=== PATIENT | female | born 1975 | race Two or more races ===

== ENCOUNTER → 2020-05-26 15:39 | Outpatient (BNVA) | payer OTHER, SELFPAY | PROVIDERS: PCP Family Medicine; Referring Provider Family Medicine; Visit Provider Surgery | DX: Z76.89 Persons encountering health services in other specified circumstances (principal) ==

== ENCOUNTER 2020-06-04 07:45 | Outpatient (REF) | payer OTHER, SELFPAY ==
--- NOTE | 2020-06-03 08:36 | HO.ANESPROP2 ---
HPI - Anesthesia Eval Consult details Narrative: 44yo F for excision cyst right back PMFSH Past Medical History Medical History (Updated 06/03/20 @ 08:38 by Praveena Gee) Epidermal inclusion cyst Seasonal allergies Family History Family History Mother History of cervical cancer Maternal Aunt History of bone cancer Other History of breast cancer Surgical History Surgical History History of bilateral breast reduction surgery (~1998) Social History Social History Alcohol intake: never Smoking Status: Never smoker Meds Allergies Allergy/AdvReac Type Severity Reaction Status Date / Time seasonal allergies Allergy Unknown Uncoded 07/13/18 00:00 Home Medications Medication Instructions Recorded Confirmed Type cyclobenzaprine 10 mg tablet mg PO 05/26/20 History fluticasone propionate 50 INTRANASAL 05/26/20 History mcg/actuation nasal spray,suspension ibuprofen 800 mg tablet 800 mg PO TID 05/26/20 History loratadine 10 mg tablet 10 mg PO DAILY 05/26/20 History tretinoin 0.05 % topical cream 1 applic TOPICAL BEDTIME 05/26/20 History Exam Exam Date and Time: June 03, 2020 0836 Assessment and Plan Assessment Anesthesia Assessment: Chart Reviewed
[2020-06-04 08:00] VITALS: BP 135/70; PULSE 72; RESP 16; TEMP 36.6; O2SAT 100
[2020-06-04 08:01] VITALS: BMI 29.3
[2020-06-04 08:53] VITALS: BP 106/55; PULSE 75; RESP 16; O2SAT 99
--- NOTE | 2020-06-04 09:14 | PC.NURSE ---
PT TOLERATED PROCEDURE WELL. RENETTA PIRESP ON CASE WITH .
--- NOTE | 2020-06-04 14:30 | OP_ITS ---
SURGEON: Azeem Key MD INDICATIONS: The patient is a 44-year-old female, with note of a cystic mass on the left upper back measuring about 1 cm in size and lipomatous mass on the left forearm measuring about 1.5 cm in size. She wanted both of these lesions removed. She understood the technique of procedure under local anesthesia and she was aware of the risks, benefits, and alternatives. PREOPERATIVE DIAGNOSIS: POSTOPERATIVE DIAGNOSIS: PROCEDURE PERFORMED: Excision of epidermal cyst, right upper back and excision of lipoma, left forearm. ESTIMATED BLOOD LOSS: COMPLICATIONS: ANESTHESIA: ASSISTANTS: Clara Ibarra, nurse practitioner. SPECIMENS: DESCRIPTION OF PROCEDURE: She was brought to the minor procedure room. She was placed in left lateral decubitus position to expose the epidermal cyst on the right upper back near the axilla. This area was prepped and draped. Lidocaine 1% was used for local anesthesia. An elliptical incision was made in the skin overlying the epidermal cyst using blade #15, it was carried down to full-thickness of the skin and subcutaneous fat to excise the entire indurated area. This was sent as specimen. The incision was closed with full-thickness nylon 3-0 interrupted sutures. Dressings were applied. She was then placed supine on the exam table. The area of the lipoma on the left forearm was prepped and draped. Lidocaine 1% was used for local anesthesia and incision was made in the skin overlying this lipoma using blade #15 and this was carried down to full-thickness of the skin and subcutaneous fat. We then proceeded to do sharp dissection of the lipomatous mass. This was delivered and sent as specimen. Again, this was about a 1.5 cm lipoma. The incision was closed with full-thickness nylon 3-0 interrupted sutures. Dressings were applied. She tolerated procedure well. There were no complications noted. Estimated blood loss was about 5 mL. She will be seen in the office for followup for removal of sutures. MD LUCI Chavez/GAURANG / [id number]
== END 2020-06-04 07:46 | disposition home or self-care (01) ==
LOC: HO.MS 07:45
PROVIDERS: PCP Family Medicine; Visit Provider Surgery
PROC: (CPT 11402; principal; 2020-06-04 08:00)
DX: L72.0 Epidermal cyst (principal); D17.22 Benign lipomatous neoplasm of skin and subcutaneous tissue of left arm
CPT/HCPCS: 11402; 25075; 88304; 88341; 88342; 88360

== ENCOUNTER → 2020-06-16 09:52 | Outpatient (BNVA) | payer OTHER, SELFPAY | PROVIDERS: PCP Family Medicine; Visit Provider Surgery | DX: Z76.89 Persons encountering health services in other specified circumstances (principal) ==

== ENCOUNTER → 2020-10-29 10:15 | Outpatient (BNVA) | payer OTHER, SELFPAY | PROVIDERS: PCP Family Medicine; Visit Provider Obstetrics & Gynecology ==

== ENCOUNTER 2020-11-06 08:25 | Outpatient (REF) | payer OTHER, SELFPAY ==
[2020-11-06 16:41] LABS: CT PCR NOT DETECTED (Not Detect.); NG PCR NOT DETECTED (Not Detect.)
[2020-11-11 23:03] LABS: HPV mRNA E6/E7 rflx Not Detected (Not Detected)
== END 2020-11-06 08:26 | disposition home or self-care (01) ==
LOC: HO.LAB 08:25
PROVIDERS: PCP Family Medicine; Visit Provider Obstetrics & Gynecology
DX: Z01.419 Encounter for gynecological examination (general) (routine) without abnormal findings (principal); N94.9 Unspecified condition associated with female genital organs and menstrual cycle; Z79.899 Other long term (current) drug therapy
CPT/HCPCS: 87491; 87591; 87624; 88142

== ENCOUNTER 2020-11-11 15:19 | Outpatient (REF) | payer OTHER, SELFPAY ==
--- NOTE | ~2020-11-11 | US_ITS ---
EXAMINATION:US transvaginal, US pelvic complete CLINICAL INFORMATION: Reason for Exam N94.9 - Unspecified condition associated with female katlyn... COMPARISON: No priors available. LMP: 10/27/2020 FINDINGS: UTERUS: The uterus is anteverted. Size: 8.4 x 4.7 x 5.3 cm. Uterine mass: Intramural uterine mass likely fibroid 2.1 x 1.5 x 2.3 cm right anterior wall. Cervix: Grossly unremarkable. Endometrium: No ultrasound evidence of endometrial lesion. endometrial thickness measures 0.[address] in proper position. ADNEXA: Normal Right ovary: Normal in size. Right ovarian cyst 1.8 x 1.4 x 1.6 cm probably recently ruptured corpus luteal cyst. There is adjacent free fluid.. Left ovary: Normal in size. Doppler exam: Normal Doppler flow identified in both ovaries. FREE FLUID: Trace amount of free fluid. OTHER FINDINGS: None US/US transvaginal IMPRESSION: 1. Intramural uterine mass likely fibroid 2.3 cm. 2. Involuted cyst with adjacent small amount of fluid probably a ruptured corpus luteal cyst right ovary 1.8 cm. 3. IUD in place properly positioned.
--- NOTE | ~2020-11-11 | US_ITS ---
EXAMINATION:US transvaginal, US pelvic complete CLINICAL INFORMATION: Reason for Exam N94.9 - Unspecified condition associated with female katlyn... COMPARISON: No priors available. LMP: 10/27/2020 FINDINGS: UTERUS: The uterus is anteverted. Size: 8.4 x 4.7 x 5.3 cm. Uterine mass: Intramural uterine mass likely fibroid 2.1 x 1.5 x 2.3 cm right anterior wall. Cervix: Grossly unremarkable. Endometrium: No ultrasound evidence of endometrial lesion. endometrial thickness measures 0.[address] in proper position. ADNEXA: Normal Right ovary: Normal in size. Right ovarian cyst 1.8 x 1.4 x 1.6 cm probably recently ruptured corpus luteal cyst. There is adjacent free fluid.. Left ovary: Normal in size. Doppler exam: Normal Doppler flow identified in both ovaries. FREE FLUID: Trace amount of free fluid. OTHER FINDINGS: None US/US pelvic complete IMPRESSION: 1. Intramural uterine mass likely fibroid 2.3 cm. 2. Involuted cyst with adjacent small amount of fluid probably a ruptured corpus luteal cyst right ovary 1.8 cm. 3. IUD in place properly positioned.
== END 2020-11-11 15:20 | disposition home or self-care (01) ==
LOC: HO.US 15:19
PROVIDERS: Visit Provider Obstetrics & Gynecology
DX: N94.9 Unspecified condition associated with female genital organs and menstrual cycle (principal)
CPT/HCPCS: 76830; 76856

== ENCOUNTER → 2020-11-26 11:59 | Outpatient (BNVA) | payer OTHER, SELFPAY | PROVIDERS: PCP Family Medicine; Visit Provider Obstetrics & Gynecology ==

== ENCOUNTER 2020-12-29 14:14 | Outpatient (REF) | payer OTHER, SELFPAY ==
--- NOTE | ~2020-12-29 | MM_ITS ---
EXAMINATION: MM SCREENING DIGITAL BREAST TOMOSYNTHESIS, BILATERAL CLINICAL INFORMATION: Screening. Asymptomatic. The lifetime risk of breast cancer based on the Tyrer-Cuzick Model is 7.2%. COMPARISON: Mammography: September 2017 and studies dating back to June 22, 2014 TECHNIQUE: Digital breast tomosynthesis is performed in both the craniocaudal and mediolateral oblique views along with computer-aided detection (CAD). Synthesized 2D images are generated from the tomosynthesis. FINDINGS: The breasts are heterogeneously dense, which may obscure small masses (ACR BI-RADS breast composition Category c). There are no significant masses, abnormal calcifications, or other abnormalities. MM/MM tomosynthesis screening BI IMPRESSION: There are no significant changes from prior study. ASSESSMENT: BI-RADS 1: Negative RECOMMENDATION: Routine annual mammography screening. This patient's information was entered into a reminder system with a target due date for their next mammogram.
== END 2020-12-29 14:15 | disposition home or self-care (01) ==
LOC: HO.MAMMO 14:14
PROVIDERS: Visit Provider Obstetrics & Gynecology
DX: Z12.31 Encounter for screening mammogram for malignant neoplasm of breast (principal)
CPT/HCPCS: 77063; 77067

== ENCOUNTER 2021-04-14 08:33 | Outpatient (REF) | payer OTHER, SELFPAY ==
[2021-04-14 16:21] LABS: CT PCR NOT DETECTED (Not Detect.); NG PCR NOT DETECTED (Not Detect.)
== END 2021-04-14 08:34 | disposition home or self-care (01) ==
LOC: HO.LAB 08:33
PROVIDERS: PCP Family Medicine; Visit Provider Obstetrics & Gynecology
DX: Z30.433 Encounter for removal and reinsertion of intrauterine contraceptive device (principal)
CPT/HCPCS: 58300; 58301; 87491; 87591

== ENCOUNTER → 2021-11-09 09:51 | Outpatient (BNVA) | payer OTHER, SELFPAY | PROVIDERS: PCP Family Medicine; Visit Provider Obstetrics & Gynecology | DX: Z13.89 Encounter for screening for other disorder (principal) ==

== ENCOUNTER 2022-05-07 14:16 | Emergency (ER) | payer OTHER, SELFPAY ==
--- NOTE | 2022-05-07 14:18 | ECG_ITS ---
Test Reason : CHEST PAIN Blood Pressure : / mmHG Vent. Rate : 070 BPM Atrial Rate : 070 BPM P-R Int : 166 ms QRS Dur : 086 ms QT Int : 408 ms P-R-T Axes : 049 031 038 degrees QTc Int : 440 ms Normal sinus rhythm Normal ECG No previous ECGs available Referred By: Generic ED Physician Electronically Signed By:NATALIYA HAMPTON
[2022-05-07 14:19] VITALS: BP 120/77; PULSE 72; RESP 18; TEMP 36.9; O2SAT 100; BMI 30.9
[2022-05-07 14:43] LABS: MANUAL DIFF FLAG NO
[2022-05-07 14:45] LABS: Basophils Percent Auto 0.3 % (0-2); Eosinophils Absolute Auto 0.1 X10*3/uL (0.0-0.4); Eosinophils Percent Auto 1.2 % (0-4); Hemoglobin 13.1 g/dl (12.0-16.0); Imm Gran Abs Auto 0.01 X10*3/uL (0.00-0.03); Imm Gran Pct Auto 0.2 % (0.0-0.4); Lymphocytes Absolute Auto 2.7 X10*3/uL (1.2-4.9); Lymphocytes Percent Auto 46.1 % (20-40); Mean Corpuscular HGB Conc 34.5 g/dl (31.0-35.0); Mean Corpuscular Hemoglobin 29.5 pg (27.0-33.0); Mean Corpuscular Volume 85.6 fL (80.0-98.0); Mean Platelet Volume 9.5 fL (9.4-12.3); Monocytes Absolute Auto 0.7 X10*3/uL (0.1-1.2); Monocytes Percent Auto 11.2 % (2-11); Neutrophils Absolute Auto 2.4 x10*3/uL (2.0-8.3); Platelet Count 285 X10*3/uL (160-400); Red Blood Count 4.44 X10*6/uL (4.20-5.50); Red Cell Distribution Width 12.2 % (11.0-16.0); White Blood Count 5.8 X10*3/uL (4.8-10.8)
--- NOTE | 2022-05-07 14:58 | ED_ITS ---
HPI - Chest Pain General Chief Complaint: Chest Pain Stated Complaint: Chest pressure sent from [facility] Time Seen by Provider: 05/07/22 14:34 Source: patient Mode of arrival: EMS Limitations: no limitations History of Present Illness HPI narrative: Patient presents emergency department via EMS for evaluation of chest pressure. Patient reports that she was at work today, at a [employer], and was advised by coworkers to come to the emergency department. She reports she has been having left-sided chest pain for the past 2 days. It is described as pressure, unable to be located as it is diffuse across the left chest. At times radiating into the left shoulder, axilla, and left upper arm. Pain is described as a heaviness/pressure. It is intermittent. Typically lasting 1-2 hours at a time then resolving on its own for a few hours before returning again. She is unable to identify any exacerbating or alleviating factors. She was given aspirin and nitro prior to arrival which did relieve her symptoms. Denies headache, vision changes, dizziness, lightheadedness, neck pain, palpitations, shortness of breath, difficulty breathing, nausea, vomiting, abdominal pain, numbness or tingling to the extremities, weakness. Related Data Home Medications Medication Instructions Recorded Confirmed fluticasone propionate 50 intranasal 05/26/20 11/06/20 mcg/actuation nasal spray,suspension ibuprofen 800 mg tablet 800 mg PO TID 05/26/20 11/06/20 loratadine 10 mg tablet 10 mg PO DAILY 05/26/20 11/06/20 levonorgestrel 20 mcg/24 hours (7 intrauterine 10/29/20 11/06/20 yrs) 52 mg intrauterine device (Mirena) bupropion HCl 100 mg tablet,12 hr 100 mg PO BID 11/09/21 sustained-release Allergies Allergy/AdvReac Type Severity Reaction Status Date / Time seasonal allergies Allergy Unknown unk Uncoded 11/09/21 09:56 Review of Systems Review of Systems: Constitutional : No Weight loss, No Fever, No Chills ENT/Mouth :? No sore throat, No Rhinorrhea Eyes: No Eye Pain, No Swelling Cardiovascular : pos Chest Pain, no SOB, no Dyspnea on Exertion, No Orthopnea, No Edema, No Palpitations Respiratory : No Cough, No Sputum Gastrointestinal : no Nausea, No Vomiting, No Diarrhea, No abdominal Pain, No Hematochezia, No Melena Genitourinary : No Dysuria, No Urinary Frequency Musculoskeletal : No joint pain, No Myalgias, No Joint Swelling Skin : No Skin Lesions, No rash Neuro : No Weakness, No Numbness, No Dizziness, No Headache Psych : No Anxiety/Panic, No Depression Heme/Lymph: No Bruising, No Lymphadenopathy Endocrine : No Polyuria, No Polydipsia Yes all other systems are reviewed and are negative [facility] Past Medical History Attestation statement: The following information was validated with the patient. Source: old records reviewed Medical History Epidermal inclusion cyst Lipoma of arm Seasonal allergies Surgical History History of bilateral breast reduction surgery (~1998) Family History Family History Mother History of cervical cancer Maternal Aunt History of bone cancer Other History of breast cancer Social History Social History Alcohol intake: never Second Hand Smoke Exposure: No Advance Directives: No Advance Directives Information Provided: No Physical Exam Vital Signs: Vital Signs: Last Vital Signs Temp 98.4 F 05/07/22 14:19 Pulse 72 05/07/22 14:19 Resp 18 05/07/22 14:19 BP 120/77 05/07/22 14:19 Pulse Ox 100 05/07/22 14:19 O2 Del Method 05/07/22 14:19 BMI result Body Mass Index 30.9 Appearance: Alert.?Oriented to person, place and time. No acute distress.?Normal affect. Eyes: Pupils equal, round and reactive to light.? EOMI. No nystagmus. ENT: Pharynx normal.?? Neck: Normal inspection.? Neck supple.?? CVS: Heart sounds normal. Normal heart rate and rhythm.? Pulses normal.?? Respiratory: No respiratory distress.? Lung sounds clear to auscultation bilaterally?? Abdomen: Soft and non-tender. Normoactive bowel sounds. Skin: Skin warm and dry.? Normal skin color.? ?? Extremities: No lower extremity edema.? No calf ttp? Neuro: Moves all extremities spontaneously. Sensation intact bilaterally. CN II- XII intact. No focal neuro deficits. Ambulates with normal steady gait. Course Course Course Narrative: Patient is a 46-year-old female with no significant past medical history presents emergency department today for evaluation of chest pain. She is overall well appearing on examination. Pain is resolved at this time. Will obtain CBC to evaluate for leukocytosis/ anemia, CMP to evaluate for abnormal electrolytes /abnormal renal function/ abnormal hepatic function, EKG and troponin to evaluate for ischemia/ACS. Chest x-ray to evaluate for consolidation/ infiltrate/ mass/ pulmonary congestion, D-dimer, Urinalysis. Reevaluation(s) Reevaluation #1: CBC is overall unremarkable. CMP is unremarkable. is negative. Troponin is normal, EKG reveals normal sinus rhythm no acute ischemic findings. D-dimer <150. Not consistent with ACS or PE. Discussed these findings with sofía mccormack. Advised pain may be secondary to musculoskeletal in nature. At this time will discharge patient home, advised outpatient follow-up with her primary care provider within 3 days. Reviewed worrisome signs and symptoms to return back to the emergency department for. All questions were answered, patient discharged home in stable condition. MDM - Chest Pain Medical Records Data Attestation: I reviewed the patient's medical records. Lab Data Attestation: I reviewed the patient's lab results. Result diagrams: 05/07/22 14:31 05/07/22 14:31 Labs: Lab Results 05/07/22 05/07/22 05/07/22 Range/Units 14:31 14:31 14:31 WBC 5.8 (4.8-10.8) X10*3/uL RBC 4.44 (4.20-5.50) X10*6/uL Hgb 13.1 (12.0-16.0) g/dl Hct 38.0 (37.0-47.0) % MCV 85.6 (80.0-98.0) fL MCH 29.5 (27.0-33.0) pg MCHC 34.5 (31.0-35.0) g/dl RDW 12.2 (11.0-16.0) % Plt Count 285 (160-400) X10*3/uL MPV 9.5 (9.4-12.3) fL Immature Gran % (Auto) 0.2 (0.0-0.4) % Neut % (Auto) 41.0 L (45-73) % Lymph % (Auto) 46.1 H (20-40) % [place] % (Auto) 11.2 H (2-11) % Eos % (Auto) 1.2 (0-4) % Baso % (Auto) 0.3 (0-2) % Lymph # (Auto) 2.7 (1.2-4.9) X10*3/uL [place] # (Auto) 0.7 (0.1-1.2) X10*3/uL Eos # (Auto) 0.1 (0.0-0.4) X10*3/uL Baso # (Auto) 0.0 (0.0-0.2) X10*3/uL Abs Immat Gran (auto) 0.01 (0.00-0.03) X10*3/uL Absolute Neuts (auto) 2.4 (2.0-8.3) x10*3/uL Absolute Nucleated RBC 0.000 (0.0-0.012) X10*3/uL Nucleated RBC % (auto) 0.0 (0.0-0.2) /100WBC D-Dimer High Sensitivty NG/ML Sodium 139 (135-145) mmol/L Potassium 4.1 (3.3-5.1) mmol/L Chloride 104 (96-108) mmol/L Carbon Dioxide 25 (22-29) mmol/L Anion Gap 14 (12-20) BUN 13 (9-16) mg/dL Creatinine 0.75 (0.5-1.4) mg/dL Estim Creat Clear Calc 95.8 Estimated GFR > 60 Random Glucose 88 (60-115) mg/dL Calcium 9.5 (8.4-10.2) mg/dL Total Bilirubin 0.3 (0.0-1.0) mg/dL AST 16 (5-31) U/L ALT 19 (0-31) U/L Alkaline Phosphatase 52 (39-117) U/L Troponin I High Sens < 3.5 (<3.5-17.0) ng/L Total Protein 7.8 (6.5-8.0) g/dL Albumin 4.5 (3.5-5.0) g/dL Beta HCG, Quant < 2 mIU/mL 05/07/22 Range/Units 14:53 WBC (4.8-10.8) X10*3/uL RBC (4.20-5.50) X10*6/uL Hgb (12.0-16.0) g/dl Hct (37.0-47.0) % MCV (80.0-98.0) fL MCH (27.0-33.0) pg MCHC (31.0-35.0) g/dl RDW (11.0-16.0) % Plt Count (160-400) X10*3/uL MPV (9.4-12.3) fL Immature Gran % (Auto) (0.0-0.4) % Neut % (Auto) (45-73) % Lymph % (Auto) (20-40) % [place] % (Auto) (2-11) % Eos % (Auto) (0-4) % Baso % (Auto) (0-2) % Lymph # (Auto) (1.2-4.9) X10*3/uL [place] # (Auto) (0.1-1.2) X10*3/uL Eos # (Auto) (0.0-0.4) X10*3/uL Baso # (Auto) (0.0-0.2) X10*3/uL Abs Immat Gran (auto) (0.00-0.03) X10*3/uL Absolute Neuts (auto) (2.0-8.3) x10*3/uL Absolute Nucleated RBC (0.0-0.012) X10*3/uL Nucleated RBC % (auto) (0.0-0.2) /100WBC D-Dimer High Sensitivty < 150 NG/ML Sodium (135-145) mmol/L Potassium (3.3-5.1) mmol/L Chloride (96-108) mmol/L Carbon Dioxide (22-29) mmol/L Anion Gap (12-20) BUN (9-16) mg/dL Creatinine (0.5-1.4) mg/dL Estim Creat Clear Calc Estimated GFR Random Glucose (60-115) mg/dL Calcium (8.4-10.2) mg/dL Total Bilirubin (0.0-1.0) mg/dL AST (5-31) U/L ALT (0-31) U/L Alkaline Phosphatase (39-117) U/L Troponin I High Sens (<3.5-17.0) ng/L Total Protein (6.5-8.0) g/dL Albumin (3.5-5.0) g/dL Beta HCG, Quant mIU/mL ECG Data ECG #1: Prior ECG tracings: not available for review Interpretation: Rate: 70 Rhythm:? Normal sinus rhythm [place]:? Normal Normal P waves.? Normal EZRA.?? Normal QRS complex.?? ST T wave :??No ST elevation, no ST depression, no T-wave inversion qTC: 440 The study has been interpreted contemporaneously by me. Discharge Plan Discharge Clinical Impression: Chest pain, Atypical chest pain Patient Disposition: Home, Self-Care Instructions: Chest Pain (ED) Additional Instructions: Your blood work and EKG today were normal. Please contact your primary care provider to arrange for a follow-up visit in 2-3 days. You should return to the emergency department any new or worsening symptoms or concerns. Prescriptions: No Action ibuprofen 800 mg tablet 800 mg PO TID loratadine 10 mg tablet 10 mg PO DAILY fluticasone propionate 50 mcg/actuation spray,suspension intranasal Mirena 20 mcg/24 hours (6 yrs) 52 mg intrauterine device intrauterine bupropion HCl 100 mg tablet sustained-release 12 hr 100 mg PO BID
[2022-05-07 15:01] LABS: Alanine Aminotransferase 19 U/L (0-31); Albumin Level 4.5 g/dL (3.5-5.0); Alkaline Phosphatase 52 U/L (39-117); Anion Gap 14 (12-20); Aspartate Amino Transferase 16 U/L (5-31); Bilirubin Total 0.3 mg/dL (0.0-1.0); Blood Urea Nitrogen 13 mg/dL (9-16); Calcium 9.5 mg/dL (8.4-10.2); Carbon Dioxide 25 mmol/L (22-29); Chloride 104 mmol/L (96-108); Creatinine Clr Calc Pharmacy 95.8; Estimated Glomerular Filt Rate > 60; Glucose Random 88 mg/dL (60-115); Potassium 4.1 mmol/L (3.3-5.1); Sodium 139 mmol/L (135-145); Total Protein 7.8 g/dL (6.5-8.0)
[2022-05-07 15:07] LABS: Troponin-I High Sensitivity < 3.5 ng/L (<3.5-17.0)
[2022-05-07 15:10] LABS: D Dimer High Sensitivity < 150 NG/ML
[2022-05-07 15:30] LABS: HCG Quantitative < 2 mIU/mL
== END 2022-05-07 16:57 | disposition home or self-care (01) ==
PROVIDERS: Nurse Practitioner Family; Emergency Provider Emergency Medicine; PCP Family Medicine
DX: R07.89 Other chest pain (principal); Z79.899 Other long term (current) drug therapy
CPT/HCPCS: 36415; 80053; 84484; 84702; 85025; 85379; 93005; 99283

== ENCOUNTER 2022-09-24 07:44 | Outpatient (REF) | payer OTHER, SELFPAY ==
--- NOTE | ~2022-09-24 | XR_ITS ---
EXAMINATION: XR lumbar spine 2-3V CLINICAL INFORMATION: Reason for Exam ACUTE MIDLINE LOW BACK PAIN ,PAIN IN SACRAL AREA COMPARISON: None TECHNIQUE: 3 views of the lumbar spine FINDINGS: There are 6 nonrib-bearing lumbar-type vertebral bodies with lumbarization of S1. The last well-formed disc space will be referred to as S1-S2. Vertebral body heights are maintained. Alignment is maintained. Disc space heights are maintained. Paravertebral soft tissues are unremarkable. XR/XR lumbar spine 2-3V IMPRESSION: 6 nonrib-bearing lumbar-type vertebral bodies with lumbarization of S1. The last well-formed disc space will be referred to as S1-S2.
== END 2022-09-24 07:45 | disposition home or self-care (01) ==
LOC: HO.XRAY 07:44
PROVIDERS: PCP Family Medicine; Visit Provider Family Medicine
DX: M54.50 Low back pain, unspecified (principal)
CPT/HCPCS: 72100

== ENCOUNTER 2023-11-18 11:28 | Outpatient (REF) | payer OTHER, SELFPAY ==
[2023-11-18 13:24] LABS: MANUAL DIFF FLAG NO
[2023-11-18 13:46] LABS: Basophils Percent Auto 0.4 % (0-2); Eosinophils Absolute Auto 0.2 X10*3/uL (0.0-0.4); Eosinophils Percent Auto 3.3 % (0-4); Hematocrit 36.5 % (37.0-47.0); Hemoglobin 12.4 g/dl (12.0-16.0); Imm Gran Abs Auto 0.01 X10*3/uL (0.00-0.03); Imm Gran Pct Auto 0.2 % (0.0-0.4); Lymphocytes Absolute Auto 2.3 X10*3/uL (1.2-4.9); Lymphocytes Percent Auto 47.3 % (20-40); Mean Corpuscular Hemoglobin 29.7 pg (27.0-33.0); Mean Corpuscular Volume 87.5 fL (80.0-98.0); Monocytes Absolute Auto 0.6 X10*3/uL (0.1-1.2); Monocytes Percent Auto 12.6 % (2-11); Neutrophils Absolute Auto 1.7 x10*3/uL (2.0-8.3); Neutrophils Percent Auto 36.2 % (45-73); Platelet Count 250 X10*3/uL (160-400); Red Blood Count 4.17 X10*6/uL (4.20-5.50); Red Cell Distribution Width 13.2 % (11.0-16.0); White Blood Count 4.8 X10*3/uL (4.8-10.8)
[2023-11-18 14:28] LABS: Erythrocyte Sedimentation Rate 11 MM/HR (0-20)
[2023-11-20 10:54] LABS: Anti Nuclear Antibody Screen NEGATIVE (NEGATIVE)
== END 2023-11-18 11:29 | disposition home or self-care (01) ==
LOC: HO.HHCL 11:28
PROVIDERS: Visit Provider Family Medicine
DX: R21 Rash and other nonspecific skin eruption (principal)
CPT/HCPCS: 36415; 85025; 85652; 86038

== ENCOUNTER 2023-12-22 12:37 | Outpatient (AMB) | payer OTHER, SELFPAY ==
[2023-12-22 12:42] VITALS: BP 109/74; PULSE 76; BMI 29.5
--- NOTE | 2023-12-22 12:42 | MHC.OFFVIS ---
Vital Signs 12/22/23 12:42 Height 5 ft 4 in Weight 171 lb 15.369 oz BMI 29.5 BP 109/74 Blood Pressure Location Lt brachial Position Sitting Pulse 76 Intake Visit Reasons: Colonoscopy Screening Intake Note: New patient presents in office today for colonoscopy screening. CC: Denies having any GI symptom or concerns today. Cattle Knocker Required: No Allergies sulfamethoxazole [From Bactrim] Allergy (Severe, Verified 12/22/23 12:51) Hives trimethoprim [From Bactrim] Allergy (Severe, Verified 12/22/23 12:51) Hives Seasonal Allergies Allergy (Unknown, Verified 12/22/23 12:51) Unknown HPI HPI Colonoscopy Screening: Details: 47-year-old female here for preprocedural meeting to discuss a screening colonoscopy. She is referred by Libia Kerr of [facility]. PMX Obesity PHYLLIS * SURGICAL HISTORY Breast reduction * ALLERGIES Bactrim - hives * [facility] LABS: Laboratory Tests 05/07/22 11/18/23 14:31 11:30 WBC 4.8 RBC 4.17 L Hgb 12.4 Hct 36.5 L Plt Count 250 Estimated GFR > 60 Total Bilirubin 0.3 AST 16 ALT 19 Alkaline Phosphatase 52 TODAY'S VISIT This is her first colonoscopy. She denies any bowel or upper GI problems. There are no prior problems with anesthesia or sedation.. She denies any cardiac or respiratory problems. No ID problems. She is on Contrave and questions when to stop wtih the Naloxone - would not need to if we use propofol. There is no known FHX of crc or polps. [facility] Medical History Lipoma of arm Seasonal allergies Epidermal inclusion cyst Surgical History History of bilateral breast reduction surgery (~1998) Family History Mother History of cervical cancer Maternal Aunt History of bone cancer Other History of breast cancer Social History Alcohol intake: never Second Hand Smoke Exposure: No Female Reproductive History Menstrual Age of Menarche: 12 Review of Systems Const Denies fatigue, Denies fever(s), Denies night sweats, Denies poor appetite and Denies weight loss Eyes Reports requires corrective lenses ENT Reports Normal hearing present, Denies dental pain, Denies dysphagia, Denies hearing loss, Denies mouth pain, Denies odynophagia, Denies throat swelling, Denies tongue swelling and Reports other (Dentition adequate) Card Reports no additional complaints Resp Reports no additional complaints GI Details: Denies abdominal pain, Denies melena, Denies bloating, Denies hematochezia, Denies constipation, Denies GI cramping, Denies dysphagia, Denies excessive flatus, Denies early satiety, Denies heartburn, Denies diarrhea, Denies nausea, Denies odynophagia, Denies vomiting and Denies hematemesis Skin/Breast Denies pruritus, Denies lesions, Denies rash and Denies jaundice Neuro Reports Normal hearing present and Denies Abnormal speech present Endo Denies fatigue Aller/Immun Denies throat swelling and Denies tongue swelling Physical Exam Vital Signs: Last Vital Signs Pulse 76 12/22/23 12:42 BP 109/74 12/22/23 12:42 BMI result Body Mass Index 29.5 Const General: cooperative, no acute distress, well developed and well groomed Nutritional Appearance: well nourished and overweight Orientation/consciousness: oriented to person, oriented to place and oriented to time Limitations: No language barrier HEENT Head: Yes normocephalic and Yes atraumatic Eyes General: appearance normal, both eyes and all related structures Pupils: Equal, round and reactive pupils present Neck Neck: Yes normal visual inspection and Yes no lymphadenopathy Thyroid: Thyroid normal Resp Effort & Inspection: normal respiratory effort and able to speak in complete sentences Auscultation: clear to auscultation bilaterally Cardio Rate: regular rate Rhythm: regular rhythm Heart sounds: Normal, physiologic split S2 sound present Peripheral pulses: radial pulses present and posterior tibial pulses present GI Inspection: No distended and No Abdominal panniculus present Palpation (GI): Soft to palpation, nontender, no guarding, not rigid and No hepatosplenomegaly present Percussion: Yes normal to percussion Auscultation: normal bowel sounds Rectal Exam - Female: deferred Skin General skin exam: no rashes or lesions noted, turgor normal, skin not dry, no jaundice, No spider nevi and no striae Rashes: no rashes Nails: normal Neuro General: oriented to person, oriented to place and oriented to time Cranial nerves: Yes Equal, round and reactive pupils present and Yes Normal hearing present Speech: No Abnormal speech present Extrem General: Yes normal to inspection, No clubbing, No cyanosis and No edema Psych Appearance: grossly normal and well kempt Mental Status: mental status grossly normal Speech and movement: Normal speech and movement present Affect: normal affect Attitude: cooperative Thought process: Normal thought process present and not confabulating Thought content: Normal thought content present Insight: Good insight present (Psych) Judgement: Good judgement present (Psych) Assessment & Plan Assessment & Plan (1) Pre-op examination: Code(s): Z01.818 - Encounter for other preprocedural examination Category: Medical Plan This is her first colonoscopy. She denies any bowel or upper GI problems. There are no prior problems with anesthesia or sedation.. She denies any cardiac or respiratory problems. No ID problems. She is on Contrave and questions when to stop wtih the Naloxone - would not need to if we use propofol. There is no known FHX of crc or polps. Orders: Orders Colonoscopy - GI Use Only 12/22/23 Z01.818 - Encounter for other preprocedural examination Medications: New bisacodyl (Dulcolax (bisacodyl)) 10 mg (2 x 5 mg) PO BEDTIME 4 tabs 0RF 2 days Coding Level of Care Code New Pt Level 3 (67904) Diagnoses Pre-op examination Z01.818
== END 2023-12-22 13:32 | disposition home or self-care (01) ==
PROVIDERS: PCP Family Medicine; Visit Provider Nurse Practitioner
DX: Z01.818 Encounter for other preprocedural examination (principal)
CPT/HCPCS: 99203

== ENCOUNTER → 2023-12-22 12:37 | Outpatient (BNVA) | payer OTHER, SELFPAY | PROVIDERS: PCP Family Medicine; Visit Provider Nurse Practitioner ==

== ENCOUNTER 2024-05-11 15:20 | Outpatient (REF) | payer OTHER, SELFPAY ==
--- NOTE | ~2024-05-11 | MM_ITS ---
EXAMINATION: MM SCREENING DIGITAL BREAST TOMOSYNTHESIS, BILATERAL CLINICAL INFORMATION: Screening. Asymptomatic. COMPARISON: Mammography: Comparison is made with available priors TECHNIQUE: Digital breast mammography with tomosynthesis is performed in both the craniocaudal and mediolateral oblique views along with computer-aided detection (CAD). FINDINGS: There are scattered areas of fibroglandular density (ACR BI-RADS breast composition Category b). Bilateral reduction mammoplasty changes are stable dating back to 2016. There are no significant masses, abnormal calcifications, or other abnormalities. MM/MM tomosynthesis screening BI IMPRESSION: No mammographic evidence of malignancy. ASSESSMENT: BI-RADS BI-RADS 2 - Benign Findings RECOMMENDATION: Routine annual mammography screening. 1 year F/U This examination should not preclude the clinical evaluation of a suspicious palpable abnormality. This patient's information was entered into a reminder system with a target due date for their next mammogram. Electronically signed by: Arpita Best DO 05/23/2024 01:52 PM EDT
== END 2024-05-11 15:21 | disposition home or self-care (01) ==
LOC: HO.MAMMO 15:20
PROVIDERS: PCP Family Medicine; Visit Provider Obstetrics & Gynecology
DX: Z12.31 Encounter for screening mammogram for malignant neoplasm of breast (principal)
CPT/HCPCS: 77063; 77067

== ENCOUNTER → 2024-05-11 15:30 | Outpatient (BNV) | payer OTHER, SELFPAY | PROVIDERS: PCP Family Medicine; Visit Provider Internal Medicine | DX: Z12.31 Encounter for screening mammogram for malignant neoplasm of breast (principal) | CPT/HCPCS: 77063; 77067 ==

== ENCOUNTER 2024-06-12 12:00 | Outpatient (REF) | payer OTHER, SELFPAY ==
[2024-06-12 13:22] LABS: MANUAL DIFF FLAG NO
[2024-06-12 13:45] LABS: Basophils Percent Auto 0.3 % (0-2); Eosinophils Percent Auto 0.2 % (0-4); Hematocrit 39.3 % (37.0-47.0); Hemoglobin 13.6 g/dl (12.0-16.0); Imm Gran Abs Auto 0.02 X10*3/uL (0.00-0.03); Imm Gran Pct Auto 0.3 % (0.0-0.4); Lymphocytes Absolute Auto 1.8 X10*3/uL (1.2-4.9); Lymphocytes Percent Auto 29.2 % (20-40); Mean Corpuscular HGB Conc 34.6 g/dl (31.0-35.0); Mean Corpuscular Volume 86.6 fL (80.0-98.0); Mean Platelet Volume 9.5 fL (9.4-12.3); Monocytes Absolute Auto 0.6 X10*3/uL (0.1-1.2); Monocytes Percent Auto 10.5 % (2-11); Neutrophils Absolute Auto 3.6 x10*3/uL (2.0-8.3); Neutrophils Percent Auto 59.5 % (45-73); Platelet Count 266 X10*3/uL (160-400); Red Blood Count 4.54 X10*6/uL (4.20-5.50); Red Cell Distribution Width 12.2 % (11.0-16.0)
[2024-06-12 13:53] LABS: Monotest Negative (Negative)
[2024-06-12 14:03] LABS: Rheumatoid Factor < 13.0 IU/mL (<15.0)
[2024-06-12 14:21] LABS: Alanine Aminotransferase 20 U/L (0-31); Albumin Level 4.6 g/dL (3.5-5.0); Alkaline Phosphatase 57 U/L (39-117); Anion Gap 14 (12-20); Aspartate Amino Transferase 19 U/L (5-31); Bilirubin Direct 0.2 mg/dL (0.0-0.5); Bilirubin Total 0.7 mg/dL (0.0-1.0); Blood Urea Nitrogen 9 mg/dL (9-16); C Reactive Protein 0.51 mg/dL (< or = 0.50); Calcium 9.8 mg/dL (8.4-10.2); Carbon Dioxide 24 mmol/L (22-29); Chloride 103 mmol/L (96-108); Estimated Glomerular Filt Rate > 60; Glucose Random 89 mg/dL (60-115); Magnesium 2.1 mg/dL (1.6-2.6); Potassium 3.5 mmol/L (3.3-5.1); Sodium 137 mmol/L (135-145); Total Protein 8.4 g/dL (6.5-8.0)
[2024-06-12 14:23] LABS: TSH reflex Free T4 1.23 uIU/mL (0.32-4.0); Vitamin D 25-OH Total 22.6 ng/mL (>30)
[2024-06-12 14:28] LABS: Erythrocyte Sedimentation Rate 14 MM/HR (0-20)
[2024-06-13 07:59] LABS: Lyme Abs Screen <0.90 index
[2024-06-13 10:43] LABS: RPR Rapid Plasma Reagin NON-REACTIVE (NON-REACTIVE)
[2024-06-14 14:42] LABS: Anti DNA DS Antibody 1 IU/mL
[2024-06-19 14:58] LABS: Anti Nuclear Antibody Pattern Nuclear, Speckled; Anti Nuclear Antibody Screen POSITIVE (NEGATIVE)
== END 2024-06-12 12:01 | disposition home or self-care (01) ==
LOC: HO.HHCL 12:00
PROVIDERS: Visit Provider Family Medicine
DX: R53.83 Other fatigue (principal); R52 Pain, unspecified; R51.9 Headache, unspecified
CPT/HCPCS: 36415; 80048; 80076; 82306; 83735; 84443; 85025; 85652; 86038; 86039; 86140; 86225; 86308; 86431; 86592; 86617; 86618

== ENCOUNTER 2024-06-14 07:46 | Outpatient (REF) | payer OTHER, SELFPAY ==
[2024-06-14 17:19] LABS: CT PCR NOT DETECTED (Not Detect.); NG PCR NOT DETECTED (Not Detect.)
== END 2024-06-14 07:47 | disposition home or self-care (01) ==
LOC: HO.LNP 07:46
PROVIDERS: PCP Family Medicine; Visit Provider Obstetrics & Gynecology
DX: Z32.02 Encounter for pregnancy test, result negative (principal); Z11.3 Encounter for screening for infections with a predominantly sexual mode of transmission; Z11.8 Encounter for screening for other infectious and parasitic diseases; Z97.5 Presence of (intrauterine) contraceptive device
CPT/HCPCS: 81025; 87491; 87591

== ENCOUNTER 2024-06-14 07:46 | Outpatient (AMB) | payer OTHER, SELFPAY ==
[2024-06-14 07:55] VITALS: BMI 29.5
--- NOTE | 2024-06-14 07:55 | MHC.OFFVIS ---
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 The patient had Mirena IUD inserted in 2020 Last co testing was in 11/26 Last mammogram was in 05/31 was BI-RADS 2 PENDING SALE TO [facility] Medical History Lipoma of arm Seasonal allergies Epidermal inclusion cyst Surgical History History of bilateral breast reduction surgery (~1998) Family History Mother History of cervical cancer Maternal Aunt History of bone cancer Other History of breast cancer Social History Alcohol intake: never Second Hand Smoke Exposure: No Female Reproductive History Menstrual Age of Menarche: 12 control method: progestin IUCD Review of Systems Const All systems reviewed & are unremarkable except as noted in HPI and below Physical Exam Vital Signs: BMI result Body Mass Index 29.5 General: Yes no CVA tenderness External Female Exam: normal external appearance and normal appearance of the urethra Speculum Exam - Vagina: normal appearance of the vagina, normal palpation, no lesions and no masses Speculum Exam - Cervix: normal appearance of the cervix, normal palpation, no lesions, no masses, nontender and Other cervical findings present (IUD string in place) Bimanual exam- vagina & uterus: normal bimanual exam, normal palpation, uterine size normal, normal palpation, uterine shape normal, No Cervical tenderness present and non-tender Bimanual Exam- Adnexa, other: normal adnexae Back/Spine/Pelvis Back: no CVA tenderness Results AMB Test Urine AMB Test Urine Negative Last Edit by Lina Thomas CMA on 06/14/24 08:19 Assessment & Plan Assessment & Plan (1) Abnormal uterine bleeding: Comment: With Mirena IUD Code(s): N93.9 - Abnormal uterine and vaginal bleeding, unspecified Category: Medical Plan: GC and chlamydia taken CBC, TSH, prolactin, HCG, and pelvic ultrasound ordered. Discussed with the patient the different causes of abnormal bleeding including thyroid disorders, uterine and ovarian pathology, endometrial hyperplasia, carcinoma and other potential causes. Discussed with the patient the work up including CBC (to r/o anemia), TSH, prolactin, pelvic Ultrasound, endometrial biopsy to r/o endometrial pathology. All questions answered and the patient verbalized understanding. Instructed the patient to schedule an appointment for an endometrial biopsy in 2 weeks. Orders: Orders AMB HCG Urine Test Today Z32.02 - Encounter for test, result negative TSH reflex Free T4 Today N93.9 - Abnormal uterine and vaginal bleeding, unspecified Follicle Stimulating Hormone Today N93.9 - Abnormal uterine and vaginal bleeding, unspecified Prolactin Today N93.9 - Abnormal uterine and vaginal bleeding, unspecified HCG Quantitative Today N93.9 - Abnormal uterine and vaginal bleeding, unspecified CT NG by PCR Today Z32.02 - Encounter for test, result negative Lutenizing Hormone Today N93.9 - Abnormal uterine and vaginal bleeding, unspecified Complete Blood Count no Diff Today N93.9 - Abnormal uterine and vaginal bleeding, unspecified US pelvic and transvaginal Today N93.9 - Abnormal uterine and vaginal bleeding, unspecified Coding Level of Care Code Est Pt Level 3 (07948) Diagnoses Abnormal uterine bleeding N93.9
== END 2024-06-14 09:21 | disposition home or self-care (01) ==
LOC: HO.HWS 07:47
PROVIDERS: PCP Family Medicine; Visit Provider Obstetrics & Gynecology
DX: N93.9 Abnormal uterine and vaginal bleeding, unspecified (principal); Z32.02 Encounter for pregnancy test, result negative
CPT/HCPCS: 99213

== ENCOUNTER 2024-06-14 13:23 | Outpatient (REF) | payer OTHER, SELFPAY ==
[2024-06-14 16:20] LABS: Hematocrit 38.3 % (37.0-47.0); Mean Corpuscular HGB Conc 33.9 g/dl (31.0-35.0); Mean Corpuscular Hemoglobin 29.5 pg (27.0-33.0); Mean Corpuscular Volume 86.8 fL (80.0-98.0); Mean Platelet Volume 9.6 fL (9.4-12.3); Platelet Count 265 X10*3/uL (160-400); Red Blood Count 4.41 X10*6/uL (4.20-5.50); Red Cell Distribution Width 12.4 % (11.0-16.0); White Blood Count 4.8 X10*3/uL (4.8-10.8)
[2024-06-14 17:15] LABS: HCG Quantitative < 2 mIU/mL; TSH reflex Free T4 2.89 uIU/mL (0.32-4.0)
[2024-06-15 06:58] LABS: Follicle Stimulating Hormone 6.4 mIU/mL; Lutenizing Hormone 16.4 mIU/mL; Prolactin 8.4 ng/mL
== END 2024-06-14 13:24 | disposition home or self-care (01) ==
LOC: HO.HHCL 13:23
PROVIDERS: Visit Provider Obstetrics & Gynecology
DX: N93.9 Abnormal uterine and vaginal bleeding, unspecified (principal)
CPT/HCPCS: 36415; 83001; 83002; 84146; 84443; 84702; 85027

== ENCOUNTER 2024-06-18 12:53 | Outpatient (REF) | payer OTHER, SELFPAY | END 2024-06-18 12:54 | disposition home or self-care (01) | LOC: HO.HMGCX 12:53 | PROVIDERS: PCP Family Medicine; Visit Provider Obstetrics & Gynecology | DX: N93.9 Abnormal uterine and vaginal bleeding, unspecified (principal) | CPT/HCPCS: 76830; 76856 ==

== ENCOUNTER → 2024-06-18 13:01 | Outpatient (BNV) | payer OTHER, SELFPAY | PROVIDERS: PCP Family Medicine; Visit Provider Radiology Diagnostic Radiology | DX: N93.9 Abnormal uterine and vaginal bleeding, unspecified (principal) | CPT/HCPCS: 76856 ==

== ENCOUNTER 2024-07-26 10:43 | Outpatient (AMB) | payer OTHER, SELFPAY ==
--- NOTE | 2024-07-26 10:44 | A.OFFVIS_ITS ---
Intake Visit Reasons: u/s results Allergies sulfamethoxazole [From Bactrim] Allergy (Severe, Verified 06/14/24 07:58) Hives trimethoprim [From Bactrim] Allergy (Severe, Verified 06/14/24 07:58) Hives Seasonal Allergies Allergy (Unknown, Verified 06/14/24 07:58) Unknown HPI Comments Details: The patient is scheduled tele health visit to discuss the results the ultrasound done on 06/18/2024, read on 07/25/2024 and showed the following: Uterus: The uterus is retroverted and measures 8 x 5 x 5 cm.. The double wall endometrial thickness is not fully evaluated due to intrauterine contraceptive device in place.. Heterogeneous morphology of the myometrium. There is a 3.6 cm intramural mixed predominantly hypoechoic nodular lesion in the anterior body. Adnexa: Both ovaries are visualized. There is normal color flow to the adnexa. There is no ovarian torsion. There is trace of fluid amount of fluid adjacent to the right adnexa. There is a 2.3 cm septated anechoic abnormality without flow on color Doppler interrogation centered in the left ovary. Right ovary measures 3 x 2 x 3 cm. Volume is 5 cc. Left ovary measures 5 x 2 x 4 cm. Volume is 26 cc. [facility] Medical History Lipoma of arm Seasonal allergies Epidermal inclusion cyst Surgical History History of bilateral breast reduction surgery (~1998) Family History Mother History of cervical cancer Maternal Aunt History of bone cancer Other History of breast cancer Social History Alcohol intake: never Second Hand Smoke Exposure: No Female Reproductive History Menstrual Age of Menarche: 12 Review of Systems Const All systems reviewed & are unremarkable except as noted in HPI and below Reports as per HPI and Reports no additional complaints GI Reports no additional complaints Reports no additional complaints Telehealth Telehealth Telehealth Platform: Telephone Location of provider rendering services: practice address Location of patient: address on file Patient Identification confirmed using: Name, : Yes Telehealth method: video Patient verbally consented to treatment: Yes Patient verbally consented to billing insurance company: Yes Patient informed of any privacy concerns related to visit: Yes Assessment & Plan Assessment & Plan (1) Complex ovarian cyst: Code(s): N83.299 - Other ovarian cyst, unspecified side Category: Medical Plan: Discussed with the patient the complex ovarian cyst by ultrasound. Discussed with the patient the Ultrasound findings, the main limitation of transvaginal ultrasonography alone as a diagnostic tool to distinguish benign from malignant masses relates to its lack of specificity and low positive predictive value for cancer. The differential diagnosis discussed with the patient includes the following but not limited to: benign and malignant gynecological and non-gynecological causes. Pelvic MRI ordered to be done cris as the next step in the management. Instructions given the patient to schedule an MRI CRIS and a follow-up appointment afterwards within 2 weeks. All questions answered, the patient verbalized understanding I spent a total of 20 minutes reviewing the chart, talking to the patient via video and documenting in the medical record. Orders: Orders MR pelvis wo/w con Today N83.299 - Other ovarian cyst, unspecified side Coding Level of Care Code Est Pt Level 3 (77204) Diagnoses Complex ovarian cyst N83.299
== END 2024-07-26 11:30 | disposition home or self-care (01) ==
LOC: HO.HWS 10:43
PROVIDERS: PCP Family Medicine; Visit Provider Obstetrics & Gynecology
DX: N83.299 Other ovarian cyst, unspecified side (principal)
CPT/HCPCS: 99213

== ENCOUNTER → 2024-07-26 10:43 | Outpatient (BNVA) | payer OTHER, SELFPAY | PROVIDERS: PCP Family Medicine; Visit Provider Obstetrics & Gynecology ==

== ENCOUNTER 2024-08-09 13:54 | Outpatient (AMB) | payer OTHER, SELFPAY ==
--- NOTE | 2024-08-09 14:04 | MHC.OFFVIS ---
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 Pelvic MRI showed bilateral hemorrhagic cyst 3.7 x 3.1 cm on the right and 2.3 x 2.1 cm on the left, in addition submucosal uterine myoma measuring 1.8 x 1.5 cm, anterior myoma measuring 3.2 x 3.4 cm, normal endometrial stripe and IUD in place. The patient is doing well with no complaint [facility] Medical History Lipoma of arm Seasonal allergies Epidermal inclusion cyst Surgical History History of bilateral breast reduction surgery (~1998) Family History Mother History of cervical cancer Maternal Aunt History of bone cancer Other History of breast cancer Social History Alcohol intake: never Second Hand Smoke Exposure: No Female Reproductive History Menstrual Age of Menarche: 12 Review of Systems Const All systems reviewed & are unremarkable except as noted in HPI and below Reports as per HPI and Reports no additional complaints GI Reports no additional complaints Reports no additional complaints Assessment & Plan Assessment & Plan (1) Myoma: Code(s): D21.9 - Benign neoplasm of connective and other soft tissue, unspecified Category: Medical Plan: Discussed with the patient the findings on pelvic ultrasound & the risk of myosarcoma; discussed with the patient the options of treatment including expectant management versus hysterectomy; the pros and cons, risks benefits of each approach were discussed with the patient including the fact that in cases of myosarcoma, surgical treatment can lead to early diagnosis and positively affects the prognosis; after further discussion, the patient decided to proceed with expectant management. Will repeat pelvic ultrasound periodically. Instructions were given to patient to call in case any of the following occurs: pressure symptoms, abnormal uterine bleeding, pelvic pain; and to schedule a 3 months pelvic ultrasound (order placed) and a follow-up appointment . All questions answered, the patient verbalized understanding and agreed with the plan . (2) Complex ovarian cyst: Comment: Bilateral hemorrhagic cyst by pelvic MRI Code(s): N83.299 - Other ovarian cyst, unspecified side Category: Medical Plan: Discussed with the patient the Ultrasound and pelvic MRI findings, the main limitation of transvaginal ultrasonography and pelvic MRI as a diagnostic tool to distinguish benign from malignant masses relates to its lack of specificity and low positive predictive value for cancer. The differential diagnosis discussed with the patient includes the following but not limited to: benign and malignant gynecological and non-gynecological causes. Discussed with the patient options of treatment including laparoscopy ovarian cystectomy/oophorectomy vs. expectant management with repeat US in repeating pelvic US in 12 weeks from previous US. If the ovarian complex cyst is persistent larger and / or more complex looking will refer to gynecologic Oncology. All pros, cons, risks and benefits of each approach were discussed with the patient including but not limited to a delay in the diagnosis and treatment of ovarian cancer affecting the prognosis; The patient decided to go ahead with expectant management. Instructions given the patient to schedule a 3 months follow-up ultrasound appointment. All questions were answered & the patient verbalized understanding and agreed with the plan. Orders: Orders US pelvic and transvaginal 3 Months D21.9 - Benign neoplasm of connective and other soft tissue, unspecified, N83.299 - Other ovarian cyst, unspecified side Coding Level of Care Code Est Pt Level 3 (73393) Diagnoses Myoma D21.9 Complex ovarian cyst N83.299
== END 2024-08-09 14:27 | disposition home or self-care (01) ==
PROVIDERS: PCP Family Medicine; Visit Provider Obstetrics & Gynecology
DX: D21.9 Benign neoplasm of connective and other soft tissue, unspecified (principal); N83.299 Other ovarian cyst, unspecified side
CPT/HCPCS: 99213

== ENCOUNTER → 2024-08-09 13:54 | Outpatient (BNVA) | payer OTHER, SELFPAY | PROVIDERS: PCP Family Medicine; Visit Provider Obstetrics & Gynecology ==

== ENCOUNTER 2024-10-19 09:27 | Day surgery (SDC) | payer OTHER, SELFPAY ==
--- NOTE | 2024-10-18 08:57 | HO.ANESPROP2 ---
Documented by User: Praveena Gee NP 10/18/24 08:57 HPI - Anesthesia Eval Consult details Narrative: 48yo F for Colonoscopy PMFSH Active Problems Active Problems: All Active Problems Complex ovarian cyst (Acute) Abnormal uterine bleeding (Acute) Pre-op examination (Acute) Encounter for IUD removal and reinsertion (Acute) Myoma (Acute) Adnexal fullness (Acute) Well woman exam (Acute) Family planning (Acute) Screening mammogram, encounter for (Acute) Lipoma of arm (Acute) Epidermal inclusion cyst (Acute) Past Medical History Medical History Lipoma of arm Seasonal allergies Epidermal inclusion cyst Family History Family History Mother History of cervical cancer Maternal Aunt History of bone cancer Other History of breast cancer Surgical History Surgical History History of bilateral breast reduction surgery (~1998) Social History Social History Are you a primary insurance healthcare representative to a significant other at home: No Do you presently have visiting nurse or other home services: No Alcohol intake: never Patient Tobacco Use Status: Never used Tobacco Second Hand Smoke Exposure: No Have you been hit, kicked, punched, or otherwise hurt by someone within the past year? If so, by whom?: No Are you DNR?: No Advance Directives: No Advance Directives Information Provided: Yes Recently lost weight without trying: No Nutrition Risks: No Nutritional Risk FDLMP: sporadic Meds Allergies Allergy/AdvReac Type Severity Reaction Status Date / Time sulfamethoxazole Allergy Severe Hives Verified 10/19/24 09:47 [From Bactrim] trimethoprim [From Bactrim] Allergy Severe Hives Verified 10/19/24 09:47 Seasonal Allergies Allergy Unknown Unknown Verified 10/19/24 09:47 Home Medications ?Medication ?Instructions ?Recorded ?Confirmed ?Last Taken ?Type levonorgestrel 21 mcg/24 hr (up to intrauterine 10/29/20 11/06/20 Unknown History 8 years) 52 mg intrauterine device (Mirena) fluticasone propionate 50 intranasal PRN Congestion 12/22/23 Unknown History mcg/actuation nasal spray,suspension ibuprofen 800 mg tablet 800 mg PO TID PRN Pain (Scale 12/22/23 10/19/24 Unknown History Score 1-3) loratadine 10 mg tablet 10 mg PO DAILY PRN Allergic 12/22/23 10/19/24 Unknown History Symptoms naltrexone 8 mg-bupropion 90 mg 2 tab PO BID 12/22/23 10/19/24 Unknown History tablet,extended release (Contrave) semaglutide (weight loss) 1.7 mg subcut QWEEK 10/19/24 10/06/24 History mg/0.75 mL subcutaneous pen injector (Wegovy) Assessment and Plan Assessment Anesthesia Assessment: Chart Reviewed Documented by User: Danisha Carter MD 10/19/24 10:47 HPI - Anesthesia Eval Anesthesia Pre-Procedure Meds Is the patient on any of the following meds?: GLP1/DPP4 (Wegovy. Last dose 10/06/24) PMFSH Active Problems Active Problems: All Active Problems Complex ovarian cyst (Acute) Abnormal uterine bleeding (Acute) Pre-op examination (Acute) Encounter for IUD removal and reinsertion (Acute) Myoma (Acute) Adnexal fullness (Acute) Well woman exam (Acute) Family planning (Acute) Screening mammogram, encounter for (Acute) Lipoma of arm (Acute) Epidermal inclusion cyst (Acute) PHYLLIS. Uses CPAP Was on Contrave for weight loss. Now Wegovy. None for 2 weeks Past Medical History Medical History Lipoma of arm Seasonal allergies Epidermal inclusion cyst Family History Family History Mother History of cervical cancer Maternal Aunt History of bone cancer Other History of breast cancer Family history of problems with anesthesia: No Surgical History Surgical History History of bilateral breast reduction surgery (~1998) History of Problems with Anesthesia: No Social History Social History Are you a primary insurance healthcare representative to a significant other at home: No Do you presently have visiting nurse or other home services: No Alcohol intake: never Patient Tobacco Use Status: Never used Tobacco Second Hand Smoke Exposure: No Have you been hit, kicked, punched, or otherwise hurt by someone within the past year? If so, by whom?: No Are you DNR?: No Advance Directives: No Advance Directives Information Provided: Yes Recently lost weight without trying: No Nutrition Risks: No Nutritional Risk FDLMP: sporadic Meds Allergies Allergy/AdvReac Type Severity Reaction Status Date / Time sulfamethoxazole Allergy Severe Hives Verified 10/19/24 09:47 [From Bactrim] trimethoprim [From Bactrim] Allergy Severe Hives Verified 10/19/24 09:47 Seasonal Allergies Allergy Unknown Unknown Verified 10/19/24 09:47 Home Medications ?Medication ?Instructions ?Recorded ?Confirmed ?Last Taken ?Type levonorgestrel 21 mcg/24 hr (up to intrauterine 10/29/20 11/06/20 Unknown History 8 years) 52 mg intrauterine device (Mirena) fluticasone propionate 50 intranasal PRN Congestion 12/22/23 Unknown History mcg/actuation nasal spray,suspension ibuprofen 800 mg tablet 800 mg PO TID PRN Pain (Scale 12/22/23 10/19/24 Unknown History Score 1-3) loratadine 10 mg tablet 10 mg PO DAILY PRN Allergic 12/22/23 10/19/24 Unknown History Symptoms naltrexone 8 mg-bupropion 90 mg 2 tab PO BID 12/22/23 10/19/24 Unknown History tablet,extended release (Contrave) semaglutide (weight loss) 1.7 mg subcut QWEEK 10/19/24 10/06/24 History mg/0.75 mL subcutaneous pen injector (Alessandravaye) Exam Height,Weight and Vital Signs: Height 5 ft 4 in Weight 70.851 kg Vital Signs Temp Pulse Resp BP Pulse Ox O2 Del Method 10/19/24 10:05 97.9 F 82 18 105/67 100 Room Air Pertinent Lab Results Pertinent Lab Results: Lab Results 10/19/24 Range/Units 09:30 Urine Test NEGATIVE (NEGATIVE) Airway Mallampati Class: I TM Dist: >3cm Neck ROM: Full Loose/Missing/Broken Teeth: Yes (Missing molars. Denies broken or loose teeth) Heart: RRR Lungs: CTAB Assessment and Plan Assessment Anesthesia Assessment: Anesthesia Plan Discussed and Chart Reviewed Final Anesthetic Review Family History of Problems with Anesthesia: No History of Problems with Anesthesia: No NPO: Yes ASA Class: III Final Preanesthetic Review: No Changes in Pt Med Stat, Meds/Allgs Chart Reviewed, Consent Obtained/Reviewed and Anes Risks/Benef Reviewed Patient Risk: Intermediate Procedure Risk: Low Assessment/Block/Sedation in SS: Assess/Block/Sedation-SS Anesthetic Plan Anesthetic Plan: TIVA Disposition: Standard PACU
[2024-10-19] VITALS (18 sets, daily range): BP systolic 91–111; BP diastolic 61–74; PULSE 66–82; RESP 16–20; TEMP 36.6–36.9; O2SAT 98–100; BMI 26.8
--- NOTE | ~2024-10-19 | CT_ITS ---
EXAMINATION: CT colonography. CLINICAL INDICATION: Incomplete colonoscopy. COMPARISON: None. TECHNIQUE: Following insufflation of gas through a rectal tube, 5 mm thick axial images in supine and prone views were obtained. 3 mm thin sagittal and coronal images were reconstructed for both supine and prone images. This CT examination was performed using dose optimization techniques as appropriate, variously including the following: *Automated exposure control *Adjustment of mA and/or kV according to patient size (this includes techniques or standardized protocols for targeted exams where dose is matched to indication/reason for exam; i.e. extremities or head) *Use of iterative reconstruction technique. DLP: 361 mGy/cm. FINDINGS: Lung bases: Lung bases are clear heart size is normal. There is no pericardial or pleural effusion. Liver, ducts and gallbladder: The liver is normal size, conference density. No focal lesion or intrahepatic ductal dilatation seen. No radiopaque gallstones are wall thickening. Spleen: Unremarkable. Pancreas: Unremarkable. Adrenal glands: Unremarkable. Kidneys and ureters: Both kidneys are normal size, shape and position. No radiopaque renal calculi or hydronephrosis. GI tract: STOMACH: Nondistended and appears unremarkable. Small bowel: The small bowel loops are normal caliber. No mural thickening or distention seen. There is no peritoneal thickening or abnormal mesenteric lymph nodes. Colon: There is mild to moderate gas seen in the colon without any distention. No mural thickening or intraluminal filling defects seen. The appendix is normal caliber. Sigmoid colon is nondistended. Visualized rectum with a Bee's catheter within appears grossly unremarkable. There is no pericolonic fat stranding. There is no free fluid in the pelvis. No abnormal size pelvic or inguinal lymph nodes. Abdominal wall: Unremarkable. Pelvis: The uterus is midline with a soft tissue mass along the anterior lower uterine segment roughly measuring 2.4 cm likely fibroid. There is IUD located within the endometrial canal. The right ovary is visualized and appears grossly unremarkable. The left ovary is not well-visualized. Lymphovascular structures: The abdominal aorta appears a normal caliber. No abnormal size retroperitoneal or pelvic lymph nodes seen. Osseous structures: No aggressive lytic or sclerotic process seen. CT/CT colonography IMPRESSION: Mild to moderate distention of colon without any obstructive etiology, intraluminal filling defect or mural thickening. Rest of the CT abdomen and pelvis without contrast is unremarkable. Electronically signed by: Vimal Mcdonnell MD 10/22/2024 09:01 AM EDT RP
[2024-10-19 09:42] LABS: UPreg QC Valid YES; Urine Pregnancy NEGATIVE (NEGATIVE)
[2024-10-19] MEDS: Lactated Ringers 1,000 ML 100 ML IVCONT (09:50)
--- NOTE | 2024-10-19 09:55 | MHC.SHP ---
Pre-Procedural Eval Section A - 24 Hr Update-Section A only Date of Service: 10/19/24 The patient is an INPATIENT: No The patient has been examined within 24 hours of the surgical procedure. The History & Physical has been completed within 30 days and I have reviewed it.: No Section B - Complete if H&P > 30 days Chief Complaint: Colon cancer screening Relevant Family History (Specify if Yes): No Relevant Social History: None Present Medications: see Short Stay Collaborative assessment Medical History: Significant History (Lipoma of arm Seasonal allergies Epidermal inclusion cyst) History of Previous Operations: Relevant previous surgery/procedure and date(s) (History of bilateral breast reduction surgery (~1998)) Allergies: Allergies Allergy/AdvReac Type Severity Reaction Status Date / Time sulfamethoxazole Allergy Severe Hives Verified 10/19/24 09:47 [From Bactrim] trimethoprim [From Bactrim] Allergy Severe Hives Verified 10/19/24 09:47 Seasonal Allergies Allergy Unknown Unknown Verified 10/19/24 09:47 Review of Systems Sugical H&P ROS: Negative: Constitution, Cardiovascular, Respiratory and Gastrointestinal Exam Surgical H&P Exam: Normal: Heart, Normal: Lungs, Normal: Extremities and Normal: Abdomen Plan Diagnosis/Plan: Unchanged I have reviewed the history and physical and performed a pertinent physical examination on my patient. No changes have occurred unless specified. Time Spent With Patient Time: Total time managing care of this patient today ____ minutes.
--- NOTE | 2024-10-19 11:20 | HO.OPN-COLON ---
Colonoscopy Operative Note Operative Note Date of Service: 10/19/24 Narrative: COLONOSCOPY TILL HEPATIC FLEXURE WITH BIOPSIES Pre-op diagnosis: Colon cancer screening (First colon). Post-op diagnosis:? Colon polyp, Diverticulosis, hemorrhoids Endoscopist:? Mihaela Rivera MD Anesthesia:?MAC Consent: Indications for the procedure and potential complications of bleeding, perforation, reaction to medications and missed diagnosis were discussed with the patient and informed consent was obtained. Instrument: Olympus PCF H 190 L variable stiffness pediatric colonoscope Monitoring: Vital signs and clinical assessment, intermittent blood pressure monitoring, continuous EKG monitoring, Pulse oximetry and Carbon Dioxide monitoring were done throughout the procedure. Please see anesthesia flowsheet. Colon withdrawl time was 8 minutes. Procedure: The patient was placed in the left lateral decubitis position and pre-procedure medications were administered. After a digital rectal examination of the ano-rectum, the video colonoscope was inserted into the rectum and advanced through the colon to the hepatic flexure. It was not possible to advanced further due to lack of scope despite placing the patient in the supine position. The colonoscope was slowly withdrawn in a retrograde panoramic fashion and the colon mucosa was carefully examined including a retroflexed view of the rectum. Findings and interventions are described below. Procedure Difficulty: Colon was long and there was some loop formation. Patient was placed in the supine position and LLQ pressure was applied to intubate the ascending colon without success Findings: Terminal Ileum: Not evaluated Cecum: Not evaluated Ascending Colon: Not evaluated Transverse Colon: Normal Descending Colon: Normal Sigmoid Colon: A 3-4 mm diminutive appearing polyp - removed with a cold biopsy. Moderate diverticulosis Rectum: Normal Ano-rectum: Small internal hemorrhoids Colon preparation: Excellent, after some irrigation. [place] Bowel Preparation Scale Right colon; 3 Transverse colon: 3 Left colon; 3 (0 = Unprepared colon segment with mucosa not seen due to solid stool that cannot be cleared. 1 = Portion of mucosa of the colon segment seen, but other areas of the colon segment not well seen due to staining, residual stool and/or opaque liquid. 2 = Minor amount of residual staining, small fragments of stool and/or opaque liquid, but mucosa of colon segment seen well. 3 = Entire mucosa of colon segment seen well with no residual staining, small fragments of stool or opaque liquid) Impression and Post Procedure Diagnosis: Colonoscopy Findings: One small polyp was removed Moderate diverticulosis seen in the sigmoid colon Small hemorrhoids on retroflexed exam. Incomplete colonoscopy due to a long and redundant colon Plan: Pt has a FU appointment on 11/02/24 with Delmy Villeda NP. Repeat Colonoscopy in 5 years if polyp is adenomatous and in 10 years if polyp is hyperplastic (Adult colonoscope and abdominal binder for future colonoscopies - due to incomplete colonoscopy) An urgent CT colonography was performed to evaluate the right colon Above findings were reviewed with the patient and relevant handouts were given and the discharge area. 10/19/24 CT COLONOGRAPHY SHOWED: IMPRESSION: Mild to moderate distention of colon without any obstructive etiology, intraluminal filling defect or mural thickening. Rest of the CT abdomen and pelvis without contrast is unremarkable. Letter and message sent to the patient (via the pt portal) with biopsy and CT colonography results. Patient was placed on the colonoscopy recall list for repeat colon in 10 years
== END 2024-10-19 16:40 | disposition home or self-care (01) ==
PROVIDERS: Nurse Practitioner; PCP Family Medicine; Visit Provider Internal Medicine Gastroenterology
PROC: 0DJD8ZZ Inspection of Lower Intestinal Tract, Via Natural or Artificial Opening Endoscopic (ICD-10-PCS; CPT 45378; principal; 2024-10-19 10:50)
DX: Z12.11 Encounter for screening for malignant neoplasm of colon (principal); K63.5 Polyp of colon; K57.30 Diverticulosis of large intestine without perforation or abscess without bleeding; K64.8 Other hemorrhoids; K63.89 Other specified diseases of intestine; Z88.2 Allergy status to sulfonamides; J30.2 Other seasonal allergic rhinitis; G47.33 Obstructive sleep apnea (adult) (pediatric); E66.9 Obesity, unspecified; Z68.29 Body mass index [BMI] 29.0-29.9, adult; Z79.51 Long term (current) use of inhaled steroids; Z79.899 Other long term (current) drug therapy; Z98.890 Other specified postprocedural states
CPT/HCPCS: 45380; 74261; 81025; 88305; J2003; J2704

== ENCOUNTER → 2024-10-19 09:27 | Outpatient (BNV) | payer OTHER, SELFPAY | PROVIDERS: PCP Family Medicine; Visit Provider Internal Medicine Gastroenterology | DX: Z12.11 Encounter for screening for malignant neoplasm of colon (principal); K63.5 Polyp of colon; K57.30 Diverticulosis of large intestine without perforation or abscess without bleeding; K64.8 Other hemorrhoids | CPT/HCPCS: 45380 ==

== ENCOUNTER → 2024-10-19 16:24 | Outpatient (BNV) | payer OTHER, SELFPAY | PROVIDERS: PCP Family Medicine; Visit Provider Radiology Diagnostic Radiology | DX: Z12.11 Encounter for screening for malignant neoplasm of colon (principal) | CPT/HCPCS: 74261 ==

== ENCOUNTER 2024-11-06 13:15 | Outpatient (REF) | payer OTHER, SELFPAY ==
--- NOTE | ~2024-11-06 | US_ITS ---
EXAMINATION: US PELVIS TRANSABDOMINAL AND TRANSVAGINAL HISTORY: N83.299 - Other ovarian cyst, unspecified side COMPARISON: Comparison is made with the prior examination dated 06/18/2024. TECHNIQUE: Transabdominal and endovaginal real-time 2D abdi-scale ultrasound was performed. FINDINGS: Uterus: The uterus is normal in size, measuring 8.8 x 6.0 x 6.9 cm. Myometrium has a normal echotexture. Again seen is a posterior fibroid measuring 3.0 x 2.4 x 2.9 cm (previously 3.6 x 2.7 x 3.1 cm). A new anterior fibroid is noted measuring 1.5 x 1.3 x 1.4 cm. Endometrium: The endometrial stripe measures 2 mm in thickness. An IUD is noted in the expected position in the endometrial cavity. Right ovary: The right ovary measures 3.4 x 1.7 x 1.9 cm. The right ovary is normal in size and echotexture. There is a 1.3 x 0.9 x 1.3 cm right ovarian cyst. Left ovary: The left ovary measures 4.1 x 2.1 x 2.6 cm. The left ovary is normal in size and echotexture. There is a 2.5 x 1.7 x 1.9 cm left ovarian cyst. Pelvic fluid: There is a small amount of free fluid in both adnexal regions. There are prominent vessels in both adnexal regions. US/US pelvic and transvaginal IMPRESSION: Fibroid uterus as described. Bilateral ovarian cysts. Electronically signed by: Zaki Dowd MD 11/07/2024 07:22 AM EDT
--- OUTSIDE RECORDS SUMMARY | 2024-11-06 15:34 | XMS_ITS | Patient Health Record ---
Author Organization [facility] Address [address] [facility] [address] Care Team Providers Care Corporate Development Intern Name Role Phone JULIAN DUARTE Unavailable [phone] [employer] Unavailable [phone] GOGO CURRY Unavailable [phone] ALLERGIES Allergen (clinical drug ingredient) Drug/Non Drug Allergy documented on EMR Reaction Allergy Type Onset Date Status sulfamethoxazole / trimethoprim Bactrim Unknown Drug Allergy Active RESULTS Component Value Reference Range Notes EKG (Not yet reviewed by pro vider) Interpretation: Performing Lab: Notes/Report: ECGDiastolicBP 78 ECGDiastolicBP 78 ECGHr 75 ECGHr 66 ECGPRInterval 184 ECGPRInterval 186 ECGPWaveAxis 132 ECGPWaveAxis 36 ECGQRSDuration 80 ECGQRSDuration 82 ECGQrsWaveAxis 128 ECGQrsWaveAxis 66 ECGQTcInterval 404 ECGQTcInterval 398 ECGQTInterval 378 ECGQTInterval 388 ECGSystolicBP 120 ECGSystolicBP 120 ECGTWaveAxis 156 ECGTWaveAxis 34 RR_DiastolicBP 0 RR_DiastolicBP 0 RR_MaxRRInterval 0 RR_MaxRRInterval 0 RR_MeanHR 0 RR_MeanHR 0 RR_MeanRRInterval 0 RR_MeanRRInterval 0 RR_MinRRInterval 0 RR_MinRRInterval 0 RR_NumBeats 0 RR_NumBeats 0 RR_NumNormalBeats 0 RR_NumNormalBeats 0 RR_SystolicBP 0 RR_SystolicBP 0 EKG (Not yet reviewed by pro vider) Interpretation: Performing Lab: Notes/Report: ECGDiastolicBP 78 ECGDiastolicBP 78 ECGHr 75 ECGHr 66 ECGPRInterval 184 ECGPRInterval 186 ECGPWaveAxis 132 ECGPWaveAxis 36 ECGQRSDuration 80 ECGQRSDuration 82 ECGQrsWaveAxis 128 ECGQrsWaveAxis 66 ECGQTcInterval 404 ECGQTcInterval 398 ECGQTInterval 378 ECGQTInterval 388 ECGSystolicBP 120 ECGSystolicBP 120 ECGTWaveAxis 156 ECGTWaveAxis 34 RR_DiastolicBP 0 RR_DiastolicBP 0 RR_MaxRRInterval 0 RR_MaxRRInterval 0 RR_MeanHR 0 RR_MeanHR 0 RR_MeanRRInterval 0 RR_MeanRRInterval 0 RR_MinRRInterval 0 RR_MinRRInterval 0 RR_NumBeats 0 RR_NumBeats 0 RR_NumNormalBeats 0 RR_NumNormalBeats 0 RR_SystolicBP 0 RR_SystolicBP 0 REASON FOR REFERRAL No Information MEDICATIONS Medication SIG (Take, Route, Frequency, Duration) Notes Start Date End Date Status Ibuprofen prn Active Fluticasone Furoate prn Active Cetirizine HCl 10 MG 1 tablet Orally Once a day prn Active SUMAtriptan Succinate 25 MG 1 tablet at least 2 hours between doses as needed Orally Twice a day prn Active Wegovy 1.7 MG/0.75ML 1.7 mg Subcutaneous weekly for 30 days Active traMADol HCl 50 MG 1 tablet as needed O rally Once a day prn Active Gabapentin 100 MG TAKE [address] [facility] TWICE A DAY Oral twice daily for 30 days Active SOCIAL HISTORY Tobacco Use: Social History Observation Description Date Details (start date - stop date) Never Smoker NA - NA Sex Assigned At : Social History Observation Description Sex Assigned At Unknown Tobacco Use/Smoking Question Answer Notes Are you a nonsmoker Section Notes: alcohol: denies tob: denies drug: denies alcohol: denies tob: denies drug: denies alcohol: denies tob: denies drug: denies alcohol: denies tob: denies drug: denies alcohol: denies tob: denies drug: denies alcohol: denies tob: denies drug: denies alcohol: denies tob: denies drug: denies alcohol: denies tob: denies drug: denies alcohol: denies tob: denies drug: denies alcohol: denies tob: denies drug: denies alcohol: denies tob: denies drug: denies alcohol: denies tob: denies drug: denies alcohol: denies tob: denies drug: denies alcohol: denies tob: denies drug: denies alcohol: denies tob: denies drug: denies alcohol: denies tob: denies drug: denies alcohol: denies tob: denies drug: denies alcohol: denies tob: denies drug: denies alcohol: denies tob: denies drug: denies alcohol: denies tob: denies drug: denies PROBLEMS Problem Type ICD Code Onset Dates Problem Status W/U Status Risk SNOMED Code Notes Problem Other obesity (E66.8) Active confirmed Obesity (920664714) Problem Migraine without aura, intractable, with status migrainosus (G43.011) Active confirmed Refractory migraine without aura (071856446) Problem Neuropathy (G62.9) Active confirmed Neuropathy (819091728) Problem Adult general medical exam (Z00.00) Active confirmed Adult health examination (877678445) Problem Obesity (BMI 30.0-34.9) (E66.9) Active confirmed [id number] Problem Over weight (E66.3) Active confirmed Overweight (278201025) Problem BMI 32.0-32.9,adult (Z68.32) Active confirmed BMI 30+ - obesi ty (458666311) Problem Other depression (F32.89) Active confirmed 68124118 Problem BMI 31.0-31.9,adult (Z68.31) Active confirmed 945015651 Problem BMI 30.0-30.9,adult (Z68.30) Active confirmed 992399043 Problem Screening for cardiovascular condition (Z13.6) Active confirmed 449720511 Problem Migraine headache (G43.909) Active confirmed Migraine varian t with headache (disorder) (583144991) VITAL SIGNS Heart Rate 76 /min 11/01/2024 Blood pressure diastolic 66 mm Hg 11/01/2024 Oximetry 97 % 11/01/2024 Height 63 in 11/01/2024 Blood pressure systolic 118 mm Hg 11/01/2024 Weight 157.0 lbs 11/01/2024 BMI 27.81 kg/m2 11/01/2024 Encounters Encounter Location Date Provider Diagnosis [facility] [address] [facility] [place] [address] 11/29/2023 GOGO CURRY [facility] [address] [facility] [address] [facility] [place] [address] 01/03/2024 GOGO CURRY [facility] [address] [facility] [address] [facility] [place] [address] 02/22/2024 JULIAN DUARTE [facility] [address] [facility] [address] [facility] [place] [address] 03/01/2024 JULIAN DUARTE [facility] [address] [facility] [place] [address] 11/29/2023 GOGO CURRY BMI 29.0-29.9,adult Z68.29 ; Over weight E66.3 ; Migraine without aura, intractable, with status migrainosus G43.011 ; Low back pain, unspecified M54.50 and Other depression F32.89 [facility] [address] [facility] [place] [address] 02/16/2024 GOGO CURRY Other obesity E66.8 ; BMI 31.0-31.9,adult Z68.31 ; Migraine without aura, intractable, with status migrainosus G43.011 ; Low back pain, unspecified M54.50 and Other depression F32.89 [facility] [address] [facility] [address] [facility] [place] [address] 03/20/2024 [employer] Other obesity E66.8 ; BMI 30.0-30.9,adult Z68.30 ; Migraine without aura, intractable, with status migrainosus G43.011 ; Low back pain, unspecified M54.50 and Other depression F32.89 [facility] [address] [facility] [place] [address] 04/23/2024 GOGO CURRY Over weight E66.3 ; BMI 29.0-29.9,adult Z68.29 ; Migraine without aura, intractable, with status migrainosus G43.011 ; Low back pain, unspecified M54.50 ; Other depression F32.89 and Medication side effect T88.7XXA [facility] [address] [facility] [place] [address] 05/31/2024 GOGO CURRY Obesity (BMI 30.0-34.9) E66.811 ; BMI 30.0-30.9,adult Z68.30 ; Migraine without aura, intractable, with status migrainosus G43.011 ; Low back pain, unspecified M54.50 and Other depression F32.89 [facility] [address] [place] [address] 07/16/2024 GOGO CURRY Over weight E66.3 ; BMI 29.0-29.9,adult Z68.29 ; Migraine without aura, intractable, with status migrainosus G43.011 ; Low back pain, unspecified M54.50 and Other depression F32.89 [facility] [address] [place] [address] 08/30/2024 GOGO CURRY Over weight E66.3 ; BMI 29.0-29.9,adult Z68.29 ; Migraine without aura, intractable, with status migrainosus G43.011 ; Low back pain, unspecified M54.50 and Other depression F32.89 [facility] [address] [place] [address] 09/27/2024 GOGO CURRY Over weight E66.3 ; BMI 28.0-28.9,adult Z68.28 ; Migraine without aura, intractable, with status migrainosus G43.011 ; Low back pain, unspecified M54.50 ; Other depression F32.89 and Dietary counseling and surveillance Z71.[address] 11/01/2024 GOGO CURRY Over weight E66.3 ; BMI 27.0-27.9,adult Z68.27 ; Migraine without aura, intractable, with status migrainosus G43.011 ; Low back pain, unspecified M54.50 ; Other depression F32.89 and Dietary counseling and surveillance Z71.[address] [facility] [address] [facility] [address] [address] 12/09/2023 [facility] [address] [facility] [address] [address] 03/01/2024 JULIAN DUARTE [facility] [address] [address] 03/30/2024 GOGO CURRY [address] [place] [address] 04/02/2024 JULIAN DUARTE [address] [place] [address] 06/21/2024 GOGO CURRY Obesity (BMI 30.0-34.9) E66.811 [address] [facility] [address] [place] [address] 06/28/2024 GOGO CURRY [facility] [address] [place] [address] 07/02/2024 GOGO CURRY ASSESSMENTS Encounter Date Diagnosis Assessment Notes Treatment Notes Treatment Clinical Notes Section Notes 11/29/2023 BMI 29.0-29.9,adult (ICD-10 - Z68.29) Melany Is a 46-year-old female who presented the office for weight management follow-up. 10/19/22: weight 185, BMI 32,77. Educated lifestyle modifications, diet, exercise, high protein, low carb, healthy fats. Educated on stretching and walking. Work on this for the next 4 weeks and consider phentermine at next visit pending EKG. MARGAUX reviewed. Pt understanding. 12/02/22: weight 182.9, BMI 32.4- patient congratulated on effort. Educated to continue with lifestyle modifications and focus on more movement now that she has had a cortisone injection in her back with improvement in pain. Also educated to focus on portion control, high-protein, low carbohydrate, healthy fat and increasing water intake. Patient interested in GLP-1 injection, but need to prove three consecutive months of weight loss in order to qualify. She is understanding regarding this. Could consider trialing phentermine again, but aware of rebound weight gain. Already taking bupropion, would like to add low dose naltrexone. This was sent to compound pharmacy. Will try to submit for GLP-1 injection in January. Patient will follow-up in one month.Educated on proper use, as well as side effects of medication. Patient aware she cannot drink on medication. 01/05/23: weight 182.3lbs, BMI 32.29 - Patient has modest weight loss since last meeting. She admits to a recent deviation from diet over last week because of celebrating with family and eating large amounts of junk food. On a normaly basis she has been eating less junk food overall, but her cravings have not changes on the naltrexone/wellbutrin combination. Will put in for patient to be started on 0.25mg Wegovy. D/c naltrexone. She was educated on side effect profile and understands. I gave recommendation to increase weight-bearing activity at home by incorporating small amounts of pushups and body weight squats into daily routine and gradually increase the volume. She was also encouraged to follow recommendation of provider conducting sleep study to trial CPAP mask to improve sleep quality. Will follow up with patient in 4 weeks. 02/02/2023: Weight 180.2, BMI 31.92-patient congratulated on efforts. Encouraged to continue with lifestyle modifications will be try to get her on a weight loss medication. Tried getting on Wegovy, but was denied by insurance. We will try Saxenda. Educated on proper use, and side effects. Patient will really benefit from this medication. Patient is encouraged, and is doing very well overall. She does continue to lose weight. 03/04/2023: Weight 170.9, BMI 31.69. Patient congratulated on effort. Has been doing well with lifestyle modifications. Discontinued naltrexone, and sent Saxenda last visit, which was approved. Patient had a hard time finding it, but just got on it about a week ago. Taking 1.2 mg first dose today. She does notice occasional constipation, and nausea. Educated on conservative ways to improve this, she is understanding. She will call the office with any question. Did continue to educate proper use. Continue to encourage lifestyle. 04/10/2023: Weight 177 pounds, BMI 31.35. Patient has lost 1 pound since last visit. Body composition scale reviewed showing significant improvement since patient started with weight management program. Was taking Saxenda and doing really well, but discontinued due to national shortage. We will start compounded semaglutide 1 mg for the next 2 weeks, and if tolerating well will submit for Wegovy 1.7 at next visit. Patient understanding. Educated on the importance of lifestyle modifications in conjunction with weight loss. 05/05/2023: Weight 174.3, BMI 30.87. Patient very pleased with progress overall. Continues to have successful weight loss. Was on Saxenda but discontinued due to national shortage, took compounded semaglutide tapered up to 1 mg, tolerating well without side effects. We will submit for Wegovy 1.7 mg today. Educated on importance of lifestyle modifications in conjunction with weight loss medications. 06/02/2023: Weight 168.7, BMI 29.88. Patient congratulated on effort. Taking Wegovy 1.7 mg with compliance, without any side effects. Patient is very pleased with progress overall, and is feeling great. States that she tolerates this medication better than she was the Saxenda. Educated on the importance of lifestyle modifications to maintain muscle/target fat loss. Patient will continue with Wegovy 1.7 mg. Pleased with progress overall. Recently started on gabapentin for nerve pain. 07/04/2023: Weight 165.2, BMI 29.26. Patient congratulated on effort, continuing to maintain, lose slow, steady, sustainable weight. Patient is very pleased with progress overall with like to continue with Wegovy 1.7 mg. 09/12/2023: Weight 164.3, BMI 29.1. Patient doing really well overall. Does admit to some constipation still, treated with lifestyle modifications. Weight has plateaued, will continue with Wegovy 1.7 mg and work on lifestyle, but as of next month, could consider increasing up to Wegovy 2.4 mg as she has been on 1.7 for a while. 10/13/2023: Weight 169, BMI 29.93 patient congratulated on lifestyle effort. She has been off of semaglutide, so her appetite has increased. Appeal pending through [employer] for Wegovy 1.7 mg. She will start semaglutide 1 mg again. Educated on proper use, side effects. Encouraged to continue with stairstepper, resistance training, and healthy eating with protein, fruits, veggies. Patient pleased with lifestyle changes overall. 11/29/2023: Weight 168.9, BMI 29.92. Patient congratulated on efforts, she is trying to maintain her weight without a medication, and has been doing so. Does admit to some more increased appetite. Discussed Contrave as semaglutide/tirzepati de [id number] is too costly. Patient is willing. Discussed proper use, taper, side effects, long-term use. Discussed that she cannot drink alcohol while on this medication. Patient understanding. Will follow-up in 4 weeks. # Seasonal allergies: Continue fluticasone and cetirizine #Neuropathy: Taking gabapentin 100 mg 3 times daily. #Migraines: continue sumatriptan 25 mg PRN #Back pain: takes tramadol 3 mg, ibuprofen 800 mg PRN Patient will follow-up in 4-6 weeks, sooner as needed. Time spent with patient 30 minutes with greater than 50% on patient education and care coordination. All patient questions answered in office today. Patient should call the office in the meantime with any questions or concerns. Case discussed with collaborating physician Kody Duarte who reviewed the assessment and plan. Chart, medications, labs, vital signs reviewed. Dictation was accomplished with the use of [employer] voice recognition software, prone to medical misidentifications and grammatical errors. This is unintentional and the practitioner does try to identify and correct these, but some could still be present. Please do not hesitate to contact practitioner for clarification. 02/16/2024 Other obesity (ICD-10 - E66.8) Melany Is a 46-year-old female who presented the office for weight management follow-up. 10/19/22: weight 185, BMI 32,77. Educated lifestyle modifications, diet, exercise, high protein, low carb, healthy fats. Educated on stretching and walking. Work on this for the next 4 weeks and consider phentermine at next visit pending EKG. MARGAUX reviewed. Pt understanding. 12/02/22: weight 182.9, BMI 32.4- patient congratulated on effort. Educated to continue with lifestyle modifications and focus on more movement now that she has had a cortisone injection in her back with improvement in pain. Also educated to focus on portion control, high-protein, low carbohydrate, healthy fat and increasing water intake. Patient interested in GLP-1 injection, but need to prove three consecutive months of weight loss in order to qualify. She is understanding regarding this. Could consider trialing phentermine again, but aware of rebound weight gain. Already taking bupropion, would like to add low dose naltrexone. This was sent to compound pharmacy. Will try to submit for GLP-1 injection in January. Patient will follow-up in one month.Educated on proper use, as well as side effects of medication. Patient aware she cannot drink on medication. 01/05/23: weight 182.3lbs, BMI 32.29 - Patient has modest weight loss since last meeting. She admits to a recent deviation from diet over last week because of celebrating with family and eating large amounts of junk food. On a normaly basis she has been eating less junk food overall, but her cravings have not changes on the naltrexone/wellbutrin combination. Will put in for patient to be started on 0.25mg Wegovy. D/c naltrexone. She was educated on side effect profile and understands. I gave recommendation to increase weight-bearing activity at home by incorporating small amounts of pushups and body weight squats into daily routine and gradually increase the volume. She was also encouraged to follow recommendation of provider conducting sleep study to trial CPAP mask to improve sleep quality. Will follow up with patient in 4 weeks. 02/02/2023: Weight 180.2, BMI 31.92-patient congratulated on efforts. Encouraged to continue with lifestyle modifications will be try to get her on a weight loss medication. Tried getting on Wegovy, but was denied by insurance. We will try Saxenda. Educated on proper use, and side effects. Patient will really benefit from this medication. Patient is encouraged, and is doing very well overall. She does continue to lose weight. 03/04/2023: Weight 170.9, BMI 31.69. Patient congratulated on effort. Has been doing well with lifestyle modifications. Discontinued naltrexone, and sent Saxenda last visit, which was approved. Patient had a hard time finding it, but just got on it about a week ago. Taking 1.2 mg first dose today. She does notice occasional constipation, and nausea. Educated on conservative ways to improve this, she is understanding. She will call the office with any question. Did continue to educate proper use. Continue to encourage lifestyle. 04/10/2023: Weight 177 pounds, BMI 31.35. Patient has lost 1 pound since last visit. Body composition scale reviewed showing significant improvement since patient started with weight management program. Was taking Saxenda and doing really well, but discontinued due to national shortage. We will start compounded semaglutide 1 mg for the next 2 weeks, and if tolerating well will submit for Wegovy 1.7 at next visit. Patient understanding. Educated on the importance of lifestyle modifications in conjunction with weight loss. 05/05/2023: Weight 174.3, BMI 30.87. Patient very pleased with progress overall. Continues to have successful weight loss. Was on Saxenda but discontinued due to national shortage, took compounded semaglutide tapered up to 1 mg, tolerating well without side effects. We will submit for Wegovy 1.7 mg today. Educated on importance of lifestyle modifications in conjunction with weight loss medications. 06/02/2023: Weight 168.7, BMI 29.88. Patient congratulated on effort. Taking Wegovy 1.7 mg with compliance, without any side effects. Patient is very pleased with progress overall, and is feeling great. States that she tolerates this medication better than she was the Saxenda. Educated on the importance of lifestyle modifications to maintain muscle/target fat loss. Patient will continue with Wegovy 1.7 mg. Pleased with progress overall. Recently started on gabapentin for nerve pain. 07/04/2023: Weight 165.2, BMI 29.26. Patient congratulated on effort, continuing to maintain, lose slow, steady, sustainable weight. Patient is very pleased with progress overall with like to continue with Wegovy 1.7 mg. 09/12/2023: Weight 164.3, BMI 29.1. Patient doing really well overall. Does admit to some constipation still, treated with lifestyle modifications. Weight has plateaued, will continue with Wegovy 1.7 mg and work on lifestyle, but as of next month, could consider increasing up to Wegovy 2.4 mg as she has been on 1.7 for a while. 10/13/2023: Weight 169, BMI 29.93 patient congratulated on lifestyle effort. She has been off of semaglutide, so her appetite has increased. Appeal pending through [employer] for Wegovy 1.7 mg. She will start semaglutide 1 mg again. Educated on proper use, side effects. Encouraged to continue with stairstepper, resistance training, and healthy eating with protein, fruits, veggies. Patient pleased with lifestyle changes overall. 11/29/2023: Weight 168.9, BMI 29.92. Patient congratulated on efforts, she is trying to maintain her weight without a medication, and has been doing so. Does admit to some more increased appetite. Discussed Contrave as semaglutide/tirzepati de [id number] is too costly. Patient is willing. Discussed proper use, taper, side effects, long-term use. Discussed that she cannot drink alcohol while on this medication. Patient understanding. Will follow-up in 4 weeks. 02/16/2024: Weight 177, BMI 31.35. Patient expresses frustration as she has gained some weight since last visit. Insurance stopped covering Wegovy so we tried switching over to Contrave, which she states caused cramping without positive effect for weight loss. Based on weight gain, will try to resubmit for Wegovy 0.25 mg but in the meantime we will do compounded semaglutide in office. She is aware that we cannot guarantee coverage. Patient discussed proper use, side effects, long-term risks. She feels motivated today to get back on track. # Seasonal allergies: Continue fluticasone and cetirizine prn #Migraines: continue sumatriptan 25 mg PRN #Back pain: takes tramadol 3 mg, ibuprofen 800 mg PRN Patient to follow-up in 4 weeks with my colleague Stevenson Ngo PA-C, and in April with myself. Time spent with patient 30 minutes with greater than 50% on patient education and care coordination. All patient questions answered in office today. Patient should call the office in the meantime with any questions or concerns. Case discussed with collaborating physician Kody Duarte who reviewed the assessment and plan. Chart, medications, labs, vital signs reviewed. Dictation was accomplished with the use of [employer] voice recognition software, prone to medical misidentifications and grammatical errors. This is unintentional and the practitioner does try to identify and correct these, but some could still be present. Please do not hesitate to contact practitioner for clarification. 02/16/2024 BMI 31.0-31.9,adult (ICD-10 - Z68.31) Melany Is a 46-year-old female who presented the office for weight management follow-up. 10/19/22: weight 185, BMI 32,77. Educated lifestyle modifications, diet, exercise, high protein, low carb, healthy fats. Educated on stretching and walking. Work on this for the next 4 weeks and consider phentermine at next visit pending EKG. SECA reviewed. Pt understanding. 12/02/22: weight 182.9, BMI 32.4- patient congratulated on effort. Educated to continue with lifestyle modifications and focus on more movement now that she has had a cortisone injection in her back with improvement in pain. Also educated to focus on portion control, high-protein, low carbohydrate, healthy fat and increasing water intake. Patient interested in GLP-1 injection, but need to prove three consecutive months of weight loss in order to qualify. She is understanding regarding this. Could consider trialing phentermine again, but aware of rebound weight gain. Already taking bupropion, would like to add low dose naltrexone. This was sent to compound pharmacy. Will try to submit for GLP-1 injection in January. Patient will follow-up in one month.Educated on proper use, as well as side effects of medication. Patient aware she cannot drink on medication. 01/05/23: weight 182.3lbs, BMI 32.29 - Patient has modest weight loss since last meeting. She admits to a recent deviation from diet over last week because of celebrating with family and eating large amounts of junk food. On a normaly basis she has been eating less junk food overall, but her cravings have not changes on the naltrexone/wellbutrin combination. Will put in for patient to be started on 0.25mg Wegovy. D/c naltrexone. She was educated on side effect profile and understands. I gave recommendation to increase weight-bearing activity at home by incorporating small amounts of pushups and body weight squats into daily routine and gradually increase the volume. She was also encouraged to follow recommendation of provider conducting sleep study to trial CPAP mask to improve sleep quality. Will follow up with patient in 4 weeks. 02/02/2023: Weight 180.2, BMI 31.92-patient congratulated on efforts. Encouraged to continue with lifestyle modifications will be try to get her on a weight loss medication. Tried getting on Wegovy, but was denied by insurance. We will try Saxenda. Educated on proper use, and side effects. Patient will really benefit from this medication. Patient is encouraged, and is doing very well overall. She does continue to lose weight. 03/04/2023: Weight 170.9, BMI 31.69. Patient congratulated on effort. Has been doing well with lifestyle modifications. Discontinued naltrexone, and sent Saxenda last visit, which was approved. Patient had a hard time finding it, but just got on it about a week ago. Taking 1.2 mg first dose today. She does notice occasional constipation, and nausea. Educated on conservative ways to improve this, she is understanding. She will call the office with any question. Did continue to educate proper use. Continue to encourage lifestyle. 04/10/2023: Weight 177 pounds, BMI 31.35. Patient has lost 1 pound since last visit. Body composition scale reviewed showing significant improvement since patient started with weight management program. Was taking Saxenda and doing really well, but discontinued due to national shortage. We will start compounded semaglutide 1 mg for the next 2 weeks, and if tolerating well will submit for Wegovy 1.7 at next visit. Patient understanding. Educated on the importance of lifestyle modifications in conjunction with weight loss. 05/05/2023: Weight 174.3, BMI 30.87. Patient very pleased with progress overall. Continues to have successful weight loss. Was on Saxenda but discontinued due to national shortage, took compounded semaglutide tapered up to 1 mg, tolerating well without side effects. We will submit for Wegovy 1.7 mg today. Educated on importance of lifestyle modifications in conjunction with weight loss medications. 06/02/2023: Weight 168.7, BMI 29.88. Patient congratulated on effort. Taking Wegovy 1.7 mg with compliance, without any side effects. Patient is very pleased with progress overall, and is feeling great. States that she tolerates this medication better than she was the Saxenda. Educated on the importance of lifestyle modifications to maintain muscle/target fat loss. Patient will continue with Wegovy 1.7 mg. Pleased with progress overall. Recently started on gabapentin for nerve pain. 07/04/2023: Weight 165.2, BMI 29.26. Patient congratulated on effort, continuing to maintain, lose slow, steady, sustainable weight. Patient is very pleased with progress overall with like to continue with Wegovy 1.7 mg. 09/12/2023: Weight 164.3, BMI 29.1. Patient doing really well overall. Does admit to some constipation still, treated with lifestyle modifications. Weight has plateaued, will continue with Wegovy 1.7 mg and work on lifestyle, but as of next month, could consider increasing up to Wegovy 2.4 mg as she has been on 1.7 for a while. 10/13/2023: Weight 169, BMI 29.93 patient congratulated on lifestyle effort. She has been off of semaglutide, so her appetite has increased. Appeal pending through [employer] for Wegovy 1.7 mg. She will start semaglutide 1 mg again. Educated on proper use, side effects. Encouraged to continue with stairstepper, resistance training, and healthy eating with protein, fruits, veggies. Patient pleased with lifestyle changes overall. 11/29/2023: Weight 168.9, BMI 29.92. Patient congratulated on efforts, she is trying to maintain her weight without a medication, and has been doing so. Does admit to some more increased appetite. Discussed Contrave as semaglutide/tirzepati de [id number] is too costly. Patient is willing. Discussed proper use, taper, side effects, long-term use. Discussed that she cannot drink alcohol while on this medication. Patient understanding. Will follow-up in 4 weeks. 02/16/2024: Weight 177, BMI 31.35. Patient expresses frustration as she has gained some weight since last visit. Insurance stopped covering Wegovy so we tried switching over to Contrave, which she states caused cramping without positive effect for weight loss. Based on weight gain, will try to resubmit for Wegovy 0.25 mg but in the meantime we will do compounded semaglutide in office. She is aware that we cannot guarantee coverage. Patient discussed proper use, side effects, long-term risks. She feels motivated today to get back on track. # Seasonal allergies: Continue fluticasone and cetirizine prn #Migraines: continue sumatriptan 25 mg PRN #Back pain: takes tramadol 3 mg, ibuprofen 800 mg PRN Patient to follow-up in 4 weeks with my colleague Stevenson Ngo PA-C, and in April with myself. Time spent with patient 30 minutes with greater than 50% on patient education and care coordination. All patient questions answered in office today. Patient should call the office in the meantime with any questions or concerns. Case discussed with collaborating physician Kody Duarte who reviewed the assessment and plan. Chart, medications, labs, vital signs reviewed. Dictation was accomplished with the use of [employer] voice recognition software, prone to medical misidentifications and grammatical errors. This is unintentional and the practitioner does try to identify and correct these, but some could still be present. Please do not hesitate to contact practitioner for clarification. 06/21/2024 Obesity (BMI 30.0-34.9) (ICD-10 - E66.811) 07/16/2024 BMI 29.0-29.9,adult (ICD-10 - Z68.29) Melany Is a 46-year-old female who presented the office for weight management follow-up. 10/19/22: weight 185, BMI 32,77. Educated lifestyle modifications, diet, exercise, high protein, low carb, healthy fats. Educated on stretching and walking. Work on this for the next 4 weeks and consider phentermine at next visit pending EKG. SECA reviewed. Pt understanding. 12/02/22: weight 182.9, BMI 32.4- patient congratulated on effort. Educated to continue with lifestyle modifications and focus on more movement now that she has had a cortisone injection in her back with improvement in pain. Also educated to focus on portion control, high-protein, low carbohydrate, healthy fat and increasing water intake. Patient interested in GLP-1 injection, but need to prove three consecutive months of weight loss in order to qualify. She is understanding regarding this. Could consider trialing phentermine again, but aware of rebound weight gain. Already taking bupropion, would like to add low dose naltrexone. This was sent to compound pharmacy. Will try to submit for GLP-1 injection in January. Patient will follow-up in one month.Educated on proper use, as well as side effects of medication. Patient aware she cannot drink on medication. 01/05/23: weight 182.3lbs, BMI 32.29 - Patient has modest weight loss since last meeting. She admits to a recent deviation from diet over last week because of celebrating with family and eating large amounts of junk food. On a normaly basis she has been eating less junk food overall, but her cravings have not changes on the naltrexone/wellbutrin combination. Will put in for patient to be started on 0.25mg Wegovy. D/c naltrexone. She was educated on side effect profile and understands. I gave recommendation to increase weight-bearing activity at home by incorporating small amounts of pushups and body weight squats into daily routine and gradually increase the volume. She was also encouraged to follow recommendation of provider conducting sleep study to trial CPAP mask to improve sleep quality. Will follow up with patient in 4 weeks. 02/02/2023: Weight 180.2, BMI 31.92-patient congratulated on efforts. Encouraged to continue with lifestyle modifications will be try to get her on a weight loss medication. Tried getting on Wegovy, but was denied by insurance. We will try Saxenda. Educated on proper use, and side effects. Patient will really benefit from this medication. Patient is encouraged, and is doing very well overall. She does continue to lose weight. 03/04/2023: Weight 170.9, BMI 31.69. Patient congratulated on effort. Has been doing well with lifestyle modifications. Discontinued naltrexone, and sent Saxenda last visit, which was approved. Patient had a hard time finding it, but just got on it about a week ago. Taking 1.2 mg first dose today. She does notice occasional constipation, and nausea. Educated on conservative ways to improve this, she is understanding. She will call the office with any question. Did continue to educate proper use. Continue to encourage lifestyle. 04/10/2023: Weight 177 pounds, BMI 31.35. Patient has lost 1 pound since last visit. Body composition scale reviewed showing significant improvement since patient started with weight management program. Was taking Saxenda and doing really well, but discontinued due to national shortage. We will start compounded semaglutide 1 mg for the next 2 weeks, and if tolerating well will submit for Wegovy 1.7 at next visit. Patient understanding. Educated on the importance of lifestyle modifications in conjunction with weight loss. 05/05/2023: Weight 174.3, BMI 30.87. Patient very pleased with progress overall. Continues to have successful weight loss. Was on Saxenda but discontinued due to national shortage, took compounded semaglutide tapered up to 1 mg, tolerating well without side effects. We will submit for Wegovy 1.7 mg today. Educated on importance of lifestyle modifications in conjunction with weight loss medications. 06/02/2023: Weight 168.7, BMI 29.88. Patient congratulated on effort. Taking Wegovy 1.7 mg with compliance, without any side effects. Patient is very pleased with progress overall, and is feeling great. States that she tolerates this medication better than she was the Saxenda. Educated on the importance of lifestyle modifications to maintain muscle/target fat loss. Patient will continue with Wegovy 1.7 mg. Pleased with progress overall. Recently started on gabapentin for nerve pain. 07/04/2023: Weight 165.2, BMI 29.26. Patient congratulated on effort, continuing to maintain, lose slow, steady, sustainable weight. Patient is very pleased with progress overall with like to continue with Wegovy 1.7 mg. 09/12/2023: Weight 164.3, BMI 29.1. Patient doing really well overall. Does admit to some constipation still, treated with lifestyle modifications. Weight has plateaued, will continue with Wegovy 1.7 mg and work on lifestyle, but as of next month, could consider increasing up to Wegovy 2.4 mg as she has been on 1.7 for a while. 10/13/2023: Weight 169, BMI 29.93 patient congratulated on lifestyle effort. She has been off of semaglutide, so her appetite has increased. Appeal pending through [employer] for Wegovy 1.7 mg. She will start semaglutide 1 mg again. Educated on proper use, side effects. Encouraged to continue with stairstepper, resistance training, and healthy eating with protein, fruits, veggies. Patient pleased with lifestyle changes overall. 11/29/2023: Weight 168.9, BMI 29.92. Patient congratulated on efforts, she is trying to maintain her weight without a medication, and has been doing so. Does admit to some more increased appetite. Discussed Contrave as semaglutide/tirzepati de [id number] is too costly. Patient is willing. Discussed proper use, taper, side effects, long-term use. Discussed that she cannot drink alcohol while on this medication. Patient understanding. Will follow-up in 4 weeks. 02/16/2024: Weight 177, BMI 31.35. Patient expresses frustration as she has gained some weight since last visit. Insurance stopped covering Wegovy so we tried switching over to Contrave, which she states caused cramping without positive effect for weight loss. Based on weight gain, will try to resubmit for Wegovy 0.25 mg but in the meantime we will do compounded semaglutide in office. She is aware that we cannot guarantee coverage. Patient discussed proper use, side effects, long-term risks. She feels motivated today to get back on track. 03/20/23: BMI 30, Weight 171. Will attempt submission for Zepbound. Pt reports has friends who have been able to get it with [facility]. We discussed that this may be true, but unsure. Offereed trying every other week compounded semaglutide _ phentermine to see if this would help. 04/23/2024: Weight 168, BMI 29.9. Patient congratulated, has lost some weight since last visit. Body scan reviewed showing improvement. Focusing on high-protein, and implementing more resistance training. Will restart initiation of phentermine. Patient is tolerated well in the past. Will start 15 mg once daily. EKG in office today within normal limits.Patient open to potential compounded GLP-1's in the future but would like to save money at this time.Discussed efficacy and compliance of medication. 05/27/2024: Weight 170, BMI 30.23. Patient did gain weight since last visit but gained 2 pounds of muscle, lost 4 pounds of fat. Zepbound declined because [facility] does not cover the medication, she has been trying Wegovy in the past, would like to try to resubmit for that medication. In the meantime we will continue with phentermine but increase to 30 mg. She will not be on phentermine and Wegovy at the same time. Continue with lifestyle. Follow-up in 4 to 6 weeks. 07/16/2024: Weight 166, BMI 29. Patient continuing to lose slow, steady weight. Taking Wegovy 0.5 mg, has 1 dose less but then would like to increase to 1 mg. Will send 1 mg today. Did discuss the importance of lifestyle conjunction with weight loss medications for long-term, sustainable weight loss. Patient is going to implement more resistance training and higher protein to maintain muscle and target fat loss. No longer taking phentermine. Does admit to more fatigue, Wegovy versus phentermine. Did discuss the importance of nutrition and eating enough on the medication. # Following with her PCP secondary to generalized joint pain, positive ALY, referred to rheumatology. Patient taking gabapentin, NSAID, and tramadol as needed # Seasonal allergies: Continue fluticasone and cetirizine prn #Migraines: continue sumatriptan 25 mg PRN Patient to follow-up in 4-6 weeks, Sooner as needed. Time spent with patient 30 minutes with greater than 50% on patient education and care coordination. All patient questions answered in office today. Patient should call the office in the meantime with any questions or concerns. Case discussed with collaborating physician Kody Duarte who reviewed the assessment and plan. Chart, medications, labs, vital signs reviewed. Dictation was accomplished with the use of [employer] voice recognition software, prone to medical misidentifications and grammatical errors. This is unintentional and the practitioner does try to identify and correct these, but some could still be present. Please do not hesitate to contact practitioner for clarification. 07/16/2024 Over weight (ICD-10 - E66.3) Melany Is a 46-year-old female who presented the office for weight management follow-up. 10/19/22: weight 185, BMI 32,77. Educated lifestyle modifications, diet, exercise, high protein, low carb, healthy fats. Educated on stretching and walking. Work on this for the next 4 weeks and consider phentermine at next visit pending EKG. SECA reviewed. Pt understanding. 12/02/22: weight 182.9, BMI 32.4- patient congratulated on effort. Educated to continue with lifestyle modifications and focus on more movement now that she has had a cortisone injection in her back with improvement in pain. Also educated to focus on portion control, high-protein, low carbohydrate, healthy fat and increasing water intake. Patient interested in GLP-1 injection, but need to prove three consecutive months of weight loss in order to qualify. She is understanding regarding this. Could consider trialing phentermine again, but aware of rebound weight gain. Already taking bupropion, would like to add low dose naltrexone. This was sent to [facility] pharmacy. Will try to submit for GLP-1 injection in January. Patient will follow-up in one month.Educated on proper use, as well as side effects of medication. Patient aware she cannot drink on medication. 01/05/23: weight 182.3lbs, BMI 32.29 - Patient has modest weight loss since last meeting. She admits to a recent deviation from diet over last week because of celebrating with family and eating large amounts of junk food. On a normaly basis she has been eating less junk food overall, but her cravings have not changes on the naltrexone/wellbutrin combination. Will put in for patient to be started on 0.25mg Wegovy. D/c naltrexone. She was educated on side effect profile and understands. I gave recommendation to increase weight-bearing activity at home by incorporating small amounts of pushups and body weight squats into daily routine and gradually increase the volume. She was also encouraged to follow recommendation of provider conducting sleep study to trial CPAP mask to improve sleep quality. Will follow up with patient in 4 weeks. 02/02/2023: Weight 180.2, BMI 31.92-patient congratulated on efforts. Encouraged to continue with lifestyle modifications will be try to get her on a weight loss medication. Tried getting on Wegovy, but was denied by insurance. We will try Saxenda. Educated on proper use, and side effects. Patient will really benefit from this medication. Patient is encouraged, and is doing very well overall. She does continue to lose weight. 03/04/2023: Weight 170.9, BMI 31.69. Patient congratulated on effort. Has been doing well with lifestyle modifications. Discontinued naltrexone, and sent Saxenda last visit, which was approved. Patient had a hard time finding it, but just got on it about a week ago. Taking 1.2 mg first dose today. She does notice occasional constipation, and nausea. Educated on conservative ways to improve this, she is understanding. She will call the office with any question. Did continue to educate proper use. Continue to encourage lifestyle. 04/10/2023: Weight 177 pounds, BMI 31.35. Patient has lost 1 pound since last visit. Body composition scale reviewed showing significant improvement since patient started with weight management program. Was taking Saxenda and doing really well, but discontinued due to national shortage. We will start compounded semaglutide 1 mg for the next 2 weeks, and if tolerating well will submit for Wegovy 1.7 at next visit. Patient understanding. Educated on the importance of lifestyle modifications in conjunction with weight loss. 05/05/2023: Weight 174.3, BMI 30.87. Patient very pleased with progress overall. Continues to have successful weight loss. Was on Saxenda but discontinued due to national shortage, took compounded semaglutide tapered up to 1 mg, tolerating well without side effects. We will submit for Wegovy 1.7 mg today. Educated on importance of lifestyle modifications in conjunction with weight loss medications. 06/02/2023: Weight 168.7, BMI 29.88. Patient congratulated on effort. Taking Wegovy 1.7 mg with compliance, without any side effects. Patient is very pleased with progress overall, and is feeling great. States that she tolerates this medication better than she was the Saxenda. Educated on the importance of lifestyle modifications to maintain muscle/target fat loss. Patient will continue with Wegovy 1.7 mg. Pleased with progress overall. Recently started on gabapentin for nerve pain. 07/04/2023: Weight 165.2, BMI 29.26. Patient congratulated on effort, continuing to maintain, lose slow, steady, sustainable weight. Patient is very pleased with progress overall with like to continue with Wegovy 1.7 mg. 09/12/2023: Weight 164.3, BMI 29.1. Patient doing really well overall. Does admit to some constipation still, treated with lifestyle modifications. Weight has plateaued, will continue with Wegovy 1.7 mg and work on lifestyle, but as of next month, could consider increasing up to Wegovy 2.4 mg as she has been on 1.7 for a while. 10/13/2023: Weight 169, BMI 29.93 patient congratulated on lifestyle effort. She has been off of semaglutide, so her appetite has increased. Appeal pending through [employer] for Wegovy 1.7 mg. She will start semaglutide 1 mg again. Educated on proper use, side effects. Encouraged to continue with stairstepper, resistance training, and healthy eating with protein, fruits, veggies. Patient pleased with lifestyle changes overall. 11/29/2023: Weight 168.9, BMI 29.92. Patient congratulated on efforts, she is trying to maintain her weight without a medication, and has been doing so. Does admit to some more increased appetite. Discussed Contrave as semaglutide/tirzepati de [id number] is too costly. Patient is willing. Discussed proper use, taper, side effects, long-term use. Discussed that she cannot drink alcohol while on this medication. Patient understanding. Will follow-up in 4 weeks. 02/16/2024: Weight 177, BMI 31.35. Patient expresses frustration as she has gained some weight since last visit. Insurance stopped covering Wegovy so we tried switching over to Contrave, which she states caused cramping without positive effect for weight loss. Based on weight gain, will try to resubmit for Wegovy 0.25 mg but in the meantime we will do compounded semaglutide in office. She is aware that we cannot guarantee coverage. Patient discussed proper use, side effects, long-term risks. She feels motivated today to get back on track. 03/20/23: BMI 30, Weight 171. Will attempt submission for Zepbound. Pt reports has friends who have been able to get it with [facility]. We discussed that this may be true, but unsure. Offereed trying every other week compounded semaglutide _ phentermine to see if this would help. 04/23/2024: Weight 168, BMI 29.9. Patient congratulated, has lost some weight since last visit. Body scan reviewed showing improvement. Focusing on high-protein, and implementing more resistance training. Will restart initiation of phentermine. Patient is tolerated well in the past. Will start 15 mg once daily. EKG in office today within normal limits.Patient open to potential compounded GLP-1's in the future but would like to save money at this time.Discussed efficacy and compliance of medication. 05/27/2024: Weight 170, BMI 30.23. Patient did gain weight since last visit but gained 2 pounds of muscle, lost 4 pounds of fat. Zepbound declined because [place] [place] does not cover the medication, she has been trying Wegovy in the past, would like to try to resubmit for that medication. In the meantime we will continue with phentermine but increase to 30 mg. She will not be on phentermine and Wegovy at the same time. Continue with lifestyle. Follow-up in 4 to 6 weeks. 07/16/2024: Weight 166, BMI 29. Patient continuing to lose slow, steady weight. Taking Wegovy 0.5 mg, has 1 dose less but then would like to increase to 1 mg. Will send 1 mg today. Did discuss the importance of lifestyle conjunction with weight loss medications for long-term, sustainable weight loss. Patient is going to implement more resistance training and higher protein to maintain muscle and target fat loss. No longer taking phentermine. Does admit to more fatigue, Wegovy versus phentermine. Did discuss the importance of nutrition and eating enough on the medication. # Following with her PCP secondary to generalized joint pain, positive ALY, referred to rheumatology. Patient taking gabapentin, NSAID, and tramadol as needed # Seasonal allergies: Continue fluticasone and cetirizine prn #Migraines: continue sumatriptan 25 mg PRN Patient to follow-up in 4-6 weeks, Sooner as needed. Time spent with patient 30 minutes with greater than 50% on patient education and care coordination. All patient questions answered in office today. Patient should call the office in the meantime with any questions or concerns. Case discussed with collaborating physician Kody Duarte who reviewed the assessment and plan. Chart, medications, labs, vital signs reviewed. Dictation was accomplished with the use of [employer] voice recognition software, prone to medical misidentifications and grammatical errors. This is unintentional and the practitioner does try to identify and correct these, but some could still be present. Please do not hesitate to contact practitioner for clarification. 08/30/2024 Over weight (ICD-10 - E66.3) Melany Is a 46-year-old female who presented the office for weight management follow-up. 10/19/22: weight 185, BMI 32,77. Educated lifestyle modifications, diet, exercise, high protein, low carb, healthy fats. Educated on stretching and walking. Work on this for the next 4 weeks and consider phentermine at next visit pending EKG. MICHAELA reviewed. Pt understanding. 12/02/22: weight 182.9, BMI 32.4- patient congratulated on effort. Educated to continue with lifestyle modifications and focus on more movement now that she has had a cortisone injection in her back with improvement in pain. Also educated to focus on portion control, high-protein, low carbohydrate, healthy fat and increasing water intake. Patient interested in GLP-1 injection, but need to prove three consecutive months of weight loss in order to qualify. She is understanding regarding this. Could consider trialing phentermine again, but aware of rebound weight gain. Already taking bupropion, would like to add low dose naltrexone. This was sent to compound pharmacy. Will try to submit for GLP-1 injection in January. Patient will follow-up in one month.Educated on proper use, as well as side effects of medication. Patient aware she cannot drink on medication. 01/05/23: weight 182.3lbs, BMI 32.29 - Patient has modest weight loss since last meeting. She admits to a recent deviation from diet over last week because of celebrating with family and eating large amounts of junk food. On a normaly basis she has been eating less junk food overall, but her cravings have not changes on the naltrexone/wellbutrin combination. Will put in for patient to be started on 0.25mg Wegovy. D/c naltrexone. She was educated on side effect profile and understands. I gave recommendation to increase weight-bearing activity at home by incorporating small amounts of pushups and body weight squats into daily routine and gradually increase the volume. She was also encouraged to follow recommendation of provider conducting sleep study to trial CPAP mask to improve sleep quality. Will follow up with patient in 4 weeks. 02/02/2023: Weight 180.2, BMI 31.92-patient congratulated on efforts. Encouraged to continue with lifestyle modifications will be try to get her on a weight loss medication. Tried getting on Wegovy, but was denied by insurance. We will try Saxenda. Educated on proper use, and side effects. Patient will really benefit from this medication. Patient is encouraged, and is doing very well overall. She does continue to lose weight. 03/04/2023: Weight 170.9, BMI 31.69. Patient congratulated on effort. Has been doing well with lifestyle modifications. Discontinued naltrexone, and sent Saxenda last visit, which was approved. Patient had a hard time finding it, but just got on it about a week ago. Taking 1.2 mg first dose today. She does notice occasional constipation, and nausea. Educated on conservative ways to improve this, she is understanding. She will call the office with any question. Did continue to educate proper use. Continue to encourage lifestyle. 04/10/2023: Weight 177 pounds, BMI 31.35. Patient has lost 1 pound since last visit. Body composition scale reviewed showing significant improvement since patient started with weight management program. Was taking Saxenda and doing really well, but discontinued due to national shortage. We will start compounded semaglutide 1 mg for the next 2 weeks, and if tolerating well will submit for Wegovy 1.7 at next visit. Patient understanding. Educated on the importance of lifestyle modifications in conjunction with weight loss. 05/05/2023: Weight 174.3, BMI 30.87. Patient very pleased with progress overall. Continues to have successful weight loss. Was on Saxenda but discontinued due to national shortage, took compounded semaglutide tapered up to 1 mg, tolerating well without side effects. We will submit for Wegovy 1.7 mg today. Educated on importance of lifestyle modifications in conjunction with weight loss medications. 06/02/2023: Weight 168.7, BMI 29.88. Patient congratulated on effort. Taking Wegovy 1.7 mg with compliance, without any side effects. Patient is very pleased with progress overall, and is feeling great. States that she tolerates this medication better than she was the Saxenda. Educated on the importance of lifestyle modifications to maintain muscle/target fat loss. Patient will continue with Wegovy 1.7 mg. Pleased with progress overall. Recently started on gabapentin for nerve pain. 07/04/2023: Weight 165.2, BMI 29.26. Patient congratulated on effort, continuing to maintain, lose slow, steady, sustainable weight. Patient is very pleased with progress overall with like to continue with Wegovy 1.7 mg. 09/12/2023: Weight 164.3, BMI 29.1. Patient doing really well overall. Does admit to some constipation still, treated with lifestyle modifications. Weight has plateaued, will continue with Wegovy 1.7 mg and work on lifestyle, but as of next month, could consider increasing up to Wegovy 2.4 mg as she has been on 1.7 for a while. 10/13/2023: Weight 169, BMI 29.93 patient congratulated on lifestyle effort. She has been off of semaglutide, so her appetite has increased. Appeal pending through [employer] for Wegovy 1.7 mg. She will start semaglutide 1 mg again. Educated on proper use, side effects. Encouraged to continue with stairstepper, resistance training, and healthy eating with protein, fruits, veggies. Patient pleased with lifestyle changes overall. 11/29/2023: Weight 168.9, BMI 29.92. Patient congratulated on efforts, she is trying to maintain her weight without a medication, and has been doing so. Does admit to some more increased appetite. Discussed Contrave as semaglutide/tirzepati de [id number] is too costly. Patient is willing. Discussed proper use, taper, side effects, long-term use. Discussed that she cannot drink alcohol while on this medication. Patient understanding. Will follow-up in 4 weeks. 02/16/2024: Weight 177, BMI 31.35. Patient expresses frustration as she has gained some weight since last visit. Insurance stopped covering Wegovy so we tried switching over to Contrave, which she states caused cramping without positive effect for weight loss. Based on weight gain, will try to resubmit for Wegovy 0.25 mg but in the meantime we will do compounded semaglutide in office. She is aware that we cannot guarantee coverage. Patient discussed proper use, side effects, long-term risks. She feels motivated today to get back on track. 03/20/23: BMI 30, Weight 171. Will attempt submission for Zepbound. Pt reports has friends who have been able to get it with [facility]. We discussed that this may be true, but unsure. Offereed trying every other week compounded semaglutide _ phentermine to see if this would help. 04/23/2024: Weight 168, BMI 29.9. Patient congratulated, has lost some weight since last visit. Body scan reviewed showing improvement. Focusing on high-protein, and implementing more resistance training. Will restart initiation of phentermine. Patient is tolerated well in the past. Will start 15 mg once daily. EKG in office today within normal limits.Patient open to potential compounded GLP-1's in the future but would like to save money at this time.Discussed efficacy and compliance of medication. 05/27/2024: Weight 170, BMI 30.23. Patient did gain weight since last visit but gained 2 pounds of muscle, lost 4 pounds of fat. Zepbound declined because [employer] does not cover the medication, she has been trying Wegovy in the past, would like to try to resubmit for that medication. In the meantime we will continue with phentermine but increase to 30 mg. She will not be on phentermine and Wegovy at the same time. Continue with lifestyle. Follow-up in 4 to 6 weeks. 07/16/2024: Weight 166, BMI 29. Patient continuing to lose slow, steady weight. Taking Wegovy 0.5 mg, has 1 dose less but then would like to increase to 1 mg. Will send 1 mg today. Did discuss the importance of lifestyle conjunction with weight loss medications for long-term, sustainable weight loss. Patient is going to implement more resistance training and higher protein to maintain muscle and target fat loss. No longer taking phentermine. Does admit to more fatigue, Wegovy versus phentermine. Did discuss the importance of nutrition and eating enough on the medication. 08/30/2024: Weight 164, BMI 29. Patient congratulated on weight loss, continuing to lose slow, steady weight. Increase Wegovy to 1.7 mg. Continue with resistance training to build muscle, and protein intake. # Following with her PCP secondary to generalized joint pain, positive ALY, referred to rheumatology. Patient taking gabapentin, NSAID, and tramadol as needed # Seasonal allergies: Continue fluticasone and cetirizine prn #Migraines: continue sumatriptan 25 mg PRN Patient to follow-up in 4 weeks, Sooner as needed. Time spent with patient 30 minutes with greater than 50% on patient education and care coordination. All patient questions answered in office today. Patient should call the office in the meantime with any questions or concerns. Case discussed with collaborating physician Kody Duarte who reviewed the assessment and plan. Chart, medications, labs, vital signs reviewed. Dictation was accomplished with the use of [employer] voice recognition software, prone to medical misidentifications and grammatical errors. This is unintentional and the practitioner does try to identify and correct these, but some could still be present. Please do not hesitate to contact practitioner for clarification. 09/27/2024 BMI 28.0-28.9,adult (ICD-10 - Z68.28) Melany Is a 48-year-old female who presented the office for weight management follow-up. 10/19/22: weight 185, BMI 32,77. Educated lifestyle modifications, diet, exercise, high protein, low carb, healthy fats. Educated on stretching and walking. Work on this for the next 4 weeks and consider phentermine at next visit pending EKG. MARGAUX reviewed. Pt understanding. 12/02/22: weight 182.9, BMI 32.4- patient congratulated on effort. Educated to continue with lifestyle modifications and focus on more movement now that she has had a cortisone injection in her back with improvement in pain. Also educated to focus on portion control, high-protein, low carbohydrate, healthy fat and increasing water intake. Patient interested in GLP-1 injection, but need to prove three consecutive months of weight loss in order to qualify. She is understanding regarding this. Could consider trialing phentermine again, but aware of rebound weight gain. Already taking bupropion, would like to add low dose naltrexone. This was sent to [facility] pharmacy. Will try to submit for GLP-1 injection in January. Patient will follow-up in one month.Educated on proper use, as well as side effects of medication. Patient aware she cannot drink on medication. 01/05/23: weight 182.3lbs, BMI 32.29 - Patient has modest weight loss since last meeting. She admits to a recent deviation from diet over last week because of celebrating with family and eating large amounts of junk food. On a normaly basis she has been eating less junk food overall, but her cravings have not changes on the naltrexone/wellbutrin combination. Will put in for patient to be started on 0.25mg Wegovy. D/c naltrexone. She was educated on side effect profile and understands. I gave recommendation to increase weight-bearing activity at home by incorporating small amounts of pushups and body weight squats into daily routine and gradually increase the volume. She was also encouraged to follow recommendation of provider conducting sleep study to trial CPAP mask to improve sleep quality. Will follow up with patient in 4 weeks. 02/02/2023: Weight 180.2, BMI 31.92-patient congratulated on efforts. Encouraged to continue with lifestyle modifications will be try to get her on a weight loss medication. Tried getting on Wegovy, but was denied by insurance. We will try Saxenda. Educated on proper use, and side effects. Patient will really benefit from this medication. Patient is encouraged, and is doing very well overall. She does continue to lose weight. 03/04/2023: Weight 170.9, BMI 31.69. Patient congratulated on effort. Has been doing well with lifestyle modifications. Discontinued naltrexone, and sent Saxenda last visit, which was approved. Patient had a hard time finding it, but just got on it about a week ago. Taking 1.2 mg first dose today. She does notice occasional constipation, and nausea. Educated on conservative ways to improve this, she is understanding. She will call the office with any question. Did continue to educate proper use. Continue to encourage lifestyle. 04/10/2023: Weight 177 pounds, BMI 31.35. Patient has lost 1 pound since last visit. Body composition scale reviewed showing significant improvement since patient started with weight management program. Was taking Saxenda and doing really well, but discontinued due to national shortage. We will start compounded semaglutide 1 mg for the next 2 weeks, and if tolerating well will submit for Wegovy 1.7 at next visit. Patient understanding. Educated on the importance of lifestyle modifications in conjunction with weight loss. 05/05/2023: Weight 174.3, BMI 30.87. Patient very pleased with progress overall. Continues to have successful weight loss. Was on Saxenda but discontinued due to national shortage, took compounded semaglutide tapered up to 1 mg, tolerating well without side effects. We will submit for Wegovy 1.7 mg today. Educated on importance of lifestyle modifications in conjunction with weight loss medications. 06/02/2023: Weight 168.7, BMI 29.88. Patient congratulated on effort. Taking Wegovy 1.7 mg with compliance, without any side effects. Patient is very pleased with progress overall, and is feeling great. States that she tolerates this medication better than she was the Saxenda. Educated on the importance of lifestyle modifications to maintain muscle/target fat loss. Patient will continue with Wegovy 1.7 mg. Pleased with progress overall. Recently started on gabapentin for nerve pain. 07/04/2023: Weight 165.2, BMI 29.26. Patient congratulated on effort, continuing to maintain, lose slow, steady, sustainable weight. Patient is very pleased with progress overall with like to continue with Wegovy 1.7 mg. 09/12/2023: Weight 164.3, BMI 29.1. Patient doing really well overall. Does admit to some constipation still, treated with lifestyle modifications. Weight has plateaued, will continue with Wegovy 1.7 mg and work on lifestyle, but as of next month, could consider increasing up to Wegovy 2.4 mg as she has been on 1.7 for a while. 10/13/2023: Weight 169, BMI 29.93 patient congratulated on lifestyle effort. She has been off of semaglutide, so her appetite has increased. Appeal pending through [employer] for Wegovy 1.7 mg. She will start semaglutide 1 mg again. Educated on proper use, side effects. Encouraged to continue with stairstepper, resistance training, and healthy eating with protein, fruits, veggies. Patient pleased with lifestyle changes overall. 11/29/2023: Weight 168.9, BMI 29.92. Patient congratulated on efforts, she is trying to maintain her weight without a medication, and has been doing so. Does admit to some more increased appetite. Discussed Contrave as semaglutide/tirzepati de [id number] is too costly. Patient is willing. Discussed proper use, taper, side effects, long-term use. Discussed that she cannot drink alcohol while on this medication. Patient understanding. Will follow-up in 4 weeks. 02/16/2024: Weight 177, BMI 31.35. Patient expresses frustration as she has gained some weight since last visit. Insurance stopped covering Wegovy so we tried switching over to Contrave, which she states caused cramping without positive effect for weight loss. Based on weight gain, will try to resubmit for Wegovy 0.25 mg but in the meantime we will do compounded semaglutide in office. She is aware that we cannot guarantee coverage. Patient discussed proper use, side effects, long-term risks. She feels motivated today to get back on track. 8/13/23: BMI 30, Weight 171. Will attempt submission for Zepbound. Pt reports has friends who have been able to get it with [facility]. We discussed that this may be true, but unsure. Offereed trying every other week compounded semaglutide _ phentermine to see if this would help. 04/23/2024: Weight 168, BMI 29.9. Patient congratulated, has lost some weight since last visit. Body scan reviewed showing improvement. Focusing on high-protein, and implementing more resistance training. Will restart initiation of phentermine. Patient is tolerated well in the past. Will start 15 mg once daily. EKG in office today within normal limits.Patient open to potential compounded GLP-1's in the future but would like to save money at this time.Discussed efficacy and compliance of medication. 05/27/2024: Weight 170, BMI 30.23. Patient did gain weight since last visit but gained 2 pounds of muscle, lost 4 pounds of fat. Zepbound declined because [employer] does not cover the medication, she has been trying Wegovy in the past, would like to try to resubmit for that medication. In the meantime we will continue with phentermine but increase to 30 mg. She will not be on phentermine and Wegovy at the same time. Continue with lifestyle. Follow-up in 4 to 6 weeks. 07/16/2024: Weight 166, BMI 29. Patient continuing to lose slow, steady weight. Taking Wegovy 0.5 mg, has 1 dose less but then would like to increase to 1 mg. Will send 1 mg today. Did discuss the importance of lifestyle conjunction with weight loss medications for long-term, sustainable weight loss. Patient is going to implement more resistance training and higher protein to maintain muscle and target fat loss. No longer taking phentermine. Does admit to more fatigue, Wegovy versus phentermine. Did discuss the importance of nutrition and eating enough on the medication. 08/30/2024: Weight 164, BMI 29. Patient congratulated on weight loss, continuing to lose slow, steady weight. Increase Wegovy to 1.7 mg. Continue with resistance training to build muscle, and protein intake. 09/27/2024: Weight 161, BMI 28. Patient congratulated on effort, continuing to lose slow, steady weight. Feels really well on Wegovy 1.7 mg, reviewing body scan, she has lost 3 pounds of fat, and maintained muscle. Body composition changing for the better. Follow-up in 4 weeks, sooner as needed. M ICC injection today. # Following with her PCP secondary to generalized joint pain, positive ALY, referred to rheumatology. Patient taking gabapentin, NSAID, and tramadol as needed # Seasonal allergies: Continue fluticasone and cetirizine prn #Migraines: continue sumatriptan 25 mg PRN Patient to follow-up in 4 weeks, Sooner as needed. Time spent with patient 30 minutes with greater than 50% on patient education and care coordination. All patient questions answered in office today. Patient should call the office in the meantime with any questions or concerns. Case discussed with collaborating physician Kody Duarte who reviewed the assessment and plan. Chart, medications, labs, vital signs reviewed. Dictation was accomplished with the use of [employer] voice recognition software, prone to medical misidentifications and grammatical errors. This is unintentional and the practitioner does try to identify and correct these, but some could still be present. Please do not hesitate to contact practitioner for clarification. 09/27/2024 Over weight (ICD-10 - E66.3) Melany Is a 48-year-old female who presented the office for weight management follow-up. 10/19/22: weight 185, BMI 32,77. Educated lifestyle modifications, diet, exercise, high protein, low carb, healthy fats. Educated on stretching and walking. Work on this for the next 4 weeks and consider phentermine at next visit pending EKG. MARGAUX reviewed. Pt understanding. 12/02/22: weight 182.9, BMI 32.4- patient congratulated on effort. Educated to continue with lifestyle modifications and focus on more movement now that she has had a cortisone injection in her back with improvement in pain. Also educated to focus on portion control, high-protein, low carbohydrate, healthy fat and increasing water intake. Patient interested in GLP-1 injection, but need to prove three consecutive months of weight loss in order to qualify. She is understanding regarding this. Could consider trialing phentermine again, but aware of rebound weight gain. Already taking bupropion, would like to add low dose naltrexone. This was sent to [facility] pharmacy. Will try to submit for GLP-1 injection in January. Patient will follow-up in one month.Educated on proper use, as well as side effects of medication. Patient aware she cannot drink on medication. 01/05/23: weight 182.3lbs, BMI 32.29 - Patient has modest weight loss since last meeting. She admits to a recent deviation from diet over last week because of celebrating with family and eating large amounts of junk food. On a normaly basis she has been eating less junk food overall, but her cravings have not changes on the naltrexone/wellbutrin combination. Will put in for patient to be started on 0.25mg Wegovy. D/c naltrexone. She was educated on side effect profile and understands. I gave recommendation to increase weight-bearing activity at home by incorporating small amounts of pushups and body weight squats into daily routine and gradually increase the volume. She was also encouraged to follow recommendation of provider conducting sleep study to trial CPAP mask to improve sleep quality. Will follow up with patient in 4 weeks. 02/02/2023: Weight 180.2, BMI 31.92-patient congratulated on efforts. Encouraged to continue with lifestyle modifications will be try to get her on a weight loss medication. Tried getting on Wegovy, but was denied by insurance. We will try Saxenda. Educated on proper use, and side effects. Patient will really benefit from this medication. Patient is encouraged, and is doing very well overall. She does continue to lose weight. 03/04/2023: Weight 170.9, BMI 31.69. Patient congratulated on effort. Has been doing well with lifestyle modifications. Discontinued naltrexone, and sent Saxenda last visit, which was approved. Patient had a hard time finding it, but just got on it about a week ago. Taking 1.2 mg first dose today. She does notice occasional constipation, and nausea. Educated on conservative ways to improve this, she is understanding. She will call the office with any question. Did continue to educate proper use. Continue to encourage lifestyle. 04/10/2023: Weight 177 pounds, BMI 31.35. Patient has lost 1 pound since last visit. Body composition scale reviewed showing significant improvement since patient started with weight management program. Was taking Saxenda and doing really well, but discontinued due to national shortage. We will start compounded semaglutide 1 mg for the next 2 weeks, and if tolerating well will submit for Wegovy 1.7 at next visit. Patient understanding. Educated on the importance of lifestyle modifications in conjunction with weight loss. 05/05/2023: Weight 174.3, BMI 30.87. Patient very pleased with progress overall. Continues to have successful weight loss. Was on Saxenda but discontinued due to national shortage, took compounded semaglutide tapered up to 1 mg, tolerating well without side effects. We will submit for Wegovy 1.7 mg today. Educated on importance of lifestyle modifications in conjunction with weight loss medications. 06/02/2023: Weight 168.7, BMI 29.88. Patient congratulated on effort. Taking Wegovy 1.7 mg with compliance, without any side effects. Patient is very pleased with progress overall, and is feeling great. States that she tolerates this medication better than she was the Saxenda. Educated on the importance of lifestyle modifications to maintain muscle/target fat loss. Patient will continue with Wegovy 1.7 mg. Pleased with progress overall. Recently started on gabapentin for nerve pain. 07/04/2023: Weight 165.2, BMI 29.26. Patient congratulated on effort, continuing to maintain, lose slow, steady, sustainable weight. Patient is very pleased with progress overall with like to continue with Wegovy 1.7 mg. 09/12/2023: Weight 164.3, BMI 29.1. Patient doing really well overall. Does admit to some constipation still, treated with lifestyle modifications. Weight has plateaued, will continue with Wegovy 1.7 mg and work on lifestyle, but as of next month, could consider increasing up to Wegovy 2.4 mg as she has been on 1.7 for a while. 10/13/2023: Weight 169, BMI 29.93 patient congratulated on lifestyle effort. She has been off of semaglutide, so her appetite has increased. Appeal pending through [employer] for Wegovy 1.7 mg. She will start semaglutide 1 mg again. Educated on proper use, side effects. Encouraged to continue with stairstepper, resistance training, and healthy eating with protein, fruits, veggies. Patient pleased with lifestyle changes overall. 11/29/2023: Weight 168.9, BMI 29.92. Patient congratulated on efforts, she is trying to maintain her weight without a medication, and has been doing so. Does admit to some more increased appetite. Discussed Contrave as semaglutide/tirzepati de [id number] is too costly. Patient is willing. Discussed proper use, taper, side effects, long-term use. Discussed that she cannot drink alcohol while on this medication. Patient understanding. Will follow-up in 4 weeks. 02/16/2024: Weight 177, BMI 31.35. Patient expresses frustration as she has gained some weight since last visit. Insurance stopped covering Wegovy so we tried switching over to Contrave, which she states caused cramping without positive effect for weight loss. Based on weight gain, will try to resubmit for Wegovy 0.25 mg but in the meantime we will do compounded semaglutide in office. She is aware that we cannot guarantee coverage. Patient discussed proper use, side effects, long-term risks. She feels motivated today to get back on track. 03/20/23: BMI 30, Weight 171. Will attempt submission for Zepbound. Pt reports has friends who have been able to get it with [facility]. We discussed that this may be true, but unsure. Offereed trying every other week compounded semaglutide _ phentermine to see if this would help. 04/23/2024: Weight 168, BMI 29.9. Patient congratulated, has lost some weight since last visit. Body scan reviewed showing improvement. Focusing on high-protein, and implementing more resistance training. Will restart initiation of phentermine. Patient is tolerated well in the past. Will start 15 mg once daily. EKG in office today within normal limits.Patient open to potential compounded GLP-1's in the future but would like to save money at this time.Discussed efficacy and compliance of medication. 05/27/2024: Weight 170, BMI 30.23. Patient did gain weight since last visit but gained 2 pounds of muscle, lost 4 pounds of fat. Zepbound declined because [employer] does not cover the medication, she has been trying Wegovy in the past, would like to try to resubmit for that medication. In the meantime we will continue with phentermine but increase to 30 mg. She will not be on phentermine and Wegovy at the same time. Continue with lifestyle. Follow-up in 4 to 6 weeks. 07/16/2024: Weight 166, BMI 29. Patient continuing to lose slow, steady weight. Taking Wegovy 0.5 mg, has 1 dose less but then would like to increase to 1 mg. Will send 1 mg today. Did discuss the importance of lifestyle conjunction with weight loss medications for long-term, sustainable weight loss. Patient is going to implement more resistance training and higher protein to maintain muscle and target fat loss. No longer taking phentermine. Does admit to more fatigue, Wegovy versus phentermine. Did discuss the importance of nutrition and eating enough on the medication. 08/30/2024: Weight 164, BMI 29. Patient congratulated on weight loss, continuing to lose slow, steady weight. Increase Wegovy to 1.7 mg. Continue with resistance training to build muscle, and protein intake. 09/27/2024: Weight 161, BMI 28. Patient congratulated on effort, continuing to lose slow, steady weight. Feels really well on Wegovy 1.7 mg, reviewing body scan, she has lost 3 pounds of fat, and maintained muscle. Body composition changing for the better. Follow-up in 4 weeks, sooner as needed. M ICC injection today. # Following with her PCP secondary to generalized joint pain, positive ALY, referred to rheumatology. Patient taking gabapentin, NSAID, and tramadol as needed # Seasonal allergies: Continue fluticasone and cetirizine prn #Migraines: continue sumatriptan 25 mg PRN Patient to follow-up in 4 weeks, Sooner as needed. Time spent with patient 30 minutes with greater than 50% on patient education and care coordination. All patient questions answered in office today. Patient should call the office in the meantime with any questions or concerns. Case discussed with collaborating physician Kody Duarte who reviewed the assessment and plan. Chart, medications, labs, vital signs reviewed. Dictation was accomplished with the use of [employer] voice recognition software, prone to medical misidentifications and grammatical errors. This is unintentional and the practitioner does try to identify and correct these, but some could still be present. Please do not hesitate to contact practitioner for clarification. 11/01/2024 Over weight (ICD-10 - E66.3) Melany Is a 48-year-old female who presented the office for weight management follow-up. 10/19/22: weight 185, BMI 32,77. Educated lifestyle modifications, diet, exercise, high protein, low carb, healthy fats. Educated on stretching and walking. Work on this for the next 4 weeks and consider phentermine at next visit pending EKG. MICHAELSujatha reviewed. Pt understanding. 12/02/22: weight 182.9, BMI 32.4- patient congratulated on effort. Educated to continue with lifestyle modifications and focus on more movement now that she has had a cortisone injection in her back with improvement in pain. Also educated to focus on portion control, high-protein, low carbohydrate, healthy fat and increasing water intake. Patient interested in GLP-1 injection, but need to prove three consecutive months of weight loss in order to qualify. She is understanding regarding this. Could consider trialing phentermine again, but aware of rebound weight gain. Already taking bupropion, would like to add low dose naltrexone. This was sent to compound pharmacy. Will try to submit for GLP-1 injection in January. Patient will follow-up in one month.Educated on proper use, as well as side effects of medication. Patient aware she cannot drink on medication. 01/05/23: weight 182.3lbs, BMI 32.29 - Patient has modest weight loss since last meeting. She admits to a recent deviation from diet over last week because of celebrating with family and eating large amounts of junk food. On a normaly basis she has been eating less junk food overall, but her cravings have not changes on the naltrexone/wellbutrin combination. Will put in for patient to be started on 0.25mg Wegovy. D/c naltrexone. She was educated on side effect profile and understands. I gave recommendation to increase weight-bearing activity at home by incorporating small amounts of pushups and body weight squats into daily routine and gradually increase the volume. She was also encouraged to follow recommendation of provider conducting sleep study to trial CPAP mask to improve sleep quality. Will follow up with patient in 4 weeks. 02/02/2023: Weight 180.2, BMI 31.92-patient congratulated on efforts. Encouraged to continue with lifestyle modifications will be try to get her on a weight loss medication. Tried getting on Wegovy, but was denied by insurance. We will try Saxenda. Educated on proper use, and side effects. Patient will really benefit from this medication. Patient is encouraged, and is doing very well overall. She does continue to lose weight. 03/04/2023: Weight 170.9, BMI 31.69. Patient congratulated on effort. Has been doing well with lifestyle modifications. Discontinued naltrexone, and sent Saxenda last visit, which was approved. Patient had a hard time finding it, but just got on it about a week ago. Taking 1.2 mg first dose today. She does notice occasional constipation, and nausea. Educated on conservative ways to improve this, she is understanding. She will call the office with any question. Did continue to educate proper use. Continue to encourage lifestyle. 04/10/2023: Weight 177 pounds, BMI 31.35. Patient has lost 1 pound since last visit. Body composition scale reviewed showing significant improvement since patient started with weight management program. Was taking Saxenda and doing really well, but discontinued due to national shortage. We will start compounded semaglutide 1 mg for the next 2 weeks, and if tolerating well will submit for Wegovy 1.7 at next visit. Patient understanding. Educated on the importance of lifestyle modifications in conjunction with weight loss. 05/05/2023: Weight 174.3, BMI 30.87. Patient very pleased with progress overall. Continues to have successful weight loss. Was on Saxenda but discontinued due to national shortage, took compounded semaglutide tapered up to 1 mg, tolerating well without side effects. We will submit for Wegovy 1.7 mg today. Educated on importance of lifestyle modifications in conjunction with weight loss medications. 06/02/2023: Weight 168.7, BMI 29.88. Patient congratulated on effort. Taking Wegovy 1.7 mg with compliance, without any side effects. Patient is very pleased with progress overall, and is feeling great. States that she tolerates this medication better than she was the Saxenda. Educated on the importance of lifestyle modifications to maintain muscle/target fat loss. Patient will continue with Wegovy 1.7 mg. Pleased with progress overall. Recently started on gabapentin for nerve pain. 07/04/2023: Weight 165.2, BMI 29.26. Patient congratulated on effort, continuing to maintain, lose slow, steady, sustainable weight. Patient is very pleased with progress overall with like to continue with Wegovy 1.7 mg. 09/12/2023: Weight 164.3, BMI 29.1. Patient doing really well overall. Does admit to some constipation still, treated with lifestyle modifications. Weight has plateaued, will continue with Wegovy 1.7 mg and work on lifestyle, but as of next month, could consider increasing up to Wegovy 2.4 mg as she has been on 1.7 for a while. 10/13/2023: Weight 169, BMI 29.93 patient congratulated on lifestyle effort. She has been off of semaglutide, so her appetite has increased. Appeal pending through [employer] for Wegovy 1.7 mg. She will start semaglutide 1 mg again. Educated on proper use, side effects. Encouraged to continue with stairstepper, resistance training, and healthy eating with protein, fruits, veggies. Patient pleased with lifestyle changes overall. 11/29/2023: Weight 168.9, BMI 29.92. Patient congratulated on efforts, she is trying to maintain her weight without a medication, and has been doing so. Does admit to some more increased appetite. Discussed Contrave as semaglutide/tirzepati de [id number] is too costly. Patient is willing. Discussed proper use, taper, side effects, long-term use. Discussed that she cannot drink alcohol while on this medication. Patient understanding. Will follow-up in 4 weeks. 02/16/2024: Weight 177, BMI 31.35. Patient expresses frustration as she has gained some weight since last visit. Insurance stopped covering Wegovy so we tried switching over to Contrave, which she states caused cramping without positive effect for weight loss. Based on weight gain, will try to resubmit for Wegovy 0.25 mg but in the meantime we will do compounded semaglutide in office. She is aware that we cannot guarantee coverage. Patient discussed proper use, side effects, long-term risks. She feels motivated today to get back on track. 03/20/23: BMI 30, Weight 171. Will attempt submission for Zepbound. Pt reports has friends who have been able to get it with [facility]. We discussed that this may be true, but unsure. Offereed trying every other week compounded semaglutide _ phentermine to see if this would help. 04/23/2024: Weight 168, BMI 29.9. Patient congratulated, has lost some weight since last visit. Body scan reviewed showing improvement. Focusing on high-protein, and implementing more resistance training. Will restart initiation of phentermine. Patient is tolerated well in the past. Will start 15 mg once daily. EKG in office today within normal limits.Patient open to potential compounded GLP-1's in the future but would like to save money at this time.Discussed efficacy and compliance of medication. 05/27/2024: Weight 170, BMI 30.23. Patient did gain weight since last visit but gained 2 pounds of muscle, lost 4 pounds of fat. Zepbound declined because [employer] does not cover the medication, she has been trying Wegovy in the past, would like to try to resubmit for that medication. In the meantime we will continue with phentermine but increase to 30 mg. She will not be on phentermine and Wegovy at the same time. Continue with lifestyle. Follow-up in 4 to 6 weeks. 07/16/2024: Weight 166, BMI 29. Patient continuing to lose slow, steady weight. Taking Wegovy 0.5 mg, has 1 dose less but then would like to increase to 1 mg. Will send 1 mg today. Did discuss the importance of lifestyle conjunction with weight loss medications for long-term, sustainable weight loss. Patient is going to implement more resistance training and higher protein to maintain muscle and target fat loss. No longer taking phentermine. Does admit to more fatigue, Wegovy versus phentermine. Did discuss the importance of nutrition and eating enough on the medication. 08/30/2024: Weight 164, BMI 29. Patient congratulated on weight loss, continuing to lose slow, steady weight. Increase Wegovy to 1.7 mg. Continue with resistance training to build muscle, and protein intake. 09/27/2024: Weight 161, BMI 28. Patient congratulated on effort, continuing to lose slow, steady weight. Feels really well on Wegovy 1.7 mg, reviewing body scan, she has lost 3 pounds of fat, and maintained muscle. Body composition changing for the better. Follow-up in 4 weeks, sooner as needed. M ICC injection today. 10/31/2024: Weight 157, BMI 27. Patient congratulated on effort, significant wt loss potentially related to eating less frequently x3 weeks while grieving. Patient feels good on Weogvy 1.7, will stay at this dose. She has maintained her muscle mass despite losing weight. Follow up in 6 week. # Following with her PCP secondary to generalized joint pain, positive ALY, referred to rheumatology. Patient taking gabapentin, NSAID, and tramadol as needed # Seasonal allergies: Continue fluticasone and cetirizine prn #Migraines: continue sumatriptan 25 mg PRN Patient to follow-up in 4 weeks, Sooner as needed. Time spent with patient 30 minutes with greater than 50% on patient education and care coordination. All patient questions answered in office today. Patient should call the office in the meantime with any questions or concerns. Case discussed with collaborating physician Kody Duarte who reviewed the assessment and plan. Chart, medications, labs, vital signs reviewed. Dictation was accomplished with the use of [employer] voice recognition software, prone to medical misidentifications and grammatical errors. This is unintentional and the practitioner does try to identify and correct these, but some could still be present. Please do not hesitate to contact practitioner for clarification. 11/01/2024 BMI 27.0-27.9,adult (ICD-10 - Z68.27) Melany Is a 48-year-old female who presented the office for weight management follow-up. 10/19/22: weight 185, BMI 32,77. Educated lifestyle modifications, diet, exercise, high protein, low carb, healthy fats. Educated on stretching and walking. Work on this for the next 4 weeks and consider phentermine at next visit pending EKG. SECA reviewed. Pt understanding. 12/02/22: weight 182.9, BMI 32.4- patient congratulated on effort. Educated to continue with lifestyle modifications and focus on more movement now that she has had a cortisone injection in her back with improvement in pain. Also educated to focus on portion control, high-protein, low carbohydrate, healthy fat and increasing water intake. Patient interested in GLP-1 injection, but need to prove three consecutive months of weight loss in order to qualify. She is understanding regarding this. Could consider trialing phentermine again, but aware of rebound weight gain. Already taking bupropion, would like to add low dose naltrexone. This was sent to compound pharmacy. Will try to submit for GLP-1 injection in January. Patient will follow-up in one month.Educated on proper use, as well as side effects of medication. Patient aware she cannot drink on medication. 01/05/23: weight 182.3lbs, BMI 32.29 - Patient has modest weight loss since last meeting. She admits to a recent deviation from diet over last week because of celebrating with family and eating large amounts of junk food. On a normaly basis she has been eating less junk food overall, but her cravings have not changes on the naltrexone/wellbutrin combination. Will put in for patient to be started on 0.25mg Wegovy. D/c naltrexone. She was educated on side effect profile and understands. I gave recommendation to increase weight-bearing activity at home by incorporating small amounts of pushups and body weight squats into daily routine and gradually increase the volume. She was also encouraged to follow recommendation of provider conducting sleep study to trial CPAP mask to improve sleep quality. Will follow up with patient in 4 weeks. 02/02/2023: Weight 180.2, BMI 31.92-patient congratulated on efforts. Encouraged to continue with lifestyle modifications will be try to get her on a weight loss medication. Tried getting on Wegovy, but was denied by insurance. We will try Saxenda. Educated on proper use, and side effects. Patient will really benefit from this medication. Patient is encouraged, and is doing very well overall. She does continue to lose weight. 03/04/2023: Weight 170.9, BMI 31.69. Patient congratulated on effort. Has been doing well with lifestyle modifications. Discontinued naltrexone, and sent Saxenda last visit, which was approved. Patient had a hard time finding it, but just got on it about a week ago. Taking 1.2 mg first dose today. She does notice occasional constipation, and nausea. Educated on conservative ways to improve this, she is understanding. She will call the office with any question. Did continue to educate proper use. Continue to encourage lifestyle. 04/10/2023: Weight 177 pounds, BMI 31.35. Patient has lost 1 pound since last visit. Body composition scale reviewed showing significant improvement since patient started with weight management program. Was taking Saxenda and doing really well, but discontinued due to national shortage. We will start compounded semaglutide 1 mg for the next 2 weeks, and if tolerating well will submit for Wegovy 1.7 at next visit. Patient understanding. Educated on the importance of lifestyle modifications in conjunction with weight loss. 05/05/2023: Weight 174.3, BMI 30.87. Patient very pleased with progress overall. Continues to have successful weight loss. Was on Saxenda but discontinued due to national shortage, took compounded semaglutide tapered up to 1 mg, tolerating well without side effects. We will submit for Wegovy 1.7 mg today. Educated on importance of lifestyle modifications in conjunction with weight loss medications. 06/02/2023: Weight 168.7, BMI 29.88. Patient congratulated on effort. Taking Wegovy 1.7 mg with compliance, without any side effects. Patient is very pleased with progress overall, and is feeling great. States that she tolerates this medication better than she was the Saxenda. Educated on the importance of lifestyle modifications to maintain muscle/target fat loss. Patient will continue with Wegovy 1.7 mg. Pleased with progress overall. Recently started on gabapentin for nerve pain. 07/04/2023: Weight 165.2, BMI 29.26. Patient congratulated on effort, continuing to maintain, lose slow, steady, sustainable weight. Patient is very pleased with progress overall with like to continue with Wegovy 1.7 mg. 09/12/2023: Weight 164.3, BMI 29.1. Patient doing really well overall. Does admit to some constipation still, treated with lifestyle modifications. Weight has plateaued, will continue with Wegovy 1.7 mg and work on lifestyle, but as of next month, could consider increasing up to Wegovy 2.4 mg as she has been on 1.7 for a while. 10/13/2023: Weight 169, BMI 29.93 patient congratulated on lifestyle effort. She has been off of semaglutide, so her appetite has increased. Appeal pending through [employer] for Wegovy 1.7 mg. She will start semaglutide 1 mg again. Educated on proper use, side effects. Encouraged to continue with stairstepper, resistance training, and healthy eating with protein, fruits, veggies. Patient pleased with lifestyle changes overall. 11/29/2023: Weight 168.9, BMI 29.92. Patient congratulated on efforts, she is trying to maintain her weight without a medication, and has been doing so. Does admit to some more increased appetite. Discussed Contrave as semaglutide/tirzepati de [id number] is too costly. Patient is willing. Discussed proper use, taper, side effects, long-term use. Discussed that she cannot drink alcohol while on this medication. Patient understanding. Will follow-up in 4 weeks. 02/16/2024: Weight 177, BMI 31.35. Patient expresses frustration as she has gained some weight since last visit. Insurance stopped covering Wegovy so we tried switching over to Contrave, which she states caused cramping without positive effect for weight loss. Based on weight gain, will try to resubmit for Wegovy 0.25 mg but in the meantime we will do compounded semaglutide in office. She is aware that we cannot guarantee coverage. Patient discussed proper use, side effects, long-term risks. She feels motivated today to get back on track. 03/20/23: BMI 30, Weight 171. Will attempt submission for Zepbound. Pt reports has friends who have been able to get it with [facility]. We discussed that this may be true, but unsure. Offereed trying every other week compounded semaglutide _ phentermine to see if this would help. 04/23/2024: Weight 168, BMI 29.9. Patient congratulated, has lost some weight since last visit. Body scan reviewed showing improvement. Focusing on high-protein, and implementing more resistance training. Will restart initiation of phentermine. Patient is tolerated well in the past. Will start 15 mg once daily. EKG in office today within normal limits.Patient open to potential compounded GLP-1's in the future but would like to save money at this time.Discussed efficacy and compliance of medication. 05/27/2024: Weight 170, BMI 30.23. Patient did gain weight since last visit but gained 2 pounds of muscle, lost 4 pounds of fat. Zepbound declined because [employer] does not cover the medication, she has been trying Wegovy in the past, would like to try to resubmit for that medication. In the meantime we will continue with phentermine but increase to 30 mg. She will not be on phentermine and Wegovy at the same time. Continue with lifestyle. Follow-up in 4 to 6 weeks. 07/16/2024: Weight 166, BMI 29. Patient continuing to lose slow, steady weight. Taking Wegovy 0.5 mg, has 1 dose less but then would like to increase to 1 mg. Will send 1 mg today. Did discuss the importance of lifestyle conjunction with weight loss medications for long-term, sustainable weight loss. Patient is going to implement more resistance training and higher protein to maintain muscle and target fat loss. No longer taking phentermine. Does admit to more fatigue, Wegovy versus phentermine. Did discuss the importance of nutrition and eating enough on the medication. 08/30/2024: Weight 164, BMI 29. Patient congratulated on weight loss, continuing to lose slow, steady weight. Increase Wegovy to 1.7 mg. Continue with resistance training to build muscle, and protein intake. 09/27/2024: Weight 161, BMI 28. Patient congratulated on effort, continuing to lose slow, steady weight. Feels really well on Wegovy 1.7 mg, reviewing body scan, she has lost 3 pounds of fat, and maintained muscle. Body composition changing for the better. Follow-up in 4 weeks, sooner as needed. M ICC injection today. 10/31/2024: Weight 157, BMI 27. Patient congratulated on effort, significant wt loss potentially related to eating less frequently x3 weeks while grieving. Patient feels good on Weogvy 1.7, will stay at this dose. She has maintained her muscle mass despite losing weight. Follow up in 6 week. # Following with her PCP secondary to generalized joint pain, positive ALY, referred to rheumatology. Patient taking gabapentin, NSAID, and tramadol as needed # Seasonal allergies: Continue fluticasone and cetirizine prn #Migraines: continue sumatriptan 25 mg PRN Patient to follow-up in 4 weeks, Sooner as needed. Time spent with patient 30 minutes with greater than 50% on patient education and care coordination. All patient questions answered in office today. Patient should call the office in the meantime with any questions or concerns. Case discussed with collaborating physician Kody Duarte who reviewed the assessment and plan. Chart, medications, labs, vital signs reviewed. Dictation was accomplished with the use of [employer] voice recognition software, prone to medical misidentifications and grammatical errors. This is unintentional and the practitioner does try to identify and correct these, but some could still be present. Please do not hesitate to contact practitioner for clarification. 05/31/2024 BMI 30.0-30.9,adult (ICD-10 - Z68.30) Melany Is a 46-year-old female who presented the office for weight management follow-up. 10/19/22: weight 185, BMI 32,77. Educated lifestyle modifications, diet, exercise, high protein, low carb, healthy fats. Educated on stretching and walking. Work on this for the next 4 weeks and consider phentermine at next visit pending EKG. MARGAUX reviewed. Pt understanding. 12/02/22: weight 182.9, BMI 32.4- patient congratulated on effort. Educated to continue with lifestyle modifications and focus on more movement now that she has had a cortisone injection in her back with improvement in pain. Also educated to focus on portion control, high-protein, low carbohydrate, healthy fat and increasing water intake. Patient interested in GLP-1 injection, but need to prove three consecutive months of weight loss in order to qualify. She is understanding regarding this. Could consider trialing phentermine again, but aware of rebound weight gain. Already taking bupropion, would like to add low dose naltrexone. This was sent to compound pharmacy. Will try to submit for GLP-1 injection in January. Patient will follow-up in one month.Educated on proper use, as well as side effects of medication. Patient aware she cannot drink on medication. 01/05/23: weight 182.3lbs, BMI 32.29 - Patient has modest weight loss since last meeting. She admits to a recent deviation from diet over last week because of celebrating with family and eating large amounts of junk food. On a normaly basis she has been eating less junk food overall, but her cravings have not changes on the naltrexone/wellbutrin combination. Will put in for patient to be started on 0.25mg Wegovy. D/c naltrexone. She was educated on side effect profile and understands. I gave recommendation to increase weight-bearing activity at home by incorporating small amounts of pushups and body weight squats into daily routine and gradually increase the volume. She was also encouraged to follow recommendation of provider conducting sleep study to trial CPAP mask to improve sleep quality. Will follow up with patient in 4 weeks. 02/02/2023: Weight 180.2, BMI 31.92-patient congratulated on efforts. Encouraged to continue with lifestyle modifications will be try to get her on a weight loss medication. Tried getting on Wegovy, but was denied by insurance. We will try Saxenda. Educated on proper use, and side effects. Patient will really benefit from this medication. Patient is encouraged, and is doing very well overall. She does continue to lose weight. 03/04/2023: Weight 170.9, BMI 31.69. Patient congratulated on effort. Has been doing well with lifestyle modifications. Discontinued naltrexone, and sent Saxenda last visit, which was approved. Patient had a hard time finding it, but just got on it about a week ago. Taking 1.2 mg first dose today. She does notice occasional constipation, and nausea. Educated on conservative ways to improve this, she is understanding. She will call the office with any question. Did continue to educate proper use. Continue to encourage lifestyle. 04/10/2023: Weight 177 pounds, BMI 31.35. Patient has lost 1 pound since last visit. Body composition scale reviewed showing significant improvement since patient started with weight management program. Was taking Saxenda and doing really well, but discontinued due to national shortage. We will start compounded semaglutide 1 mg for the next 2 weeks, and if tolerating well will submit for Wegovy 1.7 at next visit. Patient understanding. Educated on the importance of lifestyle modifications in conjunction with weight loss. 05/05/2023: Weight 174.3, BMI 30.87. Patient very pleased with progress overall. Continues to have successful weight loss. Was on Saxenda but discontinued due to national shortage, took compounded semaglutide tapered up to 1 mg, tolerating well without side effects. We will submit for Wegovy 1.7 mg today. Educated on importance of lifestyle modifications in conjunction with weight loss medications. 06/02/2023: Weight 168.7, BMI 29.88. Patient congratulated on effort. Taking Wegovy 1.7 mg with compliance, without any side effects. Patient is very pleased with progress overall, and is feeling great. States that she tolerates this medication better than she was the Saxenda. Educated on the importance of lifestyle modifications to maintain muscle/target fat loss. Patient will continue with Wegovy 1.7 mg. Pleased with progress overall. Recently started on gabapentin for nerve pain. 07/04/2023: Weight 165.2, BMI 29.26. Patient congratulated on effort, continuing to maintain, lose slow, steady, sustainable weight. Patient is very pleased with progress overall with like to continue with Wegovy 1.7 mg. 09/12/2023: Weight 164.3, BMI 29.1. Patient doing really well overall. Does admit to some constipation still, treated with lifestyle modifications. Weight has plateaued, will continue with Wegovy 1.7 mg and work on lifestyle, but as of next month, could consider increasing up to Wegovy 2.4 mg as she has been on 1.7 for a while. 10/13/2023: Weight 169, BMI 29.93 patient congratulated on lifestyle effort. She has been off of semaglutide, so her appetite has increased. Appeal pending through [employer] for Wegovy 1.7 mg. She will start semaglutide 1 mg again. Educated on proper use, side effects. Encouraged to continue with stairstepper, resistance training, and healthy eating with protein, fruits, veggies. Patient pleased with lifestyle changes overall. 11/29/2023: Weight 168.9, BMI 29.92. Patient congratulated on efforts, she is trying to maintain her weight without a medication, and has been doing so. Does admit to some more increased appetite. Discussed Contrave as semaglutide/tirzepati de [id number] is too costly. Patient is willing. Discussed proper use, taper, side effects, long-term use. Discussed that she cannot drink alcohol while on this medication. Patient understanding. Will follow-up in 4 weeks. 02/16/2024: Weight 177, BMI 31.35. Patient expresses frustration as she has gained some weight since last visit. Insurance stopped covering Wegovy so we tried switching over to Contrave, which she states caused cramping without positive effect for weight loss. Based on weight gain, will try to resubmit for Wegovy 0.25 mg but in the meantime we will do compounded semaglutide in office. She is aware that we cannot guarantee coverage. Patient discussed proper use, side effects, long-term risks. She feels motivated today to get back on track. 03/20/23: BMI 30, Weight 171. Will attempt submission for Zepbound. Pt reports has friends who have been able to get it with [facility]. We discussed that this may be true, but unsure. Offereed trying every other week compounded semaglutide _ phentermine to see if this would help. 04/23/2024: Weight 168, BMI 29.9. Patient congratulated, has lost some weight since last visit. Body scan reviewed showing improvement. Focusing on high-protein, and implementing more resistance training. Will restart initiation of phentermine. Patient is tolerated well in the past. Will start 15 mg once daily. EKG in office today within normal limits.Patient open to potential compounded GLP-1's in the future but would like to save money at this time.Discussed efficacy and compliance of medication. 05/27/2024: Weight 170, BMI 30.23. Patient did gain weight since last visit but gained 2 pounds of muscle, lost 4 pounds of fat. Zepbound declined because [employer] does not cover the medication, she has been trying Wegovy in the past, would like to try to resubmit for that medication. In the meantime we will continue with phentermine but increase to 30 mg. She will not be on phentermine and Wegovy at the same time. Continue with lifestyle. Follow-up in 4 to 6 weeks. # Seasonal allergies: Continue fluticasone and cetirizine prn #Migraines: continue sumatriptan 25 mg PRN #Back pain: takes tramadol 3 mg, ibuprofen 800 mg PRN Patient to follow-up in 4-6 weeks, Sooner as needed. Time spent with patient 30 minutes with greater than 50% on patient education and care coordination. All patient questions answered in office today. Patient should call the office in the meantime with any questions or concerns. Case discussed with collaborating physician Kody Duarte who reviewed the assessment and plan. Chart, medications, labs, vital signs reviewed. Dictation was accomplished with the use of [employer] voice recognition software, prone to medical misidentifications and grammatical errors. This is unintentional and the practitioner does try to identify and correct these, but some could still be present. Please do not hesitate to contact practitioner for clarification. 05/31/2024 Obesity (BMI 30.0-34.9) (ICD-10 - E66.811) Melany Is a 46-year-old female who presented the office for weight management follow-up. 10/19/22: weight 185, BMI 32,77. Educated lifestyle modifications, diet, exercise, high protein, low carb, healthy fats. Educated on stretching and walking. Work on this for the next 4 weeks and consider phentermine at next visit pending EKG. SECA reviewed. Pt understanding. 12/02/22: weight 182.9, BMI 32.4- patient congratulated on effort. Educated to continue with lifestyle modifications and focus on more movement now that she has had a cortisone injection in her back with improvement in pain. Also educated to focus on portion control, high-protein, low carbohydrate, healthy fat and increasing water intake. Patient interested in GLP-1 injection, but need to prove three consecutive months of weight loss in order to qualify. She is understanding regarding this. Could consider trialing phentermine again, but aware of rebound weight gain. Already taking bupropion, would like to add low dose naltrexone. This was sent to [facility] pharmacy. Will try to submit for GLP-1 injection in January. Patient will follow-up in one month.Educated on proper use, as well as side effects of medication. Patient aware she cannot drink on medication. 01/05/23: weight 182.3lbs, BMI 32.29 - Patient has modest weight loss since last meeting. She admits to a recent deviation from diet over last week because of celebrating with family and eating large amounts of junk food. On a normaly basis she has been eating less junk food overall, but her cravings have not changes on the naltrexone/wellbutrin combination. Will put in for patient to be started on 0.25mg Wegovy. D/c naltrexone. She was educated on side effect profile and understands. I gave recommendation to increase weight-bearing activity at home by incorporating small amounts of pushups and body weight squats into daily routine and gradually increase the volume. She was also encouraged to follow recommendation of provider conducting sleep study to trial CPAP mask to improve sleep quality. Will follow up with patient in 4 weeks. 02/02/2023: Weight 180.2, BMI 31.92-patient congratulated on efforts. Encouraged to continue with lifestyle modifications will be try to get her on a weight loss medication. Tried getting on Wegovy, but was denied by insurance. We will try Saxenda. Educated on proper use, and side effects. Patient will really benefit from this medication. Patient is encouraged, and is doing very well overall. She does continue to lose weight. 03/04/2023: Weight 170.9, BMI 31.69. Patient congratulated on effort. Has been doing well with lifestyle modifications. Discontinued naltrexone, and sent Saxenda last visit, which was approved. Patient had a hard time finding it, but just got on it about a week ago. Taking 1.2 mg first dose today. She does notice occasional constipation, and nausea. Educated on conservative ways to improve this, she is understanding. She will call the office with any question. Did continue to educate proper use. Continue to encourage lifestyle. 04/10/2023: Weight 177 pounds, BMI 31.35. Patient has lost 1 pound since last visit. Body composition scale reviewed showing significant improvement since patient started with weight management program. Was taking Saxenda and doing really well, but discontinued due to national shortage. We will start compounded semaglutide 1 mg for the next 2 weeks, and if tolerating well will submit for Wegovy 1.7 at next visit. Patient understanding. Educated on the importance of lifestyle modifications in conjunction with weight loss. 05/05/2023: Weight 174.3, BMI 30.87. Patient very pleased with progress overall. Continues to have successful weight loss. Was on Saxenda but discontinued due to national shortage, took compounded semaglutide tapered up to 1 mg, tolerating well without side effects. We will submit for Wegovy 1.7 mg today. Educated on importance of lifestyle modifications in conjunction with weight loss medications. 06/02/2023: Weight 168.7, BMI 29.88. Patient congratulated on effort. Taking Wegovy 1.7 mg with compliance, without any side effects. Patient is very pleased with progress overall, and is feeling great. States that she tolerates this medication better than she was the Saxenda. Educated on the importance of lifestyle modifications to maintain muscle/target fat loss. Patient will continue with Wegovy 1.7 mg. Pleased with progress overall. Recently started on gabapentin for nerve pain. 07/04/2023: Weight 165.2, BMI 29.26. Patient congratulated on effort, continuing to maintain, lose slow, steady, sustainable weight. Patient is very pleased with progress overall with like to continue with Wegovy 1.7 mg. 09/12/2023: Weight 164.3, BMI 29.1. Patient doing really well overall. Does admit to some constipation still, treated with lifestyle modifications. Weight has plateaued, will continue with Wegovy 1.7 mg and work on lifestyle, but as of next month, could consider increasing up to Wegovy 2.4 mg as she has been on 1.7 for a while. 10/13/2023: Weight 169, BMI 29.93 patient congratulated on lifestyle effort. She has been off of semaglutide, so her appetite has increased. Appeal pending through [employer] for Wegovy 1.7 mg. She will start semaglutide 1 mg again. Educated on proper use, side effects. Encouraged to continue with stairstepper, resistance training, and healthy eating with protein, fruits, veggies. Patient pleased with lifestyle changes overall. 11/29/2023: Weight 168.9, BMI 29.92. Patient congratulated on efforts, she is trying to maintain her weight without a medication, and has been doing so. Does admit to some more increased appetite. Discussed Contrave as semaglutide/tirzepati de [id number] is too costly. Patient is willing. Discussed proper use, taper, side effects, long-term use. Discussed that she cannot drink alcohol while on this medication. Patient understanding. Will follow-up in 4 weeks. 02/16/2024: Weight 177, BMI 31.35. Patient expresses frustration as she has gained some weight since last visit. Insurance stopped covering Wegovy so we tried switching over to Contrave, which she states caused cramping without positive effect for weight loss. Based on weight gain, will try to resubmit for Wegovy 0.25 mg but in the meantime we will do compounded semaglutide in office. She is aware that we cannot guarantee coverage. Patient discussed proper use, side effects, long-term risks. She feels motivated today to get back on track. 03/20/23: BMI 30, Weight 171. Will attempt submission for Zepbound. Pt reports has friends who have been able to get it with [facility]. We discussed that this may be true, but unsure. Offereed trying every other week compounded semaglutide _ phentermine to see if this would help. 04/23/2024: Weight 168, BMI 29.9. Patient congratulated, has lost some weight since last visit. Body scan reviewed showing improvement. Focusing on high-protein, and implementing more resistance training. Will restart initiation of phentermine. Patient is tolerated well in the past. Will start 15 mg once daily. EKG in office today within normal limits.Patient open to potential compounded GLP-1's in the future but would like to save money at this time.Discussed efficacy and compliance of medication. 05/27/2024: Weight 170, BMI 30.23. Patient did gain weight since last visit but gained 2 pounds of muscle, lost 4 pounds of fat. Zepbound declined because [employer] does not cover the medication, she has been trying Wegovy in the past, would like to try to resubmit for that medication. In the meantime we will continue with phentermine but increase to 30 mg. She will not be on phentermine and Wegovy at the same time. Continue with lifestyle. Follow-up in 4 to 6 weeks. # Seasonal allergies: Continue fluticasone and cetirizine prn #Migraines: continue sumatriptan 25 mg PRN #Back pain: takes tramadol 3 mg, ibuprofen 800 mg PRN Patient to follow-up in 4-6 weeks, Sooner as needed. Time spent with patient 30 minutes with greater than 50% on patient education and care coordination. All patient questions answered in office today. Patient should call the office in the meantime with any questions or concerns. Case discussed with collaborating physician Kody Duarte who reviewed the assessment and plan. Chart, medications, labs, vital signs reviewed. Dictation was accomplished with the use of [employer] voice recognition software, prone to medical misidentifications and grammatical errors. This is unintentional and the practitioner does try to identify and correct these, but some could still be present. Please do not hesitate to contact practitioner for clarification. 04/23/2024 BMI 29.0-29.9,adult (ICD-10 - Z68.29) Melany Is a 46-year-old female who presented the office for weight management follow-up. 10/19/22: weight 185, BMI 32,77. Educated lifestyle modifications, diet, exercise, high protein, low carb, healthy fats. Educated on stretching and walking. Work on this for the next 4 weeks and consider phentermine at next visit pending EKG. MARGAUX reviewed. Pt understanding. 12/02/22: weight 182.9, BMI 32.4- patient congratulated on effort. Educated to continue with lifestyle modifications and focus on more movement now that she has had a cortisone injection in her back with improvement in pain. Also educated to focus on portion control, high-protein, low carbohydrate, healthy fat and increasing water intake. Patient interested in GLP-1 injection, but need to prove three consecutive months of weight loss in order to qualify. She is understanding regarding this. Could consider trialing phentermine again, but aware of rebound weight gain. Already taking bupropion, would like to add low dose naltrexone. This was sent to [facility] pharmacy. Will try to submit for GLP-1 injection in January. Patient will follow-up in one month.Educated on proper use, as well as side effects of medication. Patient aware she cannot drink on medication. 01/05/23: weight 182.3lbs, BMI 32.29 - Patient has modest weight loss since last meeting. She admits to a recent deviation from diet over last week because of celebrating with family and eating large amounts of junk food. On a normaly basis she has been eating less junk food overall, but her cravings have not changes on the naltrexone/wellbutrin combination. Will put in for patient to be started on 0.25mg Wegovy. D/c naltrexone. She was educated on side effect profile and understands. I gave recommendation to increase weight-bearing activity at home by incorporating small amounts of pushups and body weight squats into daily routine and gradually increase the volume. She was also encouraged to follow recommendation of provider conducting sleep study to trial CPAP mask to improve sleep quality. Will follow up with patient in 4 weeks. 02/02/2023: Weight 180.2, BMI 31.92-patient congratulated on efforts. Encouraged to continue with lifestyle modifications will be try to get her on a weight loss medication. Tried getting on Wegovy, but was denied by insurance. We will try Saxenda. Educated on proper use, and side effects. Patient will really benefit from this medication. Patient is encouraged, and is doing very well overall. She does continue to lose weight. 03/04/2023: Weight 170.9, BMI 31.69. Patient congratulated on effort. Has been doing well with lifestyle modifications. Discontinued naltrexone, and sent Saxenda last visit, which was approved. Patient had a hard time finding it, but just got on it about a week ago. Taking 1.2 mg first dose today. She does notice occasional constipation, and nausea. Educated on conservative ways to improve this, she is understanding. She will call the office with any question. Did continue to educate proper use. Continue to encourage lifestyle. 04/10/2023: Weight 177 pounds, BMI 31.35. Patient has lost 1 pound since last visit. Body composition scale reviewed showing significant improvement since patient started with weight management program. Was taking Saxenda and doing really well, but discontinued due to national shortage. We will start compounded semaglutide 1 mg for the next 2 weeks, and if tolerating well will submit for Wegovy 1.7 at next visit. Patient understanding. Educated on the importance of lifestyle modifications in conjunction with weight loss. 05/05/2023: Weight 174.3, BMI 30.87. Patient very pleased with progress overall. Continues to have successful weight loss. Was on Saxenda but discontinued due to national shortage, took compounded semaglutide tapered up to 1 mg, tolerating well without side effects. We will submit for Wegovy 1.7 mg today. Educated on importance of lifestyle modifications in conjunction with weight loss medications. 06/02/2023: Weight 168.7, BMI 29.88. Patient congratulated on effort. Taking Wegovy 1.7 mg with compliance, without any side effects. Patient is very pleased with progress overall, and is feeling great. States that she tolerates this medication better than she was the Saxenda. Educated on the importance of lifestyle modifications to maintain muscle/target fat loss. Patient will continue with Wegovy 1.7 mg. Pleased with progress overall. Recently started on gabapentin for nerve pain. 07/04/2023: Weight 165.2, BMI 29.26. Patient congratulated on effort, continuing to maintain, lose slow, steady, sustainable weight. Patient is very pleased with progress overall with like to continue with Wegovy 1.7 mg. 09/12/2023: Weight 164.3, BMI 29.1. Patient doing really well overall. Does admit to some constipation still, treated with lifestyle modifications. Weight has plateaued, will continue with Wegovy 1.7 mg and work on lifestyle, but as of next month, could consider increasing up to Wegovy 2.4 mg as she has been on 1.7 for a while. 10/13/2023: Weight 169, BMI 29.93 patient congratulated on lifestyle effort. She has been off of semaglutide, so her appetite has increased. Appeal pending through [employer] for Wegovy 1.7 mg. She will start semaglutide 1 mg again. Educated on proper use, side effects. Encouraged to continue with stairstepper, resistance training, and healthy eating with protein, fruits, veggies. Patient pleased with lifestyle changes overall. 11/29/2023: Weight 168.9, BMI 29.92. Patient congratulated on efforts, she is trying to maintain her weight without a medication, and has been doing so. Does admit to some more increased appetite. Discussed Contrave as semaglutide/tirzepati de [id number] is too costly. Patient is willing. Discussed proper use, taper, side effects, long-term use. Discussed that she cannot drink alcohol while on this medication. Patient understanding. Will follow-up in 4 weeks. 02/16/2024: Weight 177, BMI 31.35. Patient expresses frustration as she has gained some weight since last visit. Insurance stopped covering Wegovy so we tried switching over to Contrave, which she states caused cramping without positive effect for weight loss. Based on weight gain, will try to resubmit for Wegovy 0.25 mg but in the meantime we will do compounded semaglutide in office. She is aware that we cannot guarantee coverage. Patient discussed proper use, side effects, long-term risks. She feels motivated today to get back on track. 03/20/23: BMI 30, Weight 171. Will attempt submission for Zepbound. Pt reports has friends who have been able to get it with [facility]. We discussed that this may be true, but unsure. Offereed trying every other week compounded semaglutide _ phentermine to see if this would help. 04/23/2024: Weight 168, BMI 29.9. Patient congratulated, has lost some weight since last visit. Body scan reviewed showing improvement. Focusing on high-protein, and implementing more resistance training. Will restart initiation of phentermine. Patient is tolerated well in the past. Will start 15 mg once daily. EKG in office today within normal limits.Patient open to potential compounded GLP-1's in the future but would like to save money at this time.Discussed efficacy and compliance of medication. # Seasonal allergies: Continue fluticasone and cetirizine prn #Migraines: continue sumatriptan 25 mg PRN #Back pain: takes tramadol 3 mg, ibuprofen 800 mg PRN Patient to follow-up in 4 weeks, Sooner as needed. Time spent with patient 30 minutes with greater than 50% on patient education and care coordination. All patient questions answered in office today. Patient should call the office in the meantime with any questions or concerns. Case discussed with collaborating physician Kody Duarte who reviewed the assessment and plan. Chart, medications, labs, vital signs reviewed. Dictation was accomplished with the use of [employer] voice recognition software, prone to medical misidentifications and grammatical errors. This is unintentional and the practitioner does try to identify and correct these, but some could still be present. Please do not hesitate to contact practitioner for clarification. 04/23/2024 Over weight (ICD-10 - E66.3) Melany Is a 46-year-old female who presented the office for weight management follow-up. 10/19/22: weight 185, BMI 32,77. Educated lifestyle modifications, diet, exercise, high protein, low carb, healthy fats. Educated on stretching and walking. Work on this for the next 4 weeks and consider phentermine at next visit pending EKG. AMRGAUX reviewed. Pt understanding. 12/02/22: weight 182.9, BMI 32.4- patient congratulated on effort. Educated to continue with lifestyle modifications and focus on more movement now that she has had a cortisone injection in her back with improvement in pain. Also educated to focus on portion control, high-protein, low carbohydrate, healthy fat and increasing water intake. Patient interested in GLP-1 injection, but need to prove three consecutive months of weight loss in order to qualify. She is understanding regarding this. Could consider trialing phentermine again, but aware of rebound weight gain. Already taking bupropion, would like to add low dose naltrexone. This was sent to compound pharmacy. Will try to submit for GLP-1 injection in January. Patient will follow-up in one month.Educated on proper use, as well as side effects of medication. Patient aware she cannot drink on medication. 01/05/23: weight 182.3lbs, BMI 32.29 - Patient has modest weight loss since last meeting. She admits to a recent deviation from diet over last week because of celebrating with family and eating large amounts of junk food. On a normaly basis she has been eating less junk food overall, but her cravings have not changes on the naltrexone/wellbutrin combination. Will put in for patient to be started on 0.25mg Wegovy. D/c naltrexone. She was educated on side effect profile and understands. I gave recommendation to increase weight-bearing activity at home by incorporating small amounts of pushups and body weight squats into daily routine and gradually increase the volume. She was also encouraged to follow recommendation of provider conducting sleep study to trial CPAP mask to improve sleep quality. Will follow up with patient in 4 weeks. 02/02/2023: Weight 180.2, BMI 31.92-patient congratulated on efforts. Encouraged to continue with lifestyle modifications will be try to get her on a weight loss medication. Tried getting on Wegovy, but was denied by insurance. We will try Saxenda. Educated on proper use, and side effects. Patient will really benefit from this medication. Patient is encouraged, and is doing very well overall. She does continue to lose weight. 03/04/2023: Weight 170.9, BMI 31.69. Patient congratulated on effort. Has been doing well with lifestyle modifications. Discontinued naltrexone, and sent Saxenda last visit, which was approved. Patient had a hard time finding it, but just got on it about a week ago. Taking 1.2 mg first dose today. She does notice occasional constipation, and nausea. Educated on conservative ways to improve this, she is understanding. She will call the office with any question. Did continue to educate proper use. Continue to encourage lifestyle. 04/10/2023: Weight 177 pounds, BMI 31.35. Patient has lost 1 pound since last visit. Body composition scale reviewed showing significant improvement since patient started with weight management program. Was taking Saxenda and doing really well, but discontinued due to national shortage. We will start compounded semaglutide 1 mg for the next 2 weeks, and if tolerating well will submit for Wegovy 1.7 at next visit. Patient understanding. Educated on the importance of lifestyle modifications in conjunction with weight loss. 05/05/2023: Weight 174.3, BMI 30.87. Patient very pleased with progress overall. Continues to have successful weight loss. Was on Saxenda but discontinued due to national shortage, took compounded semaglutide tapered up to 1 mg, tolerating well without side effects. We will submit for Wegovy 1.7 mg today. Educated on importance of lifestyle modifications in conjunction with weight loss medications. 06/02/2023: Weight 168.7, BMI 29.88. Patient congratulated on effort. Taking Wegovy 1.7 mg with compliance, without any side effects. Patient is very pleased with progress overall, and is feeling great. States that she tolerates this medication better than she was the Saxenda. Educated on the importance of lifestyle modifications to maintain muscle/target fat loss. Patient will continue with Wegovy 1.7 mg. Pleased with progress overall. Recently started on gabapentin for nerve pain. 07/04/2023: Weight 165.2, BMI 29.26. Patient congratulated on effort, continuing to maintain, lose slow, steady, sustainable weight. Patient is very pleased with progress overall with like to continue with Wegovy 1.7 mg. 09/12/2023: Weight 164.3, BMI 29.1. Patient doing really well overall. Does admit to some constipation still, treated with lifestyle modifications. Weight has plateaued, will continue with Wegovy 1.7 mg and work on lifestyle, but as of next month, could consider increasing up to Wegovy 2.4 mg as she has been on 1.7 for a while. 10/13/2023: Weight 169, BMI 29.93 patient congratulated on lifestyle effort. She has been off of semaglutide, so her appetite has increased. Appeal pending through [employer] for Wegovy 1.7 mg. She will start semaglutide 1 mg again. Educated on proper use, side effects. Encouraged to continue with stairstepper, resistance training, and healthy eating with protein, fruits, veggies. Patient pleased with lifestyle changes overall. 11/29/2023: Weight 168.9, BMI 29.92. Patient congratulated on efforts, she is trying to maintain her weight without a medication, and has been doing so. Does admit to some more increased appetite. Discussed Contrave as semaglutide/tirzepati de [id number] is too costly. Patient is willing. Discussed proper use, taper, side effects, long-term use. Discussed that she cannot drink alcohol while on this medication. Patient understanding. Will follow-up in 4 weeks. 02/16/2024: Weight 177, BMI 31.35. Patient expresses frustration as she has gained some weight since last visit. Insurance stopped covering Wegovy so we tried switching over to Contrave, which she states caused cramping without positive effect for weight loss. Based on weight gain, will try to resubmit for Wegovy 0.25 mg but in the meantime we will do compounded semaglutide in office. She is aware that we cannot guarantee coverage. Patient discussed proper use, side effects, long-term risks. She feels motivated today to get back on track. 03/20/23: BMI 30, Weight 171. Will attempt submission for Zepbound. Pt reports has friends who have been able to get it with [facility]. We discussed that this may be true, but unsure. Offereed trying every other week compounded semaglutide _ phentermine to see if this would help. 04/23/2024: Weight 168, BMI 29.9. Patient congratulated, has lost some weight since last visit. Body scan reviewed showing improvement. Focusing on high-protein, and implementing more resistance training. Will restart initiation of phentermine. Patient is tolerated well in the past. Will start 15 mg once daily. EKG in office today within normal limits.Patient open to potential compounded GLP-1's in the future but would like to save money at this time.Discussed efficacy and compliance of medication. # Seasonal allergies: Continue fluticasone and cetirizine prn #Migraines: continue sumatriptan 25 mg PRN #Back pain: takes tramadol 3 mg, ibuprofen 800 mg PRN Patient to follow-up in 4 weeks, Sooner as needed. Time spent with patient 30 minutes with greater than 50% on patient education and care coordination. All patient questions answered in office today. Patient should call the office in the meantime with any questions or concerns. Case discussed with collaborating physician Kody Duarte who reviewed the assessment and plan. Chart, medications, labs, vital signs reviewed. Dictation was accomplished with the use of [employer] voice recognition software, prone to medical misidentifications and grammatical errors. This is unintentional and the practitioner does try to identify and correct these, but some could still be present. Please do not hesitate to contact practitioner for clarification. 03/20/2024 Other obesity (ICD-10 - E66.8) Melany Is a 46-year-old female who presented the office for weight management follow-up. 10/19/22: weight 185, BMI 32,77. Educated lifestyle modifications, diet, exercise, high protein, low carb, healthy fats. Educated on stretching and walking. Work on this for the next 4 weeks and consider phentermine at next visit pending EKG. MARGAUX reviewed. Pt understanding. 12/02/22: weight 182.9, BMI 32.4- patient congratulated on effort. Educated to continue with lifestyle modifications and focus on more movement now that she has had a cortisone injection in her back with improvement in pain. Also educated to focus on portion control, high-protein, low carbohydrate, healthy fat and increasing water intake. Patient interested in GLP-1 injection, but need to prove three consecutive months of weight loss in order to qualify. She is understanding regarding this. Could consider trialing phentermine again, but aware of rebound weight gain. Already taking bupropion, would like to add low dose naltrexone. This was sent to [facility] pharmacy. Will try to submit for GLP-1 injection in January. Patient will follow-up in one month.Educated on proper use, as well as side effects of medication. Patient aware she cannot drink on medication. 01/05/23: weight 182.3lbs, BMI 32.29 - Patient has modest weight loss since last meeting. She admits to a recent deviation from diet over last week because of celebrating with family and eating large amounts of junk food. On a normaly basis she has been eating less junk food overall, but her cravings have not changes on the naltrexone/wellbutrin combination. Will put in for patient to be started on 0.25mg Wegovy. D/c naltrexone. She was educated on side effect profile and understands. I gave recommendation to increase weight-bearing activity at home by incorporating small amounts of pushups and body weight squats into daily routine and gradually increase the volume. She was also encouraged to follow recommendation of provider conducting sleep study to trial CPAP mask to improve sleep quality. Will follow up with patient in 4 weeks. 02/02/2023: Weight 180.2, BMI 31.92-patient congratulated on efforts. Encouraged to continue with lifestyle modifications will be try to get her on a weight loss medication. Tried getting on Wegovy, but was denied by insurance. We will try Saxenda. Educated on proper use, and side effects. Patient will really benefit from this medication. Patient is encouraged, and is doing very well overall. She does continue to lose weight. 03/04/2023: Weight 170.9, BMI 31.69. Patient congratulated on effort. Has been doing well with lifestyle modifications. Discontinued naltrexone, and sent Saxenda last visit, which was approved. Patient had a hard time finding it, but just got on it about a week ago. Taking 1.2 mg first dose today. She does notice occasional constipation, and nausea. Educated on conservative ways to improve this, she is understanding. She will call the office with any question. Did continue to educate proper use. Continue to encourage lifestyle. 04/10/2023: Weight 177 pounds, BMI 31.35. Patient has lost 1 pound since last visit. Body composition scale reviewed showing significant improvement since patient started with weight management program. Was taking Saxenda and doing really well, but discontinued due to national shortage. We will start compounded semaglutide 1 mg for the next 2 weeks, and if tolerating well will submit for Wegovy 1.7 at next visit. Patient understanding. Educated on the importance of lifestyle modifications in conjunction with weight loss. 05/05/2023: Weight 174.3, BMI 30.87. Patient very pleased with progress overall. Continues to have successful weight loss. Was on Saxenda but discontinued due to national shortage, took compounded semaglutide tapered up to 1 mg, tolerating well without side effects. We will submit for Wegovy 1.7 mg today. Educated on importance of lifestyle modifications in conjunction with weight loss medications. 06/02/2023: Weight 168.7, BMI 29.88. Patient congratulated on effort. Taking Wegovy 1.7 mg with compliance, without any side effects. Patient is very pleased with progress overall, and is feeling great. States that she tolerates this medication better than she was the Saxenda. Educated on the importance of lifestyle modifications to maintain muscle/target fat loss. Patient will continue with Wegovy 1.7 mg. Pleased with progress overall. Recently started on gabapentin for nerve pain. 07/04/2023: Weight 165.2, BMI 29.26. Patient congratulated on effort, continuing to maintain, lose slow, steady, sustainable weight. Patient is very pleased with progress overall with like to continue with Wegovy 1.7 mg. 09/12/2023: Weight 164.3, BMI 29.1. Patient doing really well overall. Does admit to some constipation still, treated with lifestyle modifications. Weight has plateaued, will continue with Wegovy 1.7 mg and work on lifestyle, but as of next month, could consider increasing up to Wegovy 2.4 mg as she has been on 1.7 for a while. 10/13/2023: Weight 169, BMI 29.93 patient congratulated on lifestyle effort. She has been off of semaglutide, so her appetite has increased. Appeal pending through [employer] for Wegovy 1.7 mg. She will start semaglutide 1 mg again. Educated on proper use, side effects. Encouraged to continue with stairstepper, resistance training, and healthy eating with protein, fruits, veggies. Patient pleased with lifestyle changes overall. 11/29/2023: Weight 168.9, BMI 29.92. Patient congratulated on efforts, she is trying to maintain her weight without a medication, and has been doing so. Does admit to some more increased appetite. Discussed Contrave as semaglutide/tirzepati de [id number] is too costly. Patient is willing. Discussed proper use, taper, side effects, long-term use. Discussed that she cannot drink alcohol while on this medication. Patient understanding. Will follow-up in 4 weeks. 02/16/2024: Weight 177, BMI 31.35. Patient expresses frustration as she has gained some weight since last visit. Insurance stopped covering Wegovy so we tried switching over to Contrave, which she states caused cramping without positive effect for weight loss. Based on weight gain, will try to resubmit for Wegovy 0.25 mg but in the meantime we will do compounded semaglutide in office. She is aware that we cannot guarantee coverage. Patient discussed proper use, side effects, long-term risks. She feels motivated today to get back on track. 03/20/23: BMI 30, Weight 171. Will attempt submission for Zepbound. Pt reports has friends who have been able to get it with [facility]. We discussed that this may be true, but unsure. Offereed trying every other week compounded semaglutide _ phentermine to see if this would help. # Seasonal allergies: Continue fluticasone and cetirizine prn #Migraines: continue sumatriptan 25 mg PRN #Back pain: takes tramadol 3 mg, ibuprofen 800 mg PRN Patient to follow-up in 4 weeks with my colleague Stevenson Ngo PA-C, and in April with myself. Time spent with patient 30 minutes with greater than 50% on patient education and care coordination. All patient questions answered in office today. Patient should call the office in the meantime with any questions or concerns. Case discussed with collaborating physician Kody Duarte who reviewed the assessment and plan. Chart, medications, labs, vital signs reviewed. Dictation was accomplished with the use of [employer] voice recognition software, prone to medical misidentifications and grammatical errors. This is unintentional and the practitioner does try to identify and correct these, but some could still be present. Please do not hesitate to contact practitioner for clarification. 03/20/2024 BMI 30.0-30.9,adult (ICD-10 - Z68.30) Melany Is a 46-year-old female who presented the office for weight management follow-up. 10/19/22: weight 185, BMI 32,77. Educated lifestyle modifications, diet, exercise, high protein, low carb, healthy fats. Educated on stretching and walking. Work on this for the next 4 weeks and consider phentermine at next visit pending EKG. SECA reviewed. Pt understanding. 12/02/22: weight 182.9, BMI 32.4- patient congratulated on effort. Educated to continue with lifestyle modifications and focus on more movement now that she has had a cortisone injection in her back with improvement in pain. Also educated to focus on portion control, high-protein, low carbohydrate, healthy fat and increasing water intake. Patient interested in GLP-1 injection, but need to prove three consecutive months of weight loss in order to qualify. She is understanding regarding this. Could consider trialing phentermine again, but aware of rebound weight gain. Already taking bupropion, would like to add low dose naltrexone. This was sent to [facility] pharmacy. Will try to submit for GLP-1 injection in January. Patient will follow-up in one month.Educated on proper use, as well as side effects of medication. Patient aware she cannot drink on medication. 01/05/23: weight 182.3lbs, BMI 32.29 - Patient has modest weight loss since last meeting. She admits to a recent deviation from diet over last week because of celebrating with family and eating large amounts of junk food. On a normaly basis she has been eating less junk food overall, but her cravings have not changes on the naltrexone/wellbutrin combination. Will put in for patient to be started on 0.25mg Wegovy. D/c naltrexone. She was educated on side effect profile and understands. I gave recommendation to increase weight-bearing activity at home by incorporating small amounts of pushups and body weight squats into daily routine and gradually increase the volume. She was also encouraged to follow recommendation of provider conducting sleep study to trial CPAP mask to improve sleep quality. Will follow up with patient in 4 weeks. 02/02/2023: Weight 180.2, BMI 31.92-patient congratulated on efforts. Encouraged to continue with lifestyle modifications will be try to get her on a weight loss medication. Tried getting on Wegovy, but was denied by insurance. We will try Saxenda. Educated on proper use, and side effects. Patient will really benefit from this medication. Patient is encouraged, and is doing very well overall. She does continue to lose weight. 03/04/2023: Weight 170.9, BMI 31.69. Patient congratulated on effort. Has been doing well with lifestyle modifications. Discontinued naltrexone, and sent Saxenda last visit, which was approved. Patient had a hard time finding it, but just got on it about a week ago. Taking 1.2 mg first dose today. She does notice occasional constipation, and nausea. Educated on conservative ways to improve this, she is understanding. She will call the office with any question. Did continue to educate proper use. Continue to encourage lifestyle. 04/10/2023: Weight 177 pounds, BMI 31.35. Patient has lost 1 pound since last visit. Body composition scale reviewed showing significant improvement since patient started with weight management program. Was taking Saxenda and doing really well, but discontinued due to national shortage. We will start compounded semaglutide 1 mg for the next 2 weeks, and if tolerating well will submit for Wegovy 1.7 at next visit. Patient understanding. Educated on the importance of lifestyle modifications in conjunction with weight loss. 05/05/2023: Weight 174.3, BMI 30.87. Patient very pleased with progress overall. Continues to have successful weight loss. Was on Saxenda but discontinued due to national shortage, took compounded semaglutide tapered up to 1 mg, tolerating well without side effects. We will submit for Wegovy 1.7 mg today. Educated on importance of lifestyle modifications in conjunction with weight loss medications. 06/02/2023: Weight 168.7, BMI 29.88. Patient congratulated on effort. Taking Wegovy 1.7 mg with compliance, without any side effects. Patient is very pleased with progress overall, and is feeling great. States that she tolerates this medication better than she was the Saxenda. Educated on the importance of lifestyle modifications to maintain muscle/target fat loss. Patient will continue with Wegovy 1.7 mg. Pleased with progress overall. Recently started on gabapentin for nerve pain. 07/04/2023: Weight 165.2, BMI 29.26. Patient congratulated on effort, continuing to maintain, lose slow, steady, sustainable weight. Patient is very pleased with progress overall with like to continue with Wegovy 1.7 mg. 09/12/2023: Weight 164.3, BMI 29.1. Patient doing really well overall. Does admit to some constipation still, treated with lifestyle modifications. Weight has plateaued, will continue with Wegovy 1.7 mg and work on lifestyle, but as of next month, could consider increasing up to Wegovy 2.4 mg as she has been on 1.7 for a while. 10/13/2023: Weight 169, BMI 29.93 patient congratulated on lifestyle effort. She has been off of semaglutide, so her appetite has increased. Appeal pending through [employer] for Wegovy 1.7 mg. She will start semaglutide 1 mg again. Educated on proper use, side effects. Encouraged to continue with stairstepper, resistance training, and healthy eating with protein, fruits, veggies. Patient pleased with lifestyle changes overall. 11/29/2023: Weight 168.9, BMI 29.92. Patient congratulated on efforts, she is trying to maintain her weight without a medication, and has been doing so. Does admit to some more increased appetite. Discussed Contrave as semaglutide/tirzepati de [id number] is too costly. Patient is willing. Discussed proper use, taper, side effects, long-term use. Discussed that she cannot drink alcohol while on this medication. Patient understanding. Will follow-up in 4 weeks. 02/16/2024: Weight 177, BMI 31.35. Patient expresses frustration as she has gained some weight since last visit. Insurance stopped covering Wegovy so we tried switching over to Contrave, which she states caused cramping without positive effect for weight loss. Based on weight gain, will try to resubmit for Wegovy 0.25 mg but in the meantime we will do compounded semaglutide in office. She is aware that we cannot guarantee coverage. Patient discussed proper use, side effects, long-term risks. She feels motivated today to get back on track. 03/20/23: BMI 30, Weight 171. Will attempt submission for Zepbound. Pt reports has friends who have been able to get it with [facility]. We discussed that this may be true, but unsure. Offereed trying every other week compounded semaglutide _ phentermine to see if this would help. # Seasonal allergies: Continue fluticasone and cetirizine prn #Migraines: continue sumatriptan 25 mg PRN #Back pain: takes tramadol 3 mg, ibuprofen 800 mg PRN Patient to follow-up in 4 weeks with my colleague Stevenson Ngo PA-C, and in April with myself. Time spent with patient 30 minutes with greater than 50% on patient education and care coordination. All patient questions answered in office today. Patient should call the office in the meantime with any questions or concerns. Case discussed with collaborating physician Kody Duarte who reviewed the assessment and plan. Chart, medications, labs, vital signs reviewed. Dictation was accomplished with the use of [employer] voice recognition software, prone to medical misidentifications and grammatical errors. This is unintentional and the practitioner does try to identify and correct these, but some could still be present. Please do not hesitate to contact practitioner for clarification. 03/20/2024 Migraine without aura, intractable, with status migrainosus (ICD-10 - G43.011) Melany Is a 46-year-old female who presented the office for weight management follow-up. 10/19/22: weight 185, BMI 32,77. Educated lifestyle modifications, diet, exercise, high protein, low carb, healthy fats. Educated on stretching and walking. Work on this for the next 4 weeks and consider phentermine at next visit pending EKG. SECA reviewed. Pt understanding. 12/02/22: weight 182.9, BMI 32.4- patient congratulated on effort. Educated to continue with lifestyle modifications and focus on more movement now that she has had a cortisone injection in her back with improvement in pain. Also educated to focus on portion control, high-protein, low carbohydrate, healthy fat and increasing water intake. Patient interested in GLP-1 injection, but need to prove three consecutive months of weight loss in order to qualify. She is understanding regarding this. Could consider trialing phentermine again, but aware of rebound weight gain. Already taking bupropion, would like to add low dose naltrexone. This was sent to compound pharmacy. Will try to submit for GLP-1 injection in January. Patient will follow-up in one month.Educated on proper use, as well as side effects of medication. Patient aware she cannot drink on medication. 01/05/23: weight 182.3lbs, BMI 32.29 - Patient has modest weight loss since last meeting. She admits to a recent deviation from diet over last week because of celebrating with family and eating large amounts of junk food. On a normaly basis she has been eating less junk food overall, but her cravings have not changes on the naltrexone/wellbutrin combination. Will put in for patient to be started on 0.25mg Wegovy. D/c naltrexone. She was educated on side effect profile and understands. I gave recommendation to increase weight-bearing activity at home by incorporating small amounts of pushups and body weight squats into daily routine and gradually increase the volume. She was also encouraged to follow recommendation of provider conducting sleep study to trial CPAP mask to improve sleep quality. Will follow up with patient in 4 weeks. 02/02/2023: Weight 180.2, BMI 31.92-patient congratulated on efforts. Encouraged to continue with lifestyle modifications will be try to get her on a weight loss medication. Tried getting on Wegovy, but was denied by insurance. We will try Saxenda. Educated on proper use, and side effects. Patient will really benefit from this medication. Patient is encouraged, and is doing very well overall. She does continue to lose weight. 03/04/2023: Weight 170.9, BMI 31.69. Patient congratulated on effort. Has been doing well with lifestyle modifications. Discontinued naltrexone, and sent Saxenda last visit, which was approved. Patient had a hard time finding it, but just got on it about a week ago. Taking 1.2 mg first dose today. She does notice occasional constipation, and nausea. Educated on conservative ways to improve this, she is understanding. She will call the office with any question. Did continue to educate proper use. Continue to encourage lifestyle. 04/10/2023: Weight 177 pounds, BMI 31.35. Patient has lost 1 pound since last visit. Body composition scale reviewed showing significant improvement since patient started with weight management program. Was taking Saxenda and doing really well, but discontinued due to national shortage. We will start compounded semaglutide 1 mg for the next 2 weeks, and if tolerating well will submit for Wegovy 1.7 at next visit. Patient understanding. Educated on the importance of lifestyle modifications in conjunction with weight loss. 05/05/2023: Weight 174.3, BMI 30.87. Patient very pleased with progress overall. Continues to have successful weight loss. Was on Saxenda but discontinued due to national shortage, took compounded semaglutide tapered up to 1 mg, tolerating well without side effects. We will submit for Wegovy 1.7 mg today. Educated on importance of lifestyle modifications in conjunction with weight loss medications. 06/02/2023: Weight 168.7, BMI 29.88. Patient congratulated on effort. Taking Wegovy 1.7 mg with compliance, without any side effects. Patient is very pleased with progress overall, and is feeling great. States that she tolerates this medication better than she was the Saxenda. Educated on the importance of lifestyle modifications to maintain muscle/target fat loss. Patient will continue with Wegovy 1.7 mg. Pleased with progress overall. Recently started on gabapentin for nerve pain. 07/04/2023: Weight 165.2, BMI 29.26. Patient congratulated on effort, continuing to maintain, lose slow, steady, sustainable weight. Patient is very pleased with progress overall with like to continue with Wegovy 1.7 mg. 09/12/2023: Weight 164.3, BMI 29.1. Patient doing really well overall. Does admit to some constipation still, treated with lifestyle modifications. Weight has plateaued, will continue with Wegovy 1.7 mg and work on lifestyle, but as of next month, could consider increasing up to Wegovy 2.4 mg as she has been on 1.7 for a while. 10/13/2023: Weight 169, BMI 29.93 patient congratulated on lifestyle effort. She has been off of semaglutide, so her appetite has increased. Appeal pending through [employer] for Wegovy 1.7 mg. She will start semaglutide 1 mg again. Educated on proper use, side effects. Encouraged to continue with stairstepper, resistance training, and healthy eating with protein, fruits, veggies. Patient pleased with lifestyle changes overall. 11/29/2023: Weight 168.9, BMI 29.92. Patient congratulated on efforts, she is trying to maintain her weight without a medication, and has been doing so. Does admit to some more increased appetite. Discussed Contrave as semaglutide/tirzepati de [id number] is too costly. Patient is willing. Discussed proper use, taper, side effects, long-term use. Discussed that she cannot drink alcohol while on this medication. Patient understanding. Will follow-up in 4 weeks. 02/16/2024: Weight 177, BMI 31.35. Patient expresses frustration as she has gained some weight since last visit. Insurance stopped covering Wegovy so we tried switching over to Contrave, which she states caused cramping without positive effect for weight loss. Based on weight gain, will try to resubmit for Wegovy 0.25 mg but in the meantime we will do compounded semaglutide in office. She is aware that we cannot guarantee coverage. Patient discussed proper use, side effects, long-term risks. She feels motivated today to get back on track. 03/20/23: BMI 30, Weight 171. Will attempt submission for Zepbound. Pt reports has friends who have been able to get it with [facility]. We discussed that this may be true, but unsure. Offereed trying every other week compounded semaglutide _ phentermine to see if this would help. # Seasonal allergies: Continue fluticasone and cetirizine prn #Migraines: continue sumatriptan 25 mg PRN #Back pain: takes tramadol 3 mg, ibuprofen 800 mg PRN Patient to follow-up in 4 weeks with my colleague Stevenson Ngo PA-C, and in April with myself. Time spent with patient 30 minutes with greater than 50% on patient education and care coordination. All patient questions answered in office today. Patient should call the office in the meantime with any questions or concerns. Case discussed with collaborating physician Kody Duarte who reviewed the assessment and plan. Chart, medications, labs, vital signs reviewed. Dictation was accomplished with the use of [employer] voice recognition software, prone to medical misidentifications and grammatical errors. This is unintentional and the practitioner does try to identify and correct these, but some could still be present. Please do not hesitate to contact practitioner for clarification. 04/23/2024 Migraine without aura, intractable, with status migrainosus (ICD-10 - G43.011) Melany Is a 46-year-old female who presented the office for weight management follow-up. 10/19/22: weight 185, BMI 32,77. Educated lifestyle modifications, diet, exercise, high protein, low carb, healthy fats. Educated on stretching and walking. Work on this for the next 4 weeks and consider phentermine at next visit pending EKG. SECA reviewed. Pt understanding. 12/02/22: weight 182.9, BMI 32.4- patient congratulated on effort. Educated to continue with lifestyle modifications and focus on more movement now that she has had a cortisone injection in her back with improvement in pain. Also educated to focus on portion control, high-protein, low carbohydrate, healthy fat and increasing water intake. Patient interested in GLP-1 injection, but need to prove three consecutive months of weight loss in order to qualify. She is understanding regarding this. Could consider trialing phentermine again, but aware of rebound weight gain. Already taking bupropion, would like to add low dose naltrexone. This was sent to [facility] pharmacy. Will try to submit for GLP-1 injection in January. Patient will follow-up in one month.Educated on proper use, as well as side effects of medication. Patient aware she cannot drink on medication. 01/05/23: weight 182.3lbs, BMI 32.29 - Patient has modest weight loss since last meeting. She admits to a recent deviation from diet over last week because of celebrating with family and eating large amounts of junk food. On a normaly basis she has been eating less junk food overall, but her cravings have not changes on the naltrexone/wellbutrin combination. Will put in for patient to be started on 0.25mg Wegovy. D/c naltrexone. She was educated on side effect profile and understands. I gave recommendation to increase weight-bearing activity at home by incorporating small amounts of pushups and body weight squats into daily routine and gradually increase the volume. She was also encouraged to follow recommendation of provider conducting sleep study to trial CPAP mask to improve sleep quality. Will follow up with patient in 4 weeks. 02/02/2023: Weight 180.2, BMI 31.92-patient congratulated on efforts. Encouraged to continue with lifestyle modifications will be try to get her on a weight loss medication. Tried getting on Wegovy, but was denied by insurance. We will try Saxenda. Educated on proper use, and side effects. Patient will really benefit from this medication. Patient is encouraged, and is doing very well overall. She does continue to lose weight. 03/04/2023: Weight 170.9, BMI 31.69. Patient congratulated on effort. Has been doing well with lifestyle modifications. Discontinued naltrexone, and sent Saxenda last visit, which was approved. Patient had a hard time finding it, but just got on it about a week ago. Taking 1.2 mg first dose today. She does notice occasional constipation, and nausea. Educated on conservative ways to improve this, she is understanding. She will call the office with any question. Did continue to educate proper use. Continue to encourage lifestyle. 04/10/2023: Weight 177 pounds, BMI 31.35. Patient has lost 1 pound since last visit. Body composition scale reviewed showing significant improvement since patient started with weight management program. Was taking Saxenda and doing really well, but discontinued due to national shortage. We will start compounded semaglutide 1 mg for the next 2 weeks, and if tolerating well will submit for Wegovy 1.7 at next visit. Patient understanding. Educated on the importance of lifestyle modifications in conjunction with weight loss. 05/05/2023: Weight 174.3, BMI 30.87. Patient very pleased with progress overall. Continues to have successful weight loss. Was on Saxenda but discontinued due to national shortage, took compounded semaglutide tapered up to 1 mg, tolerating well without side effects. We will submit for Wegovy 1.7 mg today. Educated on importance of lifestyle modifications in conjunction with weight loss medications. 06/02/2023: Weight 168.7, BMI 29.88. Patient congratulated on effort. Taking Wegovy 1.7 mg with compliance, without any side effects. Patient is very pleased with progress overall, and is feeling great. States that she tolerates this medication better than she was the Saxenda. Educated on the importance of lifestyle modifications to maintain muscle/target fat loss. Patient will continue with Wegovy 1.7 mg. Pleased with progress overall. Recently started on gabapentin for nerve pain. 07/04/2023: Weight 165.2, BMI 29.26. Patient congratulated on effort, continuing to maintain, lose slow, steady, sustainable weight. Patient is very pleased with progress overall with like to continue with Wegovy 1.7 mg. 09/12/2023: Weight 164.3, BMI 29.1. Patient doing really well overall. Does admit to some constipation still, treated with lifestyle modifications. Weight has plateaued, will continue with Wegovy 1.7 mg and work on lifestyle, but as of next month, could consider increasing up to Wegovy 2.4 mg as she has been on 1.7 for a while. 10/13/2023: Weight 169, BMI 29.93 patient congratulated on lifestyle effort. She has been off of semaglutide, so her appetite has increased. Appeal pending through [employer] for Wegovy 1.7 mg. She will start semaglutide 1 mg again. Educated on proper use, side effects. Encouraged to continue with stairstepper, resistance training, and healthy eating with protein, fruits, veggies. Patient pleased with lifestyle changes overall. 11/29/2023: Weight 168.9, BMI 29.92. Patient congratulated on efforts, she is trying to maintain her weight without a medication, and has been doing so. Does admit to some more increased appetite. Discussed Contrave as semaglutide/tirzepati de [id number] is too costly. Patient is willing. Discussed proper use, taper, side effects, long-term use. Discussed that she cannot drink alcohol while on this medication. Patient understanding. Will follow-up in 4 weeks. 02/16/2024: Weight 177, BMI 31.35. Patient expresses frustration as she has gained some weight since last visit. Insurance stopped covering Wegovy so we tried switching over to Contrave, which she states caused cramping without positive effect for weight loss. Based on weight gain, will try to resubmit for Wegovy 0.25 mg but in the meantime we will do compounded semaglutide in office. She is aware that we cannot guarantee coverage. Patient discussed proper use, side effects, long-term risks. She feels motivated today to get back on track. 03/20/23: BMI 30, Weight 171. Will attempt submission for Zepbound. Pt reports has friends who have been able to get it with [facility]. We discussed that this may be true, but unsure. Offereed trying every other week compounded semaglutide _ phentermine to see if this would help. 04/23/2024: Weight 168, BMI 29.9. Patient congratulated, has lost some weight since last visit. Body scan reviewed showing improvement. Focusing on high-protein, and implementing more resistance training. Will restart initiation of phentermine. Patient is tolerated well in the past. Will start 15 mg once daily. EKG in office today within normal limits.Patient open to potential compounded GLP-1's in the future but would like to save money at this time.Discussed efficacy and compliance of medication. # Seasonal allergies: Continue fluticasone and cetirizine prn #Migraines: continue sumatriptan 25 mg PRN #Back pain: takes tramadol 3 mg, ibuprofen 800 mg PRN Patient to follow-up in 4 weeks, Sooner as needed. Time spent with patient 30 minutes with greater than 50% on patient education and care coordination. All patient questions answered in office today. Patient should call the office in the meantime with any questions or concerns. Case discussed with collaborating physician Kody Duarte who reviewed the assessment and plan. Chart, medications, labs, vital signs reviewed. Dictation was accomplished with the use of [employer] voice recognition software, prone to medical misidentifications and grammatical errors. This is unintentional and the practitioner does try to identify and correct these, but some could still be present. Please do not hesitate to contact practitioner for clarification. 05/31/2024 Migraine without aura, intractable, with status migrainosus (ICD-10 - G43.011) Melany Is a 46-year-old female who presented the office for weight management follow-up. 10/19/22: weight 185, BMI 32,77. Educated lifestyle modifications, diet, exercise, high protein, low carb, healthy fats. Educated on stretching and walking. Work on this for the next 4 weeks and consider phentermine at next visit pending EKG. MARGAUX reviewed. Pt understanding. 12/02/22: weight 182.9, BMI 32.4- patient congratulated on effort. Educated to continue with lifestyle modifications and focus on more movement now that she has had a cortisone injection in her back with improvement in pain. Also educated to focus on portion control, high-protein, low carbohydrate, healthy fat and increasing water intake. Patient interested in GLP-1 injection, but need to prove three consecutive months of weight loss in order to qualify. She is understanding regarding this. Could consider trialing phentermine again, but aware of rebound weight gain. Already taking bupropion, would like to add low dose naltrexone. This was sent to [facility] pharmacy. Will try to submit for GLP-1 injection in January. Patient will follow-up in one month.Educated on proper use, as well as side effects of medication. Patient aware she cannot drink on medication. 01/05/23: weight 182.3lbs, BMI 32.29 - Patient has modest weight loss since last meeting. She admits to a recent deviation from diet over last week because of celebrating with family and eating large amounts of junk food. On a normaly basis she has been eating less junk food overall, but her cravings have not changes on the naltrexone/wellbutrin combination. Will put in for patient to be started on 0.25mg Wegovy. D/c naltrexone. She was educated on side effect profile and understands. I gave recommendation to increase weight-bearing activity at home by incorporating small amounts of pushups and body weight squats into daily routine and gradually increase the volume. She was also encouraged to follow recommendation of provider conducting sleep study to trial CPAP mask to improve sleep quality. Will follow up with patient in 4 weeks. 02/02/2023: Weight 180.2, BMI 31.92-patient congratulated on efforts. Encouraged to continue with lifestyle modifications will be try to get her on a weight loss medication. Tried getting on Wegovy, but was denied by insurance. We will try Saxenda. Educated on proper use, and side effects. Patient will really benefit from this medication. Patient is encouraged, and is doing very well overall. She does continue to lose weight. 03/04/2023: Weight 170.9, BMI 31.69. Patient congratulated on effort. Has been doing well with lifestyle modifications. Discontinued naltrexone, and sent Saxenda last visit, which was approved. Patient had a hard time finding it, but just got on it about a week ago. Taking 1.2 mg first dose today. She does notice occasional constipation, and nausea. Educated on conservative ways to improve this, she is understanding. She will call the office with any question. Did continue to educate proper use. Continue to encourage lifestyle. 04/10/2023: Weight 177 pounds, BMI 31.35. Patient has lost 1 pound since last visit. Body composition scale reviewed showing significant improvement since patient started with weight management program. Was taking Saxenda and doing really well, but discontinued due to national shortage. We will start compounded semaglutide 1 mg for the next 2 weeks, and if tolerating well will submit for Wegovy 1.7 at next visit. Patient understanding. Educated on the importance of lifestyle modifications in conjunction with weight loss. 05/05/2023: Weight 174.3, BMI 30.87. Patient very pleased with progress overall. Continues to have successful weight loss. Was on Saxenda but discontinued due to national shortage, took compounded semaglutide tapered up to 1 mg, tolerating well without side effects. We will submit for Wegovy 1.7 mg today. Educated on importance of lifestyle modifications in conjunction with weight loss medications. 06/02/2023: Weight 168.7, BMI 29.88. Patient congratulated on effort. Taking Wegovy 1.7 mg with compliance, without any side effects. Patient is very pleased with progress overall, and is feeling great. States that she tolerates this medication better than she was the Saxenda. Educated on the importance of lifestyle modifications to maintain muscle/target fat loss. Patient will continue with Wegovy 1.7 mg. Pleased with progress overall. Recently started on gabapentin for nerve pain. 07/04/2023: Weight 165.2, BMI 29.26. Patient congratulated on effort, continuing to maintain, lose slow, steady, sustainable weight. Patient is very pleased with progress overall with like to continue with Wegovy 1.7 mg. 09/12/2023: Weight 164.3, BMI 29.1. Patient doing really well overall. Does admit to some constipation still, treated with lifestyle modifications. Weight has plateaued, will continue with Wegovy 1.7 mg and work on lifestyle, but as of next month, could consider increasing up to Wegovy 2.4 mg as she has been on 1.7 for a while. 10/13/2023: Weight 169, BMI 29.93 patient congratulated on lifestyle effort. She has been off of semaglutide, so her appetite has increased. Appeal pending through [employer] for Wegovy 1.7 mg. She will start semaglutide 1 mg again. Educated on proper use, side effects. Encouraged to continue with stairstepper, resistance training, and healthy eating with protein, fruits, veggies. Patient pleased with lifestyle changes overall. 11/29/2023: Weight 168.9, BMI 29.92. Patient congratulated on efforts, she is trying to maintain her weight without a medication, and has been doing so. Does admit to some more increased appetite. Discussed Contrave as semaglutide/tirzepati de [id number] is too costly. Patient is willing. Discussed proper use, taper, side effects, long-term use. Discussed that she cannot drink alcohol while on this medication. Patient understanding. Will follow-up in 4 weeks. 02/16/2024: Weight 177, BMI 31.35. Patient expresses frustration as she has gained some weight since last visit. Insurance stopped covering Wegovy so we tried switching over to Contrave, which she states caused cramping without positive effect for weight loss. Based on weight gain, will try to resubmit for Wegovy 0.25 mg but in the meantime we will do compounded semaglutide in office. She is aware that we cannot guarantee coverage. Patient discussed proper use, side effects, long-term risks. She feels motivated today to get back on track. 03/20/23: BMI 30, Weight 171. Will attempt submission for Zepbound. Pt reports has friends who have been able to get it with [facility]. We discussed that this may be true, but unsure. Offereed trying every other week compounded semaglutide _ phentermine to see if this would help. 04/23/2024: Weight 168, BMI 29.9. Patient congratulated, has lost some weight since last visit. Body scan reviewed showing improvement. Focusing on high-protein, and implementing more resistance training. Will restart initiation of phentermine. Patient is tolerated well in the past. Will start 15 mg once daily. EKG in office today within normal limits.Patient open to potential compounded GLP-1's in the future but would like to save money at this time.Discussed efficacy and compliance of medication. 05/27/2024: Weight 170, BMI 30.23. Patient did gain weight since last visit but gained 2 pounds of muscle, lost 4 pounds of fat. Zepbound declined because [employer] does not cover the medication, she has been trying Wegovy in the past, would like to try to resubmit for that medication. In the meantime we will continue with phentermine but increase to 30 mg. She will not be on phentermine and Wegovy at the same time. Continue with lifestyle. Follow-up in 4 to 6 weeks. # Seasonal allergies: Continue fluticasone and cetirizine prn #Migraines: continue sumatriptan 25 mg PRN #Back pain: takes tramadol 3 mg, ibuprofen 800 mg PRN Patient to follow-up in 4-6 weeks, Sooner as needed. Time spent with patient 30 minutes with greater than 50% on patient education and care coordination. All patient questions answered in office today. Patient should call the office in the meantime with any questions or concerns. Case discussed with collaborating physician Kody Duarte who reviewed the assessment and plan. Chart, medications, labs, vital signs reviewed. Dictation was accomplished with the use of [employer] voice recognition software, prone to medical misidentifications and grammatical errors. This is unintentional and the practitioner does try to identify and correct these, but some could still be present. Please do not hesitate to contact practitioner for clarification. 11/01/2024 Migraine without aura, intractable, with status migrainosus (ICD-10 - G43.011) Melany Is a 48-year-old female who presented the office for weight management follow-up. 10/19/22: weight 185, BMI 32,77. Educated lifestyle modifications, diet, exercise, high protein, low carb, healthy fats. Educated on stretching and walking. Work on this for the next 4 weeks and consider phentermine at next visit pending EKG. MARGAUX reviewed. Pt understanding. 12/02/22: weight 182.9, BMI 32.4- patient congratulated on effort. Educated to continue with lifestyle modifications and focus on more movement now that she has had a cortisone injection in her back with improvement in pain. Also educated to focus on portion control, high-protein, low carbohydrate, healthy fat and increasing water intake. Patient interested in GLP-1 injection, but need to prove three consecutive months of weight loss in order to qualify. She is understanding regarding this. Could consider trialing phentermine again, but aware of rebound weight gain. Already taking bupropion, would like to add low dose naltrexone. This was sent to compound pharmacy. Will try to submit for GLP-1 injection in January. Patient will follow-up in one month.Educated on proper use, as well as side effects of medication. Patient aware she cannot drink on medication. 01/05/23: weight 182.3lbs, BMI 32.29 - Patient has modest weight loss since last meeting. She admits to a recent deviation from diet over last week because of celebrating with family and eating large amounts of junk food. On a normaly basis she has been eating less junk food overall, but her cravings have not changes on the naltrexone/wellbutrin combination. Will put in for patient to be started on 0.25mg Wegovy. D/c naltrexone. She was educated on side effect profile and understands. I gave recommendation to increase weight-bearing activity at home by incorporating small amounts of pushups and body weight squats into daily routine and gradually increase the volume. She was also encouraged to follow recommendation of provider conducting sleep study to trial CPAP mask to improve sleep quality. Will follow up with patient in 4 weeks. 02/02/2023: Weight 180.2, BMI 31.92-patient congratulated on efforts. Encouraged to continue with lifestyle modifications will be try to get her on a weight loss medication. Tried getting on Wegovy, but was denied by insurance. We will try Saxenda. Educated on proper use, and side effects. Patient will really benefit from this medication. Patient is encouraged, and is doing very well overall. She does continue to lose weight. 03/04/2023: Weight 170.9, BMI 31.69. Patient congratulated on effort. Has been doing well with lifestyle modifications. Discontinued naltrexone, and sent Saxenda last visit, which was approved. Patient had a hard time finding it, but just got on it about a week ago. Taking 1.2 mg first dose today. She does notice occasional constipation, and nausea. Educated on conservative ways to improve this, she is understanding. She will call the office with any question. Did continue to educate proper use. Continue to encourage lifestyle. 04/10/2023: Weight 177 pounds, BMI 31.35. Patient has lost 1 pound since last visit. Body composition scale reviewed showing significant improvement since patient started with weight management program. Was taking Saxenda and doing really well, but discontinued due to national shortage. We will start compounded semaglutide 1 mg for the next 2 weeks, and if tolerating well will submit for Wegovy 1.7 at next visit. Patient understanding. Educated on the importance of lifestyle modifications in conjunction with weight loss. 05/05/2023: Weight 174.3, BMI 30.87. Patient very pleased with progress overall. Continues to have successful weight loss. Was on Saxenda but discontinued due to national shortage, took compounded semaglutide tapered up to 1 mg, tolerating well without side effects. We will submit for Wegovy 1.7 mg today. Educated on importance of lifestyle modifications in conjunction with weight loss medications. 06/02/2023: Weight 168.7, BMI 29.88. Patient congratulated on effort. Taking Wegovy 1.7 mg with compliance, without any side effects. Patient is very pleased with progress overall, and is feeling great. States that she tolerates this medication better than she was the Saxenda. Educated on the importance of lifestyle modifications to maintain muscle/target fat loss. Patient will continue with Wegovy 1.7 mg. Pleased with progress overall. Recently started on gabapentin for nerve pain. 07/04/2023: Weight 165.2, BMI 29.26. Patient congratulated on effort, continuing to maintain, lose slow, steady, sustainable weight. Patient is very pleased with progress overall with like to continue with Wegovy 1.7 mg. 09/12/2023: Weight 164.3, BMI 29.1. Patient doing really well overall. Does admit to some constipation still, treated with lifestyle modifications. Weight has plateaued, will continue with Wegovy 1.7 mg and work on lifestyle, but as of next month, could consider increasing up to Wegovy 2.4 mg as she has been on 1.7 for a while. 10/13/2023: Weight 169, BMI 29.93 patient congratulated on lifestyle effort. She has been off of semaglutide, so her appetite has increased. Appeal pending through [employer] for Wegovy 1.7 mg. She will start semaglutide 1 mg again. Educated on proper use, side effects. Encouraged to continue with stairstepper, resistance training, and healthy eating with protein, fruits, veggies. Patient pleased with lifestyle changes overall. 11/29/2023: Weight 168.9, BMI 29.92. Patient congratulated on efforts, she is trying to maintain her weight without a medication, and has been doing so. Does admit to some more increased appetite. Discussed Contrave as semaglutide/tirzepati de [id number] is too costly. Patient is willing. Discussed proper use, taper, side effects, long-term use. Discussed that she cannot drink alcohol while on this medication. Patient understanding. Will follow-up in 4 weeks. 02/16/2024: Weight 177, BMI 31.35. Patient expresses frustration as she has gained some weight since last visit. Insurance stopped covering Wegovy so we tried switching over to Contrave, which she states caused cramping without positive effect for weight loss. Based on weight gain, will try to resubmit for Wegovy 0.25 mg but in the meantime we will do compounded semaglutide in office. She is aware that we cannot guarantee coverage. Patient discussed proper use, side effects, long-term risks. She feels motivated today to get back on track. 03/20/23: BMI 30, Weight 171. Will attempt submission for Zepbound. Pt reports has friends who have been able to get it with [facility]. We discussed that this may be true, but unsure. Offereed trying every other week compounded semaglutide _ phentermine to see if this would help. 04/23/2024: Weight 168, BMI 29.9. Patient congratulated, has lost some weight since last visit. Body scan reviewed showing improvement. Focusing on high-protein, and implementing more resistance training. Will restart initiation of phentermine. Patient is tolerated well in the past. Will start 15 mg once daily. EKG in office today within normal limits.Patient open to potential compounded GLP-1's in the future but would like to save money at this time.Discussed efficacy and compliance of medication. 05/27/2024: Weight 170, BMI 30.23. Patient did gain weight since last visit but gained 2 pounds of muscle, lost 4 pounds of fat. Zepbound declined because [employer] does not cover the medication, she has been trying Wegovy in the past, would like to try to resubmit for that medication. In the meantime we will continue with phentermine but increase to 30 mg. She will not be on phentermine and Wegovy at the same time. Continue with lifestyle. Follow-up in 4 to 6 weeks. 07/16/2024: Weight 166, BMI 29. Patient continuing to lose slow, steady weight. Taking Wegovy 0.5 mg, has 1 dose less but then would like to increase to 1 mg. Will send 1 mg today. Did discuss the importance of lifestyle conjunction with weight loss medications for long-term, sustainable weight loss. Patient is going to implement more resistance training and higher protein to maintain muscle and target fat loss. No longer taking phentermine. Does admit to more fatigue, Wegovy versus phentermine. Did discuss the importance of nutrition and eating enough on the medication. 08/30/2024: Weight 164, BMI 29. Patient congratulated on weight loss, continuing to lose slow, steady weight. Increase Wegovy to 1.7 mg. Continue with resistance training to build muscle, and protein intake. 09/27/2024: Weight 161, BMI 28. Patient congratulated on effort, continuing to lose slow, steady weight. Feels really well on Wegovy 1.7 mg, reviewing body scan, she has lost 3 pounds of fat, and maintained muscle. Body composition changing for the better. Follow-up in 4 weeks, sooner as needed. Geovanny PALACIOS injection today. 10/31/2024: Weight 157, BMI 27. Patient congratulated on effort, significant wt loss potentially related to eating less frequently x3 weeks while grieving. Patient feels good on Weogvy 1.7, will stay at this dose. She has maintained her muscle mass despite losing weight. Follow up in 6 week. # Following with her PCP secondary to generalized joint pain, positive ALY, referred to rheumatology. Patient taking gabapentin, NSAID, and tramadol as needed # Seasonal allergies: Continue fluticasone and cetirizine prn #Migraines: continue sumatriptan 25 mg PRN Patient to follow-up in 4 weeks, Sooner as needed. Time spent with patient 30 minutes with greater than 50% on patient education and care coordination. All patient questions answered in office today. Patient should call the office in the meantime with any questions or concerns. Case discussed with collaborating physician Kody Duarte who reviewed the assessment and plan. Chart, medications, labs, vital signs reviewed. Dictation was accomplished with the use of [employer] voice recognition software, prone to medical misidentifications and grammatical errors. This is unintentional and the practitioner does try to identify and correct these, but some could still be present. Please do not hesitate to contact practitioner for clarification. 09/27/2024 Migraine without aura, intractable, with status migrainosus (ICD-10 - G43.011) Melany Is a 48-year-old female who presented the office for weight management follow-up. 10/19/22: weight 185, BMI 32,77. Educated lifestyle modifications, diet, exercise, high protein, low carb, healthy fats. Educated on stretching and walking. Work on this for the next 4 weeks and consider phentermine at next visit pending EKG. SECA reviewed. Pt understanding. 12/02/22: weight 182.9, BMI 32.4- patient congratulated on effort. Educated to continue with lifestyle modifications and focus on more movement now that she has had a cortisone injection in her back with improvement in pain. Also educated to focus on portion control, high-protein, low carbohydrate, healthy fat and increasing water intake. Patient interested in GLP-1 injection, but need to prove three consecutive months of weight loss in order to qualify. She is understanding regarding this. Could consider trialing phentermine again, but aware of rebound weight gain. Already taking bupropion, would like to add low dose naltrexone. This was sent to compound pharmacy. Will try to submit for GLP-1 injection in January. Patient will follow-up in one month.Educated on proper use, as well as side effects of medication. Patient aware she cannot drink on medication. 01/05/23: weight 182.3lbs, BMI 32.29 - Patient has modest weight loss since last meeting. She admits to a recent deviation from diet over last week because of celebrating with family and eating large amounts of junk food. On a normaly basis she has been eating less junk food overall, but her cravings have not changes on the naltrexone/wellbutrin combination. Will put in for patient to be started on 0.25mg Wegovy. D/c naltrexone. She was educated on side effect profile and understands. I gave recommendation to increase weight-bearing activity at home by incorporating small amounts of pushups and body weight squats into daily routine and gradually increase the volume. She was also encouraged to follow recommendation of provider conducting sleep study to trial CPAP mask to improve sleep quality. Will follow up with patient in 4 weeks. 02/02/2023: Weight 180.2, BMI 31.92-patient congratulated on efforts. Encouraged to continue with lifestyle modifications will be try to get her on a weight loss medication. Tried getting on Wegovy, but was denied by insurance. We will try Saxenda. Educated on proper use, and side effects. Patient will really benefit from this medication. Patient is encouraged, and is doing very well overall. She does continue to lose weight. 03/04/2023: Weight 170.9, BMI 31.69. Patient congratulated on effort. Has been doing well with lifestyle modifications. Discontinued naltrexone, and sent Saxenda last visit, which was approved. Patient had a hard time finding it, but just got on it about a week ago. Taking 1.2 mg first dose today. She does notice occasional constipation, and nausea. Educated on conservative ways to improve this, she is understanding. She will call the office with any question. Did continue to educate proper use. Continue to encourage lifestyle. 04/10/2023: Weight 177 pounds, BMI 31.35. Patient has lost 1 pound since last visit. Body composition scale reviewed showing significant improvement since patient started with weight management program. Was taking Saxenda and doing really well, but discontinued due to national shortage. We will start compounded semaglutide 1 mg for the next 2 weeks, and if tolerating well will submit for Wegovy 1.7 at next visit. Patient understanding. Educated on the importance of lifestyle modifications in conjunction with weight loss. 05/05/2023: Weight 174.3, BMI 30.87. Patient very pleased with progress overall. Continues to have successful weight loss. Was on Saxenda but discontinued due to national shortage, took compounded semaglutide tapered up to 1 mg, tolerating well without side effects. We will submit for Wegovy 1.7 mg today. Educated on importance of lifestyle modifications in conjunction with weight loss medications. 06/02/2023: Weight 168.7, BMI 29.88. Patient congratulated on effort. Taking Wegovy 1.7 mg with compliance, without any side effects. Patient is very pleased with progress overall, and is feeling great. States that she tolerates this medication better than she was the Saxenda. Educated on the importance of lifestyle modifications to maintain muscle/target fat loss. Patient will continue with Wegovy 1.7 mg. Pleased with progress overall. Recently started on gabapentin for nerve pain. 07/04/2023: Weight 165.2, BMI 29.26. Patient congratulated on effort, continuing to maintain, lose slow, steady, sustainable weight. Patient is very pleased with progress overall with like to continue with Wegovy 1.7 mg. 09/12/2023: Weight 164.3, BMI 29.1. Patient doing really well overall. Does admit to some constipation still, treated with lifestyle modifications. Weight has plateaued, will continue with Wegovy 1.7 mg and work on lifestyle, but as of next month, could consider increasing up to Wegovy 2.4 mg as she has been on 1.7 for a while. 10/13/2023: Weight 169, BMI 29.93 patient congratulated on lifestyle effort. She has been off of semaglutide, so her appetite has increased. Appeal pending through [employer] for Wegovy 1.7 mg. She will start semaglutide 1 mg again. Educated on proper use, side effects. Encouraged to continue with stairstepper, resistance training, and healthy eating with protein, fruits, veggies. Patient pleased with lifestyle changes overall. 11/29/2023: Weight 168.9, BMI 29.92. Patient congratulated on efforts, she is trying to maintain her weight without a medication, and has been doing so. Does admit to some more increased appetite. Discussed Contrave as semaglutide/tirzepati de [id number] is too costly. Patient is willing. Discussed proper use, taper, side effects, long-term use. Discussed that she cannot drink alcohol while on this medication. Patient understanding. Will follow-up in 4 weeks. 02/16/2024: Weight 177, BMI 31.35. Patient expresses frustration as she has gained some weight since last visit. Insurance stopped covering Wegovy so we tried switching over to Contrave, which she states caused cramping without positive effect for weight loss. Based on weight gain, will try to resubmit for Wegovy 0.25 mg but in the meantime we will do compounded semaglutide in office. She is aware that we cannot guarantee coverage. Patient discussed proper use, side effects, long-term risks. She feels motivated today to get back on track. 03/20/23: BMI 30, Weight 171. Will attempt submission for Zepbound. Pt reports has friends who have been able to get it with [facility]. We discussed that this may be true, but unsure. Offereed trying every other week compounded semaglutide _ phentermine to see if this would help. 04/23/2024: Weight 168, BMI 29.9. Patient congratulated, has lost some weight since last visit. Body scan reviewed showing improvement. Focusing on high-protein, and implementing more resistance training. Will restart initiation of phentermine. Patient is tolerated well in the past. Will start 15 mg once daily. EKG in office today within normal limits.Patient open to potential compounded GLP-1's in the future but would like to save money at this time.Discussed efficacy and compliance of medication. 05/27/2024: Weight 170, BMI 30.23. Patient did gain weight since last visit but gained 2 pounds of muscle, lost 4 pounds of fat. Zepbound declined because [employer] does not cover the medication, she has been trying Wegovy in the past, would like to try to resubmit for that medication. In the meantime we will continue with phentermine but increase to 30 mg. She will not be on phentermine and Wegovy at the same time. Continue with lifestyle. Follow-up in 4 to 6 weeks. 07/16/2024: Weight 166, BMI 29. Patient continuing to lose slow, steady weight. Taking Wegovy 0.5 mg, has 1 dose less but then would like to increase to 1 mg. Will send 1 mg today. Did discuss the importance of lifestyle conjunction with weight loss medications for long-term, sustainable weight loss. Patient is going to implement more resistance training and higher protein to maintain muscle and target fat loss. No longer taking phentermine. Does admit to more fatigue, Wegovy versus phentermine. Did discuss the importance of nutrition and eating enough on the medication. 08/30/2024: Weight 164, BMI 29. Patient congratulated on weight loss, continuing to lose slow, steady weight. Increase Wegovy to 1.7 mg. Continue with resistance training to build muscle, and protein intake. 09/27/2024: Weight 161, BMI 28. Patient congratulated on effort, continuing to lose slow, steady weight. Feels really well on Wegovy 1.7 mg, reviewing body scan, she has lost 3 pounds of fat, and maintained muscle. Body composition changing for the better. Follow-up in 4 weeks, sooner as needed. M ICC injection today. # Following with her PCP secondary to generalized joint pain, positive ALY, referred to rheumatology. Patient taking gabapentin, NSAID, and tramadol as needed # Seasonal allergies: Continue fluticasone and cetirizine prn #Migraines: continue sumatriptan 25 mg PRN Patient to follow-up in 4 weeks, Sooner as needed. Time spent with patient 30 minutes with greater than 50% on patient education and care coordination. All patient questions answered in office today. Patient should call the office in the meantime with any questions or concerns. Case discussed with collaborating physician Kody Duarte who reviewed the assessment and plan. Chart, medications, labs, vital signs reviewed. Dictation was accomplished with the use of [employer] voice recognition software, prone to medical misidentifications and grammatical errors. This is unintentional and the practitioner does try to identify and correct these, but some could still be present. Please do not hesitate to contact practitioner for clarification. 07/16/2024 Migraine without aura, intractable, with status migrainosus (ICD-10 - G43.011) Melany Is a 46-year-old female who presented the office for weight management follow-up. 10/19/22: weight 185, BMI 32,77. Educated lifestyle modifications, diet, exercise, high protein, low carb, healthy fats. Educated on stretching and walking. Work on this for the next 4 weeks and consider phentermine at next visit pending EKG. MICHAELSujatha reviewed. Pt understanding. 12/02/22: weight 182.9, BMI 32.4- patient congratulated on effort. Educated to continue with lifestyle modifications and focus on more movement now that she has had a cortisone injection in her back with improvement in pain. Also educated to focus on portion control, high-protein, low carbohydrate, healthy fat and increasing water intake. Patient interested in GLP-1 injection, but need to prove three consecutive months of weight loss in order to qualify. She is understanding regarding this. Could consider trialing phentermine again, but aware of rebound weight gain. Already taking bupropion, would like to add low dose naltrexone. This was sent to compound pharmacy. Will try to submit for GLP-1 injection in January. Patient will follow-up in one month.Educated on proper use, as well as side effects of medication. Patient aware she cannot drink on medication. 01/05/23: weight 182.3lbs, BMI 32.29 - Patient has modest weight loss since last meeting. She admits to a recent deviation from diet over last week because of celebrating with family and eating large amounts of junk food. On a normaly basis she has been eating less junk food overall, but her cravings have not changes on the naltrexone/wellbutrin combination. Will put in for patient to be started on 0.25mg Wegovy. D/c naltrexone. She was educated on side effect profile and understands. I gave recommendation to increase weight-bearing activity at home by incorporating small amounts of pushups and body weight squats into daily routine and gradually increase the volume. She was also encouraged to follow recommendation of provider conducting sleep study to trial CPAP mask to improve sleep quality. Will follow up with patient in 4 weeks. 02/02/2023: Weight 180.2, BMI 31.92-patient congratulated on efforts. Encouraged to continue with lifestyle modifications will be try to get her on a weight loss medication. Tried getting on Wegovy, but was denied by insurance. We will try Saxenda. Educated on proper use, and side effects. Patient will really benefit from this medication. Patient is encouraged, and is doing very well overall. She does continue to lose weight. 03/04/2023: Weight 170.9, BMI 31.69. Patient congratulated on effort. Has been doing well with lifestyle modifications. Discontinued naltrexone, and sent Saxenda last visit, which was approved. Patient had a hard time finding it, but just got on it about a week ago. Taking 1.2 mg first dose today. She does notice occasional constipation, and nausea. Educated on conservative ways to improve this, she is understanding. She will call the office with any question. Did continue to educate proper use. Continue to encourage lifestyle. 04/10/2023: Weight 177 pounds, BMI 31.35. Patient has lost 1 pound since last visit. Body composition scale reviewed showing significant improvement since patient started with weight management program. Was taking Saxenda and doing really well, but discontinued due to national shortage. We will start compounded semaglutide 1 mg for the next 2 weeks, and if tolerating well will submit for Wegovy 1.7 at next visit. Patient understanding. Educated on the importance of lifestyle modifications in conjunction with weight loss. 05/05/2023: Weight 174.3, BMI 30.87. Patient very pleased with progress overall. Continues to have successful weight loss. Was on Saxenda but discontinued due to national shortage, took compounded semaglutide tapered up to 1 mg, tolerating well without side effects. We will submit for Wegovy 1.7 mg today. Educated on importance of lifestyle modifications in conjunction with weight loss medications. 06/02/2023: Weight 168.7, BMI 29.88. Patient congratulated on effort. Taking Wegovy 1.7 mg with compliance, without any side effects. Patient is very pleased with progress overall, and is feeling great. States that she tolerates this medication better than she was the Saxenda. Educated on the importance of lifestyle modifications to maintain muscle/target fat loss. Patient will continue with Wegovy 1.7 mg. Pleased with progress overall. Recently started on gabapentin for nerve pain. 07/04/2023: Weight 165.2, BMI 29.26. Patient congratulated on effort, continuing to maintain, lose slow, steady, sustainable weight. Patient is very pleased with progress overall with like to continue with Wegovy 1.7 mg. 09/12/2023: Weight 164.3, BMI 29.1. Patient doing really well overall. Does admit to some constipation still, treated with lifestyle modifications. Weight has plateaued, will continue with Wegovy 1.7 mg and work on lifestyle, but as of next month, could consider increasing up to Wegovy 2.4 mg as she has been on 1.7 for a while. 10/13/2023: Weight 169, BMI 29.93 patient congratulated on lifestyle effort. She has been off of semaglutide, so her appetite has increased. Appeal pending through [employer] for Wegovy 1.7 mg. She will start semaglutide 1 mg again. Educated on proper use, side effects. Encouraged to continue with stairstepper, resistance training, and healthy eating with protein, fruits, veggies. Patient pleased with lifestyle changes overall. 11/29/2023: Weight 168.9, BMI 29.92. Patient congratulated on efforts, she is trying to maintain her weight without a medication, and has been doing so. Does admit to some more increased appetite. Discussed Contrave as semaglutide/tirzepati de [id number] is too costly. Patient is willing. Discussed proper use, taper, side effects, long-term use. Discussed that she cannot drink alcohol while on this medication. Patient understanding. Will follow-up in 4 weeks. 02/16/2024: Weight 177, BMI 31.35. Patient expresses frustration as she has gained some weight since last visit. Insurance stopped covering Wegovy so we tried switching over to Contrave, which she states caused cramping without positive effect for weight loss. Based on weight gain, will try to resubmit for Wegovy 0.25 mg but in the meantime we will do compounded semaglutide in office. She is aware that we cannot guarantee coverage. Patient discussed proper use, side effects, long-term risks. She feels motivated today to get back on track. 03/20/23: BMI 30, Weight 171. Will attempt submission for Zepbound. Pt reports has friends who have been able to get it with [facility]. We discussed that this may be true, but unsure. Offereed trying every other week compounded semaglutide _ phentermine to see if this would help. 04/23/2024: Weight 168, BMI 29.9. Patient congratulated, has lost some weight since last visit. Body scan reviewed showing improvement. Focusing on high-protein, and implementing more resistance training. Will restart initiation of phentermine. Patient is tolerated well in the past. Will start 15 mg once daily. EKG in office today within normal limits.Patient open to potential compounded GLP-1's in the future but would like to save money at this time.Discussed efficacy and compliance of medication. 05/27/2024: Weight 170, BMI 30.23. Patient did gain weight since last visit but gained 2 pounds of muscle, lost 4 pounds of fat. Zepbound declined because [employer] does not cover the medication, she has been trying Wegovy in the past, would like to try to resubmit for that medication. In the meantime we will continue with phentermine but increase to 30 mg. She will not be on phentermine and Wegovy at the same time. Continue with lifestyle. Follow-up in 4 to 6 weeks. 07/16/2024: Weight 166, BMI 29. Patient continuing to lose slow, steady weight. Taking Wegovy 0.5 mg, has 1 dose less but then would like to increase to 1 mg. Will send 1 mg today. Did discuss the importance of lifestyle conjunction with weight loss medications for long-term, sustainable weight loss. Patient is going to implement more resistance training and higher protein to maintain muscle and target fat loss. No longer taking phentermine. Does admit to more fatigue, Wegovy versus phentermine. Did discuss the importance of nutrition and eating enough on the medication. # Following with her PCP secondary to generalized joint pain, positive ALY, referred to rheumatology. Patient taking gabapentin, NSAID, and tramadol as needed # Seasonal allergies: Continue fluticasone and cetirizine prn #Migraines: continue sumatriptan 25 mg PRN Patient to follow-up in 4-6 weeks, Sooner as needed. Time spent with patient 30 minutes with greater than 50% on patient education and care coordination. All patient questions answered in office today. Patient should call the office in the meantime with any questions or concerns. Case discussed with collaborating physician Kody Duarte who reviewed the assessment and plan. Chart, medications, labs, vital signs reviewed. Dictation was accomplished with the use of [employer] voice recognition software, prone to medical misidentifications and grammatical errors. This is unintentional and the practitioner does try to identify and correct these, but some could still be present. Please do not hesitate to contact practitioner for clarification. 08/30/2024 BMI 29.0-29.9,adult (ICD-10 - Z68.29) Melany Is a 46-year-old female who presented the office for weight management follow-up. 10/19/22: weight 185, BMI 32,77. Educated lifestyle modifications, diet, exercise, high protein, low carb, healthy fats. Educated on stretching and walking. Work on this for the next 4 weeks and consider phentermine at next visit pending EKG. SECA reviewed. Pt understanding. 12/02/22: weight 182.9, BMI 32.4- patient congratulated on effort. Educated to continue with lifestyle modifications and focus on more movement now that she has had a cortisone injection in her back with improvement in pain. Also educated to focus on portion control, high-protein, low carbohydrate, healthy fat and increasing water intake. Patient interested in GLP-1 injection, but need to prove three consecutive months of weight loss in order to qualify. She is understanding regarding this. Could consider trialing phentermine again, but aware of rebound weight gain. Already taking bupropion, would like to add low dose naltrexone. This was sent to [facility] pharmacy. Will try to submit for GLP-1 injection in January. Patient will follow-up in one month.Educated on proper use, as well as side effects of medication. Patient aware she cannot drink on medication. 01/05/23: weight 182.3lbs, BMI 32.29 - Patient has modest weight loss since last meeting. She admits to a recent deviation from diet over last week because of celebrating with family and eating large amounts of junk food. On a normaly basis she has been eating less junk food overall, but her cravings have not changes on the naltrexone/wellbutrin combination. Will put in for patient to be started on 0.25mg Wegovy. D/c naltrexone. She was educated on side effect profile and understands. I gave recommendation to increase weight-bearing activity at home by incorporating small amounts of pushups and body weight squats into daily routine and gradually increase the volume. She was also encouraged to follow recommendation of provider conducting sleep study to trial CPAP mask to improve sleep quality. Will follow up with patient in 4 weeks. 02/02/2023: Weight 180.2, BMI 31.92-patient congratulated on efforts. Encouraged to continue with lifestyle modifications will be try to get her on a weight loss medication. Tried getting on Wegovy, but was denied by insurance. We will try Saxenda. Educated on proper use, and side effects. Patient will really benefit from this medication. Patient is encouraged, and is doing very well overall. She does continue to lose weight. 03/04/2023: Weight 170.9, BMI 31.69. Patient congratulated on effort. Has been doing well with lifestyle modifications. Discontinued naltrexone, and sent Saxenda last visit, which was approved. Patient had a hard time finding it, but just got on it about a week ago. Taking 1.2 mg first dose today. She does notice occasional constipation, and nausea. Educated on conservative ways to improve this, she is understanding. She will call the office with any question. Did continue to educate proper use. Continue to encourage lifestyle. 04/10/2023: Weight 177 pounds, BMI 31.35. Patient has lost 1 pound since last visit. Body composition scale reviewed showing significant improvement since patient started with weight management program. Was taking Saxenda and doing really well, but discontinued due to national shortage. We will start compounded semaglutide 1 mg for the next 2 weeks, and if tolerating well will submit for Wegovy 1.7 at next visit. Patient understanding. Educated on the importance of lifestyle modifications in conjunction with weight loss. 05/05/2023: Weight 174.3, BMI 30.87. Patient very pleased with progress overall. Continues to have successful weight loss. Was on Saxenda but discontinued due to national shortage, took compounded semaglutide tapered up to 1 mg, tolerating well without side effects. We will submit for Wegovy 1.7 mg today. Educated on importance of lifestyle modifications in conjunction with weight loss medications. 06/02/2023: Weight 168.7, BMI 29.88. Patient congratulated on effort. Taking Wegovy 1.7 mg with compliance, without any side effects. Patient is very pleased with progress overall, and is feeling great. States that she tolerates this medication better than she was the Saxenda. Educated on the importance of lifestyle modifications to maintain muscle/target fat loss. Patient will continue with Wegovy 1.7 mg. Pleased with progress overall. Recently started on gabapentin for nerve pain. 07/04/2023: Weight 165.2, BMI 29.26. Patient congratulated on effort, continuing to maintain, lose slow, steady, sustainable weight. Patient is very pleased with progress overall with like to continue with Wegovy 1.7 mg. 09/12/2023: Weight 164.3, BMI 29.1. Patient doing really well overall. Does admit to some constipation still, treated with lifestyle modifications. Weight has plateaued, will continue with Wegovy 1.7 mg and work on lifestyle, but as of next month, could consider increasing up to Wegovy 2.4 mg as she has been on 1.7 for a while. 10/13/2023: Weight 169, BMI 29.93 patient congratulated on lifestyle effort. She has been off of semaglutide, so her appetite has increased. Appeal pending through [employer] for Wegovy 1.7 mg. She will start semaglutide 1 mg again. Educated on proper use, side effects. Encouraged to continue with stairstepper, resistance training, and healthy eating with protein, fruits, veggies. Patient pleased with lifestyle changes overall. 11/29/2023: Weight 168.9, BMI 29.92. Patient congratulated on efforts, she is trying to maintain her weight without a medication, and has been doing so. Does admit to some more increased appetite. Discussed Contrave as semaglutide/tirzepati de [id number] is too costly. Patient is willing. Discussed proper use, taper, side effects, long-term use. Discussed that she cannot drink alcohol while on this medication. Patient understanding. Will follow-up in 4 weeks. 02/16/2024: Weight 177, BMI 31.35. Patient expresses frustration as she has gained some weight since last visit. Insurance stopped covering Wegovy so we tried switching over to Contrave, which she states caused cramping without positive effect for weight loss. Based on weight gain, will try to resubmit for Wegovy 0.25 mg but in the meantime we will do compounded semaglutide in office. She is aware that we cannot guarantee coverage. Patient discussed proper use, side effects, long-term risks. She feels motivated today to get back on track. 03/20/23: BMI 30, Weight 171. Will attempt submission for Zepbound. Pt reports has friends who have been able to get it with [facility]. We discussed that this may be true, but unsure. Offereed trying every other week compounded semaglutide _ phentermine to see if this would help. 04/23/2024: Weight 168, BMI 29.9. Patient congratulated, has lost some weight since last visit. Body scan reviewed showing improvement. Focusing on high-protein, and implementing more resistance training. Will restart initiation of phentermine. Patient is tolerated well in the past. Will start 15 mg once daily. EKG in office today within normal limits.Patient open to potential compounded GLP-1's in the future but would like to save money at this time.Discussed efficacy and compliance of medication. 05/27/2024: Weight 170, BMI 30.23. Patient did gain weight since last visit but gained 2 pounds of muscle, lost 4 pounds of fat. Zepbound declined because [employer] does not cover the medication, she has been trying Wegovy in the past, would like to try to resubmit for that medication. In the meantime we will continue with phentermine but increase to 30 mg. She will not be on phentermine and Wegovy at the same time. Continue with lifestyle. Follow-up in 4 to 6 weeks. 07/16/2024: Weight 166, BMI 29. Patient continuing to lose slow, steady weight. Taking Wegovy 0.5 mg, has 1 dose less but then would like to increase to 1 mg. Will send 1 mg today. Did discuss the importance of lifestyle conjunction with weight loss medications for long-term, sustainable weight loss. Patient is going to implement more resistance training and higher protein to maintain muscle and target fat loss. No longer taking phentermine. Does admit to more fatigue, Wegovy versus phentermine. Did discuss the importance of nutrition and eating enough on the medication. 08/30/2024: Weight 164, BMI 29. Patient congratulated on weight loss, continuing to lose slow, steady weight. Increase Wegovy to 1.7 mg. Continue with resistance training to build muscle, and protein intake. # Following with her PCP secondary to generalized joint pain, positive ALY, referred to rheumatology. Patient taking gabapentin, NSAID, and tramadol as needed # Seasonal allergies: Continue fluticasone and cetirizine prn #Migraines: continue sumatriptan 25 mg PRN Patient to follow-up in 4 weeks, Sooner as needed. Time spent with patient 30 minutes with greater than 50% on patient education and care coordination. All patient questions answered in office today. Patient should call the office in the meantime with any questions or concerns. Case discussed with collaborating physician Kody Duarte who reviewed the assessment and plan. Chart, medications, labs, vital signs reviewed. Dictation was accomplished with the use of [employer] voice recognition software, prone to medical misidentifications and grammatical errors. This is unintentional and the practitioner does try to identify and correct these, but some could still be present. Please do not hesitate to contact practitioner for clarification. 02/16/2024 Migraine without aura, intractable, with status migrainosus (ICD-10 - G43.011) Melany Is a 46-year-old female who presented the office for weight management follow-up. 10/19/22: weight 185, BMI 32,77. Educated lifestyle modifications, diet, exercise, high protein, low carb, healthy fats. Educated on stretching and walking. Work on this for the next 4 weeks and consider phentermine at next visit pending EKG. SE[facility] reviewed. Pt understanding. 12/02/22: weight 182.9, BMI 32.4- patient congratulated on effort. Educated to continue with lifestyle modifications and focus on more movement now that she has had a cortisone injection in her back with improvement in pain. Also educated to focus on portion control, high-protein, low carbohydrate, healthy fat and increasing water intake. Patient interested in GLP-1 injection, but need to prove three consecutive months of weight loss in order to qualify. She is understanding regarding this. Could consider trialing phentermine again, but aware of rebound weight gain. Already taking bupropion, would like to add low dose naltrexone. This was sent to [facility] pharmacy. Will try to submit for GLP-1 injection in January. Patient will follow-up in one month.Educated on proper use, as well as side effects of medication. Patient aware she cannot drink on medication. 01/05/23: weight 182.3lbs, BMI 32.29 - Patient has modest weight loss since last meeting. She admits to a recent deviation from diet over last week because of celebrating with family and eating large amounts of junk food. On a normaly basis she has been eating less junk food overall, but her cravings have not changes on the naltrexone/wellbutrin combination. Will put in for patient to be started on 0.25mg Wegovy. D/c naltrexone. She was educated on side effect profile and understands. I gave recommendation to increase weight-bearing activity at home by incorporating small amounts of pushups and body weight squats into daily routine and gradually increase the volume. She was also encouraged to follow recommendation of provider conducting sleep study to trial CPAP mask to improve sleep quality. Will follow up with patient in 4 weeks. 02/02/2023: Weight 180.2, BMI 31.92-patient congratulated on efforts. Encouraged to continue with lifestyle modifications will be try to get her on a weight loss medication. Tried getting on Wegovy, but was denied by insurance. We will try Saxenda. Educated on proper use, and side effects. Patient will really benefit from this medication. Patient is encouraged, and is doing very well overall. She does continue to lose weight. 03/04/2023: Weight 170.9, BMI 31.69. Patient congratulated on effort. Has been doing well with lifestyle modifications. Discontinued naltrexone, and sent Saxenda last visit, which was approved. Patient had a hard time finding it, but just got on it about a week ago. Taking 1.2 mg first dose today. She does notice occasional constipation, and nausea. Educated on conservative ways to improve this, she is understanding. She will call the office with any question. Did continue to educate proper use. Continue to encourage lifestyle. 04/10/2023: Weight 177 pounds, BMI 31.35. Patient has lost 1 pound since last visit. Body composition scale reviewed showing significant improvement since patient started with weight management program. Was taking Saxenda and doing really well, but discontinued due to national shortage. We will start compounded semaglutide 1 mg for the next 2 weeks, and if tolerating well will submit for Wegovy 1.7 at next visit. Patient understanding. Educated on the importance of lifestyle modifications in conjunction with weight loss. 05/05/2023: Weight 174.3, BMI 30.87. Patient very pleased with progress overall. Continues to have successful weight loss. Was on Saxenda but discontinued due to national shortage, took compounded semaglutide tapered up to 1 mg, tolerating well without side effects. We will submit for Wegovy 1.7 mg today. Educated on importance of lifestyle modifications in conjunction with weight loss medications. 06/02/2023: Weight 168.7, BMI 29.88. Patient congratulated on effort. Taking Wegovy 1.7 mg with compliance, without any side effects. Patient is very pleased with progress overall, and is feeling great. States that she tolerates this medication better than she was the Saxenda. Educated on the importance of lifestyle modifications to maintain muscle/target fat loss. Patient will continue with Wegovy 1.7 mg. Pleased with progress overall. Recently started on gabapentin for nerve pain. 07/04/2023: Weight 165.2, BMI 29.26. Patient congratulated on effort, continuing to maintain, lose slow, steady, sustainable weight. Patient is very pleased with progress overall with like to continue with Wegovy 1.7 mg. 09/12/2023: Weight 164.3, BMI 29.1. Patient doing really well overall. Does admit to some constipation still, treated with lifestyle modifications. Weight has plateaued, will continue with Wegovy 1.7 mg and work on lifestyle, but as of next month, could consider increasing up to Wegovy 2.4 mg as she has been on 1.7 for a while. 10/13/2023: Weight 169, BMI 29.93 patient congratulated on lifestyle effort. She has been off of semaglutide, so her appetite has increased. Appeal pending through [employer] for Wegovy 1.7 mg. She will start semaglutide 1 mg again. Educated on proper use, side effects. Encouraged to continue with stairstepper, resistance training, and healthy eating with protein, fruits, veggies. Patient pleased with lifestyle changes overall. 11/29/2023: Weight 168.9, BMI 29.92. Patient congratulated on efforts, she is trying to maintain her weight without a medication, and has been doing so. Does admit to some more increased appetite. Discussed Contrave as semaglutide/tirzepati de [id number] is too costly. Patient is willing. Discussed proper use, taper, side effects, long-term use. Discussed that she cannot drink alcohol while on this medication. Patient understanding. Will follow-up in 4 weeks. 02/16/2024: Weight 177, BMI 31.35. Patient expresses frustration as she has gained some weight since last visit. Insurance stopped covering Wegovy so we tried switching over to Contrave, which she states caused cramping without positive effect for weight loss. Based on weight gain, will try to resubmit for Wegovy 0.25 mg but in the meantime we will do compounded semaglutide in office. She is aware that we cannot guarantee coverage. Patient discussed proper use, side effects, long-term risks. She feels motivated today to get back on track. # Seasonal allergies: Continue fluticasone and cetirizine prn #Migraines: continue sumatriptan 25 mg PRN #Back pain: takes tramadol 3 mg, ibuprofen 800 mg PRN Patient to follow-up in 4 weeks with my colleague Stevenson Ngo PA-C, and in April with myself. Time spent with patient 30 minutes with greater than 50% on patient education and care coordination. All patient questions answered in office today. Patient should call the office in the meantime with any questions or concerns. Case discussed with collaborating physician Kody Duarte who reviewed the assessment and plan. Chart, medications, labs, vital signs reviewed. Dictation was accomplished with the use of [employer] voice recognition software, prone to medical misidentifications and grammatical errors. This is unintentional and the practitioner does try to identify and correct these, but some could still be present. Please do not hesitate to contact practitioner for clarification. 11/29/2023 Over weight (ICD-10 - E66.3) Melany Is a 46-year-old female who presented the office for weight management follow-up. 10/19/22: weight 185, BMI 32,77. Educated lifestyle modifications, diet, exercise, high protein, low carb, healthy fats. Educated on stretching and walking. Work on this for the next 4 weeks and consider phentermine at next visit pending EKG. MARGAUX reviewed. Pt understanding. 12/02/22: weight 182.9, BMI 32.4- patient congratulated on effort. Educated to continue with lifestyle modifications and focus on more movement now that she has had a cortisone injection in her back with improvement in pain. Also educated to focus on portion control, high-protein, low carbohydrate, healthy fat and increasing water intake. Patient interested in GLP-1 injection, but need to prove three consecutive months of weight loss in order to qualify. She is understanding regarding this. Could consider trialing phentermine again, but aware of rebound weight gain. Already taking bupropion, would like to add low dose naltrexone. This was sent to compound pharmacy. Will try to submit for GLP-1 injection in January. Patient will follow-up in one month.Educated on proper use, as well as side effects of medication. Patient aware she cannot drink on medication. 01/05/23: weight 182.3lbs, BMI 32.29 - Patient has modest weight loss since last meeting. She admits to a recent deviation from diet over last week because of celebrating with family and eating large amounts of junk food. On a normaly basis she has been eating less junk food overall, but her cravings have not changes on the naltrexone/wellbutrin combination. Will put in for patient to be started on 0.25mg Wegovy. D/c naltrexone. She was educated on side effect profile and understands. I gave recommendation to increase weight-bearing activity at home by incorporating small amounts of pushups and body weight squats into daily routine and gradually increase the volume. She was also encouraged to follow recommendation of provider conducting sleep study to trial CPAP mask to improve sleep quality. Will follow up with patient in 4 weeks. 02/02/2023: Weight 180.2, BMI 31.92-patient congratulated on efforts. Encouraged to continue with lifestyle modifications will be try to get her on a weight loss medication. Tried getting on Wegovy, but was denied by insurance. We will try Saxenda. Educated on proper use, and side effects. Patient will really benefit from this medication. Patient is encouraged, and is doing very well overall. She does continue to lose weight. 03/04/2023: Weight 170.9, BMI 31.69. Patient congratulated on effort. Has been doing well with lifestyle modifications. Discontinued naltrexone, and sent Saxenda last visit, which was approved. Patient had a hard time finding it, but just got on it about a week ago. Taking 1.2 mg first dose today. She does notice occasional constipation, and nausea. Educated on conservative ways to improve this, she is understanding. She will call the office with any question. Did continue to educate proper use. Continue to encourage lifestyle. 04/10/2023: Weight 177 pounds, BMI 31.35. Patient has lost 1 pound since last visit. Body composition scale reviewed showing significant improvement since patient started with weight management program. Was taking Saxenda and doing really well, but discontinued due to national shortage. We will start compounded semaglutide 1 mg for the next 2 weeks, and if tolerating well will submit for Wegovy 1.7 at next visit. Patient understanding. Educated on the importance of lifestyle modifications in conjunction with weight loss. 05/05/2023: Weight 174.3, BMI 30.87. Patient very pleased with progress overall. Continues to have successful weight loss. Was on Saxenda but discontinued due to national shortage, took compounded semaglutide tapered up to 1 mg, tolerating well without side effects. We will submit for Wegovy 1.7 mg today. Educated on importance of lifestyle modifications in conjunction with weight loss medications. 06/02/2023: Weight 168.7, BMI 29.88. Patient congratulated on effort. Taking Wegovy 1.7 mg with compliance, without any side effects. Patient is very pleased with progress overall, and is feeling great. States that she tolerates this medication better than she was the Saxenda. Educated on the importance of lifestyle modifications to maintain muscle/target fat loss. Patient will continue with Wegovy 1.7 mg. Pleased with progress overall. Recently started on gabapentin for nerve pain. 07/04/2023: Weight 165.2, BMI 29.26. Patient congratulated on effort, continuing to maintain, lose slow, steady, sustainable weight. Patient is very pleased with progress overall with like to continue with Wegovy 1.7 mg. 09/12/2023: Weight 164.3, BMI 29.1. Patient doing really well overall. Does admit to some constipation still, treated with lifestyle modifications. Weight has plateaued, will continue with Wegovy 1.7 mg and work on lifestyle, but as of next month, could consider increasing up to Wegovy 2.4 mg as she has been on 1.7 for a while. 10/13/2023: Weight 169, BMI 29.93 patient congratulated on lifestyle effort. She has been off of semaglutide, so her appetite has increased. Appeal pending through [employer] for Wegovy 1.7 mg. She will start semaglutide 1 mg again. Educated on proper use, side effects. Encouraged to continue with stairstepper, resistance training, and healthy eating with protein, fruits, veggies. Patient pleased with lifestyle changes overall. 11/29/2023: Weight 168.9, BMI 29.92. Patient congratulated on efforts, she is trying to maintain her weight without a medication, and has been doing so. Does admit to some more increased appetite. Discussed Contrave as semaglutide/tirzepati de [id number] is too costly. Patient is willing. Discussed proper use, taper, side effects, long-term use. Discussed that she cannot drink alcohol while on this medication. Patient understanding. Will follow-up in 4 weeks. # Seasonal allergies: Continue fluticasone and cetirizine #Neuropathy: Taking gabapentin 100 mg 3 times daily. #Migraines: continue sumatriptan 25 mg PRN #Back pain: takes tramadol 3 mg, ibuprofen 800 mg PRN Patient will follow-up in 4-6 weeks, sooner as needed. Time spent with patient 30 minutes with greater than 50% on patient education and care coordination. All patient questions answered in office today. Patient should call the office in the meantime with any questions or concerns. Case discussed with collaborating physician Kody Duarte who reviewed the assessment and plan. Chart, medications, labs, vital signs reviewed. Dictation was accomplished with the use of [employer] voice recognition software, prone to medical misidentifications and grammatical errors. This is unintentional and the practitioner does try to identify and correct these, but some could still be present. Please do not hesitate to contact practitioner for clarification. 11/29/2023 Migraine without aura, intractable, with status migrainosus (ICD-10 - G43.011) Melany Is a 46-year-old female who presented the office for weight management follow-up. 10/19/22: weight 185, BMI 32,77. Educated lifestyle modifications, diet, exercise, high protein, low carb, healthy fats. Educated on stretching and walking. Work on this for the next 4 weeks and consider phentermine at next visit pending EKG. SECA reviewed. Pt understanding. 12/02/22: weight 182.9, BMI 32.4- patient congratulated on effort. Educated to continue with lifestyle modifications and focus on more movement now that she has had a cortisone injection in her back with improvement in pain. Also educated to focus on portion control, high-protein, low carbohydrate, healthy fat and increasing water intake. Patient interested in GLP-1 injection, but need to prove three consecutive months of weight loss in order to qualify. She is understanding regarding this. Could consider trialing phentermine again, but aware of rebound weight gain. Already taking bupropion, would like to add low dose naltrexone. This was sent to [facility] pharmacy. Will try to submit for GLP-1 injection in January. Patient will follow-up in one month.Educated on proper use, as well as side effects of medication. Patient aware she cannot drink on medication. 01/05/23: weight 182.3lbs, BMI 32.29 - Patient has modest weight loss since last meeting. She admits to a recent deviation from diet over last week because of celebrating with family and eating large amounts of junk food. On a normaly basis she has been eating less junk food overall, but her cravings have not changes on the naltrexone/wellbutrin combination. Will put in for patient to be started on 0.25mg Wegovy. D/c naltrexone. She was educated on side effect profile and understands. I gave recommendation to increase weight-bearing activity at home by incorporating small amounts of pushups and body weight squats into daily routine and gradually increase the volume. She was also encouraged to follow recommendation of provider conducting sleep study to trial CPAP mask to improve sleep quality. Will follow up with patient in 4 weeks. 02/02/2023: Weight 180.2, BMI 31.92-patient congratulated on efforts. Encouraged to continue with lifestyle modifications will be try to get her on a weight loss medication. Tried getting on Wegovy, but was denied by insurance. We will try Saxenda. Educated on proper use, and side effects. Patient will really benefit from this medication. Patient is encouraged, and is doing very well overall. She does continue to lose weight. 03/04/2023: Weight 170.9, BMI 31.69. Patient congratulated on effort. Has been doing well with lifestyle modifications. Discontinued naltrexone, and sent Saxenda last visit, which was approved. Patient had a hard time finding it, but just got on it about a week ago. Taking 1.2 mg first dose today. She does notice occasional constipation, and nausea. Educated on conservative ways to improve this, she is understanding. She will call the office with any question. Did continue to educate proper use. Continue to encourage lifestyle. 04/10/2023: Weight 177 pounds, BMI 31.35. Patient has lost 1 pound since last visit. Body composition scale reviewed showing significant improvement since patient started with weight management program. Was taking Saxenda and doing really well, but discontinued due to national shortage. We will start compounded semaglutide 1 mg for the next 2 weeks, and if tolerating well will submit for Wegovy 1.7 at next visit. Patient understanding. Educated on the importance of lifestyle modifications in conjunction with weight loss. 05/05/2023: Weight 174.3, BMI 30.87. Patient very pleased with progress overall. Continues to have successful weight loss. Was on Saxenda but discontinued due to national shortage, took compounded semaglutide tapered up to 1 mg, tolerating well without side effects. We will submit for Wegovy 1.7 mg today. Educated on importance of lifestyle modifications in conjunction with weight loss medications. 06/02/2023: Weight 168.7, BMI 29.88. Patient congratulated on effort. Taking Wegovy 1.7 mg with compliance, without any side effects. Patient is very pleased with progress overall, and is feeling great. States that she tolerates this medication better than she was the Saxenda. Educated on the importance of lifestyle modifications to maintain muscle/target fat loss. Patient will continue with Wegovy 1.7 mg. Pleased with progress overall. Recently started on gabapentin for nerve pain. 07/04/2023: Weight 165.2, BMI 29.26. Patient congratulated on effort, continuing to maintain, lose slow, steady, sustainable weight. Patient is very pleased with progress overall with like to continue with Wegovy 1.7 mg. 09/12/2023: Weight 164.3, BMI 29.1. Patient doing really well overall. Does admit to some constipation still, treated with lifestyle modifications. Weight has plateaued, will continue with Wegovy 1.7 mg and work on lifestyle, but as of next month, could consider increasing up to Wegovy 2.4 mg as she has been on 1.7 for a while. 10/13/2023: Weight 169, BMI 29.93 patient congratulated on lifestyle effort. She has been off of semaglutide, so her appetite has increased. Appeal pending through [employer] for Wegovy 1.7 mg. She will start semaglutide 1 mg again. Educated on proper use, side effects. Encouraged to continue with stairstepper, resistance training, and healthy eating with protein, fruits, veggies. Patient pleased with lifestyle changes overall. 11/29/2023: Weight 168.9, BMI 29.92. Patient congratulated on efforts, she is trying to maintain her weight without a medication, and has been doing so. Does admit to some more increased appetite. Discussed Contrave as semaglutide/tirzepati de [id number] is too costly. Patient is willing. Discussed proper use, taper, side effects, long-term use. Discussed that she cannot drink alcohol while on this medication. Patient understanding. Will follow-up in 4 weeks. # Seasonal allergies: Continue fluticasone and cetirizine #Neuropathy: Taking gabapentin 100 mg 3 times daily. #Migraines: continue sumatriptan 25 mg PRN #Back pain: takes tramadol 3 mg, ibuprofen 800 mg PRN Patient will follow-up in 4-6 weeks, sooner as needed. Time spent with patient 30 minutes with greater than 50% on patient education and care coordination. All patient questions answered in office today. Patient should call the office in the meantime with any questions or concerns. Case discussed with collaborating physician Kody Duarte who reviewed the assessment and plan. Chart, medications, labs, vital signs reviewed. Dictation was accomplished with the use of [employer] voice recognition software, prone to medical misidentifications and grammatical errors. This is unintentional and the practitioner does try to identify and correct these, but some could still be present. Please do not hesitate to contact practitioner for clarification. 02/16/2024 Low back pain, unspecified (ICD-10 - M54.50) Melany Is a 46-year-old female who presented the office for weight management follow-up. 10/19/22: weight 185, BMI 32,77. Educated lifestyle modifications, diet, exercise, high protein, low carb, healthy fats. Educated on stretching and walking. Work on this for the next 4 weeks and consider phentermine at next visit pending EKG. MICHAELA reviewed. Pt understanding. 12/02/22: weight 182.9, BMI 32.4- patient congratulated on effort. Educated to continue with lifestyle modifications and focus on more movement now that she has had a cortisone injection in her back with improvement in pain. Also educated to focus on portion control, high-protein, low carbohydrate, healthy fat and increasing water intake. Patient interested in GLP-1 injection, but need to prove three consecutive months of weight loss in order to qualify. She is understanding regarding this. Could consider trialing phentermine again, but aware of rebound weight gain. Already taking bupropion, would like to add low dose naltrexone. This was sent to [facility] pharmacy. Will try to submit for GLP-1 injection in January. Patient will follow-up in one month.Educated on proper use, as well as side effects of medication. Patient aware she cannot drink on medication. 01/05/23: weight 182.3lbs, BMI 32.29 - Patient has modest weight loss since last meeting. She admits to a recent deviation from diet over last week because of celebrating with family and eating large amounts of junk food. On a normaly basis she has been eating less junk food overall, but her cravings have not changes on the naltrexone/wellbutrin combination. Will put in for patient to be started on 0.25mg Wegovy. D/c naltrexone. She was educated on side effect profile and understands. I gave recommendation to increase weight-bearing activity at home by incorporating small amounts of pushups and body weight squats into daily routine and gradually increase the volume. She was also encouraged to follow recommendation of provider conducting sleep study to trial CPAP mask to improve sleep quality. Will follow up with patient in 4 weeks. 02/02/2023: Weight 180.2, BMI 31.92-patient congratulated on efforts. Encouraged to continue with lifestyle modifications will be try to get her on a weight loss medication. Tried getting on Wegovy, but was denied by insurance. We will try Saxenda. Educated on proper use, and side effects. Patient will really benefit from this medication. Patient is encouraged, and is doing very well overall. She does continue to lose weight. 03/04/2023: Weight 170.9, BMI 31.69. Patient congratulated on effort. Has been doing well with lifestyle modifications. Discontinued naltrexone, and sent Saxenda last visit, which was approved. Patient had a hard time finding it, but just got on it about a week ago. Taking 1.2 mg first dose today. She does notice occasional constipation, and nausea. Educated on conservative ways to improve this, she is understanding. She will call the office with any question. Did continue to educate proper use. Continue to encourage lifestyle. 04/10/2023: Weight 177 pounds, BMI 31.35. Patient has lost 1 pound since last visit. Body composition scale reviewed showing significant improvement since patient started with weight management program. Was taking Saxenda and doing really well, but discontinued due to national shortage. We will start compounded semaglutide 1 mg for the next 2 weeks, and if tolerating well will submit for Wegovy 1.7 at next visit. Patient understanding. Educated on the importance of lifestyle modifications in conjunction with weight loss. 05/05/2023: Weight 174.3, BMI 30.87. Patient very pleased with progress overall. Continues to have successful weight loss. Was on Saxenda but discontinued due to national shortage, took compounded semaglutide tapered up to 1 mg, tolerating well without side effects. We will submit for Wegovy 1.7 mg today. Educated on importance of lifestyle modifications in conjunction with weight loss medications. 06/02/2023: Weight 168.7, BMI 29.88. Patient congratulated on effort. Taking Wegovy 1.7 mg with compliance, without any side effects. Patient is very pleased with progress overall, and is feeling great. States that she tolerates this medication better than she was the Saxenda. Educated on the importance of lifestyle modifications to maintain muscle/target fat loss. Patient will continue with Wegovy 1.7 mg. Pleased with progress overall. Recently started on gabapentin for nerve pain. 07/04/2023: Weight 165.2, BMI 29.26. Patient congratulated on effort, continuing to maintain, lose slow, steady, sustainable weight. Patient is very pleased with progress overall with like to continue with Wegovy 1.7 mg. 09/12/2023: Weight 164.3, BMI 29.1. Patient doing really well overall. Does admit to some constipation still, treated with lifestyle modifications. Weight has plateaued, will continue with Wegovy 1.7 mg and work on lifestyle, but as of next month, could consider increasing up to Wegovy 2.4 mg as she has been on 1.7 for a while. 10/13/2023: Weight 169, BMI 29.93 patient congratulated on lifestyle effort. She has been off of semaglutide, so her appetite has increased. Appeal pending through [employer] for Wegovy 1.7 mg. She will start semaglutide 1 mg again. Educated on proper use, side effects. Encouraged to continue with stairstepper, resistance training, and healthy eating with protein, fruits, veggies. Patient pleased with lifestyle changes overall. 11/29/2023: Weight 168.9, BMI 29.92. Patient congratulated on efforts, she is trying to maintain her weight without a medication, and has been doing so. Does admit to some more increased appetite. Discussed Contrave as semaglutide/tirzepati de [id number] is too costly. Patient is willing. Discussed proper use, taper, side effects, long-term use. Discussed that she cannot drink alcohol while on this medication. Patient understanding. Will follow-up in 4 weeks. 02/16/2024: Weight 177, BMI 31.35. Patient expresses frustration as she has gained some weight since last visit. Insurance stopped covering Wegovy so we tried switching over to Contrave, which she states caused cramping without positive effect for weight loss. Based on weight gain, will try to resubmit for Wegovy 0.25 mg but in the meantime we will do compounded semaglutide in office. She is aware that we cannot guarantee coverage. Patient discussed proper use, side effects, long-term risks. She feels motivated today to get back on track. # Seasonal allergies: Continue fluticasone and cetirizine prn #Migraines: continue sumatriptan 25 mg PRN #Back pain: takes tramadol 3 mg, ibuprofen 800 mg PRN Patient to follow-up in 4 weeks with my colleague Stevenson Ngo PA-C, and in April with myself. Time spent with patient 30 minutes with greater than 50% on patient education and care coordination. All patient questions answered in office today. Patient should call the office in the meantime with any questions or concerns. Case discussed with collaborating physician Kody Duarte who reviewed the assessment and plan. Chart, medications, labs, vital signs reviewed. Dictation was accomplished with the use of [employer] voice recognition software, prone to medical misidentifications and grammatical errors. This is unintentional and the practitioner does try to identify and correct these, but some could still be present. Please do not hesitate to contact practitioner for clarification. 07/16/2024 Low back pain, unspecified (ICD-10 - M54.50) Melany Is a 46-year-old female who presented the office for weight management follow-up. 10/19/22: weight 185, BMI 32,77. Educated lifestyle modifications, diet, exercise, high protein, low carb, healthy fats. Educated on stretching and walking. Work on this for the next 4 weeks and consider phentermine at next visit pending EKG. MARGAUX reviewed. Pt understanding. 12/02/22: weight 182.9, BMI 32.4- patient congratulated on effort. Educated to continue with lifestyle modifications and focus on more movement now that she has had a cortisone injection in her back with improvement in pain. Also educated to focus on portion control, high-protein, low carbohydrate, healthy fat and increasing water intake. Patient interested in GLP-1 injection, but need to prove three consecutive months of weight loss in order to qualify. She is understanding regarding this. Could consider trialing phentermine again, but aware of rebound weight gain. Already taking bupropion, would like to add low dose naltrexone. This was sent to compound pharmacy. Will try to submit for GLP-1 injection in January. Patient will follow-up in one month.Educated on proper use, as well as side effects of medication. Patient aware she cannot drink on medication. 01/05/23: weight 182.3lbs, BMI 32.29 - Patient has modest weight loss since last meeting. She admits to a recent deviation from diet over last week because of celebrating with family and eating large amounts of junk food. On a normaly basis she has been eating less junk food overall, but her cravings have not changes on the naltrexone/wellbutrin combination. Will put in for patient to be started on 0.25mg Wegovy. D/c naltrexone. She was educated on side effect profile and understands. I gave recommendation to increase weight-bearing activity at home by incorporating small amounts of pushups and body weight squats into daily routine and gradually increase the volume. She was also encouraged to follow recommendation of provider conducting sleep study to trial CPAP mask to improve sleep quality. Will follow up with patient in 4 weeks. 02/02/2023: Weight 180.2, BMI 31.92-patient congratulated on efforts. Encouraged to continue with lifestyle modifications will be try to get her on a weight loss medication. Tried getting on Wegovy, but was denied by insurance. We will try Saxenda. Educated on proper use, and side effects. Patient will really benefit from this medication. Patient is encouraged, and is doing very well overall. She does continue to lose weight. 03/04/2023: Weight 170.9, BMI 31.69. Patient congratulated on effort. Has been doing well with lifestyle modifications. Discontinued naltrexone, and sent Saxenda last visit, which was approved. Patient had a hard time finding it, but just got on it about a week ago. Taking 1.2 mg first dose today. She does notice occasional constipation, and nausea. Educated on conservative ways to improve this, she is understanding. She will call the office with any question. Did continue to educate proper use. Continue to encourage lifestyle. 04/10/2023: Weight 177 pounds, BMI 31.35. Patient has lost 1 pound since last visit. Body composition scale reviewed showing significant improvement since patient started with weight management program. Was taking Saxenda and doing really well, but discontinued due to national shortage. We will start compounded semaglutide 1 mg for the next 2 weeks, and if tolerating well will submit for Wegovy 1.7 at next visit. Patient understanding. Educated on the importance of lifestyle modifications in conjunction with weight loss. 05/05/2023: Weight 174.3, BMI 30.87. Patient very pleased with progress overall. Continues to have successful weight loss. Was on Saxenda but discontinued due to national shortage, took compounded semaglutide tapered up to 1 mg, tolerating well without side effects. We will submit for Wegovy 1.7 mg today. Educated on importance of lifestyle modifications in conjunction with weight loss medications. 06/02/2023: Weight 168.7, BMI 29.88. Patient congratulated on effort. Taking Wegovy 1.7 mg with compliance, without any side effects. Patient is very pleased with progress overall, and is feeling great. States that she tolerates this medication better than she was the Saxenda. Educated on the importance of lifestyle modifications to maintain muscle/target fat loss. Patient will continue with Wegovy 1.7 mg. Pleased with progress overall. Recently started on gabapentin for nerve pain. 07/04/2023: Weight 165.2, BMI 29.26. Patient congratulated on effort, continuing to maintain, lose slow, steady, sustainable weight. Patient is very pleased with progress overall with like to continue with Wegovy 1.7 mg. 09/12/2023: Weight 164.3, BMI 29.1. Patient doing really well overall. Does admit to some constipation still, treated with lifestyle modifications. Weight has plateaued, will continue with Wegovy 1.7 mg and work on lifestyle, but as of next month, could consider increasing up to Wegovy 2.4 mg as she has been on 1.7 for a while. 10/13/2023: Weight 169, BMI 29.93 patient congratulated on lifestyle effort. She has been off of semaglutide, so her appetite has increased. Appeal pending through [employer] for Wegovy 1.7 mg. She will start semaglutide 1 mg again. Educated on proper use, side effects. Encouraged to continue with stairstepper, resistance training, and healthy eating with protein, fruits, veggies. Patient pleased with lifestyle changes overall. 11/29/2023: Weight 168.9, BMI 29.92. Patient congratulated on efforts, she is trying to maintain her weight without a medication, and has been doing so. Does admit to some more increased appetite. Discussed Contrave as semaglutide/tirzepati de [id number] is too costly. Patient is willing. Discussed proper use, taper, side effects, long-term use. Discussed that she cannot drink alcohol while on this medication. Patient understanding. Will follow-up in 4 weeks. 02/16/2024: Weight 177, BMI 31.35. Patient expresses frustration as she has gained some weight since last visit. Insurance stopped covering Wegovy so we tried switching over to Contrave, which she states caused cramping without positive effect for weight loss. Based on weight gain, will try to resubmit for Wegovy 0.25 mg but in the meantime we will do compounded semaglutide in office. She is aware that we cannot guarantee coverage. Patient discussed proper use, side effects, long-term risks. She feels motivated today to get back on track. 03/20/23: BMI 30, Weight 171. Will attempt submission for Zepbound. Pt reports has friends who have been able to get it with [facility]. We discussed that this may be true, but unsure. Offereed trying every other week compounded semaglutide _ phentermine to see if this would help. 04/23/2024: Weight 168, BMI 29.9. Patient congratulated, has lost some weight since last visit. Body scan reviewed showing improvement. Focusing on high-protein, and implementing more resistance training. Will restart initiation of phentermine. Patient is tolerated well in the past. Will start 15 mg once daily. EKG in office today within normal limits.Patient open to potential compounded GLP-1's in the future but would like to save money at this time.Discussed efficacy and compliance of medication. 05/27/2024: Weight 170, BMI 30.23. Patient did gain weight since last visit but gained 2 pounds of muscle, lost 4 pounds of fat. Zepbound declined because [employer] does not cover the medication, she has been trying Wegovy in the past, would like to try to resubmit for that medication. In the meantime we will continue with phentermine but increase to 30 mg. She will not be on phentermine and Wegovy at the same time. Continue with lifestyle. Follow-up in 4 to 6 weeks. 07/16/2024: Weight 166, BMI 29. Patient continuing to lose slow, steady weight. Taking Wegovy 0.5 mg, has 1 dose less but then would like to increase to 1 mg. Will send 1 mg today. Did discuss the importance of lifestyle conjunction with weight loss medications for long-term, sustainable weight loss. Patient is going to implement more resistance training and higher protein to maintain muscle and target fat loss. No longer taking phentermine. Does admit to more fatigue, Wegovy versus phentermine. Did discuss the importance of nutrition and eating enough on the medication. # Following with her PCP secondary to generalized joint pain, positive ALY, referred to rheumatology. Patient taking gabapentin, NSAID, and tramadol as needed # Seasonal allergies: Continue fluticasone and cetirizine prn #Migraines: continue sumatriptan 25 mg PRN Patient to follow-up in 4-6 weeks, Sooner as needed. Time spent with patient 30 minutes with greater than 50% on patient education and care coordination. All patient questions answered in office today. Patient should call the office in the meantime with any questions or concerns. Case discussed with collaborating physician Kody Duarte who reviewed the assessment and plan. Chart, medications, labs, vital signs reviewed. Dictation was accomplished with the use of [employer] voice recognition software, prone to medical misidentifications and grammatical errors. This is unintentional and the practitioner does try to identify and correct these, but some could still be present. Please do not hesitate to contact practitioner for clarification. 08/30/2024 Migraine without aura, intractable, with status migrainosus (ICD-10 - G43.011) Melany Is a 46-year-old female who presented the office for weight management follow-up. 10/19/22: weight 185, BMI 32,77. Educated lifestyle modifications, diet, exercise, high protein, low carb, healthy fats. Educated on stretching and walking. Work on this for the next 4 weeks and consider phentermine at next visit pending EKG. MARGAUX reviewed. Pt understanding. 12/02/22: weight 182.9, BMI 32.4- patient congratulated on effort. Educated to continue with lifestyle modifications and focus on more movement now that she has had a cortisone injection in her back with improvement in pain. Also educated to focus on portion control, high-protein, low carbohydrate, healthy fat and increasing water intake. Patient interested in GLP-1 injection, but need to prove three consecutive months of weight loss in order to qualify. She is understanding regarding this. Could consider trialing phentermine again, but aware of rebound weight gain. Already taking bupropion, would like to add low dose naltrexone. This was sent to compound pharmacy. Will try to submit for GLP-1 injection in January. Patient will follow-up in one month.Educated on proper use, as well as side effects of medication. Patient aware she cannot drink on medication. 01/05/23: weight 182.3lbs, BMI 32.29 - Patient has modest weight loss since last meeting. She admits to a recent deviation from diet over last week because of celebrating with family and eating large amounts of junk food. On a normaly basis she has been eating less junk food overall, but her cravings have not changes on the naltrexone/wellbutrin combination. Will put in for patient to be started on 0.25mg Wegovy. D/c naltrexone. She was educated on side effect profile and understands. I gave recommendation to increase weight-bearing activity at home by incorporating small amounts of pushups and body weight squats into daily routine and gradually increase the volume. She was also encouraged to follow recommendation of provider conducting sleep study to trial CPAP mask to improve sleep quality. Will follow up with patient in 4 weeks. 02/02/2023: Weight 180.2, BMI 31.92-patient congratulated on efforts. Encouraged to continue with lifestyle modifications will be try to get her on a weight loss medication. Tried getting on Wegovy, but was denied by insurance. We will try Saxenda. Educated on proper use, and side effects. Patient will really benefit from this medication. Patient is encouraged, and is doing very well overall. She does continue to lose weight. 03/04/2023: Weight 170.9, BMI 31.69. Patient congratulated on effort. Has been doing well with lifestyle modifications. Discontinued naltrexone, and sent Saxenda last visit, which was approved. Patient had a hard time finding it, but just got on it about a week ago. Taking 1.2 mg first dose today. She does notice occasional constipation, and nausea. Educated on conservative ways to improve this, she is understanding. She will call the office with any question. Did continue to educate proper use. Continue to encourage lifestyle. 04/10/2023: Weight 177 pounds, BMI 31.35. Patient has lost 1 pound since last visit. Body composition scale reviewed showing significant improvement since patient started with weight management program. Was taking Saxenda and doing really well, but discontinued due to national shortage. We will start compounded semaglutide 1 mg for the next 2 weeks, and if tolerating well will submit for Wegovy 1.7 at next visit. Patient understanding. Educated on the importance of lifestyle modifications in conjunction with weight loss. 05/05/2023: Weight 174.3, BMI 30.87. Patient very pleased with progress overall. Continues to have successful weight loss. Was on Saxenda but discontinued due to national shortage, took compounded semaglutide tapered up to 1 mg, tolerating well without side effects. We will submit for Wegovy 1.7 mg today. Educated on importance of lifestyle modifications in conjunction with weight loss medications. 06/02/2023: Weight 168.7, BMI 29.88. Patient congratulated on effort. Taking Wegovy 1.7 mg with compliance, without any side effects. Patient is very pleased with progress overall, and is feeling great. States that she tolerates this medication better than she was the Saxenda. Educated on the importance of lifestyle modifications to maintain muscle/target fat loss. Patient will continue with Wegovy 1.7 mg. Pleased with progress overall. Recently started on gabapentin for nerve pain. 07/04/2023: Weight 165.2, BMI 29.26. Patient congratulated on effort, continuing to maintain, lose slow, steady, sustainable weight. Patient is very pleased with progress overall with like to continue with Wegovy 1.7 mg. 09/12/2023: Weight 164.3, BMI 29.1. Patient doing really well overall. Does admit to some constipation still, treated with lifestyle modifications. Weight has plateaued, will continue with Wegovy 1.7 mg and work on lifestyle, but as of next month, could consider increasing up to Wegovy 2.4 mg as she has been on 1.7 for a while. 10/13/2023: Weight 169, BMI 29.93 patient congratulated on lifestyle effort. She has been off of semaglutide, so her appetite has increased. Appeal pending through [employer] for Wegovy 1.7 mg. She will start semaglutide 1 mg again. Educated on proper use, side effects. Encouraged to continue with stairstepper, resistance training, and healthy eating with protein, fruits, veggies. Patient pleased with lifestyle changes overall. 11/29/2023: Weight 168.9, BMI 29.92. Patient congratulated on efforts, she is trying to maintain her weight without a medication, and has been doing so. Does admit to some more increased appetite. Discussed Contrave as semaglutide/tirzepati de [id number] is too costly. Patient is willing. Discussed proper use, taper, side effects, long-term use. Discussed that she cannot drink alcohol while on this medication. Patient understanding. Will follow-up in 4 weeks. 02/16/2024: Weight 177, BMI 31.35. Patient expresses frustration as she has gained some weight since last visit. Insurance stopped covering Wegovy so we tried switching over to Contrave, which she states caused cramping without positive effect for weight loss. Based on weight gain, will try to resubmit for Wegovy 0.25 mg but in the meantime we will do compounded semaglutide in office. She is aware that we cannot guarantee coverage. Patient discussed proper use, side effects, long-term risks. She feels motivated today to get back on track. 03/20/23: BMI 30, Weight 171. Will attempt submission for Zepbound. Pt reports has friends who have been able to get it with [facility]. We discussed that this may be true, but unsure. Offereed trying every other week compounded semaglutide _ phentermine to see if this would help. 04/23/2024: Weight 168, BMI 29.9. Patient congratulated, has lost some weight since last visit. Body scan reviewed showing improvement. Focusing on high-protein, and implementing more resistance training. Will restart initiation of phentermine. Patient is tolerated well in the past. Will start 15 mg once daily. EKG in office today within normal limits.Patient open to potential compounded GLP-1's in the future but would like to save money at this time.Discussed efficacy and compliance of medication. 05/27/2024: Weight 170, BMI 30.23. Patient did gain weight since last visit but gained 2 pounds of muscle, lost 4 pounds of fat. Zepbound declined because [employer] does not cover the medication, she has been trying Wegovy in the past, would like to try to resubmit for that medication. In the meantime we will continue with phentermine but increase to 30 mg. She will not be on phentermine and Wegovy at the same time. Continue with lifestyle. Follow-up in 4 to 6 weeks. 07/16/2024: Weight 166, BMI 29. Patient continuing to lose slow, steady weight. Taking Wegovy 0.5 mg, has 1 dose less but then would like to increase to 1 mg. Will send 1 mg today. Did discuss the importance of lifestyle conjunction with weight loss medications for long-term, sustainable weight loss. Patient is going to implement more resistance training and higher protein to maintain muscle and target fat loss. No longer taking phentermine. Does admit to more fatigue, Wegovy versus phentermine. Did discuss the importance of nutrition and eating enough on the medication. 08/30/2024: Weight 164, BMI 29. Patient congratulated on weight loss, continuing to lose slow, steady weight. Increase Wegovy to 1.7 mg. Continue with resistance training to build muscle, and protein intake. # Following with her PCP secondary to generalized joint pain, positive ALY, referred to rheumatology. Patient taking gabapentin, NSAID, and tramadol as needed # Seasonal allergies: Continue fluticasone and cetirizine prn #Migraines: continue sumatriptan 25 mg PRN Patient to follow-up in 4 weeks, Sooner as needed. Time spent with patient 30 minutes with greater than 50% on patient education and care coordination. All patient questions answered in office today. Patient should call the office in the meantime with any questions or concerns. Case discussed with collaborating physician Kody Duaret who reviewed the assessment and plan. Chart, medications, labs, vital signs reviewed. Dictation was accomplished with the use of [employer] voice recognition software, prone to medical misidentifications and grammatical errors. This is unintentional and the practitioner does try to identify and correct these, but some could still be present. Please do not hesitate to contact practitioner for clarification. 09/27/2024 Low back pain, unspecified (ICD-10 - M54.50) Melany Is a 48-year-old female who presented the office for weight management follow-up. 10/19/22: weight 185, BMI 32,77. Educated lifestyle modifications, diet, exercise, high protein, low carb, healthy fats. Educated on stretching and walking. Work on this for the next 4 weeks and consider phentermine at next visit pending EKG. SECA reviewed. Pt understanding. 12/02/22: weight 182.9, BMI 32.4- patient congratulated on effort. Educated to continue with lifestyle modifications and focus on more movement now that she has had a cortisone injection in her back with improvement in pain. Also educated to focus on portion control, high-protein, low carbohydrate, healthy fat and increasing water intake. Patient interested in GLP-1 injection, but need to prove three consecutive months of weight loss in order to qualify. She is understanding regarding this. Could consider trialing phentermine again, but aware of rebound weight gain. Already taking bupropion, would like to add low dose naltrexone. This was sent to [facility] pharmacy. Will try to submit for GLP-1 injection in January. Patient will follow-up in one month.Educated on proper use, as well as side effects of medication. Patient aware she cannot drink on medication. 01/05/23: weight 182.3lbs, BMI 32.29 - Patient has modest weight loss since last meeting. She admits to a recent deviation from diet over last week because of celebrating with family and eating large amounts of junk food. On a normaly basis she has been eating less junk food overall, but her cravings have not changes on the naltrexone/wellbutrin combination. Will put in for patient to be started on 0.25mg Wegovy. D/c naltrexone. She was educated on side effect profile and understands. I gave recommendation to increase weight-bearing activity at home by incorporating small amounts of pushups and body weight squats into daily routine and gradually increase the volume. She was also encouraged to follow recommendation of provider conducting sleep study to trial CPAP mask to improve sleep quality. Will follow up with patient in 4 weeks. 02/02/2023: Weight 180.2, BMI 31.92-patient congratulated on efforts. Encouraged to continue with lifestyle modifications will be try to get her on a weight loss medication. Tried getting on Wegovy, but was denied by insurance. We will try Saxenda. Educated on proper use, and side effects. Patient will really benefit from this medication. Patient is encouraged, and is doing very well overall. She does continue to lose weight. 03/04/2023: Weight 170.9, BMI 31.69. Patient congratulated on effort. Has been doing well with lifestyle modifications. Discontinued naltrexone, and sent Saxenda last visit, which was approved. Patient had a hard time finding it, but just got on it about a week ago. Taking 1.2 mg first dose today. She does notice occasional constipation, and nausea. Educated on conservative ways to improve this, she is understanding. She will call the office with any question. Did continue to educate proper use. Continue to encourage lifestyle. 04/10/2023: Weight 177 pounds, BMI 31.35. Patient has lost 1 pound since last visit. Body composition scale reviewed showing significant improvement since patient started with weight management program. Was taking Saxenda and doing really well, but discontinued due to national shortage. We will start compounded semaglutide 1 mg for the next 2 weeks, and if tolerating well will submit for Wegovy 1.7 at next visit. Patient understanding. Educated on the importance of lifestyle modifications in conjunction with weight loss. 05/05/2023: Weight 174.3, BMI 30.87. Patient very pleased with progress overall. Continues to have successful weight loss. Was on Saxenda but discontinued due to national shortage, took compounded semaglutide tapered up to 1 mg, tolerating well without side effects. We will submit for Wegovy 1.7 mg today. Educated on importance of lifestyle modifications in conjunction with weight loss medications. 06/02/2023: Weight 168.7, BMI 29.88. Patient congratulated on effort. Taking Wegovy 1.7 mg with compliance, without any side effects. Patient is very pleased with progress overall, and is feeling great. States that she tolerates this medication better than she was the Saxenda. Educated on the importance of lifestyle modifications to maintain muscle/target fat loss. Patient will continue with Wegovy 1.7 mg. Pleased with progress overall. Recently started on gabapentin for nerve pain. 07/04/2023: Weight 165.2, BMI 29.26. Patient congratulated on effort, continuing to maintain, lose slow, steady, sustainable weight. Patient is very pleased with progress overall with like to continue with Wegovy 1.7 mg. 09/12/2023: Weight 164.3, BMI 29.1. Patient doing really well overall. Does admit to some constipation still, treated with lifestyle modifications. Weight has plateaued, will continue with Wegovy 1.7 mg and work on lifestyle, but as of next month, could consider increasing up to Wegovy 2.4 mg as she has been on 1.7 for a while. 10/13/2023: Weight 169, BMI 29.93 patient congratulated on lifestyle effort. She has been off of semaglutide, so her appetite has increased. Appeal pending through [employer] for Wegovy 1.7 mg. She will start semaglutide 1 mg again. Educated on proper use, side effects. Encouraged to continue with stairstepper, resistance training, and healthy eating with protein, fruits, veggies. Patient pleased with lifestyle changes overall. 11/29/2023: Weight 168.9, BMI 29.92. Patient congratulated on efforts, she is trying to maintain her weight without a medication, and has been doing so. Does admit to some more increased appetite. Discussed Contrave as semaglutide/tirzepati de [id number] is too costly. Patient is willing. Discussed proper use, taper, side effects, long-term use. Discussed that she cannot drink alcohol while on this medication. Patient understanding. Will follow-up in 4 weeks. 02/16/2024: Weight 177, BMI 31.35. Patient expresses frustration as she has gained some weight since last visit. Insurance stopped covering Wegovy so we tried switching over to Contrave, which she states caused cramping without positive effect for weight loss. Based on weight gain, will try to resubmit for Wegovy 0.25 mg but in the meantime we will do compounded semaglutide in office. She is aware that we cannot guarantee coverage. Patient discussed proper use, side effects, long-term risks. She feels motivated today to get back on track. 03/20/23: BMI 30, Weight 171. Will attempt submission for Zepbound. Pt reports has friends who have been able to get it with [facility]. We discussed that this may be true, but unsure. Offereed trying every other week compounded semaglutide _ phentermine to see if this would help. 04/23/2024: Weight 168, BMI 29.9. Patient congratulated, has lost some weight since last visit. Body scan reviewed showing improvement. Focusing on high-protein, and implementing more resistance training. Will restart initiation of phentermine. Patient is tolerated well in the past. Will start 15 mg once daily. EKG in office today within normal limits.Patient open to potential compounded GLP-1's in the future but would like to save money at this time.Discussed efficacy and compliance of medication. 05/27/2024: Weight 170, BMI 30.23. Patient did gain weight since last visit but gained 2 pounds of muscle, lost 4 pounds of fat. Zepbound declined because [facility] does not cover the medication, she has been trying Wegovy in the past, would like to try to resubmit for that medication. In the meantime we will continue with phentermine but increase to 30 mg. She will not be on phentermine and Wegovy at the same time. Continue with lifestyle. Follow-up in 4 to 6 weeks. 07/16/2024: Weight 166, BMI 29. Patient continuing to lose slow, steady weight. Taking Wegovy 0.5 mg, has 1 dose less but then would like to increase to 1 mg. Will send 1 mg today. Did discuss the importance of lifestyle conjunction with weight loss medications for long-term, sustainable weight loss. Patient is going to implement more resistance training and higher protein to maintain muscle and target fat loss. No longer taking phentermine. Does admit to more fatigue, Wegovy versus phentermine. Did discuss the importance of nutrition and eating enough on the medication. 08/30/2024: Weight 164, BMI 29. Patient congratulated on weight loss, continuing to lose slow, steady weight. Increase Wegovy to 1.7 mg. Continue with resistance training to build muscle, and protein intake. 09/27/2024: Weight 161, BMI 28. Patient congratulated on effort, continuing to lose slow, steady weight. Feels really well on Wegovy 1.7 mg, reviewing body scan, she has lost 3 pounds of fat, and maintained muscle. Body composition changing for the better. Follow-up in 4 weeks, sooner as needed. M ICC injection today. # Following with her PCP secondary to generalized joint pain, positive ALY, referred to rheumatology. Patient taking gabapentin, NSAID, and tramadol as needed # Seasonal allergies: Continue fluticasone and cetirizine prn #Migraines: continue sumatriptan 25 mg PRN Patient to follow-up in 4 weeks, Sooner as needed. Time spent with patient 30 minutes with greater than 50% on patient education and care coordination. All patient questions answered in office today. Patient should call the office in the meantime with any questions or concerns. Case discussed with collaborating physician Kody Duarte who reviewed the assessment and plan. Chart, medications, labs, vital signs reviewed. Dictation was accomplished with the use of [employer] voice recognition software, prone to medical misidentifications and grammatical errors. This is unintentional and the practitioner does try to identify and correct these, but some could still be present. Please do not hesitate to contact practitioner for clarification. 11/01/2024 Low back pain, unspecified (ICD-10 - M54.50) Melany Is a 48-year-old female who presented the office for weight management follow-up. 10/19/22: weight 185, BMI 32,77. Educated lifestyle modifications, diet, exercise, high protein, low carb, healthy fats. Educated on stretching and walking. Work on this for the next 4 weeks and consider phentermine at next visit pending EKG. SECA reviewed. Pt understanding. 12/02/22: weight 182.9, BMI 32.4- patient congratulated on effort. Educated to continue with lifestyle modifications and focus on more movement now that she has had a cortisone injection in her back with improvement in pain. Also educated to focus on portion control, high-protein, low carbohydrate, healthy fat and increasing water intake. Patient interested in GLP-1 injection, but need to prove three consecutive months of weight loss in order to qualify. She is understanding regarding this. Could consider trialing phentermine again, but aware of rebound weight gain. Already taking bupropion, would like to add low dose naltrexone. This was sent to compound pharmacy. Will try to submit for GLP-1 injection in January. Patient will follow-up in one month.Educated on proper use, as well as side effects of medication. Patient aware she cannot drink on medication. 01/05/23: weight 182.3lbs, BMI 32.29 - Patient has modest weight loss since last meeting. She admits to a recent deviation from diet over last week because of celebrating with family and eating large amounts of junk food. On a normaly basis she has been eating less junk food overall, but her cravings have not changes on the naltrexone/wellbutrin combination. Will put in for patient to be started on 0.25mg Wegovy. D/c naltrexone. She was educated on side effect profile and understands. I gave recommendation to increase weight-bearing activity at home by incorporating small amounts of pushups and body weight squats into daily routine and gradually increase the volume. She was also encouraged to follow recommendation of provider conducting sleep study to trial CPAP mask to improve sleep quality. Will follow up with patient in 4 weeks. 02/02/2023: Weight 180.2, BMI 31.92-patient congratulated on efforts. Encouraged to continue with lifestyle modifications will be try to get her on a weight loss medication. Tried getting on Wegovy, but was denied by insurance. We will try Saxenda. Educated on proper use, and side effects. Patient will really benefit from this medication. Patient is encouraged, and is doing very well overall. She does continue to lose weight. 03/04/2023: Weight 170.9, BMI 31.69. Patient congratulated on effort. Has been doing well with lifestyle modifications. Discontinued naltrexone, and sent Saxenda last visit, which was approved. Patient had a hard time finding it, but just got on it about a week ago. Taking 1.2 mg first dose today. She does notice occasional constipation, and nausea. Educated on conservative ways to improve this, she is understanding. She will call the office with any question. Did continue to educate proper use. Continue to encourage lifestyle. 04/10/2023: Weight 177 pounds, BMI 31.35. Patient has lost 1 pound since last visit. Body composition scale reviewed showing significant improvement since patient started with weight management program. Was taking Saxenda and doing really well, but discontinued due to national shortage. We will start compounded semaglutide 1 mg for the next 2 weeks, and if tolerating well will submit for Wegovy 1.7 at next visit. Patient understanding. Educated on the importance of lifestyle modifications in conjunction with weight loss. 05/05/2023: Weight 174.3, BMI 30.87. Patient very pleased with progress overall. Continues to have successful weight loss. Was on Saxenda but discontinued due to national shortage, took compounded semaglutide tapered up to 1 mg, tolerating well without side effects. We will submit for Wegovy 1.7 mg today. Educated on importance of lifestyle modifications in conjunction with weight loss medications. 06/02/2023: Weight 168.7, BMI 29.88. Patient congratulated on effort. Taking Wegovy 1.7 mg with compliance, without any side effects. Patient is very pleased with progress overall, and is feeling great. States that she tolerates this medication better than she was the Saxenda. Educated on the importance of lifestyle modifications to maintain muscle/target fat loss. Patient will continue with Wegovy 1.7 mg. Pleased with progress overall. Recently started on gabapentin for nerve pain. 07/04/2023: Weight 165.2, BMI 29.26. Patient congratulated on effort, continuing to maintain, lose slow, steady, sustainable weight. Patient is very pleased with progress overall with like to continue with Wegovy 1.7 mg. 09/12/2023: Weight 164.3, BMI 29.1. Patient doing really well overall. Does admit to some constipation still, treated with lifestyle modifications. Weight has plateaued, will continue with Wegovy 1.7 mg and work on lifestyle, but as of next month, could consider increasing up to Wegovy 2.4 mg as she has been on 1.7 for a while. 10/13/2023: Weight 169, BMI 29.93 patient congratulated on lifestyle effort. She has been off of semaglutide, so her appetite has increased. Appeal pending through [employer] for Wegovy 1.7 mg. She will start semaglutide 1 mg again. Educated on proper use, side effects. Encouraged to continue with stairstepper, resistance training, and healthy eating with protein, fruits, veggies. Patient pleased with lifestyle changes overall. 11/29/2023: Weight 168.9, BMI 29.92. Patient congratulated on efforts, she is trying to maintain her weight without a medication, and has been doing so. Does admit to some more increased appetite. Discussed Contrave as semaglutide/tirzepati de [id number] is too costly. Patient is willing. Discussed proper use, taper, side effects, long-term use. Discussed that she cannot drink alcohol while on this medication. Patient understanding. Will follow-up in 4 weeks. 02/16/2024: Weight 177, BMI 31.35. Patient expresses frustration as she has gained some weight since last visit. Insurance stopped covering Wegovy so we tried switching over to Contrave, which she states caused cramping without positive effect for weight loss. Based on weight gain, will try to resubmit for Wegovy 0.25 mg but in the meantime we will do compounded semaglutide in office. She is aware that we cannot guarantee coverage. Patient discussed proper use, side effects, long-term risks. She feels motivated today to get back on track. 03/20/23: BMI 30, Weight 171. Will attempt submission for Zepbound. Pt reports has friends who have been able to get it with [facility]. We discussed that this may be true, but unsure. Offereed trying every other week compounded semaglutide _ phentermine to see if this would help. 04/23/2024: Weight 168, BMI 29.9. Patient congratulated, has lost some weight since last visit. Body scan reviewed showing improvement. Focusing on high-protein, and implementing more resistance training. Will restart initiation of phentermine. Patient is tolerated well in the past. Will start 15 mg once daily. EKG in office today within normal limits.Patient open to potential compounded GLP-1's in the future but would like to save money at this time.Discussed efficacy and compliance of medication. 05/27/2024: Weight 170, BMI 30.23. Patient did gain weight since last visit but gained 2 pounds of muscle, lost 4 pounds of fat. Zepbound declined because [facility] does not cover the medication, she has been trying Wegovy in the past, would like to try to resubmit for that medication. In the meantime we will continue with phentermine but increase to 30 mg. She will not be on phentermine and Wegovy at the same time. Continue with lifestyle. Follow-up in 4 to 6 weeks. 07/16/2024: Weight 166, BMI 29. Patient continuing to lose slow, steady weight. Taking Wegovy 0.5 mg, has 1 dose less but then would like to increase to 1 mg. Will send 1 mg today. Did discuss the importance of lifestyle conjunction with weight loss medications for long-term, sustainable weight loss. Patient is going to implement more resistance training and higher protein to maintain muscle and target fat loss. No longer taking phentermine. Does admit to more fatigue, Wegovy versus phentermine. Did discuss the importance of nutrition and eating enough on the medication. 08/30/2024: Weight 164, BMI 29. Patient congratulated on weight loss, continuing to lose slow, steady weight. Increase Wegovy to 1.7 mg. Continue with resistance training to build muscle, and protein intake. 09/27/2024: Weight 161, BMI 28. Patient congratulated on effort, continuing to lose slow, steady weight. Feels really well on Wegovy 1.7 mg, reviewing body scan, she has lost 3 pounds of fat, and maintained muscle. Body composition changing for the better. Follow-up in 4 weeks, sooner as needed. M ICC injection today. 10/31/2024: Weight 157, BMI 27. Patient congratulated on effort, significant wt loss potentially related to eating less frequently x3 weeks while grieving. Patient feels good on Weogvy 1.7, will stay at this dose. She has maintained her muscle mass despite losing weight. Follow up in 6 week. # Following with her PCP secondary to generalized joint pain, positive ALY, referred to rheumatology. Patient taking gabapentin, NSAID, and tramadol as needed # Seasonal allergies: Continue fluticasone and cetirizine prn #Migraines: continue sumatriptan 25 mg PRN Patient to follow-up in 4 weeks, Sooner as needed. Time spent with patient 30 minutes with greater than 50% on patient education and care coordination. All patient questions answered in office today. Patient should call the office in the meantime with any questions or concerns. Case discussed with collaborating physician Kody Duarte who reviewed the assessment and plan. Chart, medications, labs, vital signs reviewed. Dictation was accomplished with the use of [employer] voice recognition software, prone to medical misidentifications and grammatical errors. This is unintentional and the practitioner does try to identify and correct these, but some could still be present. Please do not hesitate to contact practitioner for clarification. 05/31/2024 Low back pain, unspecified (ICD-10 - M54.50) Melany Is a 46-year-old female who presented the office for weight management follow-up. 10/19/22: weight 185, BMI 32,77. Educated lifestyle modifications, diet, exercise, high protein, low carb, healthy fats. Educated on stretching and walking. Work on this for the next 4 weeks and consider phentermine at next visit pending EKG. MARGAUX reviewed. Pt understanding. 12/02/22: weight 182.9, BMI 32.4- patient congratulated on effort. Educated to continue with lifestyle modifications and focus on more movement now that she has had a cortisone injection in her back with improvement in pain. Also educated to focus on portion control, high-protein, low carbohydrate, healthy fat and increasing water intake. Patient interested in GLP-1 injection, but need to prove three consecutive months of weight loss in order to qualify. She is understanding regarding this. Could consider trialing phentermine again, but aware of rebound weight gain. Already taking bupropion, would like to add low dose naltrexone. This was sent to compound pharmacy. Will try to submit for GLP-1 injection in January. Patient will follow-up in one month.Educated on proper use, as well as side effects of medication. Patient aware she cannot drink on medication. 01/05/23: weight 182.3lbs, BMI 32.29 - Patient has modest weight loss since last meeting. She admits to a recent deviation from diet over last week because of celebrating with family and eating large amounts of junk food. On a normaly basis she has been eating less junk food overall, but her cravings have not changes on the naltrexone/wellbutrin combination. Will put in for patient to be started on 0.25mg Wegovy. D/c naltrexone. She was educated on side effect profile and understands. I gave recommendation to increase weight-bearing activity at home by incorporating small amounts of pushups and body weight squats into daily routine and gradually increase the volume. She was also encouraged to follow recommendation of provider conducting sleep study to trial CPAP mask to improve sleep quality. Will follow up with patient in 4 weeks. 02/02/2023: Weight 180.2, BMI 31.92-patient congratulated on efforts. Encouraged to continue with lifestyle modifications will be try to get her on a weight loss medication. Tried getting on Wegovy, but was denied by insurance. We will try Saxenda. Educated on proper use, and side effects. Patient will really benefit from this medication. Patient is encouraged, and is doing very well overall. She does continue to lose weight. 03/04/2023: Weight 170.9, BMI 31.69. Patient congratulated on effort. Has been doing well with lifestyle modifications. Discontinued naltrexone, and sent Saxenda last visit, which was approved. Patient had a hard time finding it, but just got on it about a week ago. Taking 1.2 mg first dose today. She does notice occasional constipation, and nausea. Educated on conservative ways to improve this, she is understanding. She will call the office with any question. Did continue to educate proper use. Continue to encourage lifestyle. 04/10/2023: Weight 177 pounds, BMI 31.35. Patient has lost 1 pound since last visit. Body composition scale reviewed showing significant improvement since patient started with weight management program. Was taking Saxenda and doing really well, but discontinued due to national shortage. We will start compounded semaglutide 1 mg for the next 2 weeks, and if tolerating well will submit for Wegovy 1.7 at next visit. Patient understanding. Educated on the importance of lifestyle modifications in conjunction with weight loss. 05/05/2023: Weight 174.3, BMI 30.87. Patient very pleased with progress overall. Continues to have successful weight loss. Was on Saxenda but discontinued due to national shortage, took compounded semaglutide tapered up to 1 mg, tolerating well without side effects. We will submit for Wegovy 1.7 mg today. Educated on importance of lifestyle modifications in conjunction with weight loss medications. 06/02/2023: Weight 168.7, BMI 29.88. Patient congratulated on effort. Taking Wegovy 1.7 mg with compliance, without any side effects. Patient is very pleased with progress overall, and is feeling great. States that she tolerates this medication better than she was the Saxenda. Educated on the importance of lifestyle modifications to maintain muscle/target fat loss. Patient will continue with Wegovy 1.7 mg. Pleased with progress overall. Recently started on gabapentin for nerve pain. 07/04/2023: Weight 165.2, BMI 29.26. Patient congratulated on effort, continuing to maintain, lose slow, steady, sustainable weight. Patient is very pleased with progress overall with like to continue with Wegovy 1.7 mg. 09/12/2023: Weight 164.3, BMI 29.1. Patient doing really well overall. Does admit to some constipation still, treated with lifestyle modifications. Weight has plateaued, will continue with Wegovy 1.7 mg and work on lifestyle, but as of next month, could consider increasing up to Wegovy 2.4 mg as she has been on 1.7 for a while. 10/13/2023: Weight 169, BMI 29.93 patient congratulated on lifestyle effort. She has been off of semaglutide, so her appetite has increased. Appeal pending through [employer] for Wegovy 1.7 mg. She will start semaglutide 1 mg again. Educated on proper use, side effects. Encouraged to continue with stairstepper, resistance training, and healthy eating with protein, fruits, veggies. Patient pleased with lifestyle changes overall. 11/29/2023: Weight 168.9, BMI 29.92. Patient congratulated on efforts, she is trying to maintain her weight without a medication, and has been doing so. Does admit to some more increased appetite. Discussed Contrave as semaglutide/tirzepati de [id number] is too costly. Patient is willing. Discussed proper use, taper, side effects, long-term use. Discussed that she cannot drink alcohol while on this medication. Patient understanding. Will follow-up in 4 weeks. 02/16/2024: Weight 177, BMI 31.35. Patient expresses frustration as she has gained some weight since last visit. Insurance stopped covering Wegovy so we tried switching over to Contrave, which she states caused cramping without positive effect for weight loss. Based on weight gain, will try to resubmit for Wegovy 0.25 mg but in the meantime we will do compounded semaglutide in office. She is aware that we cannot guarantee coverage. Patient discussed proper use, side effects, long-term risks. She feels motivated today to get back on track. 03/20/23: BMI 30, Weight 171. Will attempt submission for Zepbound. Pt reports has friends who have been able to get it with [facility]. We discussed that this may be true, but unsure. Offereed trying every other week compounded semaglutide _ phentermine to see if this would help. 04/23/2024: Weight 168, BMI 29.9. Patient congratulated, has lost some weight since last visit. Body scan reviewed showing improvement. Focusing on high-protein, and implementing more resistance training. Will restart initiation of phentermine. Patient is tolerated well in the past. Will start 15 mg once daily. EKG in office today within normal limits.Patient open to potential compounded GLP-1's in the future but would like to save money at this time.Discussed efficacy and compliance of medication. 05/27/2024: Weight 170, BMI 30.23. Patient did gain weight since last visit but gained 2 pounds of muscle, lost 4 pounds of fat. Zepbound declined because [employer] does not cover the medication, she has been trying Wegovy in the past, would like to try to resubmit for that medication. In the meantime we will continue with phentermine but increase to 30 mg. She will not be on phentermine and Wegovy at the same time. Continue with lifestyle. Follow-up in 4 to 6 weeks. # Seasonal allergies: Continue fluticasone and cetirizine prn #Migraines: continue sumatriptan 25 mg PRN #Back pain: takes tramadol 3 mg, ibuprofen 800 mg PRN Patient to follow-up in 4-6 weeks, Sooner as needed. Time spent with patient 30 minutes with greater than 50% on patient education and care coordination. All patient questions answered in office today. Patient should call the office in the meantime with any questions or concerns. Case discussed with collaborating physician Kody Duarte who reviewed the assessment and plan. Chart, medications, labs, vital signs reviewed. Dictation was accomplished with the use of [employer] voice recognition software, prone to medical misidentifications and grammatical errors. This is unintentional and the practitioner does try to identify and correct these, but some could still be present. Please do not hesitate to contact practitioner for clarification. 03/20/2024 Low back pain, unspecified (ICD-10 - M54.50) Melany Is a 46-year-old female who presented the office for weight management follow-up. 10/19/22: weight 185, BMI 32,77. Educated lifestyle modifications, diet, exercise, high protein, low carb, healthy fats. Educated on stretching and walking. Work on this for the next 4 weeks and consider phentermine at next visit pending EKG. MARGAUX reviewed. Pt understanding. 12/02/22: weight 182.9, BMI 32.4- patient congratulated on effort. Educated to continue with lifestyle modifications and focus on more movement now that she has had a cortisone injection in her back with improvement in pain. Also educated to focus on portion control, high-protein, low carbohydrate, healthy fat and increasing water intake. Patient interested in GLP-1 injection, but need to prove three consecutive months of weight loss in order to qualify. She is understanding regarding this. Could consider trialing phentermine again, but aware of rebound weight gain. Already taking bupropion, would like to add low dose naltrexone. This was sent to compound pharmacy. Will try to submit for GLP-1 injection in January. Patient will follow-up in one month.Educated on proper use, as well as side effects of medication. Patient aware she cannot drink on medication. 01/05/23: weight 182.3lbs, BMI 32.29 - Patient has modest weight loss since last meeting. She admits to a recent deviation from diet over last week because of celebrating with family and eating large amounts of junk food. On a normaly basis she has been eating less junk food overall, but her cravings have not changes on the naltrexone/wellbutrin combination. Will put in for patient to be started on 0.25mg Wegovy. D/c naltrexone. She was educated on side effect profile and understands. I gave recommendation to increase weight-bearing activity at home by incorporating small amounts of pushups and body weight squats into daily routine and gradually increase the volume. She was also encouraged to follow recommendation of provider conducting sleep study to trial CPAP mask to improve sleep quality. Will follow up with patient in 4 weeks. 02/02/2023: Weight 180.2, BMI 31.92-patient congratulated on efforts. Encouraged to continue with lifestyle modifications will be try to get her on a weight loss medication. Tried getting on Wegovy, but was denied by insurance. We will try Saxenda. Educated on proper use, and side effects. Patient will really benefit from this medication. Patient is encouraged, and is doing very well overall. She does continue to lose weight. 03/04/2023: Weight 170.9, BMI 31.69. Patient congratulated on effort. Has been doing well with lifestyle modifications. Discontinued naltrexone, and sent Saxenda last visit, which was approved. Patient had a hard time finding it, but just got on it about a week ago. Taking 1.2 mg first dose today. She does notice occasional constipation, and nausea. Educated on conservative ways to improve this, she is understanding. She will call the office with any question. Did continue to educate proper use. Continue to encourage lifestyle. 04/10/2023: Weight 177 pounds, BMI 31.35. Patient has lost 1 pound since last visit. Body composition scale reviewed showing significant improvement since patient started with weight management program. Was taking Saxenda and doing really well, but discontinued due to national shortage. We will start compounded semaglutide 1 mg for the next 2 weeks, and if tolerating well will submit for Wegovy 1.7 at next visit. Patient understanding. Educated on the importance of lifestyle modifications in conjunction with weight loss. 05/05/2023: Weight 174.3, BMI 30.87. Patient very pleased with progress overall. Continues to have successful weight loss. Was on Saxenda but discontinued due to national shortage, took compounded semaglutide tapered up to 1 mg, tolerating well without side effects. We will submit for Wegovy 1.7 mg today. Educated on importance of lifestyle modifications in conjunction with weight loss medications. 06/02/2023: Weight 168.7, BMI 29.88. Patient congratulated on effort. Taking Wegovy 1.7 mg with compliance, without any side effects. Patient is very pleased with progress overall, and is feeling great. States that she tolerates this medication better than she was the Saxenda. Educated on the importance of lifestyle modifications to maintain muscle/target fat loss. Patient will continue with Wegovy 1.7 mg. Pleased with progress overall. Recently started on gabapentin for nerve pain. 07/04/2023: Weight 165.2, BMI 29.26. Patient congratulated on effort, continuing to maintain, lose slow, steady, sustainable weight. Patient is very pleased with progress overall with like to continue with Wegovy 1.7 mg. 09/12/2023: Weight 164.3, BMI 29.1. Patient doing really well overall. Does admit to some constipation still, treated with lifestyle modifications. Weight has plateaued, will continue with Wegovy 1.7 mg and work on lifestyle, but as of next month, could consider increasing up to Wegovy 2.4 mg as she has been on 1.7 for a while. 10/13/2023: Weight 169, BMI 29.93 patient congratulated on lifestyle effort. She has been off of semaglutide, so her appetite has increased. Appeal pending through [employer] for Wegovy 1.7 mg. She will start semaglutide 1 mg again. Educated on proper use, side effects. Encouraged to continue with stairstepper, resistance training, and healthy eating with protein, fruits, veggies. Patient pleased with lifestyle changes overall. 11/29/2023: Weight 168.9, BMI 29.92. Patient congratulated on efforts, she is trying to maintain her weight without a medication, and has been doing so. Does admit to some more increased appetite. Discussed Contrave as semaglutide/tirzepati de [id number] is too costly. Patient is willing. Discussed proper use, taper, side effects, long-term use. Discussed that she cannot drink alcohol while on this medication. Patient understanding. Will follow-up in 4 weeks. 02/16/2024: Weight 177, BMI 31.35. Patient expresses frustration as she has gained some weight since last visit. Insurance stopped covering Wegovy so we tried switching over to Contrave, which she states caused cramping without positive effect for weight loss. Based on weight gain, will try to resubmit for Wegovy 0.25 mg but in the meantime we will do compounded semaglutide in office. She is aware that we cannot guarantee coverage. Patient discussed proper use, side effects, long-term risks. She feels motivated today to get back on track. 03/20/23: BMI 30, Weight 171. Will attempt submission for Zepbound. Pt reports has friends who have been able to get it with [facility]. We discussed that this may be true, but unsure. Offereed trying every other week compounded semaglutide _ phentermine to see if this would help. # Seasonal allergies: Continue fluticasone and cetirizine prn #Migraines: continue sumatriptan 25 mg PRN #Back pain: takes tramadol 3 mg, ibuprofen 800 mg PRN Patient to follow-up in 4 weeks with my colleague Stevenson Ngo PA-C, and in April with myself. Time spent with patient 30 minutes with greater than 50% on patient education and care coordination. All patient questions answered in office today. Patient should call the office in the meantime with any questions or concerns. Case discussed with collaborating physician Kody Duarte who reviewed the assessment and plan. Chart, medications, labs, vital signs reviewed. Dictation was accomplished with the use of [employer] voice recognition software, prone to medical misidentifications and grammatical errors. This is unintentional and the practitioner does try to identify and correct these, but some could still be present. Please do not hesitate to contact practitioner for clarification. 04/23/2024 Low back pain, unspecified (ICD-10 - M54.50) Melany Is a 46-year-old female who presented the office for weight management follow-up. 10/19/22: weight 185, BMI 32,77. Educated lifestyle modifications, diet, exercise, high protein, low carb, healthy fats. Educated on stretching and walking. Work on this for the next 4 weeks and consider phentermine at next visit pending EKG. MARGAUX reviewed. Pt understanding. 12/02/22: weight 182.9, BMI 32.4- patient congratulated on effort. Educated to continue with lifestyle modifications and focus on more movement now that she has had a cortisone injection in her back with improvement in pain. Also educated to focus on portion control, high-protein, low carbohydrate, healthy fat and increasing water intake. Patient interested in GLP-1 injection, but need to prove three consecutive months of weight loss in order to qualify. She is understanding regarding this. Could consider trialing phentermine again, but aware of rebound weight gain. Already taking bupropion, would like to add low dose naltrexone. This was sent to [facility] pharmacy. Will try to submit for GLP-1 injection in January. Patient will follow-up in one month.Educated on proper use, as well as side effects of medication. Patient aware she cannot drink on medication. 01/05/23: weight 182.3lbs, BMI 32.29 - Patient has modest weight loss since last meeting. She admits to a recent deviation from diet over last week because of celebrating with family and eating large amounts of junk food. On a normaly basis she has been eating less junk food overall, but her cravings have not changes on the naltrexone/wellbutrin combination. Will put in for patient to be started on 0.25mg Wegovy. D/c naltrexone. She was educated on side effect profile and understands. I gave recommendation to increase weight-bearing activity at home by incorporating small amounts of pushups and body weight squats into daily routine and gradually increase the volume. She was also encouraged to follow recommendation of provider conducting sleep study to trial CPAP mask to improve sleep quality. Will follow up with patient in 4 weeks. 02/02/2023: Weight 180.2, BMI 31.92-patient congratulated on efforts. Encouraged to continue with lifestyle modifications will be try to get her on a weight loss medication. Tried getting on Wegovy, but was denied by insurance. We will try Saxenda. Educated on proper use, and side effects. Patient will really benefit from this medication. Patient is encouraged, and is doing very well overall. She does continue to lose weight. 03/04/2023: Weight 170.9, BMI 31.69. Patient congratulated on effort. Has been doing well with lifestyle modifications. Discontinued naltrexone, and sent Saxenda last visit, which was approved. Patient had a hard time finding it, but just got on it about a week ago. Taking 1.2 mg first dose today. She does notice occasional constipation, and nausea. Educated on conservative ways to improve this, she is understanding. She will call the office with any question. Did continue to educate proper use. Continue to encourage lifestyle. 04/10/2023: Weight 177 pounds, BMI 31.35. Patient has lost 1 pound since last visit. Body composition scale reviewed showing significant improvement since patient started with weight management program. Was taking Saxenda and doing really well, but discontinued due to national shortage. We will start compounded semaglutide 1 mg for the next 2 weeks, and if tolerating well will submit for Wegovy 1.7 at next visit. Patient understanding. Educated on the importance of lifestyle modifications in conjunction with weight loss. 05/05/2023: Weight 174.3, BMI 30.87. Patient very pleased with progress overall. Continues to have successful weight loss. Was on Saxenda but discontinued due to national shortage, took compounded semaglutide tapered up to 1 mg, tolerating well without side effects. We will submit for Wegovy 1.7 mg today. Educated on importance of lifestyle modifications in conjunction with weight loss medications. 06/02/2023: Weight 168.7, BMI 29.88. Patient congratulated on effort. Taking Wegovy 1.7 mg with compliance, without any side effects. Patient is very pleased with progress overall, and is feeling great. States that she tolerates this medication better than she was the Saxenda. Educated on the importance of lifestyle modifications to maintain muscle/target fat loss. Patient will continue with Wegovy 1.7 mg. Pleased with progress overall. Recently started on gabapentin for nerve pain. 07/04/2023: Weight 165.2, BMI 29.26. Patient congratulated on effort, continuing to maintain, lose slow, steady, sustainable weight. Patient is very pleased with progress overall with like to continue with Wegovy 1.7 mg. 09/12/2023: Weight 164.3, BMI 29.1. Patient doing really well overall. Does admit to some constipation still, treated with lifestyle modifications. Weight has plateaued, will continue with Wegovy 1.7 mg and work on lifestyle, but as of next month, could consider increasing up to Wegovy 2.4 mg as she has been on 1.7 for a while. 10/13/2023: Weight 169, BMI 29.93 patient congratulated on lifestyle effort. She has been off of semaglutide, so her appetite has increased. Appeal pending through [employer] for Wegovy 1.7 mg. She will start semaglutide 1 mg again. Educated on proper use, side effects. Encouraged to continue with stairstepper, resistance training, and healthy eating with protein, fruits, veggies. Patient pleased with lifestyle changes overall. 11/29/2023: Weight 168.9, BMI 29.92. Patient congratulated on efforts, she is trying to maintain her weight without a medication, and has been doing so. Does admit to some more increased appetite. Discussed Contrave as semaglutide/tirzepati de [id number] is too costly. Patient is willing. Discussed proper use, taper, side effects, long-term use. Discussed that she cannot drink alcohol while on this medication. Patient understanding. Will follow-up in 4 weeks. 02/16/2024: Weight 177, BMI 31.35. Patient expresses frustration as she has gained some weight since last visit. Insurance stopped covering Wegovy so we tried switching over to Contrave, which she states caused cramping without positive effect for weight loss. Based on weight gain, will try to resubmit for Wegovy 0.25 mg but in the meantime we will do compounded semaglutide in office. She is aware that we cannot guarantee coverage. Patient discussed proper use, side effects, long-term risks. She feels motivated today to get back on track. 03/20/23: BMI 30, Weight 171. Will attempt submission for Zepbound. Pt reports has friends who have been able to get it with [facility]. We discussed that this may be true, but unsure. Offereed trying every other week compounded semaglutide _ phentermine to see if this would help. 04/23/2024: Weight 168, BMI 29.9. Patient congratulated, has lost some weight since last visit. Body scan reviewed showing improvement. Focusing on high-protein, and implementing more resistance training. Will restart initiation of phentermine. Patient is tolerated well in the past. Will start 15 mg once daily. EKG in office today within normal limits.Patient open to potential compounded GLP-1's in the future but would like to save money at this time.Discussed efficacy and compliance of medication. # Seasonal allergies: Continue fluticasone and cetirizine prn #Migraines: continue sumatriptan 25 mg PRN #Back pain: takes tramadol 3 mg, ibuprofen 800 mg PRN Patient to follow-up in 4 weeks, Sooner as needed. Time spent with patient 30 minutes with greater than 50% on patient education and care coordination. All patient questions answered in office today. Patient should call the office in the meantime with any questions or concerns. Case discussed with collaborating physician Kody Duarte who reviewed the assessment and plan. Chart, medications, labs, vital signs reviewed. Dictation was accomplished with the use of [employer] voice recognition software, prone to medical misidentifications and grammatical errors. This is unintentional and the practitioner does try to identify and correct these, but some could still be present. Please do not hesitate to contact practitioner for clarification. 03/20/2024 Other depression (ICD-10 - F32.89) Melany Is a 46-year-old female who presented the office for weight management follow-up. 10/19/22: weight 185, BMI 32,77. Educated lifestyle modifications, diet, exercise, high protein, low carb, healthy fats. Educated on stretching and walking. Work on this for the next 4 weeks and consider phentermine at next visit pending EKG. SECA reviewed. Pt understanding. 12/02/22: weight 182.9, BMI 32.4- patient congratulated on effort. Educated to continue with lifestyle modifications and focus on more movement now that she has had a cortisone injection in her back with improvement in pain. Also educated to focus on portion control, high-protein, low carbohydrate, healthy fat and increasing water intake. Patient interested in GLP-1 injection, but need to prove three consecutive months of weight loss in order to qualify. She is understanding regarding this. Could consider trialing phentermine again, but aware of rebound weight gain. Already taking bupropion, would like to add low dose naltrexone. This was sent to [facility]. Will try to submit for GLP-1 injection in January. Patient will follow-up in one month.Educated on proper use, as well as side effects of medication. Patient aware she cannot drink on medication. 01/05/23: weight 182.3lbs, BMI 32.29 - Patient has modest weight loss since last meeting. She admits to a recent deviation from diet over last week because of celebrating with family and eating large amounts of junk food. On a normaly basis she has been eating less junk food overall, but her cravings have not changes on the naltrexone/wellbutrin combination. Will put in for patient to be started on 0.25mg Wegovy. D/c naltrexone. She was educated on side effect profile and understands. I gave recommendation to increase weight-bearing activity at home by incorporating small amounts of pushups and body weight squats into daily routine and gradually increase the volume. She was also encouraged to follow recommendation of provider conducting sleep study to trial CPAP mask to improve sleep quality. Will follow up with patient in 4 weeks. 02/02/2023: Weight 180.2, BMI 31.92-patient congratulated on efforts. Encouraged to continue with lifestyle modifications will be try to get her on a weight loss medication. Tried getting on Wegovy, but was denied by insurance. We will try Saxenda. Educated on proper use, and side effects. Patient will really benefit from this medication. Patient is encouraged, and is doing very well overall. She does continue to lose weight. 03/04/2023: Weight 170.9, BMI 31.69. Patient congratulated on effort. Has been doing well with lifestyle modifications. Discontinued naltrexone, and sent Saxenda last visit, which was approved. Patient had a hard time finding it, but just got on it about a week ago. Taking 1.2 mg first dose today. She does notice occasional constipation, and nausea. Educated on conservative ways to improve this, she is understanding. She will call the office with any question. Did continue to educate proper use. Continue to encourage lifestyle. 04/10/2023: Weight 177 pounds, BMI 31.35. Patient has lost 1 pound since last visit. Body composition scale reviewed showing significant improvement since patient started with weight management program. Was taking Saxenda and doing really well, but discontinued due to national shortage. We will start compounded semaglutide 1 mg for the next 2 weeks, and if tolerating well will submit for Wegovy 1.7 at next visit. Patient understanding. Educated on the importance of lifestyle modifications in conjunction with weight loss. 05/05/2023: Weight 174.3, BMI 30.87. Patient very pleased with progress overall. Continues to have successful weight loss. Was on Saxenda but discontinued due to national shortage, took compounded semaglutide tapered up to 1 mg, tolerating well without side effects. We will submit for Wegovy 1.7 mg today. Educated on importance of lifestyle modifications in conjunction with weight loss medications. 06/02/2023: Weight 168.7, BMI 29.88. Patient congratulated on effort. Taking Wegovy 1.7 mg with compliance, without any side effects. Patient is very pleased with progress overall, and is feeling great. States that she tolerates this medication better than she was the Saxenda. Educated on the importance of lifestyle modifications to maintain muscle/target fat loss. Patient will continue with Wegovy 1.7 mg. Pleased with progress overall. Recently started on gabapentin for nerve pain. 07/04/2023: Weight 165.2, BMI 29.26. Patient congratulated on effort, continuing to maintain, lose slow, steady, sustainable weight. Patient is very pleased with progress overall with like to continue with Wegovy 1.7 mg. 09/12/2023: Weight 164.3, BMI 29.1. Patient doing really well overall. Does admit to some constipation still, treated with lifestyle modifications. Weight has plateaued, will continue with Wegovy 1.7 mg and work on lifestyle, but as of next month, could consider increasing up to Wegovy 2.4 mg as she has been on 1.7 for a while. 10/13/2023: Weight 169, BMI 29.93 patient congratulated on lifestyle effort. She has been off of semaglutide, so her appetite has increased. Appeal pending through [employer] for Wegovy 1.7 mg. She will start semaglutide 1 mg again. Educated on proper use, side effects. Encouraged to continue with stairstepper, resistance training, and healthy eating with protein, fruits, veggies. Patient pleased with lifestyle changes overall. 11/29/2023: Weight 168.9, BMI 29.92. Patient congratulated on efforts, she is trying to maintain her weight without a medication, and has been doing so. Does admit to some more increased appetite. Discussed Contrave as semaglutide/tirzepati de [id number] is too costly. Patient is willing. Discussed proper use, taper, side effects, long-term use. Discussed that she cannot drink alcohol while on this medication. Patient understanding. Will follow-up in 4 weeks. 02/16/2024: Weight 177, BMI 31.35. Patient expresses frustration as she has gained some weight since last visit. Insurance stopped covering Wegovy so we tried switching over to Contrave, which she states caused cramping without positive effect for weight loss. Based on weight gain, will try to resubmit for Wegovy 0.25 mg but in the meantime we will do compounded semaglutide in office. She is aware that we cannot guarantee coverage. Patient discussed proper use, side effects, long-term risks. She feels motivated today to get back on track. 03/20/23: BMI 30, Weight 171. Will attempt submission for Zepbound. Pt reports has friends who have been able to get it with [facility]. We discussed that this may be true, but unsure. Offereed trying every other week compounded semaglutide _ phentermine to see if this would help. # Seasonal allergies: Continue fluticasone and cetirizine prn #Migraines: continue sumatriptan 25 mg PRN #Back pain: takes tramadol 3 mg, ibuprofen 800 mg PRN Patient to follow-up in 4 weeks with my colleague Stevenson Ngo PA-C, and in April with myself. Time spent with patient 30 minutes with greater than 50% on patient education and care coordination. All patient questions answered in office today. Patient should call the office in the meantime with any questions or concerns. Case discussed with collaborating physician Kody Duarte who reviewed the assessment and plan. Chart, medications, labs, vital signs reviewed. Dictation was accomplished with the use of [employer] voice recognition software, prone to medical misidentifications and grammatical errors. This is unintentional and the practitioner does try to identify and correct these, but some could still be present. Please do not hesitate to contact practitioner for clarification. 04/23/2024 Other depression (ICD-10 - F32.89) Melany Is a 46-year-old female who presented the office for weight management follow-up. 10/19/22: weight 185, BMI 32,77. Educated lifestyle modifications, diet, exercise, high protein, low carb, healthy fats. Educated on stretching and walking. Work on this for the next 4 weeks and consider phentermine at next visit pending EKG. MARGAUX reviewed. Pt understanding. 12/02/22: weight 182.9, BMI 32.4- patient congratulated on effort. Educated to continue with lifestyle modifications and focus on more movement now that she has had a cortisone injection in her back with improvement in pain. Also educated to focus on portion control, high-protein, low carbohydrate, healthy fat and increasing water intake. Patient interested in GLP-1 injection, but need to prove three consecutive months of weight loss in order to qualify. She is understanding regarding this. Could consider trialing phentermine again, but aware of rebound weight gain. Already taking bupropion, would like to add low dose naltrexone. This was sent to compound pharmacy. Will try to submit for GLP-1 injection in January. Patient will follow-up in one month.Educated on proper use, as well as side effects of medication. Patient aware she cannot drink on medication. 01/05/23: weight 182.3lbs, BMI 32.29 - Patient has modest weight loss since last meeting. She admits to a recent deviation from diet over last week because of celebrating with family and eating large amounts of junk food. On a normaly basis she has been eating less junk food overall, but her cravings have not changes on the naltrexone/wellbutrin combination. Will put in for patient to be started on 0.25mg Wegovy. D/c naltrexone. She was educated on side effect profile and understands. I gave recommendation to increase weight-bearing activity at home by incorporating small amounts of pushups and body weight squats into daily routine and gradually increase the volume. She was also encouraged to follow recommendation of provider conducting sleep study to trial CPAP mask to improve sleep quality. Will follow up with patient in 4 weeks. 02/02/2023: Weight 180.2, BMI 31.92-patient congratulated on efforts. Encouraged to continue with lifestyle modifications will be try to get her on a weight loss medication. Tried getting on Wegovy, but was denied by insurance. We will try Saxenda. Educated on proper use, and side effects. Patient will really benefit from this medication. Patient is encouraged, and is doing very well overall. She does continue to lose weight. 03/04/2023: Weight 170.9, BMI 31.69. Patient congratulated on effort. Has been doing well with lifestyle modifications. Discontinued naltrexone, and sent Saxenda last visit, which was approved. Patient had a hard time finding it, but just got on it about a week ago. Taking 1.2 mg first dose today. She does notice occasional constipation, and nausea. Educated on conservative ways to improve this, she is understanding. She will call the office with any question. Did continue to educate proper use. Continue to encourage lifestyle. 04/10/2023: Weight 177 pounds, BMI 31.35. Patient has lost 1 pound since last visit. Body composition scale reviewed showing significant improvement since patient started with weight management program. Was taking Saxenda and doing really well, but discontinued due to national shortage. We will start compounded semaglutide 1 mg for the next 2 weeks, and if tolerating well will submit for Wegovy 1.7 at next visit. Patient understanding. Educated on the importance of lifestyle modifications in conjunction with weight loss. 05/05/2023: Weight 174.3, BMI 30.87. Patient very pleased with progress overall. Continues to have successful weight loss. Was on Saxenda but discontinued due to national shortage, took compounded semaglutide tapered up to 1 mg, tolerating well without side effects. We will submit for Wegovy 1.7 mg today. Educated on importance of lifestyle modifications in conjunction with weight loss medications. 06/02/2023: Weight 168.7, BMI 29.88. Patient congratulated on effort. Taking Wegovy 1.7 mg with compliance, without any side effects. Patient is very pleased with progress overall, and is feeling great. States that she tolerates this medication better than she was the Saxenda. Educated on the importance of lifestyle modifications to maintain muscle/target fat loss. Patient will continue with Wegovy 1.7 mg. Pleased with progress overall. Recently started on gabapentin for nerve pain. 07/04/2023: Weight 165.2, BMI 29.26. Patient congratulated on effort, continuing to maintain, lose slow, steady, sustainable weight. Patient is very pleased with progress overall with like to continue with Wegovy 1.7 mg. 09/12/2023: Weight 164.3, BMI 29.1. Patient doing really well overall. Does admit to some constipation still, treated with lifestyle modifications. Weight has plateaued, will continue with Wegovy 1.7 mg and work on lifestyle, but as of next month, could consider increasing up to Wegovy 2.4 mg as she has been on 1.7 for a while. 10/13/2023: Weight 169, BMI 29.93 patient congratulated on lifestyle effort. She has been off of semaglutide, so her appetite has increased. Appeal pending through [employer] for Wegovy 1.7 mg. She will start semaglutide 1 mg again. Educated on proper use, side effects. Encouraged to continue with stairstepper, resistance training, and healthy eating with protein, fruits, veggies. Patient pleased with lifestyle changes overall. 11/29/2023: Weight 168.9, BMI 29.92. Patient congratulated on efforts, she is trying to maintain her weight without a medication, and has been doing so. Does admit to some more increased appetite. Discussed Contrave as semaglutide/tirzepati de [id number] is too costly. Patient is willing. Discussed proper use, taper, side effects, long-term use. Discussed that she cannot drink alcohol while on this medication. Patient understanding. Will follow-up in 4 weeks. 02/16/2024: Weight 177, BMI 31.35. Patient expresses frustration as she has gained some weight since last visit. Insurance stopped covering Wegovy so we tried switching over to Contrave, which she states caused cramping without positive effect for weight loss. Based on weight gain, will try to resubmit for Wegovy 0.25 mg but in the meantime we will do compounded semaglutide in office. She is aware that we cannot guarantee coverage. Patient discussed proper use, side effects, long-term risks. She feels motivated today to get back on track. 03/20/23: BMI 30, Weight 171. Will attempt submission for Zepbound. Pt reports has friends who have been able to get it with [facility]. We discussed that this may be true, but unsure. Offereed trying every other week compounded semaglutide _ phentermine to see if this would help. 04/23/2024: Weight 168, BMI 29.9. Patient congratulated, has lost some weight since last visit. Body scan reviewed showing improvement. Focusing on high-protein, and implementing more resistance training. Will restart initiation of phentermine. Patient is tolerated well in the past. Will start 15 mg once daily. EKG in office today within normal limits.Patient open to potential compounded GLP-1's in the future but would like to save money at this time.Discussed efficacy and compliance of medication. # Seasonal allergies: Continue fluticasone and cetirizine prn #Migraines: continue sumatriptan 25 mg PRN #Back pain: takes tramadol 3 mg, ibuprofen 800 mg PRN Patient to follow-up in 4 weeks, Sooner as needed. Time spent with patient 30 minutes with greater than 50% on patient education and care coordination. All patient questions answered in office today. Patient should call the office in the meantime with any questions or concerns. Case discussed with collaborating physician Kody Duarte who reviewed the assessment and plan. Chart, medications, labs, vital signs reviewed. Dictation was accomplished with the use of [employer] voice recognition software, prone to medical misidentifications and grammatical errors. This is unintentional and the practitioner does try to identify and correct these, but some could still be present. Please do not hesitate to contact practitioner for clarification. 05/31/2024 Other depression (ICD-10 - F32.89) Melany Is a 46-year-old female who presented the office for weight management follow-up. 10/19/22: weight 185, BMI 32,77. Educated lifestyle modifications, diet, exercise, high protein, low carb, healthy fats. Educated on stretching and walking. Work on this for the next 4 weeks and consider phentermine at next visit pending EKG. SECA reviewed. Pt understanding. 12/02/22: weight 182.9, BMI 32.4- patient congratulated on effort. Educated to continue with lifestyle modifications and focus on more movement now that she has had a cortisone injection in her back with improvement in pain. Also educated to focus on portion control, high-protein, low carbohydrate, healthy fat and increasing water intake. Patient interested in GLP-1 injection, but need to prove three consecutive months of weight loss in order to qualify. She is understanding regarding this. Could consider trialing phentermine again, but aware of rebound weight gain. Already taking bupropion, would like to add low dose naltrexone. This was sent to [facility] pharmacy. Will try to submit for GLP-1 injection in January. Patient will follow-up in one month.Educated on proper use, as well as side effects of medication. Patient aware she cannot drink on medication. 01/05/23: weight 182.3lbs, BMI 32.29 - Patient has modest weight loss since last meeting. She admits to a recent deviation from diet over last week because of celebrating with family and eating large amounts of junk food. On a normaly basis she has been eating less junk food overall, but her cravings have not changes on the naltrexone/wellbutrin combination. Will put in for patient to be started on 0.25mg Wegovy. D/c naltrexone. She was educated on side effect profile and understands. I gave recommendation to increase weight-bearing activity at home by incorporating small amounts of pushups and body weight squats into daily routine and gradually increase the volume. She was also encouraged to follow recommendation of provider conducting sleep study to trial CPAP mask to improve sleep quality. Will follow up with patient in 4 weeks. 02/02/2023: Weight 180.2, BMI 31.92-patient congratulated on efforts. Encouraged to continue with lifestyle modifications will be try to get her on a weight loss medication. Tried getting on Wegovy, but was denied by insurance. We will try Saxenda. Educated on proper use, and side effects. Patient will really benefit from this medication. Patient is encouraged, and is doing very well overall. She does continue to lose weight. 03/04/2023: Weight 170.9, BMI 31.69. Patient congratulated on effort. Has been doing well with lifestyle modifications. Discontinued naltrexone, and sent Saxenda last visit, which was approved. Patient had a hard time finding it, but just got on it about a week ago. Taking 1.2 mg first dose today. She does notice occasional constipation, and nausea. Educated on conservative ways to improve this, she is understanding. She will call the office with any question. Did continue to educate proper use. Continue to encourage lifestyle. 04/10/2023: Weight 177 pounds, BMI 31.35. Patient has lost 1 pound since last visit. Body composition scale reviewed showing significant improvement since patient started with weight management program. Was taking Saxenda and doing really well, but discontinued due to national shortage. We will start compounded semaglutide 1 mg for the next 2 weeks, and if tolerating well will submit for Wegovy 1.7 at next visit. Patient understanding. Educated on the importance of lifestyle modifications in conjunction with weight loss. 05/05/2023: Weight 174.3, BMI 30.87. Patient very pleased with progress overall. Continues to have successful weight loss. Was on Saxenda but discontinued due to national shortage, took compounded semaglutide tapered up to 1 mg, tolerating well without side effects. We will submit for Wegovy 1.7 mg today. Educated on importance of lifestyle modifications in conjunction with weight loss medications. 06/02/2023: Weight 168.7, BMI 29.88. Patient congratulated on effort. Taking Wegovy 1.7 mg with compliance, without any side effects. Patient is very pleased with progress overall, and is feeling great. States that she tolerates this medication better than she was the Saxenda. Educated on the importance of lifestyle modifications to maintain muscle/target fat loss. Patient will continue with Wegovy 1.7 mg. Pleased with progress overall. Recently started on gabapentin for nerve pain. 07/04/2023: Weight 165.2, BMI 29.26. Patient congratulated on effort, continuing to maintain, lose slow, steady, sustainable weight. Patient is very pleased with progress overall with like to continue with Wegovy 1.7 mg. 09/12/2023: Weight 164.3, BMI 29.1. Patient doing really well overall. Does admit to some constipation still, treated with lifestyle modifications. Weight has plateaued, will continue with Wegovy 1.7 mg and work on lifestyle, but as of next month, could consider increasing up to Wegovy 2.4 mg as she has been on 1.7 for a while. 10/13/2023: Weight 169, BMI 29.93 patient congratulated on lifestyle effort. She has been off of semaglutide, so her appetite has increased. Appeal pending through [employer] for Wegovy 1.7 mg. She will start semaglutide 1 mg again. Educated on proper use, side effects. Encouraged to continue with stairstepper, resistance training, and healthy eating with protein, fruits, veggies. Patient pleased with lifestyle changes overall. 11/29/2023: Weight 168.9, BMI 29.92. Patient congratulated on efforts, she is trying to maintain her weight without a medication, and has been doing so. Does admit to some more increased appetite. Discussed Contrave as semaglutide/tirzepati de [id number] is too costly. Patient is willing. Discussed proper use, taper, side effects, long-term use. Discussed that she cannot drink alcohol while on this medication. Patient understanding. Will follow-up in 4 weeks. 02/16/2024: Weight 177, BMI 31.35. Patient expresses frustration as she has gained some weight since last visit. Insurance stopped covering Wegovy so we tried switching over to Contrave, which she states caused cramping without positive effect for weight loss. Based on weight gain, will try to resubmit for Wegovy 0.25 mg but in the meantime we will do compounded semaglutide in office. She is aware that we cannot guarantee coverage. Patient discussed proper use, side effects, long-term risks. She feels motivated today to get back on track. 03/20/23: BMI 30, Weight 171. Will attempt submission for Zepbound. Pt reports has friends who have been able to get it with [facility]. We discussed that this may be true, but unsure. Offereed trying every other week compounded semaglutide _ phentermine to see if this would help. 04/23/2024: Weight 168, BMI 29.9. Patient congratulated, has lost some weight since last visit. Body scan reviewed showing improvement. Focusing on high-protein, and implementing more resistance training. Will restart initiation of phentermine. Patient is tolerated well in the past. Will start 15 mg once daily. EKG in office today within normal limits.Patient open to potential compounded GLP-1's in the future but would like to save money at this time.Discussed efficacy and compliance of medication. 05/27/2024: Weight 170, BMI 30.23. Patient did gain weight since last visit but gained 2 pounds of muscle, lost 4 pounds of fat. Zepbound declined because [employer] does not cover the medication, she has been trying Wegovy in the past, would like to try to resubmit for that medication. In the meantime we will continue with phentermine but increase to 30 mg. She will not be on phentermine and Wegovy at the same time. Continue with lifestyle. Follow-up in 4 to 6 weeks. # Seasonal allergies: Continue fluticasone and cetirizine prn #Migraines: continue sumatriptan 25 mg PRN #Back pain: takes tramadol 3 mg, ibuprofen 800 mg PRN Patient to follow-up in 4-6 weeks, Sooner as needed. Time spent with patient 30 minutes with greater than 50% on patient education and care coordination. All patient questions answered in office today. Patient should call the office in the meantime with any questions or concerns. Case discussed with collaborating physician Kody Duarte who reviewed the assessment and plan. Chart, medications, labs, vital signs reviewed. Dictation was accomplished with the use of [employer] voice recognition software, prone to medical misidentifications and grammatical errors. This is unintentional and the practitioner does try to identify and correct these, but some could still be present. Please do not hesitate to contact practitioner for clarification. 11/01/2024 Other depression (ICD-10 - F32.89) Melany Is a 48-year-old female who presented the office for weight management follow-up. 10/19/22: weight 185, BMI 32,77. Educated lifestyle modifications, diet, exercise, high protein, low carb, healthy fats. Educated on stretching and walking. Work on this for the next 4 weeks and consider phentermine at next visit pending EKG. SECA reviewed. Pt understanding. 12/02/22: weight 182.9, BMI 32.4- patient congratulated on effort. Educated to continue with lifestyle modifications and focus on more movement now that she has had a cortisone injection in her back with improvement in pain. Also educated to focus on portion control, high-protein, low carbohydrate, healthy fat and increasing water intake. Patient interested in GLP-1 injection, but need to prove three consecutive months of weight loss in order to qualify. She is understanding regarding this. Could consider trialing phentermine again, but aware of rebound weight gain. Already taking bupropion, would like to add low dose naltrexone. This was sent to [facility]. Will try to submit for GLP-1 injection in January. Patient will follow-up in one month.Educated on proper use, as well as side effects of medication. Patient aware she cannot drink on medication. 01/05/23: weight 182.3lbs, BMI 32.29 - Patient has modest weight loss since last meeting. She admits to a recent deviation from diet over last week because of celebrating with family and eating large amounts of junk food. On a normaly basis she has been eating less junk food overall, but her cravings have not changes on the naltrexone/wellbutrin combination. Will put in for patient to be started on 0.25mg Wegovy. D/c naltrexone. She was educated on side effect profile and understands. I gave recommendation to increase weight-bearing activity at home by incorporating small amounts of pushups and body weight squats into daily routine and gradually increase the volume. She was also encouraged to follow recommendation of provider conducting sleep study to trial CPAP mask to improve sleep quality. Will follow up with patient in 4 weeks. 02/02/2023: Weight 180.2, BMI 31.92-patient congratulated on efforts. Encouraged to continue with lifestyle modifications will be try to get her on a weight loss medication. Tried getting on Wegovy, but was denied by insurance. We will try Saxenda. Educated on proper use, and side effects. Patient will really benefit from this medication. Patient is encouraged, and is doing very well overall. She does continue to lose weight. 03/04/2023: Weight 170.9, BMI 31.69. Patient congratulated on effort. Has been doing well with lifestyle modifications. Discontinued naltrexone, and sent Saxenda last visit, which was approved. Patient had a hard time finding it, but just got on it about a week ago. Taking 1.2 mg first dose today. She does notice occasional constipation, and nausea. Educated on conservative ways to improve this, she is understanding. She will call the office with any question. Did continue to educate proper use. Continue to encourage lifestyle. 04/10/2023: Weight 177 pounds, BMI 31.35. Patient has lost 1 pound since last visit. Body composition scale reviewed showing significant improvement since patient started with weight management program. Was taking Saxenda and doing really well, but discontinued due to national shortage. We will start compounded semaglutide 1 mg for the next 2 weeks, and if tolerating well will submit for Wegovy 1.7 at next visit. Patient understanding. Educated on the importance of lifestyle modifications in conjunction with weight loss. 05/05/2023: Weight 174.3, BMI 30.87. Patient very pleased with progress overall. Continues to have successful weight loss. Was on Saxenda but discontinued due to national shortage, took compounded semaglutide tapered up to 1 mg, tolerating well without side effects. We will submit for Wegovy 1.7 mg today. Educated on importance of lifestyle modifications in conjunction with weight loss medications. 06/02/2023: Weight 168.7, BMI 29.88. Patient congratulated on effort. Taking Wegovy 1.7 mg with compliance, without any side effects. Patient is very pleased with progress overall, and is feeling great. States that she tolerates this medication better than she was the Saxenda. Educated on the importance of lifestyle modifications to maintain muscle/target fat loss. Patient will continue with Wegovy 1.7 mg. Pleased with progress overall. Recently started on gabapentin for nerve pain. 07/04/2023: Weight 165.2, BMI 29.26. Patient congratulated on effort, continuing to maintain, lose slow, steady, sustainable weight. Patient is very pleased with progress overall with like to continue with Wegovy 1.7 mg. 09/12/2023: Weight 164.3, BMI 29.1. Patient doing really well overall. Does admit to some constipation still, treated with lifestyle modifications. Weight has plateaued, will continue with Wegovy 1.7 mg and work on lifestyle, but as of next month, could consider increasing up to Wegovy 2.4 mg as she has been on 1.7 for a while. 10/13/2023: Weight 169, BMI 29.93 patient congratulated on lifestyle effort. She has been off of semaglutide, so her appetite has increased. Appeal pending through [employer] for Wegovy 1.7 mg. She will start semaglutide 1 mg again. Educated on proper use, side effects. Encouraged to continue with stairstepper, resistance training, and healthy eating with protein, fruits, veggies. Patient pleased with lifestyle changes overall. 11/29/2023: Weight 168.9, BMI 29.92. Patient congratulated on efforts, she is trying to maintain her weight without a medication, and has been doing so. Does admit to some more increased appetite. Discussed Contrave as semaglutide/tirzepati de [id number] is too costly. Patient is willing. Discussed proper use, taper, side effects, long-term use. Discussed that she cannot drink alcohol while on this medication. Patient understanding. Will follow-up in 4 weeks. 02/16/2024: Weight 177, BMI 31.35. Patient expresses frustration as she has gained some weight since last visit. Insurance stopped covering Wegovy so we tried switching over to Contrave, which she states caused cramping without positive effect for weight loss. Based on weight gain, will try to resubmit for Wegovy 0.25 mg but in the meantime we will do compounded semaglutide in office. She is aware that we cannot guarantee coverage. Patient discussed proper use, side effects, long-term risks. She feels motivated today to get back on track. 03/20/23: BMI 30, Weight 171. Will attempt submission for Zepbound. Pt reports has friends who have been able to get it with [facility]. We discussed that this may be true, but unsure. Offereed trying every other week compounded semaglutide _ phentermine to see if this would help. 04/23/2024: Weight 168, BMI 29.9. Patient congratulated, has lost some weight since last visit. Body scan reviewed showing improvement. Focusing on high-protein, and implementing more resistance training. Will restart initiation of phentermine. Patient is tolerated well in the past. Will start 15 mg once daily. EKG in office today within normal limits.Patient open to potential compounded GLP-1's in the future but would like to save money at this time.Discussed efficacy and compliance of medication. 05/27/2024: Weight 170, BMI 30.23. Patient did gain weight since last visit but gained 2 pounds of muscle, lost 4 pounds of fat. Zepbound declined because [employer] does not cover the medication, she has been trying Wegovy in the past, would like to try to resubmit for that medication. In the meantime we will continue with phentermine but increase to 30 mg. She will not be on phentermine and Wegovy at the same time. Continue with lifestyle. Follow-up in 4 to 6 weeks. 07/16/2024: Weight 166, BMI 29. Patient continuing to lose slow, steady weight. Taking Wegovy 0.5 mg, has 1 dose less but then would like to increase to 1 mg. Will send 1 mg today. Did discuss the importance of lifestyle conjunction with weight loss medications for long-term, sustainable weight loss. Patient is going to implement more resistance training and higher protein to maintain muscle and target fat loss. No longer taking phentermine. Does admit to more fatigue, Wegovy versus phentermine. Did discuss the importance of nutrition and eating enough on the medication. 08/30/2024: Weight 164, BMI 29. Patient congratulated on weight loss, continuing to lose slow, steady weight. Increase Wegovy to 1.7 mg. Continue with resistance training to build muscle, and protein intake. 09/27/2024: Weight 161, BMI 28. Patient congratulated on effort, continuing to lose slow, steady weight. Feels really well on Wegovy 1.7 mg, reviewing body scan, she has lost 3 pounds of fat, and maintained muscle. Body composition changing for the better. Follow-up in 4 weeks, sooner as needed. M ICC injection today. 10/31/2024: Weight 157, BMI 27. Patient congratulated on effort, significant wt loss potentially related to eating less frequently x3 weeks while grieving. Patient feels good on Weogvy 1.7, will stay at this dose. She has maintained her muscle mass despite losing weight. Follow up in 6 week. # Following with her PCP secondary to generalized joint pain, positive ALY, referred to rheumatology. Patient taking gabapentin, NSAID, and tramadol as needed # Seasonal allergies: Continue fluticasone and cetirizine prn #Migraines: continue sumatriptan 25 mg PRN Patient to follow-up in 4 weeks, Sooner as needed. Time spent with patient 30 minutes with greater than 50% on patient education and care coordination. All patient questions answered in office today. Patient should call the office in the meantime with any questions or concerns. Case discussed with collaborating physician Kody Duarte who reviewed the assessment and plan. Chart, medications, labs, vital signs reviewed. Dictation was accomplished with the use of [employer] voice recognition software, prone to medical misidentifications and grammatical errors. This is unintentional and the practitioner does try to identify and correct these, but some could still be present. Please do not hesitate to contact practitioner for clarification. 08/30/2024 Low back pain, unspecified (ICD-10 - M54.50) Melany Is a 46-year-old female who presented the office for weight management follow-up. 10/19/22: weight 185, BMI 32,77. Educated lifestyle modifications, diet, exercise, high protein, low carb, healthy fats. Educated on stretching and walking. Work on this for the next 4 weeks and consider phentermine at next visit pending EKG. MARGAUX reviewed. Pt understanding. 12/02/22: weight 182.9, BMI 32.4- patient congratulated on effort. Educated to continue with lifestyle modifications and focus on more movement now that she has had a cortisone injection in her back with improvement in pain. Also educated to focus on portion control, high-protein, low carbohydrate, healthy fat and increasing water intake. Patient interested in GLP-1 injection, but need to prove three consecutive months of weight loss in order to qualify. She is understanding regarding this. Could consider trialing phentermine again, but aware of rebound weight gain. Already taking bupropion, would like to add low dose naltrexone. This was sent to compound pharmacy. Will try to submit for GLP-1 injection in January. Patient will follow-up in one month.Educated on proper use, as well as side effects of medication. Patient aware she cannot drink on medication. 01/05/23: weight 182.3lbs, BMI 32.29 - Patient has modest weight loss since last meeting. She admits to a recent deviation from diet over last week because of celebrating with family and eating large amounts of junk food. On a normaly basis she has been eating less junk food overall, but her cravings have not changes on the naltrexone/wellbutrin combination. Will put in for patient to be started on 0.25mg Wegovy. D/c naltrexone. She was educated on side effect profile and understands. I gave recommendation to increase weight-bearing activity at home by incorporating small amounts of pushups and body weight squats into daily routine and gradually increase the volume. She was also encouraged to follow recommendation of provider conducting sleep study to trial CPAP mask to improve sleep quality. Will follow up with patient in 4 weeks. 02/02/2023: Weight 180.2, BMI 31.92-patient congratulated on efforts. Encouraged to continue with lifestyle modifications will be try to get her on a weight loss medication. Tried getting on Wegovy, but was denied by insurance. We will try Saxenda. Educated on proper use, and side effects. Patient will really benefit from this medication. Patient is encouraged, and is doing very well overall. She does continue to lose weight. 03/04/2023: Weight 170.9, BMI 31.69. Patient congratulated on effort. Has been doing well with lifestyle modifications. Discontinued naltrexone, and sent Saxenda last visit, which was approved. Patient had a hard time finding it, but just got on it about a week ago. Taking 1.2 mg first dose today. She does notice occasional constipation, and nausea. Educated on conservative ways to improve this, she is understanding. She will call the office with any question. Did continue to educate proper use. Continue to encourage lifestyle. 04/10/2023: Weight 177 pounds, BMI 31.35. Patient has lost 1 pound since last visit. Body composition scale reviewed showing significant improvement since patient started with weight management program. Was taking Saxenda and doing really well, but discontinued due to national shortage. We will start compounded semaglutide 1 mg for the next 2 weeks, and if tolerating well will submit for Wegovy 1.7 at next visit. Patient understanding. Educated on the importance of lifestyle modifications in conjunction with weight loss. 05/05/2023: Weight 174.3, BMI 30.87. Patient very pleased with progress overall. Continues to have successful weight loss. Was on Saxenda but discontinued due to national shortage, took compounded semaglutide tapered up to 1 mg, tolerating well without side effects. We will submit for Wegovy 1.7 mg today. Educated on importance of lifestyle modifications in conjunction with weight loss medications. 06/02/2023: Weight 168.7, BMI 29.88. Patient congratulated on effort. Taking Wegovy 1.7 mg with compliance, without any side effects. Patient is very pleased with progress overall, and is feeling great. States that she tolerates this medication better than she was the Saxenda. Educated on the importance of lifestyle modifications to maintain muscle/target fat loss. Patient will continue with Wegovy 1.7 mg. Pleased with progress overall. Recently started on gabapentin for nerve pain. 07/04/2023: Weight 165.2, BMI 29.26. Patient congratulated on effort, continuing to maintain, lose slow, steady, sustainable weight. Patient is very pleased with progress overall with like to continue with Wegovy 1.7 mg. 09/12/2023: Weight 164.3, BMI 29.1. Patient doing really well overall. Does admit to some constipation still, treated with lifestyle modifications. Weight has plateaued, will continue with Wegovy 1.7 mg and work on lifestyle, but as of next month, could consider increasing up to Wegovy 2.4 mg as she has been on 1.7 for a while. 10/13/2023: Weight 169, BMI 29.93 patient congratulated on lifestyle effort. She has been off of semaglutide, so her appetite has increased. Appeal pending through [employer] for Wegovy 1.7 mg. She will start semaglutide 1 mg again. Educated on proper use, side effects. Encouraged to continue with stairstepper, resistance training, and healthy eating with protein, fruits, veggies. Patient pleased with lifestyle changes overall. 11/29/2023: Weight 168.9, BMI 29.92. Patient congratulated on efforts, she is trying to maintain her weight without a medication, and has been doing so. Does admit to some more increased appetite. Discussed Contrave as semaglutide/tirzepati de [id number] is too costly. Patient is willing. Discussed proper use, taper, side effects, long-term use. Discussed that she cannot drink alcohol while on this medication. Patient understanding. Will follow-up in 4 weeks. 02/16/2024: Weight 177, BMI 31.35. Patient expresses frustration as she has gained some weight since last visit. Insurance stopped covering Wegovy so we tried switching over to Contrave, which she states caused cramping without positive effect for weight loss. Based on weight gain, will try to resubmit for Wegovy 0.25 mg but in the meantime we will do compounded semaglutide in office. She is aware that we cannot guarantee coverage. Patient discussed proper use, side effects, long-term risks. She feels motivated today to get back on track. 03/20/23: BMI 30, Weight 171. Will attempt submission for Zepbound. Pt reports has friends who have been able to get it with [facility]. We discussed that this may be true, but unsure. Offereed trying every other week compounded semaglutide _ phentermine to see if this would help. 04/23/2024: Weight 168, BMI 29.9. Patient congratulated, has lost some weight since last visit. Body scan reviewed showing improvement. Focusing on high-protein, and implementing more resistance training. Will restart initiation of phentermine. Patient is tolerated well in the past. Will start 15 mg once daily. EKG in office today within normal limits.Patient open to potential compounded GLP-1's in the future but would like to save money at this time.Discussed efficacy and compliance of medication. 05/27/2024: Weight 170, BMI 30.23. Patient did gain weight since last visit but gained 2 pounds of muscle, lost 4 pounds of fat. Zepbound declined because [employer] does not cover the medication, she has been trying Wegovy in the past, would like to try to resubmit for that medication. In the meantime we will continue with phentermine but increase to 30 mg. She will not be on phentermine and Wegovy at the same time. Continue with lifestyle. Follow-up in 4 to 6 weeks. 07/16/2024: Weight 166, BMI 29. Patient continuing to lose slow, steady weight. Taking Wegovy 0.5 mg, has 1 dose less but then would like to increase to 1 mg. Will send 1 mg today. Did discuss the importance of lifestyle conjunction with weight loss medications for long-term, sustainable weight loss. Patient is going to implement more resistance training and higher protein to maintain muscle and target fat loss. No longer taking phentermine. Does admit to more fatigue, Wegovy versus phentermine. Did discuss the importance of nutrition and eating enough on the medication. 08/30/2024: Weight 164, BMI 29. Patient congratulated on weight loss, continuing to lose slow, steady weight. Increase Wegovy to 1.7 mg. Continue with resistance training to build muscle, and protein intake. # Following with her PCP secondary to generalized joint pain, positive ALY, referred to rheumatology. Patient taking gabapentin, NSAID, and tramadol as needed # Seasonal allergies: Continue fluticasone and cetirizine prn #Migraines: continue sumatriptan 25 mg PRN Patient to follow-up in 4 weeks, Sooner as needed. Time spent with patient 30 minutes with greater than 50% on patient education and care coordination. All patient questions answered in office today. Patient should call the office in the meantime with any questions or concerns. Case discussed with collaborating physician Kody Duarte who reviewed the assessment and plan. Chart, medications, labs, vital signs reviewed. Dictation was accomplished with the use of [employer] voice recognition software, prone to medical misidentifications and grammatical errors. This is unintentional and the practitioner does try to identify and correct these, but some could still be present. Please do not hesitate to contact practitioner for clarification. 09/27/2024 Other depression (ICD-10 - F32.89) Melany Is a 48-year-old female who presented the office for weight management follow-up. 10/19/22: weight 185, BMI 32,77. Educated lifestyle modifications, diet, exercise, high protein, low carb, healthy fats. Educated on stretching and walking. Work on this for the next 4 weeks and consider phentermine at next visit pending EKG. SE[facility] reviewed. Pt understanding. 12/02/22: weight 182.9, BMI 32.4- patient congratulated on effort. Educated to continue with lifestyle modifications and focus on more movement now that she has had a cortisone injection in her back with improvement in pain. Also educated to focus on portion control, high-protein, low carbohydrate, healthy fat and increasing water intake. Patient interested in GLP-1 injection, but need to prove three consecutive months of weight loss in order to qualify. She is understanding regarding this. Could consider trialing phentermine again, but aware of rebound weight gain. Already taking bupropion, would like to add low dose naltrexone. This was sent to [facility] pharmacy. Will try to submit for GLP-1 injection in January. Patient will follow-up in one month.Educated on proper use, as well as side effects of medication. Patient aware she cannot drink on medication. 01/05/23: weight 182.3lbs, BMI 32.29 - Patient has modest weight loss since last meeting. She admits to a recent deviation from diet over last week because of celebrating with family and eating large amounts of junk food. On a normaly basis she has been eating less junk food overall, but her cravings have not changes on the naltrexone/wellbutrin combination. Will put in for patient to be started on 0.25mg Wegovy. D/c naltrexone. She was educated on side effect profile and understands. I gave recommendation to increase weight-bearing activity at home by incorporating small amounts of pushups and body weight squats into daily routine and gradually increase the volume. She was also encouraged to follow recommendation of provider conducting sleep study to trial CPAP mask to improve sleep quality. Will follow up with patient in 4 weeks. 02/02/2023: Weight 180.2, BMI 31.92-patient congratulated on efforts. Encouraged to continue with lifestyle modifications will be try to get her on a weight loss medication. Tried getting on Wegovy, but was denied by insurance. We will try Saxenda. Educated on proper use, and side effects. Patient will really benefit from this medication. Patient is encouraged, and is doing very well overall. She does continue to lose weight. 03/04/2023: Weight 170.9, BMI 31.69. Patient congratulated on effort. Has been doing well with lifestyle modifications. Discontinued naltrexone, and sent Saxenda last visit, which was approved. Patient had a hard time finding it, but just got on it about a week ago. Taking 1.2 mg first dose today. She does notice occasional constipation, and nausea. Educated on conservative ways to improve this, she is understanding. She will call the office with any question. Did continue to educate proper use. Continue to encourage lifestyle. 04/10/2023: Weight 177 pounds, BMI 31.35. Patient has lost 1 pound since last visit. Body composition scale reviewed showing significant improvement since patient started with weight management program. Was taking Saxenda and doing really well, but discontinued due to national shortage. We will start compounded semaglutide 1 mg for the next 2 weeks, and if tolerating well will submit for Wegovy 1.7 at next visit. Patient understanding. Educated on the importance of lifestyle modifications in conjunction with weight loss. 05/05/2023: Weight 174.3, BMI 30.87. Patient very pleased with progress overall. Continues to have successful weight loss. Was on Saxenda but discontinued due to national shortage, took compounded semaglutide tapered up to 1 mg, tolerating well without side effects. We will submit for Wegovy 1.7 mg today. Educated on importance of lifestyle modifications in conjunction with weight loss medications. 06/02/2023: Weight 168.7, BMI 29.88. Patient congratulated on effort. Taking Wegovy 1.7 mg with compliance, without any side effects. Patient is very pleased with progress overall, and is feeling great. States that she tolerates this medication better than she was the Saxenda. Educated on the importance of lifestyle modifications to maintain muscle/target fat loss. Patient will continue with Wegovy 1.7 mg. Pleased with progress overall. Recently started on gabapentin for nerve pain. 07/04/2023: Weight 165.2, BMI 29.26. Patient congratulated on effort, continuing to maintain, lose slow, steady, sustainable weight. Patient is very pleased with progress overall with like to continue with Wegovy 1.7 mg. 09/12/2023: Weight 164.3, BMI 29.1. Patient doing really well overall. Does admit to some constipation still, treated with lifestyle modifications. Weight has plateaued, will continue with Wegovy 1.7 mg and work on lifestyle, but as of next month, could consider increasing up to Wegovy 2.4 mg as she has been on 1.7 for a while. 10/13/2023: Weight 169, BMI 29.93 patient congratulated on lifestyle effort. She has been off of semaglutide, so her appetite has increased. Appeal pending through [employer] for Wegovy 1.7 mg. She will start semaglutide 1 mg again. Educated on proper use, side effects. Encouraged to continue with stairstepper, resistance training, and healthy eating with protein, fruits, veggies. Patient pleased with lifestyle changes overall. 11/29/2023: Weight 168.9, BMI 29.92. Patient congratulated on efforts, she is trying to maintain her weight without a medication, and has been doing so. Does admit to some more increased appetite. Discussed Contrave as semaglutide/tirzepati de [id number] is too costly. Patient is willing. Discussed proper use, taper, side effects, long-term use. Discussed that she cannot drink alcohol while on this medication. Patient understanding. Will follow-up in 4 weeks. 02/16/2024: Weight 177, BMI 31.35. Patient expresses frustration as she has gained some weight since last visit. Insurance stopped covering Wegovy so we tried switching over to Contrave, which she states caused cramping without positive effect for weight loss. Based on weight gain, will try to resubmit for Wegovy 0.25 mg but in the meantime we will do compounded semaglutide in office. She is aware that we cannot guarantee coverage. Patient discussed proper use, side effects, long-term risks. She feels motivated today to get back on track. 03/20/23: BMI 30, Weight 171. Will attempt submission for Zepbound. Pt reports has friends who have been able to get it with [facility]. We discussed that this may be true, but unsure. Offereed trying every other week compounded semaglutide _ phentermine to see if this would help. 04/23/2024: Weight 168, BMI 29.9. Patient congratulated, has lost some weight since last visit. Body scan reviewed showing improvement. Focusing on high-protein, and implementing more resistance training. Will restart initiation of phentermine. Patient is tolerated well in the past. Will start 15 mg once daily. EKG in office today within normal limits.Patient open to potential compounded GLP-1's in the future but would like to save money at this time.Discussed efficacy and compliance of medication. 05/27/2024: Weight 170, BMI 30.23. Patient did gain weight since last visit but gained 2 pounds of muscle, lost 4 pounds of fat. Zepbound declined because [employer] does not cover the medication, she has been trying Wegovy in the past, would like to try to resubmit for that medication. In the meantime we will continue with phentermine but increase to 30 mg. She will not be on phentermine and Wegovy at the same time. Continue with lifestyle. Follow-up in 4 to 6 weeks. 07/16/2024: Weight 166, BMI 29. Patient continuing to lose slow, steady weight. Taking Wegovy 0.5 mg, has 1 dose less but then would like to increase to 1 mg. Will send 1 mg today. Did discuss the importance of lifestyle conjunction with weight loss medications for long-term, sustainable weight loss. Patient is going to implement more resistance training and higher protein to maintain muscle and target fat loss. No longer taking phentermine. Does admit to more fatigue, Wegovy versus phentermine. Did discuss the importance of nutrition and eating enough on the medication. 08/30/2024: Weight 164, BMI 29. Patient congratulated on weight loss, continuing to lose slow, steady weight. Increase Wegovy to 1.7 mg. Continue with resistance training to build muscle, and protein intake. 09/27/2024: Weight 161, BMI 28. Patient congratulated on effort, continuing to lose slow, steady weight. Feels really well on Wegovy 1.7 mg, reviewing body scan, she has lost 3 pounds of fat, and maintained muscle. Body composition changing for the better. Follow-up in 4 weeks, sooner as needed. M ICC injection today. # Following with her PCP secondary to generalized joint pain, positive ALY, referred to rheumatology. Patient taking gabapentin, NSAID, and tramadol as needed # Seasonal allergies: Continue fluticasone and cetirizine prn #Migraines: continue sumatriptan 25 mg PRN Patient to follow-up in 4 weeks, Sooner as needed. Time spent with patient 30 minutes with greater than 50% on patient education and care coordination. All patient questions answered in office today. Patient should call the office in the meantime with any questions or concerns. Case discussed with collaborating physician Kody Duarte who reviewed the assessment and plan. Chart, medications, labs, vital signs reviewed. Dictation was accomplished with the use of [employer] voice recognition software, prone to medical misidentifications and grammatical errors. This is unintentional and the practitioner does try to identify and correct these, but some could still be present. Please do not hesitate to contact practitioner for clarification. 11/29/2023 Low back pain, unspecified (ICD-10 - M54.50) Melany Is a 46-year-old female who presented the office for weight management follow-up. 10/19/22: weight 185, BMI 32,77. Educated lifestyle modifications, diet, exercise, high protein, low carb, healthy fats. Educated on stretching and walking. Work on this for the next 4 weeks and consider phentermine at next visit pending EKG. SE[facility] reviewed. Pt understanding. 12/02/22: weight 182.9, BMI 32.4- patient congratulated on effort. Educated to continue with lifestyle modifications and focus on more movement now that she has had a cortisone injection in her back with improvement in pain. Also educated to focus on portion control, high-protein, low carbohydrate, healthy fat and increasing water intake. Patient interested in GLP-1 injection, but need to prove three consecutive months of weight loss in order to qualify. She is understanding regarding this. Could consider trialing phentermine again, but aware of rebound weight gain. Already taking bupropion, would like to add low dose naltrexone. This was sent to [facility] pharmacy. Will try to submit for GLP-1 injection in January. Patient will follow-up in one month.Educated on proper use, as well as side effects of medication. Patient aware she cannot drink on medication. 01/05/23: weight 182.3lbs, BMI 32.29 - Patient has modest weight loss since last meeting. She admits to a recent deviation from diet over last week because of celebrating with family and eating large amounts of junk food. On a normaly basis she has been eating less junk food overall, but her cravings have not changes on the naltrexone/wellbutrin combination. Will put in for patient to be started on 0.25mg Wegovy. D/c naltrexone. She was educated on side effect profile and understands. I gave recommendation to increase weight-bearing activity at home by incorporating small amounts of pushups and body weight squats into daily routine and gradually increase the volume. She was also encouraged to follow recommendation of provider conducting sleep study to trial CPAP mask to improve sleep quality. Will follow up with patient in 4 weeks. 02/02/2023: Weight 180.2, BMI 31.92-patient congratulated on efforts. Encouraged to continue with lifestyle modifications will be try to get her on a weight loss medication. Tried getting on Wegovy, but was denied by insurance. We will try Saxenda. Educated on proper use, and side effects. Patient will really benefit from this medication. Patient is encouraged, and is doing very well overall. She does continue to lose weight. 03/04/2023: Weight 170.9, BMI 31.69. Patient congratulated on effort. Has been doing well with lifestyle modifications. Discontinued naltrexone, and sent Saxenda last visit, which was approved. Patient had a hard time finding it, but just got on it about a week ago. Taking 1.2 mg first dose today. She does notice occasional constipation, and nausea. Educated on conservative ways to improve this, she is understanding. She will call the office with any question. Did continue to educate proper use. Continue to encourage lifestyle. 04/10/2023: Weight 177 pounds, BMI 31.35. Patient has lost 1 pound since last visit. Body composition scale reviewed showing significant improvement since patient started with weight management program. Was taking Saxenda and doing really well, but discontinued due to national shortage. We will start compounded semaglutide 1 mg for the next 2 weeks, and if tolerating well will submit for Wegovy 1.7 at next visit. Patient understanding. Educated on the importance of lifestyle modifications in conjunction with weight loss. 05/05/2023: Weight 174.3, BMI 30.87. Patient very pleased with progress overall. Continues to have successful weight loss. Was on Saxenda but discontinued due to national shortage, took compounded semaglutide tapered up to 1 mg, tolerating well without side effects. We will submit for Wegovy 1.7 mg today. Educated on importance of lifestyle modifications in conjunction with weight loss medications. 06/02/2023: Weight 168.7, BMI 29.88. Patient congratulated on effort. Taking Wegovy 1.7 mg with compliance, without any side effects. Patient is very pleased with progress overall, and is feeling great. States that she tolerates this medication better than she was the Saxenda. Educated on the importance of lifestyle modifications to maintain muscle/target fat loss. Patient will continue with Wegovy 1.7 mg. Pleased with progress overall. Recently started on gabapentin for nerve pain. 07/04/2023: Weight 165.2, BMI 29.26. Patient congratulated on effort, continuing to maintain, lose slow, steady, sustainable weight. Patient is very pleased with progress overall with like to continue with Wegovy 1.7 mg. 09/12/2023: Weight 164.3, BMI 29.1. Patient doing really well overall. Does admit to some constipation still, treated with lifestyle modifications. Weight has plateaued, will continue with Wegovy 1.7 mg and work on lifestyle, but as of next month, could consider increasing up to Wegovy 2.4 mg as she has been on 1.7 for a while. 10/13/2023: Weight 169, BMI 29.93 patient congratulated on lifestyle effort. She has been off of semaglutide, so her appetite has increased. Appeal pending through [employer] for Wegovy 1.7 mg. She will start semaglutide 1 mg again. Educated on proper use, side effects. Encouraged to continue with stairstepper, resistance training, and healthy eating with protein, fruits, veggies. Patient pleased with lifestyle changes overall. 11/29/2023: Weight 168.9, BMI 29.92. Patient congratulated on efforts, she is trying to maintain her weight without a medication, and has been doing so. Does admit to some more increased appetite. Discussed Contrave as semaglutide/tirzepati de [id number] is too costly. Patient is willing. Discussed proper use, taper, side effects, long-term use. Discussed that she cannot drink alcohol while on this medication. Patient understanding. Will follow-up in 4 weeks. # Seasonal allergies: Continue fluticasone and cetirizine #Neuropathy: Taking gabapentin 100 mg 3 times daily. #Migraines: continue sumatriptan 25 mg PRN #Back pain: takes tramadol 3 mg, ibuprofen 800 mg PRN Patient will follow-up in 4-6 weeks, sooner as needed. Time spent with patient 30 minutes with greater than 50% on patient education and care coordination. All patient questions answered in office today. Patient should call the office in the meantime with any questions or concerns. Case discussed with collaborating physician Kody Duarte who reviewed the assessment and plan. Chart, medications, labs, vital signs reviewed. Dictation was accomplished with the use of [employer] voice recognition software, prone to medical misidentifications and grammatical errors. This is unintentional and the practitioner does try to identify and correct these, but some could still be present. Please do not hesitate to contact practitioner for clarification. 07/16/2024 Other depression (ICD-10 - F32.89) Melany Is a 46-year-old female who presented the office for weight management follow-up. 10/19/22: weight 185, BMI 32,77. Educated lifestyle modifications, diet, exercise, high protein, low carb, healthy fats. Educated on stretching and walking. Work on this for the next 4 weeks and consider phentermine at next visit pending EKG. MICHAELA reviewed. Pt understanding. 12/02/22: weight 182.9, BMI 32.4- patient congratulated on effort. Educated to continue with lifestyle modifications and focus on more movement now that she has had a cortisone injection in her back with improvement in pain. Also educated to focus on portion control, high-protein, low carbohydrate, healthy fat and increasing water intake. Patient interested in GLP-1 injection, but need to prove three consecutive months of weight loss in order to qualify. She is understanding regarding this. Could consider trialing phentermine again, but aware of rebound weight gain. Already taking bupropion, would like to add low dose naltrexone. This was sent to [facility] pharmacy. Will try to submit for GLP-1 injection in January. Patient will follow-up in one month.Educated on proper use, as well as side effects of medication. Patient aware she cannot drink on medication. 01/05/23: weight 182.3lbs, BMI 32.29 - Patient has modest weight loss since last meeting. She admits to a recent deviation from diet over last week because of celebrating with family and eating large amounts of junk food. On a normaly basis she has been eating less junk food overall, but her cravings have not changes on the naltrexone/wellbutrin combination. Will put in for patient to be started on 0.25mg Wegovy. D/c naltrexone. She was educated on side effect profile and understands. I gave recommendation to increase weight-bearing activity at home by incorporating small amounts of pushups and body weight squats into daily routine and gradually increase the volume. She was also encouraged to follow recommendation of provider conducting sleep study to trial CPAP mask to improve sleep quality. Will follow up with patient in 4 weeks. 02/02/2023: Weight 180.2, BMI 31.92-patient congratulated on efforts. Encouraged to continue with lifestyle modifications will be try to get her on a weight loss medication. Tried getting on Wegovy, but was denied by insurance. We will try Saxenda. Educated on proper use, and side effects. Patient will really benefit from this medication. Patient is encouraged, and is doing very well overall. She does continue to lose weight. 03/04/2023: Weight 170.9, BMI 31.69. Patient congratulated on effort. Has been doing well with lifestyle modifications. Discontinued naltrexone, and sent Saxenda last visit, which was approved. Patient had a hard time finding it, but just got on it about a week ago. Taking 1.2 mg first dose today. She does notice occasional constipation, and nausea. Educated on conservative ways to improve this, she is understanding. She will call the office with any question. Did continue to educate proper use. Continue to encourage lifestyle. 04/10/2023: Weight 177 pounds, BMI 31.35. Patient has lost 1 pound since last visit. Body composition scale reviewed showing significant improvement since patient started with weight management program. Was taking Saxenda and doing really well, but discontinued due to national shortage. We will start compounded semaglutide 1 mg for the next 2 weeks, and if tolerating well will submit for Wegovy 1.7 at next visit. Patient understanding. Educated on the importance of lifestyle modifications in conjunction with weight loss. 05/05/2023: Weight 174.3, BMI 30.87. Patient very pleased with progress overall. Continues to have successful weight loss. Was on Saxenda but discontinued due to national shortage, took compounded semaglutide tapered up to 1 mg, tolerating well without side effects. We will submit for Wegovy 1.7 mg today. Educated on importance of lifestyle modifications in conjunction with weight loss medications. 06/02/2023: Weight 168.7, BMI 29.88. Patient congratulated on effort. Taking Wegovy 1.7 mg with compliance, without any side effects. Patient is very pleased with progress overall, and is feeling great. States that she tolerates this medication better than she was the Saxenda. Educated on the importance of lifestyle modifications to maintain muscle/target fat loss. Patient will continue with Wegovy 1.7 mg. Pleased with progress overall. Recently started on gabapentin for nerve pain. 07/04/2023: Weight 165.2, BMI 29.26. Patient congratulated on effort, continuing to maintain, lose slow, steady, sustainable weight. Patient is very pleased with progress overall with like to continue with Wegovy 1.7 mg. 09/12/2023: Weight 164.3, BMI 29.1. Patient doing really well overall. Does admit to some constipation still, treated with lifestyle modifications. Weight has plateaued, will continue with Wegovy 1.7 mg and work on lifestyle, but as of next month, could consider increasing up to Wegovy 2.4 mg as she has been on 1.7 for a while. 10/13/2023: Weight 169, BMI 29.93 patient congratulated on lifestyle effort. She has been off of semaglutide, so her appetite has increased. Appeal pending through [employer] for Wegovy 1.7 mg. She will start semaglutide 1 mg again. Educated on proper use, side effects. Encouraged to continue with stairstepper, resistance training, and healthy eating with protein, fruits, veggies. Patient pleased with lifestyle changes overall. 11/29/2023: Weight 168.9, BMI 29.92. Patient congratulated on efforts, she is trying to maintain her weight without a medication, and has been doing so. Does admit to some more increased appetite. Discussed Contrave as semaglutide/tirzepati de [id number] is too costly. Patient is willing. Discussed proper use, taper, side effects, long-term use. Discussed that she cannot drink alcohol while on this medication. Patient understanding. Will follow-up in 4 weeks. 02/16/2024: Weight 177, BMI 31.35. Patient expresses frustration as she has gained some weight since last visit. Insurance stopped covering Wegovy so we tried switching over to Contrave, which she states caused cramping without positive effect for weight loss. Based on weight gain, will try to resubmit for Wegovy 0.25 mg but in the meantime we will do compounded semaglutide in office. She is aware that we cannot guarantee coverage. Patient discussed proper use, side effects, long-term risks. She feels motivated today to get back on track. 03/20/23: BMI 30, Weight 171. Will attempt submission for Zepbound. Pt reports has friends who have been able to get it with [facility]. We discussed that this may be true, but unsure. Offereed trying every other week compounded semaglutide _ phentermine to see if this would help. 04/23/2024: Weight 168, BMI 29.9. Patient congratulated, has lost some weight since last visit. Body scan reviewed showing improvement. Focusing on high-protein, and implementing more resistance training. Will restart initiation of phentermine. Patient is tolerated well in the past. Will start 15 mg once daily. EKG in office today within normal limits.Patient open to potential compounded GLP-1's in the future but would like to save money at this time.Discussed efficacy and compliance of medication. 05/27/2024: Weight 170, BMI 30.23. Patient did gain weight since last visit but gained 2 pounds of muscle, lost 4 pounds of fat. Zepbound declined because [employer] does not cover the medication, she has been trying Wegovy in the past, would like to try to resubmit for that medication. In the meantime we will continue with phentermine but increase to 30 mg. She will not be on phentermine and Wegovy at the same time. Continue with lifestyle. Follow-up in 4 to 6 weeks. 07/16/2024: Weight 166, BMI 29. Patient continuing to lose slow, steady weight. Taking Wegovy 0.5 mg, has 1 dose less but then would like to increase to 1 mg. Will send 1 mg today. Did discuss the importance of lifestyle conjunction with weight loss medications for long-term, sustainable weight loss. Patient is going to implement more resistance training and higher protein to maintain muscle and target fat loss. No longer taking phentermine. Does admit to more fatigue, Wegovy versus phentermine. Did discuss the importance of nutrition and eating enough on the medication. # Following with her PCP secondary to generalized joint pain, positive ALY, referred to rheumatology. Patient taking gabapentin, NSAID, and tramadol as needed # Seasonal allergies: Continue fluticasone and cetirizine prn #Migraines: continue sumatriptan 25 mg PRN Patient to follow-up in 4-6 weeks, Sooner as needed. Time spent with patient 30 minutes with greater than 50% on patient education and care coordination. All patient questions answered in office today. Patient should call the office in the meantime with any questions or concerns. Case discussed with collaborating physician Kody Duarte who reviewed the assessment and plan. Chart, medications, labs, vital signs reviewed. Dictation was accomplished with the use of [employer] voice recognition software, prone to medical misidentifications and grammatical errors. This is unintentional and the practitioner does try to identify and correct these, but some could still be present. Please do not hesitate to contact practitioner for clarification. 02/16/2024 Other depression (ICD-10 - F32.89) Melany Is a 46-year-old female who presented the office for weight management follow-up. 10/19/22: weight 185, BMI 32,77. Educated lifestyle modifications, diet, exercise, high protein, low carb, healthy fats. Educated on stretching and walking. Work on this for the next 4 weeks and consider phentermine at next visit pending EKG. MARGAUX reviewed. Pt understanding. 12/02/22: weight 182.9, BMI 32.4- patient congratulated on effort. Educated to continue with lifestyle modifications and focus on more movement now that she has had a cortisone injection in her back with improvement in pain. Also educated to focus on portion control, high-protein, low carbohydrate, healthy fat and increasing water intake. Patient interested in GLP-1 injection, but need to prove three consecutive months of weight loss in order to qualify. She is understanding regarding this. Could consider trialing phentermine again, but aware of rebound weight gain. Already taking bupropion, would like to add low dose naltrexone. This was sent to [facility] pharmacy. Will try to submit for GLP-1 injection in January. Patient will follow-up in one month.Educated on proper use, as well as side effects of medication. Patient aware she cannot drink on medication. 01/05/23: weight 182.3lbs, BMI 32.29 - Patient has modest weight loss since last meeting. She admits to a recent deviation from diet over last week because of celebrating with family and eating large amounts of junk food. On a normaly basis she has been eating less junk food overall, but her cravings have not changes on the naltrexone/wellbutrin combination. Will put in for patient to be started on 0.25mg Wegovy. D/c naltrexone. She was educated on side effect profile and understands. I gave recommendation to increase weight-bearing activity at home by incorporating small amounts of pushups and body weight squats into daily routine and gradually increase the volume. She was also encouraged to follow recommendation of provider conducting sleep study to trial CPAP mask to improve sleep quality. Will follow up with patient in 4 weeks. 02/02/2023: Weight 180.2, BMI 31.92-patient congratulated on efforts. Encouraged to continue with lifestyle modifications will be try to get her on a weight loss medication. Tried getting on Wegovy, but was denied by insurance. We will try Saxenda. Educated on proper use, and side effects. Patient will really benefit from this medication. Patient is encouraged, and is doing very well overall. She does continue to lose weight. 03/04/2023: Weight 170.9, BMI 31.69. Patient congratulated on effort. Has been doing well with lifestyle modifications. Discontinued naltrexone, and sent Saxenda last visit, which was approved. Patient had a hard time finding it, but just got on it about a week ago. Taking 1.2 mg first dose today. She does notice occasional constipation, and nausea. Educated on conservative ways to improve this, she is understanding. She will call the office with any question. Did continue to educate proper use. Continue to encourage lifestyle. 04/10/2023: Weight 177 pounds, BMI 31.35. Patient has lost 1 pound since last visit. Body composition scale reviewed showing significant improvement since patient started with weight management program. Was taking Saxenda and doing really well, but discontinued due to national shortage. We will start compounded semaglutide 1 mg for the next 2 weeks, and if tolerating well will submit for Wegovy 1.7 at next visit. Patient understanding. Educated on the importance of lifestyle modifications in conjunction with weight loss. 05/05/2023: Weight 174.3, BMI 30.87. Patient very pleased with progress overall. Continues to have successful weight loss. Was on Saxenda but discontinued due to national shortage, took compounded semaglutide tapered up to 1 mg, tolerating well without side effects. We will submit for Wegovy 1.7 mg today. Educated on importance of lifestyle modifications in conjunction with weight loss medications. 06/02/2023: Weight 168.7, BMI 29.88. Patient congratulated on effort. Taking Wegovy 1.7 mg with compliance, without any side effects. Patient is very pleased with progress overall, and is feeling great. States that she tolerates this medication better than she was the Saxenda. Educated on the importance of lifestyle modifications to maintain muscle/target fat loss. Patient will continue with Wegovy 1.7 mg. Pleased with progress overall. Recently started on gabapentin for nerve pain. 07/04/2023: Weight 165.2, BMI 29.26. Patient congratulated on effort, continuing to maintain, lose slow, steady, sustainable weight. Patient is very pleased with progress overall with like to continue with Wegovy 1.7 mg. 09/12/2023: Weight 164.3, BMI 29.1. Patient doing really well overall. Does admit to some constipation still, treated with lifestyle modifications. Weight has plateaued, will continue with Wegovy 1.7 mg and work on lifestyle, but as of next month, could consider increasing up to Wegovy 2.4 mg as she has been on 1.7 for a while. 10/13/2023: Weight 169, BMI 29.93 patient congratulated on lifestyle effort. She has been off of semaglutide, so her appetite has increased. Appeal pending through [employer] for Wegovy 1.7 mg. She will start semaglutide 1 mg again. Educated on proper use, side effects. Encouraged to continue with stairstepper, resistance training, and healthy eating with protein, fruits, veggies. Patient pleased with lifestyle changes overall. 11/29/2023: Weight 168.9, BMI 29.92. Patient congratulated on efforts, she is trying to maintain her weight without a medication, and has been doing so. Does admit to some more increased appetite. Discussed Contrave as semaglutide/tirzepati de [id number] is too costly. Patient is willing. Discussed proper use, taper, side effects, long-term use. Discussed that she cannot drink alcohol while on this medication. Patient understanding. Will follow-up in 4 weeks. 02/16/2024: Weight 177, BMI 31.35. Patient expresses frustration as she has gained some weight since last visit. Insurance stopped covering Wegovy so we tried switching over to Contrave, which she states caused cramping without positive effect for weight loss. Based on weight gain, will try to resubmit for Wegovy 0.25 mg but in the meantime we will do compounded semaglutide in office. She is aware that we cannot guarantee coverage. Patient discussed proper use, side effects, long-term risks. She feels motivated today to get back on track. # Seasonal allergies: Continue fluticasone and cetirizine prn #Migraines: continue sumatriptan 25 mg PRN #Back pain: takes tramadol 3 mg, ibuprofen 800 mg PRN Patient to follow-up in 4 weeks with my colleague Stevenson Ngo PA-C, and in April with myself. Time spent with patient 30 minutes with greater than 50% on patient education and care coordination. All patient questions answered in office today. Patient should call the office in the meantime with any questions or concerns. Case discussed with collaborating physician Kody Duarte who reviewed the assessment and plan. Chart, medications, labs, vital signs reviewed. Dictation was accomplished with the use of [employer] voice recognition software, prone to medical misidentifications and grammatical errors. This is unintentional and the practitioner does try to identify and correct these, but some could still be present. Please do not hesitate to contact practitioner for clarification. 11/29/2023 Other depression (ICD-10 - F32.89) Melany Is a 46-year-old female who presented the office for weight management follow-up. 10/19/22: weight 185, BMI 32,77. Educated lifestyle modifications, diet, exercise, high protein, low carb, healthy fats. Educated on stretching and walking. Work on this for the next 4 weeks and consider phentermine at next visit pending EKG. MARGAUX reviewed. Pt understanding. 12/02/22: weight 182.9, BMI 32.4- patient congratulated on effort. Educated to continue with lifestyle modifications and focus on more movement now that she has had a cortisone injection in her back with improvement in pain. Also educated to focus on portion control, high-protein, low carbohydrate, healthy fat and increasing water intake. Patient interested in GLP-1 injection, but need to prove three consecutive months of weight loss in order to qualify. She is understanding regarding this. Could consider trialing phentermine again, but aware of rebound weight gain. Already taking bupropion, would like to add low dose naltrexone. This was sent to [facility] pharmacy. Will try to submit for GLP-1 injection in January. Patient will follow-up in one month.Educated on proper use, as well as side effects of medication. Patient aware she cannot drink on medication. 01/05/23: weight 182.3lbs, BMI 32.29 - Patient has modest weight loss since last meeting. She admits to a recent deviation from diet over last week because of celebrating with family and eating large amounts of junk food. On a normaly basis she has been eating less junk food overall, but her cravings have not changes on the naltrexone/wellbutrin combination. Will put in for patient to be started on 0.25mg Wegovy. D/c naltrexone. She was educated on side effect profile and understands. I gave recommendation to increase weight-bearing activity at home by incorporating small amounts of pushups and body weight squats into daily routine and gradually increase the volume. She was also encouraged to follow recommendation of provider conducting sleep study to trial CPAP mask to improve sleep quality. Will follow up with patient in 4 weeks. 02/02/2023: Weight 180.2, BMI 31.92-patient congratulated on efforts. Encouraged to continue with lifestyle modifications will be try to get her on a weight loss medication. Tried getting on Wegovy, but was denied by insurance. We will try Saxenda. Educated on proper use, and side effects. Patient will really benefit from this medication. Patient is encouraged, and is doing very well overall. She does continue to lose weight. 03/04/2023: Weight 170.9, BMI 31.69. Patient congratulated on effort. Has been doing well with lifestyle modifications. Discontinued naltrexone, and sent Saxenda last visit, which was approved. Patient had a hard time finding it, but just got on it about a week ago. Taking 1.2 mg first dose today. She does notice occasional constipation, and nausea. Educated on conservative ways to improve this, she is understanding. She will call the office with any question. Did continue to educate proper use. Continue to encourage lifestyle. 04/10/2023: Weight 177 pounds, BMI 31.35. Patient has lost 1 pound since last visit. Body composition scale reviewed showing significant improvement since patient started with weight management program. Was taking Saxenda and doing really well, but discontinued due to national shortage. We will start compounded semaglutide 1 mg for the next 2 weeks, and if tolerating well will submit for Wegovy 1.7 at next visit. Patient understanding. Educated on the importance of lifestyle modifications in conjunction with weight loss. 05/05/2023: Weight 174.3, BMI 30.87. Patient very pleased with progress overall. Continues to have successful weight loss. Was on Saxenda but discontinued due to national shortage, took compounded semaglutide tapered up to 1 mg, tolerating well without side effects. We will submit for Wegovy 1.7 mg today. Educated on importance of lifestyle modifications in conjunction with weight loss medications. 06/02/2023: Weight 168.7, BMI 29.88. Patient congratulated on effort. Taking Wegovy 1.7 mg with compliance, without any side effects. Patient is very pleased with progress overall, and is feeling great. States that she tolerates this medication better than she was the Saxenda. Educated on the importance of lifestyle modifications to maintain muscle/target fat loss. Patient will continue with Wegovy 1.7 mg. Pleased with progress overall. Recently started on gabapentin for nerve pain. 07/04/2023: Weight 165.2, BMI 29.26. Patient congratulated on effort, continuing to maintain, lose slow, steady, sustainable weight. Patient is very pleased with progress overall with like to continue with Wegovy 1.7 mg. 09/12/2023: Weight 164.3, BMI 29.1. Patient doing really well overall. Does admit to some constipation still, treated with lifestyle modifications. Weight has plateaued, will continue with Wegovy 1.7 mg and work on lifestyle, but as of next month, could consider increasing up to Wegovy 2.4 mg as she has been on 1.7 for a while. 10/13/2023: Weight 169, BMI 29.93 patient congratulated on lifestyle effort. She has been off of semaglutide, so her appetite has increased. Appeal pending through [employer] for Wegovy 1.7 mg. She will start semaglutide 1 mg again. Educated on proper use, side effects. Encouraged to continue with stairstepper, resistance training, and healthy eating with protein, fruits, veggies. Patient pleased with lifestyle changes overall. 11/29/2023: Weight 168.9, BMI 29.92. Patient congratulated on efforts, she is trying to maintain her weight without a medication, and has been doing so. Does admit to some more increased appetite. Discussed Contrave as semaglutide/tirzepati de [id number] is too costly. Patient is willing. Discussed proper use, taper, side effects, long-term use. Discussed that she cannot drink alcohol while on this medication. Patient understanding. Will follow-up in 4 weeks. # Seasonal allergies: Continue fluticasone and cetirizine #Neuropathy: Taking gabapentin 100 mg 3 times daily. #Migraines: continue sumatriptan 25 mg PRN #Back pain: takes tramadol 3 mg, ibuprofen 800 mg PRN Patient will follow-up in 4-6 weeks, sooner as needed. Time spent with patient 30 minutes with greater than 50% on patient education and care coordination. All patient questions answered in office today. Patient should call the office in the meantime with any questions or concerns. Case discussed with collaborating physician Kody Duarte who reviewed the assessment and plan. Chart, medications, labs, vital signs reviewed. Dictation was accomplished with the use of [employer] voice recognition software, prone to medical misidentifications and grammatical errors. This is unintentional and the practitioner does try to identify and correct these, but some could still be present. Please do not hesitate to contact practitioner for clarification. 09/27/2024 Dietary counseling and surveillance (ICD-10 - Z71.3) Melany Is a 48-year-old female who presented the office for weight management follow-up. 10/19/22: weight 185, BMI 32,77. Educated lifestyle modifications, diet, exercise, high protein, low carb, healthy fats. Educated on stretching and walking. Work on this for the next 4 weeks and consider phentermine at next visit pending EKG. MARGAUX reviewed. Pt understanding. 12/02/22: weight 182.9, BMI 32.4- patient congratulated on effort. Educated to continue with lifestyle modifications and focus on more movement now that she has had a cortisone injection in her back with improvement in pain. Also educated to focus on portion control, high-protein, low carbohydrate, healthy fat and increasing water intake. Patient interested in GLP-1 injection, but need to prove three consecutive months of weight loss in order to qualify. She is understanding regarding this. Could consider trialing phentermine again, but aware of rebound weight gain. Already taking bupropion, would like to add low dose naltrexone. This was sent to [facility] pharmacy. Will try to submit for GLP-1 injection in January. Patient will follow-up in one month.Educated on proper use, as well as side effects of medication. Patient aware she cannot drink on medication. 01/05/23: weight 182.3lbs, BMI 32.29 - Patient has modest weight loss since last meeting. She admits to a recent deviation from diet over last week because of celebrating with family and eating large amounts of junk food. On a normaly basis she has been eating less junk food overall, but her cravings have not changes on the naltrexone/wellbutrin combination. Will put in for patient to be started on 0.25mg Wegovy. D/c naltrexone. She was educated on side effect profile and understands. I gave recommendation to increase weight-bearing activity at home by incorporating small amounts of pushups and body weight squats into daily routine and gradually increase the volume. She was also encouraged to follow recommendation of provider conducting sleep study to trial CPAP mask to improve sleep quality. Will follow up with patient in 4 weeks. 02/02/2023: Weight 180.2, BMI 31.92-patient congratulated on efforts. Encouraged to continue with lifestyle modifications will be try to get her on a weight loss medication. Tried getting on Wegovy, but was denied by insurance. We will try Saxenda. Educated on proper use, and side effects. Patient will really benefit from this medication. Patient is encouraged, and is doing very well overall. She does continue to lose weight. 03/04/2023: Weight 170.9, BMI 31.69. Patient congratulated on effort. Has been doing well with lifestyle modifications. Discontinued naltrexone, and sent Saxenda last visit, which was approved. Patient had a hard time finding it, but just got on it about a week ago. Taking 1.2 mg first dose today. She does notice occasional constipation, and nausea. Educated on conservative ways to improve this, she is understanding. She will call the office with any question. Did continue to educate proper use. Continue to encourage lifestyle. 04/10/2023: Weight 177 pounds, BMI 31.35. Patient has lost 1 pound since last visit. Body composition scale reviewed showing significant improvement since patient started with weight management program. Was taking Saxenda and doing really well, but discontinued due to national shortage. We will start compounded semaglutide 1 mg for the next 2 weeks, and if tolerating well will submit for Wegovy 1.7 at next visit. Patient understanding. Educated on the importance of lifestyle modifications in conjunction with weight loss. 05/05/2023: Weight 174.3, BMI 30.87. Patient very pleased with progress overall. Continues to have successful weight loss. Was on Saxenda but discontinued due to national shortage, took compounded semaglutide tapered up to 1 mg, tolerating well without side effects. We will submit for Wegovy 1.7 mg today. Educated on importance of lifestyle modifications in conjunction with weight loss medications. 06/02/2023: Weight 168.7, BMI 29.88. Patient congratulated on effort. Taking Wegovy 1.7 mg with compliance, without any side effects. Patient is very pleased with progress overall, and is feeling great. States that she tolerates this medication better than she was the Saxenda. Educated on the importance of lifestyle modifications to maintain muscle/target fat loss. Patient will continue with Wegovy 1.7 mg. Pleased with progress overall. Recently started on gabapentin for nerve pain. 07/04/2023: Weight 165.2, BMI 29.26. Patient congratulated on effort, continuing to maintain, lose slow, steady, sustainable weight. Patient is very pleased with progress overall with like to continue with Wegovy 1.7 mg. 09/12/2023: Weight 164.3, BMI 29.1. Patient doing really well overall. Does admit to some constipation still, treated with lifestyle modifications. Weight has plateaued, will continue with Wegovy 1.7 mg and work on lifestyle, but as of next month, could consider increasing up to Wegovy 2.4 mg as she has been on 1.7 for a while. 10/13/2023: Weight 169, BMI 29.93 patient congratulated on lifestyle effort. She has been off of semaglutide, so her appetite has increased. Appeal pending through [employer] for Wegovy 1.7 mg. She will start semaglutide 1 mg again. Educated on proper use, side effects. Encouraged to continue with stairstepper, resistance training, and healthy eating with protein, fruits, veggies. Patient pleased with lifestyle changes overall. 11/29/2023: Weight 168.9, BMI 29.92. Patient congratulated on efforts, she is trying to maintain her weight without a medication, and has been doing so. Does admit to some more increased appetite. Discussed Contrave as semaglutide/tirzepati de [id number] is too costly. Patient is willing. Discussed proper use, taper, side effects, long-term use. Discussed that she cannot drink alcohol while on this medication. Patient understanding. Will follow-up in 4 weeks. 02/16/2024: Weight 177, BMI 31.35. Patient expresses frustration as she has gained some weight since last visit. Insurance stopped covering Wegovy so we tried switching over to Contrave, which she states caused cramping without positive effect for weight loss. Based on weight gain, will try to resubmit for Wegovy 0.25 mg but in the meantime we will do compounded semaglutide in office. She is aware that we cannot guarantee coverage. Patient discussed proper use, side effects, long-term risks. She feels motivated today to get back on track. 03/20/23: BMI 30, Weight 171. Will attempt submission for Zepbound. Pt reports has friends who have been able to get it with [facility]. We discussed that this may be true, but unsure. Offereed trying every other week compounded semaglutide _ phentermine to see if this would help. 04/23/2024: Weight 168, BMI 29.9. Patient congratulated, has lost some weight since last visit. Body scan reviewed showing improvement. Focusing on high-protein, and implementing more resistance training. Will restart initiation of phentermine. Patient is tolerated well in the past. Will start 15 mg once daily. EKG in office today within normal limits.Patient open to potential compounded GLP-1's in the future but would like to save money at this time.Discussed efficacy and compliance of medication. 05/27/2024: Weight 170, BMI 30.23. Patient did gain weight since last visit but gained 2 pounds of muscle, lost 4 pounds of fat. Zepbound declined because [employer] does not cover the medication, she has been trying Wegovy in the past, would like to try to resubmit for that medication. In the meantime we will continue with phentermine but increase to 30 mg. She will not be on phentermine and Wegovy at the same time. Continue with lifestyle. Follow-up in 4 to 6 weeks. 07/16/2024: Weight 166, BMI 29. Patient continuing to lose slow, steady weight. Taking Wegovy 0.5 mg, has 1 dose less but then would like to increase to 1 mg. Will send 1 mg today. Did discuss the importance of lifestyle conjunction with weight loss medications for long-term, sustainable weight loss. Patient is going to implement more resistance training and higher protein to maintain muscle and target fat loss. No longer taking phentermine. Does admit to more fatigue, Wegovy versus phentermine. Did discuss the importance of nutrition and eating enough on the medication. 08/30/2024: Weight 164, BMI 29. Patient congratulated on weight loss, continuing to lose slow, steady weight. Increase Wegovy to 1.7 mg. Continue with resistance training to build muscle, and protein intake. 09/27/2024: Weight 161, BMI 28. Patient congratulated on effort, continuing to lose slow, steady weight. Feels really well on Wegovy 1.7 mg, reviewing body scan, she has lost 3 pounds of fat, and maintained muscle. Body composition changing for the better. Follow-up in 4 weeks, sooner as needed. M ICC injection today. # Following with her PCP secondary to generalized joint pain, positive ALY, referred to rheumatology. Patient taking gabapentin, NSAID, and tramadol as needed # Seasonal allergies: Continue fluticasone and cetirizine prn #Migraines: continue sumatriptan 25 mg PRN Patient to follow-up in 4 weeks, Sooner as needed. Time spent with patient 30 minutes with greater than 50% on patient education and care coordination. All patient questions answered in office today. Patient should call the office in the meantime with any questions or concerns. Case discussed with collaborating physician Kody Duarte who reviewed the assessment and plan. Chart, medications, labs, vital signs reviewed. Dictation was accomplished with the use of [employer] voice recognition software, prone to medical misidentifications and grammatical errors. This is unintentional and the practitioner does try to identify and correct these, but some could still be present. Please do not hesitate to contact practitioner for clarification. 08/30/2024 Other depression (ICD-10 - F32.89) Melany Is a 46-year-old female who presented the office for weight management follow-up. 10/19/22: weight 185, BMI 32,77. Educated lifestyle modifications, diet, exercise, high protein, low carb, healthy fats. Educated on stretching and walking. Work on this for the next 4 weeks and consider phentermine at next visit pending EKG. SECA reviewed. Pt understanding. 12/02/22: weight 182.9, BMI 32.4- patient congratulated on effort. Educated to continue with lifestyle modifications and focus on more movement now that she has had a cortisone injection in her back with improvement in pain. Also educated to focus on portion control, high-protein, low carbohydrate, healthy fat and increasing water intake. Patient interested in GLP-1 injection, but need to prove three consecutive months of weight loss in order to qualify. She is understanding regarding this. Could consider trialing phentermine again, but aware of rebound weight gain. Already taking bupropion, would like to add low dose naltrexone. This was sent to [facility]. Will try to submit for GLP-1 injection in January. Patient will follow-up in one month.Educated on proper use, as well as side effects of medication. Patient aware she cannot drink on medication. 01/05/23: weight 182.3lbs, BMI 32.29 - Patient has modest weight loss since last meeting. She admits to a recent deviation from diet over last week because of celebrating with family and eating large amounts of junk food. On a normaly basis she has been eating less junk food overall, but her cravings have not changes on the naltrexone/wellbutrin combination. Will put in for patient to be started on 0.25mg Wegovy. D/c naltrexone. She was educated on side effect profile and understands. I gave recommendation to increase weight-bearing activity at home by incorporating small amounts of pushups and body weight squats into daily routine and gradually increase the volume. She was also encouraged to follow recommendation of provider conducting sleep study to trial CPAP mask to improve sleep quality. Will follow up with patient in 4 weeks. 02/02/2023: Weight 180.2, BMI 31.92-patient congratulated on efforts. Encouraged to continue with lifestyle modifications will be try to get her on a weight loss medication. Tried getting on Wegovy, but was denied by insurance. We will try Saxenda. Educated on proper use, and side effects. Patient will really benefit from this medication. Patient is encouraged, and is doing very well overall. She does continue to lose weight. 03/04/2023: Weight 170.9, BMI 31.69. Patient congratulated on effort. Has been doing well with lifestyle modifications. Discontinued naltrexone, and sent Saxenda last visit, which was approved. Patient had a hard time finding it, but just got on it about a week ago. Taking 1.2 mg first dose today. She does notice occasional constipation, and nausea. Educated on conservative ways to improve this, she is understanding. She will call the office with any question. Did continue to educate proper use. Continue to encourage lifestyle. 04/10/2023: Weight 177 pounds, BMI 31.35. Patient has lost 1 pound since last visit. Body composition scale reviewed showing significant improvement since patient started with weight management program. Was taking Saxenda and doing really well, but discontinued due to national shortage. We will start compounded semaglutide 1 mg for the next 2 weeks, and if tolerating well will submit for Wegovy 1.7 at next visit. Patient understanding. Educated on the importance of lifestyle modifications in conjunction with weight loss. 05/05/2023: Weight 174.3, BMI 30.87. Patient very pleased with progress overall. Continues to have successful weight loss. Was on Saxenda but discontinued due to national shortage, took compounded semaglutide tapered up to 1 mg, tolerating well without side effects. We will submit for Wegovy 1.7 mg today. Educated on importance of lifestyle modifications in conjunction with weight loss medications. 06/02/2023: Weight 168.7, BMI 29.88. Patient congratulated on effort. Taking Wegovy 1.7 mg with compliance, without any side effects. Patient is very pleased with progress overall, and is feeling great. States that she tolerates this medication better than she was the Saxenda. Educated on the importance of lifestyle modifications to maintain muscle/target fat loss. Patient will continue with Wegovy 1.7 mg. Pleased with progress overall. Recently started on gabapentin for nerve pain. 07/04/2023: Weight 165.2, BMI 29.26. Patient congratulated on effort, continuing to maintain, lose slow, steady, sustainable weight. Patient is very pleased with progress overall with like to continue with Wegovy 1.7 mg. 09/12/2023: Weight 164.3, BMI 29.1. Patient doing really well overall. Does admit to some constipation still, treated with lifestyle modifications. Weight has plateaued, will continue with Wegovy 1.7 mg and work on lifestyle, but as of next month, could consider increasing up to Wegovy 2.4 mg as she has been on 1.7 for a while. 10/13/2023: Weight 169, BMI 29.93 patient congratulated on lifestyle effort. She has been off of semaglutide, so her appetite has increased. Appeal pending through [employer] for Wegovy 1.7 mg. She will start semaglutide 1 mg again. Educated on proper use, side effects. Encouraged to continue with stairstepper, resistance training, and healthy eating with protein, fruits, veggies. Patient pleased with lifestyle changes overall. 11/29/2023: Weight 168.9, BMI 29.92. Patient congratulated on efforts, she is trying to maintain her weight without a medication, and has been doing so. Does admit to some more increased appetite. Discussed Contrave as semaglutide/tirzepati de [id number] is too costly. Patient is willing. Discussed proper use, taper, side effects, long-term use. Discussed that she cannot drink alcohol while on this medication. Patient understanding. Will follow-up in 4 weeks. 02/16/2024: Weight 177, BMI 31.35. Patient expresses frustration as she has gained some weight since last visit. Insurance stopped covering Wegovy so we tried switching over to Contrave, which she states caused cramping without positive effect for weight loss. Based on weight gain, will try to resubmit for Wegovy 0.25 mg but in the meantime we will do compounded semaglutide in office. She is aware that we cannot guarantee coverage. Patient discussed proper use, side effects, long-term risks. She feels motivated today to get back on track. 03/20/23: BMI 30, Weight 171. Will attempt submission for Zepbound. Pt reports has friends who have been able to get it with [facility]. We discussed that this may be true, but unsure. Offereed trying every other week compounded semaglutide _ phentermine to see if this would help. 04/23/2024: Weight 168, BMI 29.9. Patient congratulated, has lost some weight since last visit. Body scan reviewed showing improvement. Focusing on high-protein, and implementing more resistance training. Will restart initiation of phentermine. Patient is tolerated well in the past. Will start 15 mg once daily. EKG in office today within normal limits.Patient open to potential compounded GLP-1's in the future but would like to save money at this time.Discussed efficacy and compliance of medication. 05/27/2024: Weight 170, BMI 30.23. Patient did gain weight since last visit but gained 2 pounds of muscle, lost 4 pounds of fat. Zepbound declined because [employer] does not cover the medication, she has been trying Wegovy in the past, would like to try to resubmit for that medication. In the meantime we will continue with phentermine but increase to 30 mg. She will not be on phentermine and Wegovy at the same time. Continue with lifestyle. Follow-up in 4 to 6 weeks. 07/16/2024: Weight 166, BMI 29. Patient continuing to lose slow, steady weight. Taking Wegovy 0.5 mg, has 1 dose less but then would like to increase to 1 mg. Will send 1 mg today. Did discuss the importance of lifestyle conjunction with weight loss medications for long-term, sustainable weight loss. Patient is going to implement more resistance training and higher protein to maintain muscle and target fat loss. No longer taking phentermine. Does admit to more fatigue, Wegovy versus phentermine. Did discuss the importance of nutrition and eating enough on the medication. 08/30/2024: Weight 164, BMI 29. Patient congratulated on weight loss, continuing to lose slow, steady weight. Increase Wegovy to 1.7 mg. Continue with resistance training to build muscle, and protein intake. # Following with her PCP secondary to generalized joint pain, positive ALY, referred to rheumatology. Patient taking gabapentin, NSAID, and tramadol as needed # Seasonal allergies: Continue fluticasone and cetirizine prn #Migraines: continue sumatriptan 25 mg PRN Patient to follow-up in 4 weeks, Sooner as needed. Time spent with patient 30 minutes with greater than 50% on patient education and care coordination. All patient questions answered in office today. Patient should call the office in the meantime with any questions or concerns. Case discussed with collaborating physician Kody Duarte who reviewed the assessment and plan. Chart, medications, labs, vital signs reviewed. Dictation was accomplished with the use of [employer] voice recognition software, prone to medical misidentifications and grammatical errors. This is unintentional and the practitioner does try to identify and correct these, but some could still be present. Please do not hesitate to contact practitioner for clarification. 11/01/2024 Dietary counseling and surveillance (ICD-10 - Z71.3) Melany Is a 48-year-old female who presented the office for weight management follow-up. 10/19/22: weight 185, BMI 32,77. Educated lifestyle modifications, diet, exercise, high protein, low carb, healthy fats. Educated on stretching and walking. Work on this for the next 4 weeks and consider phentermine at next visit pending EKG. MARGAUX reviewed. Pt understanding. 12/02/22: weight 182.9, BMI 32.4- patient congratulated on effort. Educated to continue with lifestyle modifications and focus on more movement now that she has had a cortisone injection in her back with improvement in pain. Also educated to focus on portion control, high-protein, low carbohydrate, healthy fat and increasing water intake. Patient interested in GLP-1 injection, but need to prove three consecutive months of weight loss in order to qualify. She is understanding regarding this. Could consider trialing phentermine again, but aware of rebound weight gain. Already taking bupropion, would like to add low dose naltrexone. This was sent to compound pharmacy. Will try to submit for GLP-1 injection in January. Patient will follow-up in one month.Educated on proper use, as well as side effects of medication. Patient aware she cannot drink on medication. 01/05/23: weight 182.3lbs, BMI 32.29 - Patient has modest weight loss since last meeting. She admits to a recent deviation from diet over last week because of celebrating with family and eating large amounts of junk food. On a normaly basis she has been eating less junk food overall, but her cravings have not changes on the naltrexone/wellbutrin combination. Will put in for patient to be started on 0.25mg Wegovy. D/c naltrexone. She was educated on side effect profile and understands. I gave recommendation to increase weight-bearing activity at home by incorporating small amounts of pushups and body weight squats into daily routine and gradually increase the volume. She was also encouraged to follow recommendation of provider conducting sleep study to trial CPAP mask to improve sleep quality. Will follow up with patient in 4 weeks. 02/02/2023: Weight 180.2, BMI 31.92-patient congratulated on efforts. Encouraged to continue with lifestyle modifications will be try to get her on a weight loss medication. Tried getting on Wegovy, but was denied by insurance. We will try Saxenda. Educated on proper use, and side effects. Patient will really benefit from this medication. Patient is encouraged, and is doing very well overall. She does continue to lose weight. 03/04/2023: Weight 170.9, BMI 31.69. Patient congratulated on effort. Has been doing well with lifestyle modifications. Discontinued naltrexone, and sent Saxenda last visit, which was approved. Patient had a hard time finding it, but just got on it about a week ago. Taking 1.2 mg first dose today. She does notice occasional constipation, and nausea. Educated on conservative ways to improve this, she is understanding. She will call the office with any question. Did continue to educate proper use. Continue to encourage lifestyle. 04/10/2023: Weight 177 pounds, BMI 31.35. Patient has lost 1 pound since last visit. Body composition scale reviewed showing significant improvement since patient started with weight management program. Was taking Saxenda and doing really well, but discontinued due to national shortage. We will start compounded semaglutide 1 mg for the next 2 weeks, and if tolerating well will submit for Wegovy 1.7 at next visit. Patient understanding. Educated on the importance of lifestyle modifications in conjunction with weight loss. 05/05/2023: Weight 174.3, BMI 30.87. Patient very pleased with progress overall. Continues to have successful weight loss. Was on Saxenda but discontinued due to national shortage, took compounded semaglutide tapered up to 1 mg, tolerating well without side effects. We will submit for Wegovy 1.7 mg today. Educated on importance of lifestyle modifications in conjunction with weight loss medications. 06/02/2023: Weight 168.7, BMI 29.88. Patient congratulated on effort. Taking Wegovy 1.7 mg with compliance, without any side effects. Patient is very pleased with progress overall, and is feeling great. States that she tolerates this medication better than she was the Saxenda. Educated on the importance of lifestyle modifications to maintain muscle/target fat loss. Patient will continue with Wegovy 1.7 mg. Pleased with progress overall. Recently started on gabapentin for nerve pain. 07/04/2023: Weight 165.2, BMI 29.26. Patient congratulated on effort, continuing to maintain, lose slow, steady, sustainable weight. Patient is very pleased with progress overall with like to continue with Wegovy 1.7 mg. 09/12/2023: Weight 164.3, BMI 29.1. Patient doing really well overall. Does admit to some constipation still, treated with lifestyle modifications. Weight has plateaued, will continue with Wegovy 1.7 mg and work on lifestyle, but as of next month, could consider increasing up to Wegovy 2.4 mg as she has been on 1.7 for a while. 10/13/2023: Weight 169, BMI 29.93 patient congratulated on lifestyle effort. She has been off of semaglutide, so her appetite has increased. Appeal pending through [employer] for Wegovy 1.7 mg. She will start semaglutide 1 mg again. Educated on proper use, side effects. Encouraged to continue with stairstepper, resistance training, and healthy eating with protein, fruits, veggies. Patient pleased with lifestyle changes overall. 11/29/2023: Weight 168.9, BMI 29.92. Patient congratulated on efforts, she is trying to maintain her weight without a medication, and has been doing so. Does admit to some more increased appetite. Discussed Contrave as semaglutide/tirzepati de [id number] is too costly. Patient is willing. Discussed proper use, taper, side effects, long-term use. Discussed that she cannot drink alcohol while on this medication. Patient understanding. Will follow-up in 4 weeks. 02/16/2024: Weight 177, BMI 31.35. Patient expresses frustration as she has gained some weight since last visit. Insurance stopped covering Wegovy so we tried switching over to Contrave, which she states caused cramping without positive effect for weight loss. Based on weight gain, will try to resubmit for Wegovy 0.25 mg but in the meantime we will do compounded semaglutide in office. She is aware that we cannot guarantee coverage. Patient discussed proper use, side effects, long-term risks. She feels motivated today to get back on track. 03/20/23: BMI 30, Weight 171. Will attempt submission for Zepbound. Pt reports has friends who have been able to get it with [facility]. We discussed that this may be true, but unsure. Offereed trying every other week compounded semaglutide _ phentermine to see if this would help. 04/23/2024: Weight 168, BMI 29.9. Patient congratulated, has lost some weight since last visit. Body scan reviewed showing improvement. Focusing on high-protein, and implementing more resistance training. Will restart initiation of phentermine. Patient is tolerated well in the past. Will start 15 mg once daily. EKG in office today within normal limits.Patient open to potential compounded GLP-1's in the future but would like to save money at this time.Discussed efficacy and compliance of medication. 05/27/2024: Weight 170, BMI 30.23. Patient did gain weight since last visit but gained 2 pounds of muscle, lost 4 pounds of fat. Zepbound declined because [employer] does not cover the medication, she has been trying Wegovy in the past, would like to try to resubmit for that medication. In the meantime we will continue with phentermine but increase to 30 mg. She will not be on phentermine and Wegovy at the same time. Continue with lifestyle. Follow-up in 4 to 6 weeks. 07/16/2024: Weight 166, BMI 29. Patient continuing to lose slow, steady weight. Taking Wegovy 0.5 mg, has 1 dose less but then would like to increase to 1 mg. Will send 1 mg today. Did discuss the importance of lifestyle conjunction with weight loss medications for long-term, sustainable weight loss. Patient is going to implement more resistance training and higher protein to maintain muscle and target fat loss. No longer taking phentermine. Does admit to more fatigue, Wegovy versus phentermine. Did discuss the importance of nutrition and eating enough on the medication. 08/30/2024: Weight 164, BMI 29. Patient congratulated on weight loss, continuing to lose slow, steady weight. Increase Wegovy to 1.7 mg. Continue with resistance training to build muscle, and protein intake. 09/27/2024: Weight 161, BMI 28. Patient congratulated on effort, continuing to lose slow, steady weight. Feels really well on Wegovy 1.7 mg, reviewing body scan, she has lost 3 pounds of fat, and maintained muscle. Body composition changing for the better. Follow-up in 4 weeks, sooner as needed. M ICC injection today. 10/31/2024: Weight 157, BMI 27. Patient congratulated on effort, significant wt loss potentially related to eating less frequently x3 weeks while grieving. Patient feels good on Weogvy 1.7, will stay at this dose. She has maintained her muscle mass despite losing weight. Follow up in 6 week. # Following with her PCP secondary to generalized joint pain, positive ALY, referred to rheumatology. Patient taking gabapentin, NSAID, and tramadol as needed # Seasonal allergies: Continue fluticasone and cetirizine prn #Migraines: continue sumatriptan 25 mg PRN Patient to follow-up in 4 weeks, Sooner as needed. Time spent with patient 30 minutes with greater than 50% on patient education and care coordination. All patient questions answered in office today. Patient should call the office in the meantime with any questions or concerns. Case discussed with collaborating physician Kody Duarte who reviewed the assessment and plan. Chart, medications, labs, vital signs reviewed. Dictation was accomplished with the use of [employer] voice recognition software, prone to medical misidentifications and grammatical errors. This is unintentional and the practitioner does try to identify and correct these, but some could still be present. Please do not hesitate to contact practitioner for clarification. 04/23/2024 Medication side effect (ICD-10 - T88.7XXA) Melany Is a 46-year-old female who presented the office for weight management follow-up. 10/19/22: weight 185, BMI 32,77. Educated lifestyle modifications, diet, exercise, high protein, low carb, healthy fats. Educated on stretching and walking. Work on this for the next 4 weeks and consider phentermine at next visit pending EKG. MICHAELA reviewed. Pt understanding. 12/02/22: weight 182.9, BMI 32.4- patient congratulated on effort. Educated to continue with lifestyle modifications and focus on more movement now that she has had a cortisone injection in her back with improvement in pain. Also educated to focus on portion control, high-protein, low carbohydrate, healthy fat and increasing water intake. Patient interested in GLP-1 injection, but need to prove three consecutive months of weight loss in order to qualify. She is understanding regarding this. Could consider trialing phentermine again, but aware of rebound weight gain. Already taking bupropion, would like to add low dose naltrexone. This was sent to compound pharmacy. Will try to submit for GLP-1 injection in January. Patient will follow-up in one month.Educated on proper use, as well as side effects of medication. Patient aware she cannot drink on medication. 01/05/23: weight 182.3lbs, BMI 32.29 - Patient has modest weight loss since last meeting. She admits to a recent deviation from diet over last week because of celebrating with family and eating large amounts of junk food. On a normaly basis she has been eating less junk food overall, but her cravings have not changes on the naltrexone/wellbutrin combination. Will put in for patient to be started on 0.25mg Wegovy. D/c naltrexone. She was educated on side effect profile and understands. I gave recommendation to increase weight-bearing activity at home by incorporating small amounts of pushups and body weight squats into daily routine and gradually increase the volume. She was also encouraged to follow recommendation of provider conducting sleep study to trial CPAP mask to improve sleep quality. Will follow up with patient in 4 weeks. 02/02/2023: Weight 180.2, BMI 31.92-patient congratulated on efforts. Encouraged to continue with lifestyle modifications will be try to get her on a weight loss medication. Tried getting on Wegovy, but was denied by insurance. We will try Saxenda. Educated on proper use, and side effects. Patient will really benefit from this medication. Patient is encouraged, and is doing very well overall. She does continue to lose weight. 03/04/2023: Weight 170.9, BMI 31.69. Patient congratulated on effort. Has been doing well with lifestyle modifications. Discontinued naltrexone, and sent Saxenda last visit, which was approved. Patient had a hard time finding it, but just got on it about a week ago. Taking 1.2 mg first dose today. She does notice occasional constipation, and nausea. Educated on conservative ways to improve this, she is understanding. She will call the office with any question. Did continue to educate proper use. Continue to encourage lifestyle. 04/10/2023: Weight 177 pounds, BMI 31.35. Patient has lost 1 pound since last visit. Body composition scale reviewed showing significant improvement since patient started with weight management program. Was taking Saxenda and doing really well, but discontinued due to national shortage. We will start compounded semaglutide 1 mg for the next 2 weeks, and if tolerating well will submit for Wegovy 1.7 at next visit. Patient understanding. Educated on the importance of lifestyle modifications in conjunction with weight loss. 05/05/2023: Weight 174.3, BMI 30.87. Patient very pleased with progress overall. Continues to have successful weight loss. Was on Saxenda but discontinued due to national shortage, took compounded semaglutide tapered up to 1 mg, tolerating well without side effects. We will submit for Wegovy 1.7 mg today. Educated on importance of lifestyle modifications in conjunction with weight loss medications. 06/02/2023: Weight 168.7, BMI 29.88. Patient congratulated on effort. Taking Wegovy 1.7 mg with compliance, without any side effects. Patient is very pleased with progress overall, and is feeling great. States that she tolerates this medication better than she was the Saxenda. Educated on the importance of lifestyle modifications to maintain muscle/target fat loss. Patient will continue with Wegovy 1.7 mg. Pleased with progress overall. Recently started on gabapentin for nerve pain. 07/04/2023: Weight 165.2, BMI 29.26. Patient congratulated on effort, continuing to maintain, lose slow, steady, sustainable weight. Patient is very pleased with progress overall with like to continue with Wegovy 1.7 mg. 09/12/2023: Weight 164.3, BMI 29.1. Patient doing really well overall. Does admit to some constipation still, treated with lifestyle modifications. Weight has plateaued, will continue with Wegovy 1.7 mg and work on lifestyle, but as of next month, could consider increasing up to Wegovy 2.4 mg as she has been on 1.7 for a while. 10/13/2023: Weight 169, BMI 29.93 patient congratulated on lifestyle effort. She has been off of semaglutide, so her appetite has increased. Appeal pending through [employer] for Wegovy 1.7 mg. She will start semaglutide 1 mg again. Educated on proper use, side effects. Encouraged to continue with stairstepper, resistance training, and healthy eating with protein, fruits, veggies. Patient pleased with lifestyle changes overall. 11/29/2023: Weight 168.9, BMI 29.92. Patient congratulated on efforts, she is trying to maintain her weight without a medication, and has been doing so. Does admit to some more increased appetite. Discussed Contrave as semaglutide/tirzepati de [id number] is too costly. Patient is willing. Discussed proper use, taper, side effects, long-term use. Discussed that she cannot drink alcohol while on this medication. Patient understanding. Will follow-up in 4 weeks. 02/16/2024: Weight 177, BMI 31.35. Patient expresses frustration as she has gained some weight since last visit. Insurance stopped covering Wegovy so we tried switching over to Contrave, which she states caused cramping without positive effect for weight loss. Based on weight gain, will try to resubmit for Wegovy 0.25 mg but in the meantime we will do compounded semaglutide in office. She is aware that we cannot guarantee coverage. Patient discussed proper use, side effects, long-term risks. She feels motivated today to get back on track. 03/20/23: BMI 30, Weight 171. Will attempt submission for Zepbound. Pt reports has friends who have been able to get it with [facility]. We discussed that this may be true, but unsure. Offereed trying every other week compounded semaglutide _ phentermine to see if this would help. 04/23/2024: Weight 168, BMI 29.9. Patient congratulated, has lost some weight since last visit. Body scan reviewed showing improvement. Focusing on high-protein, and implementing more resistance training. Will restart initiation of phentermine. Patient is tolerated well in the past. Will start 15 mg once daily. EKG in office today within normal limits.Patient open to potential compounded GLP-1's in the future but would like to save money at this time.Discussed efficacy and compliance of medication. # Seasonal allergies: Continue fluticasone and cetirizine prn #Migraines: continue sumatriptan 25 mg PRN #Back pain: takes tramadol 3 mg, ibuprofen 800 mg PRN Patient to follow-up in 4 weeks, Sooner as needed. Time spent with patient 30 minutes with greater than 50% on patient education and care coordination. All patient questions answered in office today. Patient should call the office in the meantime with any questions or concerns. Case discussed with collaborating physician Kody Duarte who reviewed the assessment and plan. Chart, medications, labs, vital signs reviewed. Dictation was accomplished with the use of [employer] voice recognition software, prone to medical misidentifications and grammatical errors. This is unintentional and the practitioner does try to identify and correct these, but some could still be present. Please do not hesitate to contact practitioner for clarification. PLAN OF TREATMENT Pending Test Test Name Order Date EKG 04/23/2024 EKG 05/27/2021 Next Appt Details Provider Name:GOGO CURRY, 12/20/2024 02:45:00 PM, [address], [place], [id number], Insurance Providers Payer Name Payer Address Payer Phone Subscriber Number Group Number Insured Name Patient Relationship to Insured Coverage Start Date Coverage End Date [facility] [address] [place] [address] [id number] Melany Quintana Self - patient is the insured MEDICATIONS ADMINISTERED Medication Instructions Date of Administration Dosage Notes MICC B12 INJECTION 06/30/2021 Lot # [id number] MICC B12 INJECTION 08/06/2021 Lot # [id number] MICC B12 INJECTION 09/27/2024 1.0 mL Semaglutide 04/20/2023 1.0 mg LRQ SQ Semaglutide 04/27/2023 1.0 mg LRQ SQ Semaglutide 10/13/2023 1 mg Semaglutide 02/16/2024 0.25 mg Semaglutide 02/22/2024 0.25 mg MEDICAL (GENERAL) HISTORY Medical History History ICD Code Migraine headache G43.909 Weight gain R63.5 Neuropathy G62.9 Surgical History Surgery Date(Month/Year) breast reduction
--- OUTSIDE RECORDS SUMMARY | 2024-11-06 15:34 | XMS_ITS ---
Author Organization [facility] Address [address] [place] [address] Care Team Providers Care Head Housekeeper Name Role Phone JULIAN DUARTE Unavailable [phone] GOGO CURRY Unavailable [phone] ALLERGIES Allergen (clinical drug ingredient) Drug/Non Drug Allergy documented on EMR Reaction Allergy Type Onset Date Status sulfamethoxazole / trimethoprim Bactrim Unknown Drug Allergy Active REASON FOR VISIT Patient presents for weight management follow up. Previous weight was 164.9lbs, current weight is standing at 161.2lbs. The patient has no concerns or questions needed to be addressed MEDICATIONS Medication SIG (Take, Route, Frequency, Duration) Notes Start Date End Date Status SUMAtriptan Succinate 25 MG 1 tablet at least 2 hours between doses as needed Orally Twice a day prn Active Gabapentin 100 MG TAKE 1 CAPSULE BY [facility] TWICE A DAY Oral twice daily for 30 days Active Fluticasone Furoate prn Active traMADol HCl 50 MG 1 tablet as needed O rally Once a day prn Active Cetirizine HCl 10 MG 1 tablet Orally Once a day prn Active Wegovy 1.7 MG/0.75ML 1.7 mg Subcutaneous weekly for 30 days Active Ibuprofen Active SOCIAL HISTORY Tobacco Use: Social History Observation Description Date Details (start date - stop date) Never Smoker NA - NA Sex Assigned At : Social History Observation Description Sex Assigned At Unknown Tobacco Use/Smoking Question Answer Notes Are you a nonsmoker Section Notes: alcohol: denies tob: denies drug: denies VITAL SIGNS Blood pressure systolic 110 mm Hg 09/27/19 25 Blood pressure diastolic 68 mm Hg 025 Heart Rate 83 /min 09/27/2024 Height 63 in 09/27/2024 Weight 161.2 lbs 09/27/2024 BMI 28.55 kg/m2 09/27/2024 Oximetry 99 % 09/27/2024 Encounters Encounter Location Date Provider Diagnosis [facility] [address] [place] [address] 09/27/2024 GOGO CURRY Over weight E66.3 ; BMI 28.0-28.9,adult Z68.28 ; Migraine without aura, intractable, with status migrainosus G43.011 ; Low back pain, unspecified M54.50 ; Other depression F32.89 and Dietary counseling and surveillance Z71.3 ASSESSMENTS Encounter Date Diagnosis Assessment Notes Treatment Notes Treatment Clinical Notes Section Notes 09/27/2024 Over weight (ICD-10 - E66.3) Melany [...] her appetite has increased. Appeal pending through [employer] for Wegovy 1.7 mg. She will start [...] increased appetite. Discussed Contrave as semaglutide/tirzepati de [id number] is too costly. Patient is willing. Discussed [...] 4 pounds of fat. Zepbound declined because [employer] does not cover the medication, she has [...] Dictation was accomplished with the use of [employer] voice recognition software, prone to medical misidentifications [...] her appetite has increased. Appeal pending through [employer] for Wegovy 1.7 mg. She will start [...] increased appetite. Discussed Contrave as semaglutide/tirzepati de [id number] is too costly. Patient is willing. Discussed [...] 4 pounds of fat. Zepbound declined because [employer] does not cover the medication, she has [...] Dictation was accomplished with the use of [employer] voice recognition software, prone to medical misidentifications [...] her appetite has increased. Appeal pending through [employer] for Wegovy 1.7 mg. She will start [...] increased appetite. Discussed Contrave as semaglutide/tirzepati de [id number] is too costly. Patient is willing. Discussed [...] 4 pounds of fat. Zepbound declined because [employer] does not cover the medication, she has [...] Dictation was accomplished with the use of [employer] voice recognition software, prone to medical misidentifications [...] her appetite has increased. Appeal pending through [employer] for Wegovy 1.7 mg. She will start [...] increased appetite. Discussed Contrave as semaglutide/tirzepati de [id number] is too costly. Patient is willing. Discussed [...] 4 pounds of fat. Zepbound declined because [employer] does not cover the medication, she has [...] Dictation was accomplished with the use of [employer] voice recognition software, prone to medical misidentifications [...] her appetite has increased. Appeal pending through [employer] for Wegovy 1.7 mg. She will start [...] increased appetite. Discussed Contrave as semaglutide/tirzepati de [id number] is too costly. Patient is willing. Discussed [...] 4 pounds of fat. Zepbound declined because [employer] does not cover the medication, she has [...] Dictation was accomplished with the use of [employer] voice recognition software, prone to medical misidentifications [...] her appetite has increased. Appeal pending through [employer] for Wegovy 1.7 mg. She will start [...] increased appetite. Discussed Contrave as semaglutide/tirzepati de [id number] is too costly. Patient is willing. Discussed [...] 4 pounds of fat. Zepbound declined because [employer] does not cover the medication, she has [...] Dictation was accomplished with the use of [employer] voice recognition software, prone to medical misidentifications and grammatical errors. This is unintentional and the practitioner does try to identify and correct these, but some could still be present. Please do not hesitate to contact practitioner for clarification. PLAN OF TREATMENT Medication Medication Name Sig Start Date Stop Date Notes Wegovy 1.7 MG/0.75ML 1.7 mg Subcutaneous weekly for 30 days Next Appt Details Provider Name:GOGO CURRY, 12/20/2024 02:45:00 PM, [address] [facility], [place], [address], MEDICATIONS ADMINISTERED Medication Instructions Date of Administration Dosage Notes [facility] 09/27/2024 1.0 mL Progress Notes * Tripp PACEOB:[birth year] (48 yo F)Acc No.[id number]:09/27/2024 Patient:??Melany PACE Provider:??GOGO ANDERSON PA-C :1975?Age:48 Y?Sex:Fe male Date:09/27/2024 Address:[address] [place] [address] , [id number] Subjective: * Chief Complaints: * ?1. Patient presents fo r weight management follow up. Previous weight was 164.9lbs, current weight is standing at 161.2lbs. The patient has no concerns or questions needed to be addressed. * HPI: ?Constitutional:? Melany is a pleasant 48-year-old female who presents the office for a weight management follow-up. Currently, taking Wegovy 1.7 mg with compliance, without any side effects. Last seen August 30, 2024. Patient's weight at that time 164 pounds with a BMI of 29. Today weights 161 pounds. Feels like she is enjoying this dose and eating higher protein. Not stopping her from wanting to eat but getting full quicker. Still eating more fat than she should. She is trying to focus on fiber as well. Cooking less with oils. Exercise is better, more cardio then weight training though and has a stepper machine at home and they has been more helpful. * ROS:?Constitutional: no weight loss, no fever, no night sweats, no changes in sleep. ???Cardiovascular: No chest pain, no dyspnea on exertion, no palpitations, no claudication ???Respiratory: No chronic cough, no hemoptysis, no sputum, no wheezing, no SOB, no pleuritic pain. ???GI, No diarrhea, no constipation, no blood in the stools, no pain associated with eating, no indigestion, no difficulty swallowing, no nausea ???Genitourinary: No painful urination, no hesitancy, no blood in the urine, no incontinence. ???Musculoskeletal: No limitations to walking, no chronic joint or muscle pain. ???Neurological: no language dysfunction, no inability to concentrate, no localized weakness, no sensation loss, no confusion, no dizziness, no numbness, no tingling. ???Psychiatric: No depression, no suicidal thoughts, no anxiety. ???Hematological: No easy bruising, no lymph node swelling. * Medical History:??Migraine h eadache, Weight gain, Neuropathy. * Surgical History:??breast re duction . * Hospitalization/Major Diagno stic Procedure:??Denies Past Hospitalization. * Family History:??Father: ali ve.??Mother: alive.??2 brother(s) . 2 daughter(s) . .?? mom cancer ovarian. * Social History:?Tobacco Use:??Tobacco Use/Smoking??Are you a??nonsmoker.?alcohol: denies ???tob: denies ???drug: denies. * Medications:??Taking Ibuprof en , Taking Cetirizine HCl 10 MG Tablet 1 tablet Orally Once a day , Notes to Pharmacist: prn, Taking Fluticasone Furoate , Notes to Pharmacist: prn, Taking traMADol HCl 50 MG Tablet 1 tablet as needed Orally Once a day , Notes to Pharmacist: prn, Taking SUMAtriptan Succinate 25 MG Tablet 1 tablet at least 2 hours between doses as needed Orally Twice a day , Notes to Pharmacist: prn, Taking Gabapentin 100 MG Capsule TAKE 1 CAPSULE BY MOUTH TWICE A DAY Oral twice daily , Taking Wegovy 1.7 MG/0.75ML Solution Auto-injector 1.7 mg Subcutaneous weekly , Medication List reviewed and reconciled with the patient * Allergies:??Bactrim. Objective: * Vitals:??HR:83/min, BP:110/6 8mm Hg, Wt:161.2lbs, BMI:28.55Index, Ht: 63 in, Oxygen sat %:99%. * Physical Examination:?General: Age appropriate female, well appearing, no acute distress, speaking in full sentences without respiratory compromise. Well groomed, well developed. ?Skin: Warm, dry and intact. No lesions/rashes/erythema. ?HEENT: Normocephalic/atraumatic. ?Neck/Thyroid: Supple. Full ROM. ?Lung: Clear to auscultation bilaterally, no wheezes, rales or rhonchi. No barrel chest. Equal chest rise and fall bilaterally. ?Cardiac: S1 and S2 appreciated. No murmurs/rubs or gallops. ?Neuro: Steady gait with ambulation observed. ?Psych: Stable mood and affect. Assessment: * Assessment: 1.??Over weight - E66.3 (Shaneka ponce)??2.??BMI 28.0-28.9,adult - Z68.28??3.??Migraine without aura, intractable, with status migrainosus - G43.011??4.??Low back pain, unspecified - M54.50??5.??Other depression - F32.89?? Melany Is a 48-year-old fem joyce who presented the office for weight management [...] her appetite has increased. Appeal pending through [employer] for Wegovy 1.7 mg. She will start [...] some more increased appetite. Discussed Contrave as semaglutide/tirzepatide [id number] is too costly. Patient is willing. Discussed [...] 4 pounds of fat. Zepbound declined because [employer] does not cover the medication, she has [...] Dictation was accomplished with the use of [employer] voice recognition software, prone to medical misidentifications and grammatical errors. This is unintentional and the practitioner does try to identify and correct these, but some could still be present. Please do not hesitate to contact practitioner for clarification. Plan: * Treatment: * Therapeutic Injections:? [facility] B12 INJECTION : 1.0 mL (Route: Intramuscular) given by TOSHA MERA on left deltoid * Procedure Codes:??69153 P/M SPEECH LANGUAGE PATHOLOGIST PRN, INDIV 15 MIN * Images: Billing Information: * Visit Code:?? 87817 Office Visit, Est Pt., Level 3. Modifiers: 25, SA * Procedure Codes:?? 04640 P/M SPEECH LANGUAGE PATHOLOGIST PRN, INDIV 15 MIN. * Sign off status: Completed true * Provider:??GOGO ANDERSON PA-C Date:??09/09 History and Physical Notes * HPI (History of Present Illness) Category Sub-Category Detail Notes Category Not es Constitutional Melany is a pleasant 48-year-old female who presents the office for a weight management follow-up. Currently, taking Wegovy 1.7 mg with compliance, without any side effects. Last seen August 30, 2024. Patient's weight at that time 164 pounds with a BMI of 29. Today weights 161 pounds. Feels like she is enjoying this dose and eating higher protein. Not stopping her from wanting to eat but getting full quicker. Still eating more fat than she should. She is trying to focus on fiber as well. Cooking less with oils. Exercise is better, more cardio then weight training though and has a stepper machine at home and they has been more helpful. Physical Examination Category Sub-Category Detail Notes Section Note s General: Age appropriate female, well appearing, no acute distress, speaking in full sentences without respiratory compromise. Well groomed, well developed. Skin: Warm, dry and intact. No lesions/rashes/erythema. HEENT: Normocephalic/atraumatic. Neck/Thyroid: Supple. Full ROM. Lung: Clear to auscultation bilaterally, no wheezes, rales or rhonchi. No barrel chest. Equal chest rise and fall bilaterally. Cardiac: S1 and S2 appreciated. No murmurs/rubs or gallops. Neuro: Steady gait with ambulation observed. Psych: Stable mood and affect
--- OUTSIDE RECORDS SUMMARY | 2024-11-06 15:34 | XMS_ITS ---
Author Organization [facility] Address [address] [place] [address] Care Team Providers Care Folding Machine Feeder Name Role Phone JULIAN DUARTE Unavailable [phone] GOGO CURRY Unavailable [phone] ALLERGIES Allergen (clinical drug ingredient) Drug/Non Drug Allergy documented on EMR Reaction Allergy Type Onset Date Status sulfamethoxazole / trimethoprim Bactrim Unknown Drug Allergy Active REASON FOR VISIT Patient presents for weight management follow up. Previous weight was 170.7lbs, current weight is standing at 164.9lbs. No acute concerns needed to be addressed MEDICATIONS Medication SIG (Take, Route, Frequency, Duration) Notes Start Date End Date Status traMADol HCl 50 MG 1 tablet as needed O rally Once a day prn Active Gabapentin 100 MG TAKE 1 CAPSULE BY [facility] TWICE A DAY Oral twice daily for 30 days Active SUMAtriptan Succinate 25 MG 1 tablet at least 2 hours between doses as needed Orally Twice a day prn Active Wegovy 1.7 MG/0.75ML 1.7 mg Subcutaneous weekly for 30 days Active Fluticasone Furoate prn Active Cetirizine HCl 10 MG 1 tablet Orally Once a day prn Active SOCIAL HISTORY Tobacco Use: Social History Observation Description Date Details (start date - stop date) Never Smoker NA - NA Sex Assigned At : Social History Observation Description Sex Assigned At Unknown Tobacco Use/Smoking Question Answer Notes Are you a nonsmoker Section Notes: alcohol: denies tob: denies drug: denies VITAL SIGNS Blood pressure systolic 110 mm Hg 08/30/19 25 Blood pressure diastolic 80 mm Hg 025 Heart Rate 81 /min 08/30/2024 Height 63 in 08/30/2024 Weight 164.9 lbs 08/30/2024 BMI 29.21 kg/m2 08/30/2024 Oximetry 98 % 08/30/2024 Encounters Encounter Location Date Provider Diagnosis [facility] [address] [place] [address] 08/30/2024 GOGO CURRY Over weight E66.3 ; BMI 29.0-29.9,adult Z68.29 ; Migraine without aura, intractable, with status migrainosus G43.011 ; Low back pain, unspecified M54.50 and Other depression F32.89 ASSESSMENTS Encounter Date Diagnosis Assessment Notes Treatment Notes Treatment Clinical Notes Section Notes 08/30/2024 Over weight (ICD-10 - E66.3) Melany [...] her appetite has increased. Appeal pending through [employer] for Wegovy 1.7 mg. She will start [...] increased appetite. Discussed Contrave as semaglutide/tirzepati de its-or-pjnwch is too costly. Patient is willing. Discussed [...] 4 pounds of fat. Zepbound declined because [facility] does not cover the medication, she [...] Dictation was accomplished with the use of [employer] voice recognition software, prone to medical misidentifications and grammatical errors. This is unintentional and the practitioner does try to identify and correct these, but some could still be present. Please do not hesitate to contact practitioner for clarification. 08/30/2024 BMI 29.0-29.9,adul t (ICD-10 - Z68.29) Melany Is a 46-year-old [...] her appetite has increased. Appeal pending through [employer] for Wegovy 1.7 mg. She will start [...] increased appetite. Discussed Contrave as semaglutide/tirzepati de [id number] is too costly. Patient is willing. Discussed [...] 4 pounds of fat. Zepbound declined because [employer] does not cover the medication, she has [...] Dictation was accomplished with the use of [employer] voice recognition software, prone to medical misidentifications [...] her appetite has increased. Appeal pending through [employer] for Wegovy 1.7 mg. She will start [...] increased appetite. Discussed Contrave as semaglutide/tirzepati de [id number] is too costly. Patient is willing. Discussed [...] 4 pounds of fat. Zepbound declined because [employer] does not cover the medication, she has [...] Dictation was accomplished with the use of [employer] voice recognition software, prone to medical misidentifications [...] her appetite has increased. Appeal pending through [employer] for Wegovy 1.7 mg. She will start [...] increased appetite. Discussed Contrave as semaglutide/tirzepati de [id number]-svmavh is too costly. Patient is willing. Discussed [...] 4 pounds of fat. Zepbound declined because [employer] does not cover the medication, she has [...] Dictation was accomplished with the use of [employer] voice recognition software, prone to medical misidentifications [...] her appetite has increased. Appeal pending through [employer] for Wegovy 1.7 mg. She will start [...] increased appetite. Discussed Contrave as semaglutide/tirzepati de imm-qf-ibdnst is too costly. Patient is willing. Discussed [...] 4 pounds of fat. Zepbound declined because [employer] does not cover the medication, she has [...] Dictation was accomplished with the use of [employer] voice recognition software, prone to medical misidentifications [...] CURRY, 12/20/2024 02:45:00 PM, [address], [place], [address], Progress Notes * Tripp PACEOB:[birth year] (48 yo F)Acc No.[id number]:08/30/2024 Patient:??Melany PACE Provider:??GOGO ANDERSON PA-C :1975?Age:48 Y?Sex:Fe male Date:08/30/2024 Address:[address] [place] [address] , [facility] [id number] Subjective: * Chief Complaints: * ?1. Patient presents fo weight management follow up. Previous weight was 170.7lbs, current weight is standing at 164.9lbs. No acute concerns needed to be addressed. * HPI: ?Constitutional:? Melany is a pleasant 48-year-old female who presents the office for a weight management follow-up. Last visit patient's weight was 170, today 164. Currently taking Wegovy 1 mg with compliance, without any side effects. Patient states that she is interested in an increase in dose, she is not noticing any significant effect. Throughout the holidays, with alcohol/increased food. Patient is really trying to focus on increasing muscle mass and resistance training. Has been doing body weight exercises with her daughter at home 3 times weekly for the past 3 weeks. She is also been focusing on increasing protein. * ROS:?Constitutional: no weight loss, no fever, [...] denies ???tob: denies ???drug: denies. * Medications:??Taking Wegovy 1 MG/0.5ML Solution Auto-injector 1 mg Subcutaneous weekly , Taking Cetirizine HCl 10 MG Tablet [...] TWICE A DAY Oral twice daily , Discontinued Wegovy 0.5 MG/0.5ML Solution Auto-injector 0.5 mg Subcutaneous weekly , Medication List reviewed and reconciled with the patient * Allergies:??Bactrim. Objective: * Vitals:??HR:81/min, BP:110/8 0mm Hg, Wt:164.9lbs, BMI:29.21Index, Ht: 63 in, Oxygen sat %:98%. * Physical Examination:?General: Age appropriate female, well [...] * Assessment: 1.??Over weight - E66.3 (Shaneka serra)??2.??BMI 29.0-29.9,adult - Z68.29??3.??Migraine without aura, intractable, with status migrainosus - G43.011??4.??Low back pain, unspecified - M54.50??5.??Other depression - F32.89?? Melany Is a 46-year-old fem joyce who presented the office for [...] her appetite has increased. Appeal pending through [employer] for Wegovy 1.7 mg. She will start [...] more increased appetite. Discussed Contrave as semaglutide/tirzepatide [id number] is too costly. Patient is willing. Discussed [...] 4 pounds of fat. Zepbound declined because [employer] [employer] does not cover the medication, she has [...] Dictation was accomplished with the use of [employer] voice recognition software, prone to medical misidentifications and grammatical errors. This is unintentional and the practitioner does try to identify and correct these, but some could still be present. Please do not hesitate to contact practitioner for clarification. Plan: * Treatment: * Procedure Codes:??57143 P/M BELTING AND WEBBING INSPECTOR, INDIV 15 MIN * Images: Billing Information: * Visit Code:?? 91624 Office Visit, Est Pt., Level 3. Modifiers: SA * Procedure Codes:?? 42173 P/M BELTING AND WEBBING INSPECTOR, INDIV 15 MIN. * Sign off status: Completed true * Provider:??GOGO ANDERSON PA-C Date:??08/09 History and Physical Notes * HPI (History of Present Illness) Category Sub-Category Detail Notes Category Not es Constitutional Melany is a pleasant 48-year-old female who presents the office for a weight management follow-up. Last visit patient's weight was 170, today 164. Currently taking Wegovy 1 mg with compliance, without any side effects. Patient states that she is interested in an increase in dose, she is not noticing any significant effect. Throughout the holidays, with alcohol/increased food. Patient is really trying to focus on increasing muscle mass and resistance training. Has been doing body weight exercises with her daughter at home 3 times weekly for the past 3 weeks. She is also been focusing on increasing protein. Physical Examination Category Sub-Category Detail Notes Section [...]
--- OUTSIDE RECORDS SUMMARY | 2024-11-06 15:34 | XMS_ITS ---
Author Organization [facility] Address [address] [facility] [place] [place] [address] Care Team Providers Care Boot Repairer Name Role Phone JULIAN DUARTE Unavailable [phone] GOGO CURRY Unavailable [phone] ALLERGIES Allergen (clinical drug ingredient) Drug/Non Drug Allergy documented on EMR Reaction Allergy Type Onset Date Status sulfamethoxazole / trimethoprim Bactrim Unknown Drug Allergy Active REASON FOR VISIT Patient is here for weight management visit MEDICATIONS Medication SIG (Take, Route, Frequency, Duration) Notes Start Date End Date Status Ibuprofen prn Active Fluticasone Furoate prn Active Cetirizine HCl 10 MG 1 tablet Orally Once a day prn Active SUMAtriptan Succinate 25 MG 1 tablet at least 2 hours between doses as needed Orally Twice a day prn Active Gabapentin 100 MG TAKE 1 CAPSULE BY [facility] TWICE A DAY Oral twice daily for 30 days Active Wegovy 1.7 MG/0.75ML 1.7 mg Subcutaneous weekly for 30 days Active traMADol HCl 50 MG 1 tablet as needed O rally Once a day prn Active SOCIAL HISTORY Tobacco Use: Social History Observation Description Date Details (start date - stop date) Never Smoker NA - NA Sex Assigned At : Social History Observation Description Sex Assigned At Unknown Tobacco Use/Smoking Question Answer Notes Are you a nonsmoker Section Notes: alcohol: denies tob: denies drug: denies VITAL SIGNS Blood pressure systolic 118 mm Hg 11/02/19 25 Blood pressure diastolic 66 mm Hg 025 Heart Rate 76 /min 11/01/2024 Height 63 in 11/01/2024 Weight 157.0 lbs 11/01/2024 BMI 27.81 kg/m2 11/01/2024 Oximetry 97 % 11/01/2024 Encounters Encounter Location Date Provider Diagnosis [facility] [address] [place] [address] 11/01/2024 GOGO CURRY Over weight E66.3 ; BMI 27.0-27.9,adult Z68.27 ; Migraine without aura, intractable, with status migrainosus G43.011 ; Low back pain, unspecified M54.50 ; Other depression F32.89 and Dietary counseling and surveillance Z71.3 ASSESSMENTS Encounter Date Diagnosis Assessment Notes Treatment Notes Treatment Clinical Notes Section Notes 11/01/2024 Over weight (ICD-10 - E66.3) Melany [...] her appetite has increased. Appeal pending through [employer] for Wegovy 1.7 mg. She will start [...] increased appetite. Discussed Contrave as semaglutide/tirzepati de [id number] is too costly. Patient is willing. Discussed [...] 4 pounds of fat. Zepbound declined because [employer] does not cover the medication, she has [...] Dictation was accomplished with the use of [employer] voice recognition software, prone to medical misidentifications [...] her appetite has increased. Appeal pending through [employer] for Wegovy 1.7 mg. She will start [...] increased appetite. Discussed Contrave as semaglutide/tirzepati de [id number] is too costly. Patient is willing. Discussed [...] 4 pounds of fat. Zepbound declined because [employer] does not cover the medication, she has [...] or concerns. Case discussed with collaborating physician Koyd Duarte who reviewed the assessment and plan. Chart, medications, labs, vital signs reviewed. Dictation was accomplished with the use of [employer] voice recognition software, prone to medical misidentifications [...] her appetite has increased. Appeal pending through [employer] for Wegovy 1.7 mg. She will start [...] increased appetite. Discussed Contrave as semaglutide/tirzepati de zov-lo-hybohn is too costly. Patient is willing. Discussed [...] 4 pounds of fat. Zepbound declined because [employer] does not cover the medication, she has [...] Dictation was accomplished with the use of [employer] voice recognition software, prone to medical misidentifications [...] her appetite has increased. Appeal pending through [employer] for Wegovy 1.7 mg. She will start [...] increased appetite. Discussed Contrave as semaglutide/tirzepati de mis-oh-tqaefg is too costly. Patient is willing. Discussed [...] 4 pounds of fat. Zepbound declined because [employer] does not cover the medication, she has [...] Dictation was accomplished with the use of [employer] voice recognition software, prone to medical misidentifications [...] her appetite has increased. Appeal pending through [employer] for Wegovy 1.7 mg. She will start [...] increased appetite. Discussed Contrave as semaglutide/tirzepati de dwg-ce-whvvuw is too costly. Patient is willing. Discussed [...] 4 pounds of fat. Zepbound declined because [employer] does not cover the medication, she has [...] Dictation was accomplished with the use of [employer] voice recognition software, prone to medical misidentifications [...] her appetite has increased. Appeal pending through [employer] for Wegovy 1.7 mg. She will start [...] increased appetite. Discussed Contrave as semaglutide/tirzepati de pko-kh-fdnuke is too costly. Patient is willing. Discussed [...] 4 pounds of fat. Zepbound declined because [employer] does not cover the medication, she has [...] Dictation was accomplished with the use of [employer] voice recognition software, prone to medical misidentifications [...] CURRY, 12/20/2024 02:45:00 PM, [address], [place], [address], Progress Notes * Tripp PACEOB:[birth year] (48 yo F)Acc No.[id number]:11/01/2024 Patient:??Melany PACE Provider:??GOGO ANDERSON PA-C :1975?Age:48 Y?Sex:Fe male Date:11/01/2024 Address:[address] [place] [address] , [place], [place]-[id number] Subjective: * Chief Complaints: * ?1. Patient is here for weight management visit. * HPI: ?Constitutional:? Melany is a pleasant 48-year-old female who presents the office for a weight management follow-up. Currently, taking Wegovy 1.7 mg with compliance, without any side effects. Last seen 09/27/2024. Patient's weight at that time 161 pounds, BMI. Today weights 156.97 lb and BMI 26.94. Patient states she feels good on this dose, has improved her protein intake. Sadly reports she lost her friend a few weeks ago which negatively impacted her motivation to exercise and eat. States she ate less frequently but maintained her protein intake. Would like to work on fiber intake, reports colonoscopy last week and 1 bowel movement since. States she is feeling much more motivated and happier this week. * ROS:?Constitutional: no weight loss, no fever, [...] ???drug: denies. * Medications:??Taking Ibuprof en , Notes to Pharmacist: prn, Taking Cetirizine HCl 10 MG Tablet 1 [...] daily , Taking Wegovy 1.7 MG/0.75ML Solution Auto- injector 1.7 mg Subcutaneous weekly , Medication List reviewed and reconciled with the patient * Allergies:??Bactrim. Objective: * Vitals:??HR:76/min, BP:118/6 6mm Hg, Wt:157.0lbs, BMI:27.81Index, Ht: 63 in, Oxygen sat %:97%. * Physical Examination:?General: Age appropriate female, well [...] Assessment: 1.??Over weight - E66.3 (Shaneka serra)??2.??BMI 27.0-27.9,adult - Z68.27??3.??Migraine without aura, intractable, with status migrainosus - G43.011??4.??Low back pain, unspecified - M54.50??5.??Other depression - F32.89??6.??Dietary counseling and surveillance - Z71.3?? Melany Is a 48-year-old fem joyce who [...] her appetite has increased. Appeal pending through [employer] for Wegovy 1.7 mg. She will start [...] more increased appetite. Discussed Contrave as semaglutide/tirzepatide kop-or-efsnfp is too costly. Patient is willing. Discussed [...] 4 pounds of fat. Zepbound declined because [employer] does not cover the medication, she has [...] Dictation was accomplished with the use of [employer] voice recognition software, prone to medical misidentifications and grammatical errors. This is unintentional and the practitioner does try to identify and correct these, but some could still be present. Please do not hesitate to contact practitioner for clarification. Plan: * Treatment: * Procedure Codes:??80901 P/M PLANT ASSIGNER, INDIV 15 MIN, Modifiers: 33 , SA * Images: Billing Information: * Visit Code:?? 67817 Office Visit, Est Pt., Level 3. Modifiers: 25, SA * Procedure Codes:?? 90172 P/M PLANT ASSIGNER, INDIV 15 MIN. Modifiers: 33, SA * Sign off status: Completed true * Provider:??GOGO ANDERSON PA-C Date:??10/07 History and Physical Notes * HPI (History of Present Illness) Category Sub-Category Detail Notes Category Not es Constitutional Melany is a pleasant 48-year-old female who presents the office for a weight management follow-up. Currently, taking Wegovy 1.7 mg with compliance, without any side effects. Last seen 09/27/2024. Patient's weight at that time 161 pounds, BMI. Today weights 156.97 lb and BMI 26.94. Patient states she feels good on this dose, has improved her protein intake. Sadly reports she lost her friend a few weeks ago which negatively impacted her motivation to exercise and eat. States she ate less frequently but maintained her protein intake. Would like to work on fiber intake, reports colonoscopy last week and 1 bowel movement since. States she is feeling much more motivated and happier this week. Physical Examination Category Sub-Category Detail Notes Section [...]
== END 2024-11-06 13:16 | disposition home or self-care (01) ==
LOC: HO.US 13:15
PROVIDERS: PCP Family Medicine; Visit Provider Obstetrics & Gynecology
DX: N83.299 Other ovarian cyst, unspecified side (principal); D21.9 Benign neoplasm of connective and other soft tissue, unspecified
CPT/HCPCS: 76830; 76856

== ENCOUNTER → 2024-11-06 13:21 | Outpatient (BNV) | payer OTHER, SELFPAY | PROVIDERS: PCP Family Medicine; Visit Provider Radiology Diagnostic Radiology | DX: N83.201 Unspecified ovarian cyst, right side (principal); N83.202 Unspecified ovarian cyst, left side; D25.9 Leiomyoma of uterus, unspecified | CPT/HCPCS: 76830; 76856 ==

== ENCOUNTER 2024-11-20 14:51 | Outpatient (AMB) | payer OTHER, SELFPAY ==
--- NOTE | 2024-11-20 14:52 | MHC.OFFVIS ---
Intake Visit Reasons: US Follow up Allergies sulfamethoxazole [From Bactrim] Allergy (Severe, Verified 10/19/24 09:47) Hives trimethoprim [From Bactrim] Allergy (Severe, Verified 10/19/24 09:47) Hives Seasonal Allergies Allergy (Unknown, Verified 10/19/24 09:47) Unknown HPI Comments Details: The patient scheduled telehealth visit for follow-up ultrasound which showed the following: Uterus: The uterus is normal in size, measuring 8.8 x 6.0 x 6.9 cm. Myometrium has a normal echotexture. Again seen is a posterior fibroid measuring 3.0 x 2.4 x 2.9 cm (previously 3.6 x 2.7 x 3.1 cm). A new anterior fibroid is noted measuring 1.5 x 1.3 x 1.4 cm. Endometrium: The endometrial stripe measures 2 mm in thickness. An IUD is noted in the expected position in the endometrial cavity. Right ovary: The right ovary measures 3.4 x 1.7 x 1.9 cm. The right ovary is normal in size and echotexture. There is a 1.3 x 0.9 x 1.3 cm right ovarian cyst. Left ovary: The left ovary measures 4.1 x 2.1 x 2.6 cm. The left ovary is normal in size and echotexture. There is a 2.5 x 1.7 x 1.9 cm left ovarian cyst. Pelvic fluid: There is a small amount of free fluid in both adnexal regions. There are prominent vessels in both adnexal regions. The patient was seen for AUB 07/01 the following workup was done: H&H= 13/38.3 TSH, prolactin, GC and chlamydia were negative. Co testing was done in 11/26 was negative. Mammogram was done in 05/31 BI-RADS2 [facility] Medical History Lipoma of arm Seasonal allergies Epidermal inclusion cyst Surgical History History of bilateral breast reduction surgery (~1998) Family History Mother History of cervical cancer Maternal Aunt History of bone cancer Other History of breast cancer Social History Are you a primary vision care associate to a significant other at home: No Do you presently have visiting nurse or other home services: No Alcohol intake: never Patient Tobacco Use Status: Never used Tobacco Second Hand Smoke Exposure: No Female Reproductive History Menstrual Age of Menarche: 12 Review of Systems Const All systems reviewed & are unremarkable except as noted in HPI and below Reports as per HPI and Reports no additional complaints GI Reports no additional complaints Reports no additional complaints Telehealth Telehealth Telehealth Platform: Telephone Location of provider rendering services: practice address Location of patient: address on file Patient Identification confirmed using: Name, : Yes Telehealth method: video Patient verbally consented to treatment: Yes Patient verbally consented to billing insurance company: Yes Patient informed of any privacy concerns related to visit: Yes Minutes spent on Phone/Video with Pt.: 5 Assessment & Plan Assessment & Plan (1) Complex ovarian cyst: Comment: Bilateral hemorrhagic cyst by pelvic MRI Code(s): N83.299 - Other ovarian cyst, unspecified side Category: Medical Plan: Discussed with the patient ultrasound findings showing the previously identified complex cysts has resolved. The patient was instructed to call if symptoms recur. All questions were answered the patient verbalized understanding. (2) Uterine myoma: Code(s): D25.9 - Leiomyoma of uterus, unspecified Category: Medical Plan: Discussed with the patient the findings on pelvic ultrasound & the risk of myosarcoma; in addition reviewed with the patient that malignancy and pre malignancy cannot be ruled out without hysterectomy for pathological evaluation ; furthermore, explained to the patient the limitation of pelvic ultrasound and endometrial biopsy in the setting. Discussed with the patient the options of treatment including expectant management versus hysterectomy; the pros and cons, risks benefits of each approach were discussed with the patient including the fact that in cases of myosarcoma, surgical treatment can lead to early diagnosis and positively affects the prognosis; after further discussion, the patient decided to proceed with expectant management. Will repeat pelvic ultrasound periodically. Instructions given to patient to call in case any of the following occurs: pressure symptoms, abnormal uterine bleeding, pelvic pain; and to schedule a 12 months pelvic ultrasound (order placed) and a follow-up appointment . All questions answered, the patient verbalized understanding and agreed with the plan . (3) Abnormal uterine bleeding: Comment: With Mirena IUD Code(s): N93.9 - Abnormal uterine and vaginal bleeding, unspecified Category: Medical Plan: Recommended EMB and co testing to complete the workup for AUB check the results and treat accordingly. All questions answered, the patient verbalized understanding I spent a total of 20 minutes reviewing the chart, talking to the patient via video and documenting in the medical record. Orders: Orders US pelvic and transvaginal 12 Months D25.9 - Leiomyoma of uterus, unspecified Coding Level of Care Code Tele Est Pt Level 3 (70197) Diagnoses Complex ovarian cyst N83.299 Uterine myoma D25.9 Abnormal uterine bleeding N93.9
--- OUTSIDE RECORDS SUMMARY | 2024-11-20 18:07 | XMS_ITS | Encounter Summary ---
Author Organization [employer] Address [address] [facility] [address] [place] [address] Care Team Providers Care Gasket Notcher Name Role Phone Libia Kerr MD Primary Care Provider [phone] Mihaela Rivera MD Unavailable [phone] Reason for Visit * Reason Comments Med Refill Encounter Details Date Type Department Care Team (Late st Contact Info) Description 09/21/2023 Refill [facility] [address] [place], [place] [phone] Libia Kerr MD [address] [place], [place] [phone] Acute pharyngitis, unspecified etiology Social History Tobacco Use Types Packs/Day Years Used Date Smoking Tobacco: Never Smokeless Tobacco: Never Alcohol Use Standard Drinks/Week Comments Never 0 (1 standard drink = 0.6 oz pur e alcohol) Housing Stability Answer Date Recorded What is your housing situation today? I have housing today, but I am worried about losing housing in the future 06/06/[address] you li ve. Do you have problems with any of the following? None of the above 06/06/2023 Food Insecurity Answer Date Recorded Within the past 12 months, y ou worried that your food would run out before you got money to buy more: Never True 06/06/2023 Within the past 12 months,th e food you bought just didn't last and you didn't have enough money to get more: Never True Transportation Answer Date Recorded In the past 12 months, has l ack of transportation kept you from medical appts, meetings, work or from getting things needed for daily living? No 06/06/2023 Utilities Answer Date Recorded In the past 12 months, has t he electric, gas, oil or water company threatened to shut off services in your home? No 06/06/2023 Depression Answer Date Recorded Patient Health Questionnaire-2 Score 0 08/12/2022 Comments Unknown Sex and Gender Information Value Date Recorded Sex Assigned at Female 06/07/2022 10:15 AM EDT Legal Sex Female 10:15 AM EDT Gender Identity Female 06/07/2022 10:15 AM EDT Sexual Orientation Straight 06/07/2022 10 :15 AM EDT documented as of this encounter Plan of Treatment Not on file documented as of this encounter Visit Diagnoses Diagnosis Acute pharyngitis, unspecified etiology documented in this encounter Care Teams Gasket Notcher Relationship Specialty Start Date End Date Libia Kerr MD [address] [place] [id number] PCP - General Family Medicine 03/27/18 Mihaela Rivera MD [address] [place] [address] 3rd [place] [address] Gastroenterology 10/22/24 documented as of this encounter
--- OUTSIDE RECORDS SUMMARY | 2024-11-20 18:07 | XMS_ITS | Encounter Summary ---
Author Organization [email or web address] Address [address] [facility] [address]t [place] [address] Care Team Providers Care Language Assistant Name Role Phone Libia Kerr MD Primary Care Provider [phone] Mihaela Rivera MD Unavailable [phone] Encounter Details Date Type Department Care Team (Late st Contact Info) Description 10/26/2023 Orders Only [facility] [address] [place], [place] [phone] Libia Kerr MD [address] [place] [address] Social History Tobacco Use Types Packs/Day Years [...] documented as of this encounter Visit Diagnoses Not on filedocumented in this encounter Care Teams Language Assistant Relationship Specialty Start Date End Date Libia Kerr MD [address] [place] [address] PCP - General Family Medicine 03/27/18 Mihaela Rivera MD [address] [place] [address] 3rd [place] [address] Gastroenterology 10/22/24 documented as of this encounter
--- OUTSIDE RECORDS SUMMARY | 2024-11-20 18:07 | XMS_ITS | Encounter Summary ---
Author Organization [employer] Address [address] [place] [address] [address] [place] [address] Care Team Providers Care Oil Gauger Name Role Phone Libia Kerr MD Primary Care Provider [phone] Mihaela Rivera MD Unavailable [phone] Encounter Details Date Type Department Care Team (Latest Contact Info) Description 10/05/2018 Abstract [facility] CONVERSIONS Dental, Provider, DDS Social History Tobacco Use Types Packs/Day Years Used Date Smoking Tobacco: Never Assessed Comments Unknown Sex and Gender Information Value [...] on filedocumented in this encounter Care Teams Oil Gauger Relationship Specialty Start Date End Date Libia Kerr MD [address] [place] [address] PCP - General Family Medicine 03/27/18 Mihaela Rivera MD [address] [place] [address] [address] [place] [address] Gastroenterology 10/22/24 documented as of this encounter
--- OUTSIDE RECORDS SUMMARY | 2024-11-20 18:07 | XMS_ITS | Encounter Summary ---
Author Organization [employer] Address [address] [facility] [address]t [place] [address] Care Team Providers Care Car Clerk Pullman Name Role Phone Libia Kerr MD Primary Care Provider [phone] Mihaela Rivera MD Unavailable [phone] Reason for Visit * Reason Onset Date Comments Med Refill 07/26/2024 Encounter Details Date Type Department Care Team (Late st Contact Info) Description 07/26/2024 Refill [facility] [address] [place], [place] [phone] Libia Kerr MD [address] [place], [place] [phone] Social History Tobacco Use Types Packs/Day Years Used Date Smoking Tobacco: Never Smokeless Tobacco: Never Alcohol Use Standard Drinks/Week Comments Never 0 (1 standard drink = 0.6 oz pur e alcohol) Depression Answer Date Recorded Patient Health Questionnaire-9 Score 4 06/12/2024 Patient Health Questionnaire-9 Score 4 06/12/2024 Last PHQ-9: Questionnaire Data Not on file 1 08/12/2023 Housing Stability Answer Date Recorded What is your housing situation today? I have justina ramesh 06/12/[address] you li ve. Do you have problems with any of the following? None of the above 06/12/2024 Food Insecurity Answer Date Recorded Within the past 12 months, y ou worried that your food would run out before you got money to buy more: Never True 06/12/2024 Within the past 12 months,th e food you bought just didn't last and you didn't have enough money to get more: Never True 12/2023 Transportation Answer Date Recorded In the past 12 months, has l ack of transportation kept you from medical appts, meetings, work or from getting things needed for daily living? No 06/12/2024 Utilities Answer Date Recorded In the past 12 months, has t he electric, gas, oil or water company threatened to shut off services in your home? No 06/12/2024 Depression Answer Date Recorded Patient Health Questionnaire-2 Score 0 06/12/2024 Internet Access Answer Date Recorded Internet Access Q1 Yes 06/12/2024 Internet Access Q2 Not on file 06/12/2024 Comments Unknown Sex and Gender Information Value Date Recorded Sex Assigned at Female 06/07/2022 10:15 AM EDT Legal Sex Female 10:15 AM EDT Gender Identity Female 06/07/2022 10:15 AM EDT Sexual Orientation Straight 06/07/2022 10 :15 AM EDT documented as of this encounter Plan of Treatment Not on file documented as of this encounter Visit Diagnoses Not on filedocumented in this encounter Additional Health Concerns Assessment Noted Time PHQ-9 Depression Total Score: 4 06/12/20 24 11:45 AM EST documented as of this encounter Care Teams Car Clerk Pullman Relationship Specialty Start Date End Date Libia Kerr MD [address] [place] [address] PCP - General Family Medicine 03/27/18 Mihaela Rivera MD [address] [place] [address] [address] [place] [address] Gastroenterology 10/22/24 documented as of this encounter
--- OUTSIDE RECORDS SUMMARY | 2024-11-20 18:07 | XMS_ITS | Clinical Summary ---
Author Organization [employer] Address [address] [facility] [address] [place] [address] Care Team Providers Care Dock Pumper Name Role Phone Libia Kerr MD Primary Care Provider [phone] Mihaela Rivera MD Unavailable [phone] Allergies Active Allergy Reactions Criticality Noted Date Comments Sulfamethoxazole Fever 06/04/2019 Sulfamethoxazole-Trimethoprim 2022 Other reaction(s): Unknown Trimethoprim Fever 06/04/2019 Medications tretinoin (Retin-A) 0.05 % cream Apply 0.05 application topically at bed time. 08/13/19 20 Active Wegovy 0.25 MG/0.5ML solution auto-injectorIn dications:Class 1 obesity due to excess calories without serious comorbidity with body mass index (BMI) of 30.0 to 30.9 in adult INJECT ONE PEN (=0.25MG) SUBCUTANEOUSLY ONCE A WEEK DIRECTED 06/04/20 24 Active gabapentin (Neurontin) 100 MG capsuleIndicati ons:Neuropathic pain Take 1 tab po bid 60 capsule 2 06/12/20 24 Active ibuprofen 800 MG tablet TAKE 1 TABLET (800 MG) BY MOUTH EVERY 8 (EIGHT) HOURS IF NEEDED FOR MODERATE PAIN OR FEVER. 90 tablet 07/26/20 24 Active LORazepam (Ativan) 0.5 MG tabletIndicatio ns:Insomnia, unspecified type Take 1 tab po at bedtime prn insomnia/anxiety, may repeat once after 1 hour 20 tablet 10/12/19 25 Active Active Problems Problem Noted Date Diagnosed Date Solar dermatitis 07/26/2024 Complex ovarian cyst 07/26/2024 Overview (08/09/2024): -US 06/18/[address] Padron for abnormal uterine bleeding revealed 2.3 cm complex cystic lesion, left ovary. Endometrioma versus benign and or malignant lesions should be considered. No ovarian torsion. 3.6 cm uterine fibroid. -Note from Dr. Padron 07/26/24 Pelvic MRI ordered to be done CRIS. -MRI reveals small uterine fibroids -bilateral ovarian hemorrhagic cysts. Follow up us in 6 months Abnormal uterine bleeding 06/14/2024 Overview (06/14/2024): -IUD in place now with bleeding after years of amenorrhea - seen 08/14/[address] PadronGC and chlamydia taken CBC, TSH, prolactin, HCG, and pelvic ultrasound ordered. Instructed the patient to schedule an appointment for an endometrial biopsy in 2 weeks. Intractable headache 06/12/2024 Overview (06/12/2024): 48 year old woman with no significant past medical history present with neuropathic pain over entire body with feeling hot in joints and associated headaches since 06/07/24 (6 days). No triggers identified. Exam normal except tenderness and low grade temp. Will check labs (see orders) and trial of gabapentin. -ER precautions discussed -Follow up with me this week Total body pain 06/12/2024 Colon cancer screening 09/14/2023 Overview (10/22/2024): -incomplete colonoscopy with Dr. Rivera 10/20/24, hyperplastic polyp - 10/20/24CT/CT colonography IMPRESSION: Mild to moderate distention of colon without any obstructive etiology, intraluminal filling defect or mural thickening.Rest of the CT abdomen and pelvis without contrast is unremarkable. Preventative health care 06/14/2023 Overview (08/25/2023): -next physical exam due after -eye care facilitated by -dental home is -health care proxy paperwork given 08/25/2023 Assessment & Plan (08/25/2023 9:02 AM EST): -next physical exam due after -eye care facilitated by -dental home is PHYLLIS (obstructive sleep apnea) 06/14/2023 Overview (06/14/2023): -mild PHYLLIS on sleep study 11/2022 -followed by Sleep Medicine Assessment & Plan (08/25/2023 9:02 AM EST): -mild PHYLLIS on sleep study 11/2022 -followed by Sleep Medicine Class 2 obesity 10/08/2022 Assessment & Plan (10/08/2022 11:44 AM EST): Pt highly motivated to loss weight. Has done multiple interventions both surgical and medical in past (see HPI). Recommend GLP1 rx. Comorbid condition of back pain, severe. -semaglutide 0.25mg subcutaneous weekly for 4 weeks then reassess and increase as tolerated IUD (intrauterine device) in place 08/11/2022 Overview (08/11/2022): -Mirena placed with Dr. Padron 04/14/2021, removal date due 04/2028 Assessment & Plan (08/25/2023 9:02 AM EST): -Mirena placed with Dr. Padron 04/14/2021, removal date due 04/2028 Assessment & Plan (08/11/2022 5:40 PM EST): -Mirena placed with Dr. Padron 04/14/2021, removal date due 04/2028 Vitamin D deficiency 02/19/2022 Resolved Problems Problem Noted Date Diagnosed Date Resolved Date Acute URI 08/25/2023 06/23/2024 Acute pharyngitis 08/25/2023 06/23/2024 Overview (08/25/2023): -differential include post nasal drip vs strep pharyngitis vs other. No evidence of abscess, no evidence of thrush Assessment & Plan (08/25/2023 9:35 AM EST): -differential include post nasal drip vs strep pharyngitis vs other. No evidence of abscess, no evidence of thrush Acute low back pain 10/08/2022 06/23/20 24 Assessment & Plan (10/08/2022 9:59 AM EST): Referred to back specialist and Pt. Due to weight. Encounters Date Type Department Care Team Description 11/06/2024 Orders Only [facility] External Provider, [facility] 10/19/2024 Orders Only GENERIC EXTERNAL DATA DEPARTMENT Provider, Generic External Data Colon cancer screening (Primary Dx) 10/11/2024 Orders Only [facility] [address] [place] [address] Libia Kerr MD Insomnia, unspecified type (Primary Dx) from Last 3 Months Immunizations Name Administration Dates Next Due Influenza Injectable Quadriv alant Preservative Free IIV4 MDCK 04/28/2023,04/22/2022,04/23/2021,2019 Influenza injectable quadriv alent IIV4 with preservative 04/18/2019,04/19/2018 Influenza, seasonal, injecta ble, preservative free 04/27/2024 Moderna Covid-19 Vaccine 12+ 07/27/2021,09/01/19,08/04/2020 Moderna Covid-19 Vaccine 6+ Bivalent 09/10/2022 Tdap 07/29/2022,07/06/2012 Family History Medical History Relation Name Comments Cervical cancer Mother Relation Name Status Comments Mother Social History Tobacco Use Types Packs/Day Years Used Date Smoking Tobacco: Never Smokeless Tobacco: Never Tobacco Cessation:Counseling Given: Not Answered Alcohol Use Standard Drinks/Week Comments Never 0 (1 standard drink = 0.6 oz pur e alcohol) Depression Answer Date Recorded Patient Health Questionnaire-9 Score 4 06/12/2024 Patient Health Questionnaire-9 Score 4 06/12/2024 Last PHQ-9: Questionnaire Data Not on file 1 08/12/2023 Housing Stability Answer Date Recorded What is your housing situation today? I have justina chandler 06/12/[address] you li [...] Orientation Straight 06/07/2022 10 :15 AM EDT Last Filed Vital Signs Vital Sign Reading Time Taken Comments Blood Pressure 111/72 06/23/2024 10:26 AM EST Pulse 88 06/23/2024 10:26 AM EST Temperature 34.9 ??C (94.9 ??F) 06/23/2024 10:[address] Respiratory Rate 16 06/23/2024 10:26 AM EST Oxygen Saturation 100% 06/23/2024 10:26 AM EST Inhaled Oxygen Concentration - - Weight 78.7 kg (173 lb 9.6 oz) 06/23/2024 10:26 AM EST Height 162.6 cm (5' 4 ) 06/23/2024 10:26 AM EST Body Mass Index 29.8 06/23/2024 10:26 AM EST Plan of Treatment Health Maintenance Due Date Last Done Comments FIT 1975 FOBT 1975 Lipid Panel 1975 Sigmoidoscopy 1975 Family Planning (PISQ) 1989 Hepatitis B Vaccines (1 of 3 - 19+ 3-dose series) 1993 Pap Smear 11/07/2023 11/06/2020 COVID-19 Vaccine ( season) 2024 09/10/2022, 07/27/2021, 09/01/2020, Additional history exists Zoster Vaccines (1 of 2) 2024 Alcohol/Substance Use Screening 06/12/2025 06/12/2024 Depression Screening 06/12/2025 06/12/2024, 06/12/20 SDOH Screening 06/12/2025 06/12/2024 Tobacco Screening 06/12/2025 06/12/2024 Cervical Cancer Screening 11/06/2025 HPV/Cotest 11/06/2025 11/06/2020, 04/0 08/2020, 11/06/2020 Mammogram 05/11/2026 05/11/2024, 09/16/2017 FIT DNA/Cologuard 11/23/2026 11/24/2023 CT Colonography 10/19/2029 10/19/2024 DTaP/Tdap/Td Vaccines (3 - Td or Tdap) 07/29/2032 07/29/2022, 07/06/2012 Colonoscopy 10/19/2034 10/19/2024 Colorectal Cancer Screening 10/19/2034 RSV Patients and Patients Aged 60 years or older (1 - 1-dose 75+ series) 2049 HIV Screening Completed 11/06/2020, 11/06/2020 Hepatitis C Screening Completed 06/21/2021 Influenza Vaccine Completed 04/27/2024, , 04/22/2022, Additional history exists HIB Vaccines Aged Out No longer eligi ble based on patient's age to complete this topic HPV Vaccines Aged Out No longer eligi ble based on patient's age to complete this topic Hepatitis A Vaccines Aged Out No long er eligible based on patient's age to complete this topic IPV Vaccines Aged Out No longer eligi ble based on patient's age to complete this topic Meningococcal Vaccine Aged Out No odalis cadence eligible based on patient's age to complete this topic Pneumococcal Vaccine: Pediatrics (0 to 5 Years) and At-Risk Patients (6 to 49) Years) Aged Out No longer eligible based on patient's age to complete this topic RSV under 20 months Aged Out No longe r eligible based on patient's age to complete this topic Rotavirus Vaccines Aged Out No longer eligible based on patient's age to complete this topic Procedures Procedure Name Priority Date/Time Associated Diagnosis Comments US PELVIS TRANSVAGINAL Routine 1:[address] COLONOGRAPHY SCREENING Routine 10/19/2024 4:24 PM EDT HEMATOXYLIN AND EOSIN STAIN Routine 10/19/2024 11:14 AM EDT Colon cancer screening HCG, QL, URINE Routine 10/19/2024 9:30 AM EDT HM COLONOSCOPY Routine 10/19/2024 BI MAMMOGRAM SCREENING TOMOSYNTHESIS BILATERAL Routine 05/11/2024 3:22 PM EDT HEPATITIS C AB W/REFL TO HCV RNA, QN, PCR Routine 06/21/2021 HIV 1/2 ANTIGEN/ANTIBODY, FOURTH GENERATION W/RFL Routine 11/06/2020 HPV HIGH RISK PCR Routine 11/06/2020 12: 00 AM EDT PAP SMEAR Routine 11/06/2020 12:00 AM EDT from Last 3 Months or Most Recently Relevant to Health Maintenance Results * US Pelvis Transvaginal (11/06/2024 1:35 PM EDT) Anatomical Region Laterality Modality Pelvis Ultrasound 11/06/2024 1:35 PM EDT Narrative 11/07/2024 7:26 AM EDT ? [facility] ?[address] ?[place] [address] ? Ultrasound Report ? Signed ? Patient: Quintana Barnard,Melany ?MR#: MM ?? [id number] ? : 1975 ?Acct:[id number] ? Age/Sex: 48 / F ?ADM Date: 04/01/25 ? Loc: HO.US ? Attending Dr: Gary Padron MD ? Ordering Physician: Gary Padron MD ?? Date of Service: 11/06/24 ?? Procedure(s): US pelvic and transvaginal ?? Accession Number(s): [id number] ? cc: Libia Kerr MD; Gary Padron MD ? EXAMINATION: ??US PELVIS TRANSABDOMINAL AND TRANSVAGINAL ? HISTORY: N83.299 - Other ovarian cyst, unspecified side ? COMPARISON: Comparison is made with the prior examination dated ?? 06/18/2024. ? TECHNIQUE: ? Transabdominal and endovaginal real-time 2D abdi-scale ultrasound was ?? performed. ? FINDINGS: ? Uterus: ??The uterus is normal in size, measuring 8.8 x 6.0 x 6.9 cm. ? Myometrium has a normal echotexture. ??Again seen is a posterior fibroid ?? measuring 3.0 x 2.4 x 2.9 cm (previously 3.6 x 2.7 x 3.1 cm). A new ?? anterior fibroid is noted measuring 1.5 x 1.3 x 1.4 cm. ? Endometrium: ??The endometrial stripe measures 2 mm in thickness. An IUD ?? is noted in the expected position in the endometrial cavity. ? Right ovary: ??The right ovary measures 3.4 x 1.7 x 1.9 cm. ??The right ?? ovary is normal in size and echotexture. There is a 1.3 x 0.9 x 1.3 cm ?? right ovarian cyst. ? Left ovary: ?? The left ovary measures 4.1 x 2.1 x 2.6 cm. ??The left ?? ovary is normal in size and echotexture. There is a 2.5 x 1.7 x 1.9 cm ?? left ovarian cyst. ? Pelvic fluid: There is a small amount of free fluid in both adnexal ?? regions. ? There are prominent vessels in both adnexal regions. ? US/US pelvic and transvaginal ?? IMPRESSION: ?? Fibroid uterus as described. Bilateral ovarian cysts. ? Electronically signed by: ??Zaki Dowd MD ??11/07/2024 07:22 AM EDT ?? RP ? Dictated By: ?Zaki Dowd MD ? Signed By: ?<Electronically signed by Zaki Dowd MD in OV> ?11/07/24721 ? DD/ 34 ? TD/TT: 11/06/24 1356 ? Experimental Aircraft Mechanic: ? Procedure Note Donotuseinterpreter, Image - 11/07/2024 [place] [address] Ultrasound Report Signed Patient: Nash Soriano#: [id number] : 1975Acct:[id number] Age/Sex: 48 / FADM Date: 11/06/24 Loc: HO.US Attending Dr: Gary Padron MD Ordering Physician: Gary Padron MD Date of Service: 11/06/24 Procedure(s): US pelvic and transvaginal Accession Number(s): [id number] cc: Libia Kerr MD; Gary Padron MD EXAMINATION: US PELVIS TRANSABDOMINAL AND TRANSVAGINAL HISTORY: N83.299 - Other ovarian cyst, unspecified side COMPARISON: Comparison is made with the prior examination dated 06/18/2024. TECHNIQUE: Transabdominal and endovaginal real-time 2D abdi-scale ultrasound was performed. FINDINGS: Uterus: The uterus is normal in size, measuring 8.8 x 6.0 x 6.9 cm. Myometrium has a normal echotexture. Again seen is a posterior fibroid measuring 3.0 x 2.4 x 2.9 cm (previously 3.6 x 2.7 x 3.1 cm). A new anterior fibroid is noted measuring 1.5 x 1.3 x 1.4 cm. Endometrium: The endometrial stripe measures 2 mm in thickness. An IUD is noted in the expected position in the endometrial cavity. Right ovary: The right ovary measures 3.4 x 1.7 x 1.9 cm. The right ovary is normal in size and echotexture. There is a 1.3 x 0.9 x 1.3 cm right ovarian cyst. Left ovary: The left ovary measures 4.1 x 2.1 x 2.6 cm. The left ovary is normal in size and echotexture. There is a 2.5 x 1.7 x 1.9 cm left ovarian cyst. Pelvic fluid: There is a small amount of free fluid in both adnexal regions. There are prominent vessels in both adnexal regions. US/US pelvic and transvaginal IMPRESSION: Fibroid uterus as described. Bilateral ovarian cysts. Electronically signed by: Zaki Dowd MD 11/07/2024 07:22 AM EDT Dictated By: Zaki Dowd MD Signed By: <Electronically signed by Zaki Dowd MD in OV> 11/07/24 0722 DD/ 1335 TD/TT: 11/06/24 1356 Experimental [employer]ic: [facility] External Provider IMG US PROCEDURES Edited Result - Final * CT colonography screening (10/19/2024 4:24 PM EDT) Anatomical Region Laterality Modality Colon Computed Tomogra phy 10/19/2024 4:24 PM EDT Narrative 10/22/2024 9:04 AM EDT ? [facility] ?[address] ?[place] [address] ? CT Scan Report ? Signed ? Patient: Quintana Barnard,Melany ?MR#: MM ?? [id number] ? : 1975 ?Acct:[id number] ? Age/Sex: 48 / F ?ADM Date: 10/19/24 ? Loc: HO.SSS ? Attending Dr: Mihaela Rivera MD ? Ordering Physician: Mihaela Rivera MD ?? Date of Service: 10/19/24 ?? Procedure(s): CT colonography ?? Accession Number(s): [id number] ? cc: Libia Kerr MD; Mihaela Rivera MD ? Report Number: ?? [id number]: Total DLP = ??361.00 mGy-cm ?? EXAMINATION: CT colonography. ? CLINICAL INDICATION: Incomplete colonoscopy. ? COMPARISON: None. ? TECHNIQUE: Following insufflation of gas through a rectal tube, 5 mm ?? thick axial images in supine and prone views were obtained. 3 mm thin ?? sagittal and coronal images were reconstructed for both supine and ?? prone images. ?? This CT examination was performed using dose optimization techniques as ?? appropriate, variously including the following: ?? *Automated exposure control ?? *Adjustment of mA and/or kV according to patient size (this includes ?? techniques or standardized protocols for targeted exams where dose is ?? matched to indication/reason for exam; i.e. extremities or head) ?? *Use of iterative reconstruction technique. ?? DLP: 361 mGy/cm. ? FINDINGS: ? Lung bases: Lung bases are clear heart size is normal. There is no ?? pericardial or pleural effusion. ? Liver, ducts and gallbladder: The liver is normal size, conference ?? density. No focal lesion or intrahepatic ductal dilatation seen. No ?? radiopaque gallstones are wall thickening. ? Spleen: Unremarkable. ? Pancreas: Unremarkable. ? Adrenal glands: Unremarkable. ? Kidneys and ureters: Both kidneys are normal size, shape and position. ?? No radiopaque renal calculi or hydronephrosis. ? GI tract: ? STOMACH: Nondistended and appears unremarkable. ? Small bowel: The small bowel loops are normal caliber. No mural ?? thickening or distention seen. There is no peritoneal thickening or ?? abnormal mesenteric lymph nodes. ? Colon: There is mild to moderate gas seen in the colon without any ?? distention. No mural thickening or intraluminal filling defects seen. ?? The appendix is normal caliber. Sigmoid colon is nondistended. ?? Visualized rectum with a Bee's catheter within appears grossly ?? unremarkable. There is no pericolonic fat stranding. There is no free ?? fluid in the pelvis. No abnormal size pelvic or inguinal lymph nodes. ? Abdominal wall: Unremarkable. ? Pelvis: The uterus is midline with a soft tissue mass along the ?? anterior lower uterine segment roughly measuring 2.4 cm likely fibroid. ?? There is IUD located within the endometrial canal. The right ovary is ?? visualized and appears grossly unremarkable. The left ovary is not ?? well-visualized. ? Lymphovascular structures: The abdominal aorta appears a normal ?? caliber. No abnormal size retroperitoneal or pelvic lymph nodes seen. ? Osseous structures: No aggressive lytic or sclerotic process seen. ? CT/CT colonography ?? IMPRESSION: Mild to moderate distention of colon without any ?? obstructive etiology, intraluminal filling defect or mural thickening. ? Rest of the CT abdomen and pelvis without contrast is unremarkable. ? Electronically signed by: ??Vimal Mcdonenll MD ??10/22/2024 09:01 AM EDT RP ? Dictated By: ?Vimal Mcdonnell MD ? Signed By: ?<Electronically signed by Vimal Mcdonnell MD in OV> ?10/22/24 0901 ? DD/ ? TD/TT: 10/19/24 1624 ? Experimental Aircraft Mechanic: MSM ? Procedure Note Jennifer, Image - 10/22/[address] [place] [address] [address] Scan Report Signed Patient: Nash Soriano#: MM [id number] : 1975Acct:[id number] Age/Sex: 48 / FADM Date: 10/19/24 Loc: HO.[facility] Attending Dr: Mihaela Rivera MD Ordering Physician: Mihaela Rivera MD Date of Service: 10/19/24 Procedure(s): CT colonography Accession Number(s): [id number] cc: Libia Kerr MD; Mihaela Rivera MD Report Number: [id number]: Total DLP = 361.00 mGy-cm EXAMINATION: CT colonography. CLINICAL INDICATION: Incomplete colonoscopy. COMPARISON: None. TECHNIQUE: Following insufflation of gas through a rectal tube, 5 mm thick axial images in supine and prone views were obtained. 3 mm thin sagittal and coronal images were reconstructed for both supine and prone images. This CT examination was performed using dose optimization techniques as appropriate, variously including the following: *Automated exposure control *Adjustment of mA and/or kV according to patient size (this includes techniques or standardized protocols for targeted exams where dose is matched to indication/reason for exam; i.e. extremities or head) *Use of iterative reconstruction technique. DLP: 361 mGy/cm. FINDINGS: Lung bases: Lung bases are clear heart size is normal. There is no pericardial or pleural effusion. Liver, ducts and gallbladder: The liver is normal size, conference density. No focal lesion or intrahepatic ductal dilatation seen. No radiopaque gallstones are wall thickening. Spleen: Unremarkable. Pancreas: Unremarkable. Adrenal glands: Unremarkable. Kidneys and ureters: Both kidneys are normal size, shape and position. No radiopaque renal calculi or hydronephrosis. GI tract: STOMACH: Nondistended and appears unremarkable. Small bowel: The small bowel loops are normal caliber. No mural thickening or distention seen. There is no peritoneal thickening or abnormal mesenteric lymph nodes. Colon: There is mild to moderate gas seen in the colon without any distention. No mural thickening or intraluminal filling defects seen. The appendix is normal caliber. Sigmoid colon is nondistended. Visualized rectum with a Bee's catheter within appears grossly unremarkable. There is no pericolonic fat stranding. There is no free fluid in the pelvis. No abnormal size pelvic or inguinal lymph nodes. Abdominal wall: Unremarkable. Pelvis: The uterus is midline with a soft tissue mass along the anterior lower uterine segment roughly measuring 2.4 cm likely fibroid. There is IUD located within the endometrial canal. The right ovary is visualized and appears grossly unremarkable. The left ovary is not well-visualized. Lymphovascular structures: The abdominal aorta appears a normal caliber. No abnormal size retroperitoneal or pelvic lymph nodes seen. Osseous structures: No aggressive lytic or sclerotic process seen. CT/CT colonography IMPRESSION: Mild to moderate distention of colon without any obstructive etiology, intraluminal filling defect or mural thickening. Rest of the CT abdomen and pelvis without contrast is unremarkable. Electronically signed by: Vimal Mcdonnell MD 10/22/2024 09:01 AM EDT Dictated By: Vimal Mcdonnell MD Signed By: <Electronically signed by Vimal Mcdonnell MD in OV> 10/22/24 0901 DD/ 162 TD/TT: 10/19/24 162 Experimental Aircraft Mechanic: [employer] [facility] External Provider IM CT PROCEDURES Final Result * Hematoxylin and Eosin Stain (10/19/2024 11:14 AM EDT) 10/19/2024 11:1 4 AM EDT 10/19/2024 12:09 PM EDT [facility] - 10/22/2024 1:35 PM EDT ----- ------- Name: Melany Soriano ? Age/Sex: 48/F ? : 1975 Unit#: [id number] ?? Attend Dr: Mihaela Rivera MD ?Re10/19/24 ?Status: DEP SDC ? Location: HO.SSS ?Disch: ? ----- ------- SPEC : [id number] ? RECD: 10/19/24-1208 ? STATUS: ??SOUT ? REQ NUM: [id number] ? MARYANN: 10/19/24-1114 ? SUBM DR: Mihaela Rivera MD ? ENTERED: ??10/19/24-0 ?SP TYPE: Surgical ? OTHR DR: Libia Kerr MD ? ORDERED: ??HE Stain/3, Gross Micro L4 ? Diagnosis ?? Colon, sigmoid, polyp: ??Hyperplastic polyp. ?Clinical History Pre-Op Dx: ??Screening Post-Op Dx: Colon polyp and diverticulosis ?Microscopic Description Microscopic sections reviewed. ? Material Received ?? Sigmoid colon polyp ? Gross Description Received in formalin labeled ?sigmoid colon polyp? is a fragment of pink white soft tissue measuring 0.4 cm in greatest dimension which is wrapped in lens paper and entirely submitted for microscopic examination, 1 piece in cassette A. ??([facility]) Copies To: ?? Libia Kerr MD ?? [facility] ?? [address] ?? [place] [address] ?? [phone] ?? Mihaela Rivera MD ?? [facility] ?? [address] ?? [place] [address] ?? [phone] ----- ------- Signed (signature on file) Hannah Fernandes 10/22/24 1335 ? ----- ------- ? END OF REPORT ? Generic External Data Provider LAB BLOOD ORDERAB LES Final Result Performing Organization Address [facility] de Phone Number [facility] [address] [place] [phone] * HCG, Qualitative, Urine (10/19/2024 9:30 AM EDT) Urine NEGATIVE NEGATIVE [facility] Comment:This test was develo ped to detect early . Falsenegative results may occur after the 5th - 7th week ofpregnancy when using this test method. If clinicallyindicated, consider a serum hCG. 10/19/2024 9:30 AM EDT 10/19/2024 9:38 AM EDT Generic External Data Provider LAB URINE ORDERAB LES Final Result Performing Organization Address [facility] de Phone Number [facility] [address] [place] [phone] * Hm Colonoscopy (10/19/2024) Colonoscopy Normal Normal Historical Provider HEALTH MAINTENANCE Final Result * BI Mammogram Screening Tomosynthesis Bilateral (05/11/2024 3:22 PM EDT) Anatomical Region Laterality Modality Breast Bilateral Mammography 05/11/2024 3:22 PM EDT Narrative 05/23/2024 1:56 PM EDT ? [facility] ? [address] ?[place] [address] ? Mammography Report ? Signed ? Patient: Quintana Barnard,Melany ?MR#: MM ?? [id number] ? : 1975 ?Acct:[id number] ? Age/Sex: 48 / F ?ADM Date: 05/11/24 ? Loc: HO.MAMMO ? Attending Dr: Gary Padron MD ? Ordering Physician: Gary Padron MD ?Results: 2Benign ?? Findings ? Date of Service: 05/11/24 ?Follow Up: 1 Year From Orig ?? inal Mammogram ? Procedure(s): MM tomosynthesis screening BI ?? Accession Number(s): [id number] ? cc: Libia Kerr MD; Gary Padron MD ? EXAMINATION: ?? MM SCREENING DIGITAL BREAST TOMOSYNTHESIS, BILATERAL ? CLINICAL INFORMATION: ? Screening. Asymptomatic. ? COMPARISON: ?? Mammography: Comparison is made with available priors ? TECHNIQUE: ?? Digital breast mammography with tomosynthesis is performed in both the ?? craniocaudal and mediolateral oblique views along with computer-aided ?? detection (CAD). ? FINDINGS: ?? There are scattered areas of fibroglandular density (ACR BI-RADS breast ?? composition Category b). ?? Bilateral reduction mammoplasty changes are stable dating back to 2016. ?? There are no significant masses, abnormal calcifications, or other ?? abnormalities. ? MM/MM tomosynthesis screening BI ?? IMPRESSION: ?? No mammographic evidence of malignancy. ? ASSESSMENT: ? BI-RADS BI-RADS 2 - Benign Findings ? RECOMMENDATION: ?? Routine annual mammography screening. ? 1 year F/U ? This examination should not preclude the clinical evaluation of a ?? suspicious palpable abnormality. ? This patient's information was entered into a reminder system with a ?? target due date for their next mammogram. ? Electronically signed by: ??Arpita Best DO ??05/23/2024 01:52 PM EDT ? Dictated By: ?Aprita Best DO ? Signed By: ?<Electronically signed by Arpita Best, DO in OV> ? 05/23/24 1352 ? DD/ 1522 ? TD/TT: 05/11/24 1545 ? Experimental Aircraft Mechanic: ? Procedure Note Donosvaldoter, Image - 05/23/2024 [facility] [address] [place] [address] Mammography Report Signed Patient: Nash Soriano#: [id number] : 1975Acct:[id number] Age/Sex: 48 / FADM Date: 05/11/24 Loc: HO.MAMMO Attending Dr: Gary Padron MD Ordering Physician: Gary Padron MDResults: 2Benign Findings Date of Service: 05/11/24Follow Up: 1 Year From Orig inal Mammogram Procedure(s): MM tomosynthesis screening BI Accession Number(s): [id number] cc: Libia Kerr MD; Gary Padron MD EXAMINATION: MM SCREENING DIGITAL BREAST TOMOSYNTHESIS, BILATERAL CLINICAL INFORMATION: Screening. Asymptomatic. COMPARISON: Mammography: Comparison is made with available priors TECHNIQUE: Digital breast mammography with tomosynthesis is performed in both the craniocaudal and mediolateral oblique views along with computer-aided detection (CAD). FINDINGS: There are scattered areas of fibroglandular density (ACR BI-RADS breast composition Category b). Bilateral reduction mammoplasty changes are stable dating back to 2015. There are no significant masses, abnormal calcifications, or other abnormalities. MM/MM tomosynthesis screening BI IMPRESSION: No mammographic evidence of malignancy. ASSESSMENT: BI-RADS BI-RADS 2 - Benign Findings RECOMMENDATION: Routine annual mammography screening. 1 year F/U This examination should not preclude the clinical evaluation of a suspicious palpable abnormality. This patient's information was entered into a reminder system with a target due date for their next mammogram. Electronically signed by: Arpita Best DO 05/23/2024 01:52 PM EDT RP Dictated By: Arpita Best DO Signed By: <Electronically signed by Arpita Best DO in OV> 05/23/24 1352 DD/ 1522 TD/TT: 05/11/24 1545 Experimental Aircraft Mechanic: Result [facility] External Provider IMG BI PROCEDURES Final Result * Hepatitis C Antibody with Reflex to HCV, RNA, Quantitative, Real-Time PCR (06/21/2021) Blood Venous blood specimen / Unknown 06/21/2021 Result [facility] Libia Kerr MD LAB BLOOD ORDERABLES Final Result * HPV High Risk PCR (11/06/2020 12:00 AM EDT) Swab Cervical swab / Unknown Result [facility] Gary Padron MD LAB MICROBIOLOGY - GENERAL ORDER GREGORIO Final Result [facility] [address] [place] [phone] * HIV-1/2 Antigen and Antibodies, Fourth Generation, with Reflexes (11/06/2020) Blood Venous blood specimen / Unknown 11/06/2020 Result [facility] Libia Kerr MD LAB BLOOD ORDERABLES Final Result * Pap Smear (11/06/2020 12:00 AM EDT) Swab Result [facility] Gary Padron MD LAB CYTOLOGY ORDERABLES Final Re sult [facility] [address] [place] [address] [phone] from Last 3 Months or Most Recently Relevant to Health Maintenance Insurance [facility] , [address] [place] [address] Care Teams Dock Pumper Relationship Specialty Start Date End Date Cirilo, MD Libia [address] [place] [address] PCP - General Family Medicine 03/27/18 Mihaela Rivera MD [address] [place] [address] 3rd [place] [address] Gastroenterology 10/22/24
--- OUTSIDE RECORDS SUMMARY | 2024-11-20 18:07 | XMS_ITS | Encounter Summary ---
Author Organization [employer] Address 75 [facility] 7t [place] [address] Care Team Providers Care Horticultural Worker Name Role Phone Libia Kerr MD Primary Care Provider [phone]- [phone] Mihaela Rivera MD Unavailable [phone] Encounter Details Date Type Department Care Team (Late st Contact Info) Description 04/20/2023 Orders Only [facility] MEDICINE [address] [place] [address] Libia Kerr MD [address] [place], [place] [phone] Social History Tobacco Use Types Packs/Day Years Used Date Smoking Tobacco: Never Smokeless Tobacco: Never Alcohol Use Standard Drinks/Week Comments Never 0 (1 standard drink = 0.6 oz pur e alcohol) Depression Answer Date Recorded Patient Health Questionnaire-2 [...] on filedocumented in this encounter Care Teams Horticultural Worker Relationship Specialty Start Date End Date Libia Kerr MD [address] [place], [place] [phone] PCP - General Family Medicine 03/27/18 Mihaela Rivera MD [address] [place] [address] Drive 3rd [place] [address] Gastroenterology 10/22/24 documented as of this encounter
--- OUTSIDE RECORDS SUMMARY | 2024-11-20 18:07 | XMS_ITS | Encounter Summary ---
Author Organization [employer] Address 75 [facility] 7t [place] [address] Care Team Providers Care Keeper Helper Name Role Phone Libia Kerr MD Primary Care Provider [phone]- [phone] Mihaela Rivera MD Unavailable [phone] Encounter Details Date Type Department Care Team (Late st Contact Info) Description 10/06/2022 Orders Only [facility] MEDICINE [address] [place], [place] [phone] Libia Kerr MD 230 [place] [address] Acute midline low back pain without sciatica (Primary Dx) Social History Tobacco Use Types Packs/Day Years [...] Orientation Straight 06/07/2022 10 :15 AM EDT COVID-19 Exposure Response Date Recorded In the last 10 days, have yo u been in contact with someone who was confirmed or suspected to have Coronavirus/COVID-19? No / Unsure 10/08/2022 9:40 AM EST documented as of this encounter Plan of Treatment Not on file documented as of this encounter Visit Diagnoses Diagnosis Acute midline low back pain without sciatica- Primary documented in this encounter Care Teams Keeper Helper Relationship Specialty Start Date End Date Libia Kerr MD [address] [place] [address] PCP - General Family Medicine 03/27/18 Mihaela Rivera MD [address] [place] [address] Drive 3rd [place] [address] Gastroenterology 10/22/24 documented as of this encounter
--- OUTSIDE RECORDS SUMMARY | 2024-11-20 18:07 | XMS_ITS | Encounter Summary ---
Author Organization [employer] Address 75 [facility] 7 [place] [address] Care Team Providers Care Restaurant Manager Name Role Phone Libia Kerr MD Primary Care Provider [phone]- [phone] Mihaela Rivera MD Unavailable [phone] Encounter Details Date Type Department Care Team ([facility] st Contact Info) Description 10/25/2023 Orders Only [facility]S [address] [place], [place] [phone] LoganDenny Childress MD [address] [place] [address] Social History Tobacco Use Types Packs/Day Years [...] on filedocumented in this encounter Care Teams Restaurant Manager Relationship Specialty Start Date End Date Libia Kerr MD [address] [place] [address] PCP - General Family Medicine 03/27/18 Mihaela Rivera MD [address] [place] [address] 3rd [place] [address] Gastroenterology 10/22/24 documented as of this encounter
--- OUTSIDE RECORDS SUMMARY | 2024-11-20 18:07 | XMS_ITS | Encounter Summary ---
Author Organization [employer] Address 75 [facility] 7t [place] [address] Care Team Providers Care Restaurant Operations Manager Name Role Phone Libia Kerr MD Primary Care Provider [phone]- [phone] Mihaela Rivera MD Unavailable [phone] Encounter Details Date Type Department Care Team (Late st Contact Info) Description 02/01/2024 Orders Only [facility] MEDICINE [address] [place], [place] [phone] Libia Kerr MD [address] [place] [address] Social History Tobacco Use Types Packs/Day Years [...] filedocumented in this encounter Care Teams Restaurant Operations Manager Relationship Specialty Start Date End Date Libia Kerr MD [address] [place] [address] PCP - General Family Medicine 03/27/18 Mihaela Rivera MD [address] [place] [address] 3rd [place] [address] Gastroenterology 10/22/24 documented as of this encounter
--- OUTSIDE RECORDS SUMMARY | 2024-11-20 18:07 | XMS_ITS | Encounter Summary ---
Author Organization [employer] Address 75 [facility] 7t [place] [address] Care Team Providers Care 6Th Grade Teacher Name Role Phone Libia Kerr MD Primary Care Provider [phone]- [phone] Mihaela Rivera MD Unavailable [phone] Reason for Visit * Reason Comments Med Refill Encounter Details Date Type Department Care Team (Late st Contact Info) Description 02/01/2024 Refill [facility] MEDICINE [address] [place], [place] [phone] Libia Kerr MD 230 [place], [place] [phone] Social History Tobacco Use Types Packs/Day Years [...] on filedocumented in this encounter Care Teams 6Th Grade Teacher Relationship Specialty Start Date End Date Libia Kerr MD [address] [place] [address] PCP - General Family Medicine 03/27/18 Mihaela Rivera MD [address] [place] [address] 3rd [place] [address] Gastroenterology 10/22/24 documented as of this encounter
--- OUTSIDE RECORDS SUMMARY | 2024-11-20 18:07 | XMS_ITS | Encounter Summary ---
Author Organization [employer] Address 75 [facility] 7t [place] [address] Care Team Providers Care Water Systems Engineer Name Role Phone Libia Kerr MD Primary Care Provider [phone] Mihaela Rivera MD Unavailable [phone] Encounter Details Date Type Department Care Team (Late st Contact Info) Description 11/11/2022 Orders Only [facility] MEDICINE 230 [place], [place] [phone] Libia Kerr MD [address] [place] [address] Social History Tobacco Use Types Packs/Day Years [...] suspected to have Coronavirus/COVID-19? No / Unsure 10/25/2022 9:21 PM EDT documented as of this encounter Plan of Treatment Not on file documented as of this encounter Visit Diagnoses Not on filedocumented in this encounter Care Teams Water Systems Engineer Relationship Specialty Start Date End Date Knox, MD Libia [address] [place] [address] PCP - General Family Medicine 03/27/18 Mihaela Rivera MD [address] [place] [address] 3rd [place] [address] Gastroenterology 10/22/24 documented as of this encounter
== END 2024-11-20 14:52 | disposition home or self-care (01) ==
LOC: HO.HWS 14:51
PROVIDERS: PCP Family Medicine; Visit Provider Obstetrics & Gynecology
DX: N83.291 Other ovarian cyst, right side (principal); N83.292 Other ovarian cyst, left side; D25.9 Leiomyoma of uterus, unspecified; N93.9 Abnormal uterine and vaginal bleeding, unspecified
CPT/HCPCS: 99213

== ENCOUNTER 2025-01-02 09:02 | Outpatient (REF) | payer OTHER, SELFPAY ==
--- NOTE | ~2025-01-02 | XR_ITS ---
EXAMINATION: XR SHOULDER, RIGHT CLINICAL INFORMATION: Right shoulder injury 3 days ago. Anterior shoulder pain. COMPARISON: May 28, 2013 is not available on PACS system. TECHNIQUE: AP external rotation, Grashey, scapular Y, and axillary views of the right shoulder. FINDINGS: No acute cortical disruption or malalignment. Focal sclerosis in the greater tuberosity of the right humerus. No lytic or blastic lesions. XR/XR shoulder RT min 2V IMPRESSION: No acute fracture or dislocation. Mild degenerative changes greater tuberosity right humerus. Electronically signed by: Joey Laguna MD 01/02/2025 09:19 AM EDT
--- OUTSIDE RECORDS SUMMARY | 2025-01-02 09:34 | XMS_ITS | Encounter Summary ---
Author Organization [employer] Address 75 [facility] 7t [place] [address] Care Team Providers Care Plate Furnace Operator Name Role Phone Libia Kerr MD Primary Care Provider [phone]- [phone] Mihaela Rivera MD Unavailable [phone] Reason for Visit * Reason Comments Med Refill Encounter Details Date Type Department Care Team (Late st Contact Info) Description 09/21/2023 Refill [facility] MEDICINE 230 [place], [place] [phone] Libia Kerr MD 230 [place], [place] [phone] Acute pharyngitis, unspecified etiology Social History Tobacco [...] etiology documented in this encounter Care Teams Plate Furnace Operator Relationship Specialty Start Date End Date Libia Kerr MD [address] [place] [address] PCP - General Family Medicine 03/27/18 Mihaela Rivera MD [address] [place] [address] 3rd [place] [address] Gastroenterology 10/22/24 documented as of this encounter
== END 2025-01-02 09:03 | disposition home or self-care (01) ==
LOC: HO.HHCX 09:02
PROVIDERS: PCP Family Medicine; Visit Provider Family Medicine
DX: M25.511 Pain in right shoulder (principal)
CPT/HCPCS: 73030

== ENCOUNTER → 2025-01-02 09:04 | Outpatient (BNV) | payer OTHER, SELFPAY | PROVIDERS: PCP Family Medicine; Visit Provider Radiology Diagnostic Radiology | DX: M19.011 Primary osteoarthritis, right shoulder (principal) | CPT/HCPCS: 73030 ==

== ENCOUNTER 2025-01-29 08:25 | Outpatient (REF) | payer OTHER, SELFPAY ==
--- OUTSIDE RECORDS SUMMARY | 2025-01-29 08:39 | XMS_ITS | Encounter Summary ---
Author Organization [employer] Address 75 [facility] 7t [place] [address] Care Team Providers Care Stock Worker Name Role Phone Libia Kerr MD Primary Care Provider [phone]- [phone] Mihaela Rivera MD Unavailable [phone] Jaylon Jameson Unavailable Reason for Visit * Reason Comments Med Refill Encounter Details Date Type Department Care Team (Late st Contact Info) Description 09/21/2023 Refill [facility] MEDICINE [address] [place], [place] [phone] Libia Kerr MD [address] [place], [place] [phone] Acute pharyngitis, unspecified etiology Social History Tobacco [...] etiology documented in this encounter Care Teams Stock Worker Relationship Specialty Start Date End Date Libia Kerr MD [address] [place] [address] PCP - General Family Medicine 03/27/18 Mihaela Rivera MD [address] 3rd [place] [address] Gastroenterology 10/22/24 Jaylon Jameson [address] [place], [place] Orthopaedic Surgery 01/10/25 documented as of this encounter
[2025-01-29 12:04] LABS: TSH reflex Free T4 1.88 uIU/mL (0.32-4.0)
== END 2025-01-29 08:26 | disposition home or self-care (01) ==
LOC: HO.HHCL 08:25
PROVIDERS: PCP Family Medicine; Visit Provider Internal Medicine Geriatric Medicine
DX: R00.2 Palpitations (principal)
CPT/HCPCS: 36415; 84443

== ENCOUNTER 2025-03-14 08:19 | Outpatient (AMB) | payer OTHER, SELFPAY ==
--- NOTE | 2025-03-14 08:19 | MHC.OFFVIS ---
Intake Visit Reasons: Question regarding EMB Allergies sulfamethoxazole (From Bactrim) Allergy (Severe, Verified 10/19/24 09:47) Hives trimethoprim (From Bactrim) Allergy (Severe, Verified 10/19/24 09:47) Hives Seasonal Allergies Allergy (Unknown, Verified 10/19/24 09:47) Unknown HPI Comments Details: The patient is schedule telehealth visit to discuss options of endometrial sampling, she is concerned about intolerance to pain [facility], [facility] Medical History Lipoma of arm Seasonal allergies Epidermal inclusion cyst Surgical History History of bilateral breast reduction surgery (~1998) Family History Mother History of cervical cancer Maternal Aunt History of bone cancer Other History of breast cancer Social History Are you a primary healthcare social worker to a significant other at home: No Do you presently have visiting nurse or other home services: No Alcohol intake: never Patient Tobacco Use Status: Never used Tobacco Second Hand Smoke Exposure: No Female Reproductive History Menstrual Age of Menarche: 12 Review of Systems Const All systems reviewed & are unremarkable except as noted in HPI and below Reports as per HPI and Reports no additional complaints GI Reports no additional complaints Reports no additional complaints Telehealth Telehealth Telehealth Platform: Telephone Location of provider rendering services: practice address Location of patient: address on file Patient Identification confirmed using: Name, : Yes Telehealth method: video Patient verbally consented to treatment: Yes Patient verbally consented to billing insurance company: Yes Patient informed of any privacy concerns related to visit: Yes Minutes spent on Phone/Video with Pt.: 4 Assessment & Plan Assessment & Plan (1) Abnormal uterine bleeding: Comment: With Mirena IUD Code(s): N93.9 - Abnormal uterine and vaginal bleeding, unspecified Category: Medical Plan: Discussed with the patient the options of endometrial sampling including office EMB with and without paracervical block, hysteroscopy D&C possible polypectomy with IUD removal. All pros and cons, risks and benefits of each were discussed with the patient, the patient decided to proceed with scheduling EMB with paracervical block. Instructions given the patient to schedule the appointment as soon as possible. All questions answered, the patient verbalized understanding. I spent a total of 20 minutes reviewing the chart, talking to the patient via video and documenting in the medical record. Coding Level of Care Code Tele Est Pt Level 3 (35803) Diagnoses Abnormal uterine bleeding N93.9
--- OUTSIDE RECORDS SUMMARY | 2025-03-14 08:23 | XMS_ITS | Encounter Summary ---
Author Organization [employer] Address 75 [facility] 7t [place] [address] Care Team Providers Care Business Case Analyst Name Role Phone Libia Kerr MD Primary Care Provider [phone]- [phone] Mihaela Rivera MD Unavailable [phone] Jaylon Jameson Unavailable Reason for Visit * Reason Comments Med Refill Encounter Details Date Type Department Care Team (Late st Contact Info) Description 09/21/2023 Refill [facility] MEDICINE 230 [place], [place] [phone] Libia Kerr MD [address] [place], [place] [phone] Acute pharyngitis, unspecified etiology Social History Tobacco [...] etiology documented in this encounter Care Teams Business Case Analyst Relationship Specialty Start Date End Date Libia Kerr MD [address] [place] [address] PCP - General Family Medicine 03/27/18 Mihaela Rivera MD [address] [facility] [address] 3rd [place] [address] Gastroenterology 10/22/24 Jaylon Jameson [address] [place], [place] Orthopaedic Surgery 01/10/25 documented as of this encounter
--- OUTSIDE RECORDS SUMMARY | 2025-03-14 08:23 | XMS_ITS ---
Author Name [facility] Organization Unknown Care Team Organization Name Specialty Phone Email Start Date End Da te [facility] Jerry Oro Primary Care 12/13/2022 03/26/20 24 [facility] Ascencion Duarte Primary Care 06/15/2022 4
== END 2025-03-14 09:34 | disposition home or self-care (01) ==
LOC: HO.HWS 08:19
PROVIDERS: PCP Family Medicine; Visit Provider Obstetrics & Gynecology
DX: N93.9 Abnormal uterine and vaginal bleeding, unspecified (principal)
CPT/HCPCS: 99213

== ENCOUNTER 2025-03-29 09:44 | Outpatient (REF) | payer OTHER, SELFPAY | END 2025-03-29 09:45 | disposition home or self-care (01) | LOC: HO.LNP 09:44 | PROVIDERS: PCP Family Medicine; Visit Provider Obstetrics & Gynecology | DX: N93.9 Abnormal uterine and vaginal bleeding, unspecified (principal); Z32.02 Encounter for pregnancy test, result negative | CPT/HCPCS: 58100; 81025; 88305 ==

== ENCOUNTER 2025-03-29 09:44 | Outpatient (AMB) | payer OTHER, SELFPAY ==
--- OUTSIDE RECORDS SUMMARY | 2025-03-29 09:46 | XMS_ITS | Encounter Summary ---
Author Organization [employer] Address 75 [facility] 7 [place] [address] Care Team Providers Care Capacity Planning Analyst Name Role Phone Libia Kerr MD Primary Care Provider [phone]- [phone] Mihaela Rivera MD Unavailable [phone] Jaylon Jameson Unavailable Gary Padron MD Unavailable Reason for Visit * Reason Comments Med Refill Encounter Details Date Type Department Care Team (Late st Contact Info) Description 09/21/2023 Refill [facility] MEDICINE 230 [place], [place] [phone] Libia Kerr MD 230 [place], [place] [phone] Acute pharyngitis, unspecified etiology Social History Tobacco [...] etiology documented in this encounter Care Teams Capacity Planning Analyst Relationship Specialty Start Date End Date Libia Kerr MD [address] [place] [address] PCP - General Family Medicine 03/27/18 Mihaela Rivera MD [address] [place] [address] 3rd [place] [address] Gastroenterology 10/22/24 Jaylon Jameson [address] [place], [place] Orthopaedic Surgery 01/10/25 Gary Padron MD [address] [place] [address] [address] [place] [address] Obstetrics and Gynecology 03/14/25 documented as of this encounter
--- NOTE | 2025-03-29 10:56 | MHC.OFFVIS ---
Intake Visit Reasons: EMB with cervical para block Shim Plug Cutter Required: No Information Interpreted: non-clinical & clinical Milk Drying Machine Operator: Milk Drying Machine Operator Present (Lina KNIGHT) Accompanied by: Daughter Allergies sulfamethoxazole (From Bactrim) Allergy (Severe, Verified 03/29/25 10:57) Hives trimethoprim (From Bactrim) Allergy (Severe, Verified 03/29/25 10:57) Hives Seasonal Allergies Allergy (Unknown, Verified 03/29/25 10:57) Unknown HPI Comments Details: Presenting for EMB with paracervical block [facility] Medical History Lipoma of arm Seasonal allergies Epidermal inclusion cyst Surgical History History of bilateral breast reduction surgery (~1998) Family History Mother History of cervical cancer Maternal Aunt History of bone cancer Other History of breast cancer Social History Are you a primary patient centered care specialist to a significant other at home: No Do you presently have visiting nurse or other home services: No Alcohol intake: never Patient Tobacco Use Status: Never used Tobacco Second Hand Smoke Exposure: No Female Reproductive History Menstrual Age of Menarche: 12 Review of Systems Const All systems reviewed & are unremarkable except as noted in HPI and below Reports as per HPI and Reports no additional complaints GI Reports no additional complaints Reports no additional complaints Office Procedures Endometrial Biopsy Details: The patient was counseled regarding the indication and benefits of endometrial sampling to rule out endometrial pathology including not limited to endometrial hyperplasia or endometrial cancer and others; The alternatives (Either do nothing vs. hysteroscopy D&C) & the risks were discussed with the patient including but not limited: pain, uterine perforation, bleeding, infection, possible injury to bladder, bowel, ureter, possible need for blood transfusion with all its possible risks. The patient verbalized understanding all questions answered and signed consent. Urine test done in the office was negative The patient was placed into the dorsal lithotomy position; a speculum was inserted in the vagina. Using aseptic technique for the procedure, the cervix was cleansed with Betadine. 10 cc of xylocaine 1% was injected at 2, 4, 8 and 10:00 around the cervix. The anterior lip of the cervix was grasped with a single tooth tenaculum. The uterus was sounded to 7 cm with a 4 mm Pipelle was used. Tissues samples were obtained and placed in formalin, in a patient labeled container and sent to the pathology department. At the end of the procedure, there was minimal bleeding noted The patient tolerated the procedure well and was discharged in good condition with the following instructions: Nothing in the vagina until the bleeding stops. No sex until the bleeding stops, to call if any of the following occurs: fever (>100.4), flu-like symptoms, abdominal pain, heavy bleeding, four smelling vaginal discharge. The patient was instructed to schedule a Follow up appointment in 2 weeks to discuss pathology results of the biopsy and treatment options. This note was generated with a voice recognition program. Some errors may have been overlooked during the review of this note. Sometimes these errors may affect the content or meaning of a given sentence. [id number] Biopsy Results AMB Test Urine AMB Test Urine Negative Last Edit by Lina Thomas CMA on 03/29/25 10:58 Results Reviewed Results Reviewed: Laboratory Last Values Tst Clinic Negative 03/29/25 10:56 Assessment & Plan Assessment & Plan (1) Abnormal uterine bleeding: Comment: With Mirena IUD Code(s): N93.9 - Abnormal uterine and vaginal bleeding, unspecified Category: Medical Plan: EMB with paracervical block done, see procedure note Orders: Orders Surgical Today N93.9 - Abnormal uterine and vaginal bleeding, unspecified AMB HCG Urine Test Today Z32.02 - Encounter for test, result negative AMB Endometrial Biopsy Today N93.9 - Abnormal uterine and vaginal bleeding, unspecified Coding Level of Care Code Procedure Only Diagnoses Abnormal uterine bleeding N93.9 CPT Codes Endometrial Biopsy - CPT: 67189-[id number] Biopsy ([id number])
== END 2025-03-29 10:57 | disposition home or self-care (01) ==
LOC: HO.HWS 09:44
PROVIDERS: PCP Family Medicine; Visit Provider Obstetrics & Gynecology
DX: N93.9 Abnormal uterine and vaginal bleeding, unspecified (principal); Z32.02 Encounter for pregnancy test, result negative
CPT/HCPCS: 58100

== ENCOUNTER 2025-04-04 15:35 | Outpatient (AMB) | payer OTHER, SELFPAY ==
--- NOTE | 2025-04-04 15:35 | MHC.OFFVIS ---
Intake Visit Reasons: EMB results Supervisor Cabinetmaker Required: No Information Interpreted: non-clinical & clinical Accompanied by: Self / Same As Patient Allergies sulfamethoxazole (From Bactrim) Allergy (Severe, Verified 04/04/25 15:37) Hives trimethoprim (From Bactrim) Allergy (Severe, Verified 04/04/25 15:37) Hives Seasonal Allergies Allergy (Unknown, Verified 04/04/25 15:37) Unknown Is last menstrual period known: No (mirena) HPI Comments Details: The patient scheduled telehealth visit for follow-up ultrasound which showed the following: Uterus: The uterus is normal in size, measuring 8.8 x 6.0 x 6.9 cm. Myometrium has a normal echotexture. Again seen is a posterior fibroid measuring 3.0 x 2.4 x 2.9 cm (previously 3.6 x 2.7 x 3.1 cm). A new anterior fibroid is noted measuring 1.5 x 1.3 x 1.4 cm. Endometrium: The endometrial stripe measures 2 mm in thickness. An IUD is noted in the expected position in the endometrial cavity. Right ovary: The right ovary measures 3.4 x 1.7 x 1.9 cm. The right ovary is normal in size and echotexture. There is a 1.3 x 0.9 x 1.3 cm right ovarian cyst. Left ovary: The left ovary measures 4.1 x 2.1 x 2.6 cm. The left ovary is normal in size and echotexture. There is a 2.5 x 1.7 x 1.9 cm left ovarian cyst. Pelvic fluid: There is a small amount of free fluid in both adnexal regions. There are prominent vessels in both adnexal regions. The patient was seen for AUB 07/01 the following workup was done: H&H= 13/38.3 TSH, prolactin, GC and chlamydia were negative. emb path: Endometrium, biopsy: - Superficial fragments of benign endometrium with pseudodecidual change and breakdown, consistent with exogenous progestin. - Prominent fragments of benign smooth muscle. - Endocervical epithelium within normal limits. - No atypia identified. Comment: The smooth muscle may represent either myometrium or a leiomyoma Co testing was done in 11/26 was negative. Mammogram was done in 05/31 [facility] Medical History Lipoma of arm Seasonal allergies Epidermal inclusion cyst Surgical History History of bilateral breast reduction surgery (~1998) Family History Mother History of cervical cancer Maternal Aunt History of bone cancer Other History of breast cancer Social History Are you a primary manager respiratory care to a significant other at home: No Do you presently have visiting nurse or other home services: No Alcohol intake: never Patient Tobacco Use Status: Never used Tobacco Second Hand Smoke Exposure: No Female Reproductive History Menstrual Age of Menarche: 12 Review of Systems Const All systems reviewed & are unremarkable except as noted in HPI and below Reports as per HPI and Reports no additional complaints GI Reports no additional complaints Reports no additional complaints Telehealth Telehealth Telehealth Platform: [facility] Location of provider rendering services: practice address Location of patient: address on file Patient Identification confirmed using: Name, : Yes Telehealth method: voice only Patient verbally consented to treatment: Yes Patient verbally consented to billing insurance company: Yes Patient informed of any privacy concerns related to visit: Yes Minutes spent on Phone/Video with Pt.: 5 Assessment & Plan Assessment & Plan (1) Abnormal uterine bleeding: Comment: With Mirena IUD Code(s): N93.9 - Abnormal uterine and vaginal bleeding, unspecified Category: Medical Plan: Discussed with the patient the results of the work up done and options of treatment including BCP's, Mirena IUD, endometrial ablation and hysterectomy. All pros, cons, risks and benefits if each option was discussed with the patient and the patient decided to think about it and get back to us. All questions answered the patient verbalized understanding. I spent a total of 20 minutes reviewing the chart, talking to the patient via video and documenting in the medical record. Coding Level of Care Code Tele Est Pt Level 3 (92709) Diagnoses Abnormal uterine bleeding N93.9
--- OUTSIDE RECORDS SUMMARY | 2025-04-04 16:01 | XMS_ITS | Encounter Summary ---
Author Organization [employer] Address [address] [place] [address] 7 [place] [address] Care Team Providers Care Closet Organizer Name Role Phone Libia Kerr MD Primary Care Provider +1- [phone] Mihaela Rivera MD Unavailable [phone] Jaylon Jameson Unavailable Gary Padron MD Unavailable Encounter Details Date Type Department Care Team (Latest Contact Info) Description 10/05/2018 Abstract [facility] Dental, Provider, DDS Social History Tobacco [...] on filedocumented in this encounter Care Teams Closet Organizer Relationship Specialty Start Date End Date Libia Kerr MD [address] [place] [address] PCP - General Family Medicine 03/27/18 Mihaela Rivera MD [address] [place] [address] 3[address] [place] [address] Gastroenterology 10/22/24 Jaylon Jameson [address] [place], [place] Orthopaedic Surgery 01/10/25 Gary Padron MD [address] [place] [address] [place] [address] Obstetrics and Gynecology 03/14/25 documented as of this encounter
--- OUTSIDE RECORDS SUMMARY | 2025-04-04 16:01 | XMS_ITS | Encounter Summary ---
Author Organization [employer] Address 75 [facility] 7t [place] [address] Care Team Providers Care Press Worker Helper Name Role Phone Libia Kerr MD Primary Care Provider +1- [phone] Mihaela Rivera MD Unavailable [phone] Jaylon Jameson Unavailable Gary Padron MD Unavailable Encounter Details Date Type Department Care Team (Late st Contact Info) Description 03/13/2025 Orders Only [facility] MEDICINE 230 [place] [address] Libia Kerr MD 230 [place], [place] [phone] Insomnia, unspecified type Social History Tobacco Use Types Packs/Day Years [...] as of this encounter Visit Diagnoses Diagnosis Insomnia, unspecified type documented in this encounter Additional Health Concerns Assessment Noted Time PHQ-9 Depression Total Score: 4 06/12/20 24 11:45 AM EST documented as of this encounter Care Teams Press Worker Helper Relationship Specialty Start Date End Date Libia Kerr MD [address] [place] [address] PCP - General Family Medicine 03/27/18 Mihaela Rivera MD [address] [place] [address] Drive 3rd [place] [address] Gastroenterology 10/22/24 Jaylon Jameson [address] [place], [place] Orthopaedic Surgery 01/10/25 Gayr Padron MD [address] [place] [address] [address] [place] [address] Obstetrics and Gynecology 03/14/25 documented as of this encounter
--- OUTSIDE RECORDS SUMMARY | 2025-04-04 16:01 | XMS_ITS | Encounter Summary ---
Author Organization [employer] Address 75 [facility] 7t [place] [address] Care Team Providers Care Rod And Tube Straightener Name Role Phone Libia Kerr MD Primary Care Provider + [phone] Mihaela Rivera MD Unavailable [phone] Donny Jamesondiana Unavailable Gary Padron MD Unavailable Reason for Visit * Reason Comments Med Refill Encounter Details Date Type Department Care Team (Late st Contact Info) Description 12/07/2024 Refill [facility] MEDICINE 230 [place], [place] [phone] [facility] 230 [place] [address] Acute pharyngitis, unspecified etiology Social History Tobacco [...] pharyngitis, unspecified etiology documented in this encounter Additional Health Concerns Assessment Noted Time PHQ-9 Depression Total Score: 4 06/12/20 24 11:45 AM EST documented as of this encounter Care Teams Rod And Tube Straightener Relationship Specialty Start Date End Date Libia Kerr MD 230 [place] [address] PCP - General Family Medicine 03/27/18 Mihaela Rivera MD [address] 3rd [place] [address] Gastroenterology 10/22/24 Jaylon Jameson [address] [place] Orthopaedic Surgery 01/10/25 Gary Padron MD [address] [place] [address] [place] [address] Obstetrics and Gynecology 03/14/25 documented as of this encounter
--- OUTSIDE RECORDS SUMMARY | 2025-04-04 16:01 | XMS_ITS | Encounter Summary ---
Author Organization [employer] Address 75 [facility] 7 [place] [address] Care Team Providers Care Imitation Marble Mechanic Name Role Phone Libia Kerr MD Primary Care Provider [phone]- [phone] Mihaela Rivera MD Unavailable [phone] Jaylon Jameson Unavailable Gary Padron MD Unavailable Reason for Visit * Reason Comments Med Refill Encounter Details Date Type Department Care Team (Late st Contact Info) Description 09/21/2023 Refill [facility] MEDICINE 230 [place], [place] [phone] Libia Kerr MD 230 [place], [place] [phone] Acute pharyngitis, unspecified etiology Social History Tobacco [...] etiology documented in this encounter Care Teams Imitation Marble Mechanic Relationship Specialty Start Date End Date Libia Kerr MD [address] [place] [address] PCP - General Family Medicine 03/27/18 Mihaela Rivera MD [address] [place] [address] 3rd [place] [address] Gastroenterology 10/22/24 Jaylon Jameson 300 [place], [place] Orthopaedic Surgery 01/10/25 Gary Padron MD [address] [place] [address] [address] [place] [address] Obstetrics and Gynecology 03/14/25 documented as of this encounter
--- OUTSIDE RECORDS SUMMARY | 2025-04-04 16:01 | XMS_ITS | Encounter Summary ---
Author Organization [employer] Address 75 [facility] 7 [place] [address] Care Team Providers Care Felt Hat Pouncing Operator Hand Name Role Phone Libia Kerr MD Primary Care Provider [phone]- [phone] Mihaela Rivera MD Unavailable [phone] Jaylon Jameson Unavailable Gary Padron MD Unavailable Reason for Visit * Reason Onset Date Comments Med Refill 07/26/2024 Encounter Details Date Type Department Care Team (Late st Contact Info) Description 07/26/2024 Refill [facility] MEDICINE 230 [place], [place] [phone] Libia Kerr MD 230 [place], [place] [phone] Social History Tobacco Use Types Packs/Day Years [...] documented as of this encounter Care Teams Felt Hat Pouncing Operator Hand Relationship Specialty Start Date End Date Libia Kerr MD 230 [place] [address] PCP - General Family Medicine 03/27/18 Mihaela Rivera MD [address] [place] [address] Drive 3rd [place] [address] Gastroenterology 10/22/24 Jaylon Jameson [address] [place], [place] Orthopaedic Surgery 01/10/25 Gary Padron MD [address] [place] [address] [address] [place] [address] Obstetrics and Gynecology 03/14/25 documented as of this encounter
--- OUTSIDE RECORDS SUMMARY | 2025-04-04 16:01 | XMS_ITS | Encounter Summary ---
Author Organization [employer] Address 75 [facility] 7t [place] [address] Care Team Providers Care Farmworker Name Role Phone Libia Kerr MD Primary Care Provider +- [phone] Mihaela Rivera MD Unavailable [phone] Jaylon Jameson Unavailable Gary Padron MD Unavailable Encounter Details Date Type Department Care Team (Late st Contact Info) Description 10/25/2023 Orders Only [facility]S [address] [place], [place] [phone] Denny Pfeiffer MD [address] [place] [address] Social History Tobacco Use Types Packs/Day Years [...] enough money to get more: Never True 10/ Transportation Answer Date Recorded In the past [...] on filedocumented in this encounter Care Teams Farmworker Relationship Specialty Start Date End Date Libia Kerr MD [address] [place] [address] PCP - General Family Medicine 03/27/18 Mihaela Rivera MD [address] [place] [address] 3rd [place] [address] Gastroenterology 10/22/24 Jaylon Jameson 300 [place], [place] Orthopaedic Surgery 01/10/25 Gary Padron MD [address] [place] [address] [address] [place] [address] Obstetrics and Gynecology 03/14/25 documented as of this encounter
--- OUTSIDE RECORDS SUMMARY | 2025-04-04 16:01 | XMS_ITS | Encounter Summary ---
Author Organization [employer] Address [address] [place] [address] 7 [place] [address] Care Team Providers Care Balancer Name Role Phone Libia Kerr MD Primary Care Provider [phone]- [phone] Mihaela Rivera MD Unavailable [phone] Jaylon Jameson Unavailable Gary Padron MD Unavailable Encounter Details Date Type Department Care Team (Late st Contact Info) Description 04/20/2023 Orders Only [facility] MEDICINE [address] [place] [phone] Libia Kerr MD [address] [place] [phone] Social History Tobacco Use Types Packs/Day Years [...] on filedocumented in this encounter Care Teams Balancer Relationship Specialty Start Date End Date Libia Kerr MD 230 [place] [address] PCP - General Family Medicine 03/27/18 Mihaela Rivera MD [address] [place] [address] Drive 3rd [place] [address] Gastroenterology 10/22/24 Jaylon Jameson 300 [place], [place] Orthopaedic Surgery 01/10/25 Gary Padron MD [address] [place] [address] [address] [place] [address] Obstetrics and Gynecology 03/14/25 documented as of this encounter
--- OUTSIDE RECORDS SUMMARY | 2025-04-04 16:01 | XMS_ITS | Encounter Summary ---
Author Organization [employer] Address 75 [facility] 7t [place] [address] Care Team Providers Care Intake Worker Name Role Phone Libia Kerr MD Primary Care Provider [phone]- [phone] Mihaela Rivera MD Unavailable [phone] Jaylon Jameson Unavailable Gary Padron MD Unavailable Reason for Visit * Reason Comments Med Refill Encounter Details Date Type Department Care Team (Late st Contact Info) Description 02/01/2024 Refill [facility] MEDICINE 230 [place] [address] Libia Kerr MD 230 [place], [place] [phone] Social History Tobacco Use Types Packs/Day Years [...] on filedocumented in this encounter Care Teams Intake Worker Relationship Specialty Start Date End Date Libia Kerr MD 230 [place] [address] PCP - General Family Medicine 03/27/18 Mihaela Rivera MD [address] [place] [address] 3rd [place] [address] Gastroenterology 10/22/24 Jaylon Jameson 300 [place], [place] Orthopaedic Surgery 01/10/25 Gary Padron MD [address] [place] [address] [address] [place] [address] Obstetrics and Gynecology 03/14/25 documented as of this encounter
--- OUTSIDE RECORDS SUMMARY | 2025-04-04 16:01 | XMS_ITS | Encounter Summary ---
Author Organization [employer] Address 75 [facility] 7t [place] [address] Care Team Providers Care Server Developer Name Role Phone Libia Kerr MD Primary Care Provider [phone]- [phone] Mihaela Rivera MD Unavailable [phone] GisellJaylon Unavailable Gary Padron MD Unavailable Encounter Details Date Type Department Care Team (Late st Contact Info) Description 03/29/2025 Orders Only GENERIC EXTERNAL DATA DEPARTMENT Provider, Generic External Data Abnormal uterine bleeding (Primary Dx) Social History Tobacco Use Types [...] on file documented as of this encounter Procedures Procedure Name Priority Date/Time Associated Diagnosis Comments HEMATOXYLIN AND EOSIN STAIN Routine 03/29/2025 10:58 AM EDT documented in this encounter Results * Hematoxylin and Eosin Stain (03/29/2025 10:58 AM EDT) 03/29/2025 10:5 8 AM EDT 04/01/2025 6:00 AM EDT [facility] LABS - 04/02/2025 2:30 PM EDT ----- ------- Name: Melany Soriano Age/Sex: 49/F : 1975 Unit#: [id number] Attend Dr: Gary Padron MD Re03/29/25 Status: DEP REF Location: [facility] Disch: ----- ------- SPEC : [id number] RECD: 04/01/25 STATUS: MEME BRITO NUM: [id number] MARYANN: 03/29/[address] [facility] [address]: Gary Padron MD ENTERED: 04/01/25 SP TYPE: Surgical OTHR DR: Libia Kerr MD ORDERED: HE Stain/2, Gross Micro L4 Diagnosis Endometrium, biopsy: - Superficial fragments of benign endometrium with pseudodecidual change and breakdown, consistent with exogenous progestin. - Prominent fragments of benign smooth muscle. - Endocervical epithelium within normal limits. - No atypia identified. Comment: The smooth muscle may represent either myometrium or a leiomyoma. Clinical History AUB Microscopic Description Microscopic sections reviewed. Material Received EMB Gross Description Received in formalin is a 2 cc aggregate of weinberg-red soft tissue admixed with blood, totally submitted in A1. (RJD) This case was reviewed intradepartmentally. IHC S/NG Disclaimer NOTE: Unless otherwise stated, all tissue is formalin-fixed and paraffin-embedded. Some or all of the immunohistochemical tests reported herein may have been developed and their performance characteristics determined by [facility]. They have not been cleared or approved by the U.S. Food and Drug Administration (FDA). However, the FDA has determined that such clearance or approval is not necessary. This laboratory is certified under the Clinical Laboratory Improvement Amendments of 1988 (CLIA) as qualified to perform high complexity clinical laboratory testing. CONTINUED ON NEXT PAGE ----- ------- Name: Melany Soriano Age/Sex: 49/F : 1975 Unit#: [id number] Attend Dr: Gary Padron MD Re03/29/25 Status: DEP REF Location: HO.LNP Disch: ----- ------- SPEC : [id number] RECD: 04/01/25 STATUS: MEME BRADLEYClaude NUM: [id number] MARYANN: 03/29/25-10[address] [facility] [address]: Gary Padron MD ENTERED: 04/01/25-607 SP TYPE: Surgical OTHR DR: Libia Kerr MD ORDERED: HE Stain/2, Gross Micro L4 Copies To: Libia Kerr MD [address] [facility] [address] [place] [address] ----- ------- Signed (signature on file) Ramos Jacobs MD 04/02/25 8030 ----- ------- END OF REPORT us Generic External Data Provider LAB BLOOD ORDERAB LES Final Result [facility] [address] [place] [address] [phone] documented in this encounter Visit Diagnoses Diagnosis Abnormal uterine bleeding- Primary Unspecified disorder of menstruation and other abnormal bleeding from female genital tract documented in this encounter Additional Health Concerns Assessment Noted Time PHQ-9 Depression Total Score: 4 06/12/20 24 11:45 AM EST documented as of this encounter Care Teams Server Developer Relationship Specialty Start Date End Date Libia Kerr MD 230 [place] [address] PCP - General Family Medicine 03/27/18 Mihaela Rivera MD [address] [place] [address] Drive 3rd [place] [address] Gastroenterology 10/22/24 Jaylon Jameson [address] [place], [place] Orthopaedic Surgery 01/10/25 Gary Padron MD [address] [place] [address] [address] [place] [address] Obstetrics and Gynecology 03/14/25 documented as of this encounter
--- OUTSIDE RECORDS SUMMARY | 2025-04-04 16:01 | XMS_ITS | Encounter Summary ---
Author Organization [employer] Address 75 [facility] 7 [place] [address] Care Team Providers Care Security Systems Manager Name Role Phone Libia Kerr MD Primary Care Provider +1- [phone] Mihaela Rivera MD Unavailable [phone] Pablostacey Donnydiana Unavailable Gary Padron MD Unavailable Reason for Referral * Consultation (Routine) - Closed Specialty Diagnoses / Procedures Referred By Contac t Referred To Contact Orthopaedic Surgery Diagnoses Acute pain of right shoulder Libia Kerr MD [address] [place] [address] Phone: tel: fax: [facility] [address] [place] [address] [place] [address] Phone: tel: fax: Referral ID Status Reason Start Date Expiration Date V isits Requested Visits Authorized [id number] Closed Specialty Services Required 01/02/2025 01/02/2026 1 1 Encounter Details Date Type Department Care Team (Late st Contact Info) Description 01/02/2025 Orders Only [facility] MEDICINE 230 [place], [place] [phone] Libia Kerr MD [address] [place], [place] [phone] Acute pain of right shoulder (Primary Dx) Social History Tobacco Use Types [...] as of this encounter Plan of Treatment Scheduled Referrals Name Type Priority Associated Diagnoses Order Schedule Referral to Orthopaedic Surgery Outpatient Referral Routine Acute pain of right shoulder Expected: 01/02/2025 (Approximate), Expires: 01/02/2026 documented as of this encounter Visit Diagnoses Diagnosis Acute pain of right shoulder- Primary documented in this encounter Additional Health Concerns Assessment Noted Time PHQ-9 Depression Total Score: 4 11/05/20 24 11:45 AM EST documented as of this encounter Care Teams Security Systems Manager Relationship Specialty Start Date End Date Libia Kerr MD [address] [place] [address] PCP - General Family Medicine 03/27/18 Mihaela Rivera MD [address] 3rd [place] [address] Gastroenterology 10/22/24 Jaylon Jameson [address] [place], [place] [address] Orthopaedic Surgery 01/10/25 Gray Padron MD [address] [place] [address] [address] [place] [address] Obstetrics and Gynecology 03/14/25 documented as of this encounter
--- OUTSIDE RECORDS SUMMARY | 2025-04-04 16:01 | XMS_ITS | Encounter Summary ---
Author Organization [employer] Address 75 [facility] 7t [place] [address] Care Team Providers Care Licensed Optical Dispenser Name Role Phone Libia Kerr MD Primary Care Provider [phone]- [phone] Mihaela Rivera MD Unavailable [phone] Jaylon Jameson Unavailable Gary Padron MD Unavailable Encounter Details Date Type Department Care Team (Late st Contact Info) Description 11/11/2022 Orders Only [facility] MEDICINE [address] [place] [address] Libia Kerr MD 230 [place], [place] [phone] Social History Tobacco Use Types Packs/Day Years [...] on filedocumented in this encounter Care Teams Licensed Optical Dispenser Relationship Specialty Start Date End Date Libia Kerr MD [address] [place] [address] PCP - General Family Medicine 03/27/18 Mihaela Rivera MD [address] [place] [address] 3rd [place] [address] Gastroenterology 10/22/24 Jaylon Jameson 300 [place], [place] Orthopaedic Surgery 01/10/25 Gary Padron MD [address] [place] [address] [address] [place] [address] Obstetrics and Gynecology 03/14/25 documented as of this encounter
--- OUTSIDE RECORDS SUMMARY | 2025-04-04 16:01 | XMS_ITS | Encounter Summary ---
Author Organization [employer] Address 75 [facility] 7t [place] [address] Care Team Providers Care Precision Lens Technician Name Role Phone Libia Kerr MD Primary Care Provider + [phone] Mihaela Rivera MD Unavailable [phone] Donny Jamesondiana Unavailable Gary Padron MD Unavailable Reason for Visit * Reason Comments Med Refill Encounter Details Date Type Department Care Team (Late st Contact Info) Description 12/04/2024 Refill [facility] MEDICINE 230 [place], [place] [phone] [facility] 230 [place] [address] Acute pharyngitis, unspecified etiology Social History Tobacco [...] documented as of this encounter Care Teams Precision Lens Technician Relationship Specialty Start Date End Date Libia Kerr MD 230 [place] [address] PCP - General Family Medicine 03/27/18 Mihaela Rivera MD [address] [facility] [address] 3rd [place] [address] Gastroenterology 10/22/24 Jaylon Jameson [address] [place] Orthopaedic Surgery 01/10/25 Gary Padron MD [address] [place] [address] [place] [address] Obstetrics and Gynecology 03/14/25 documented as of this encounter
--- OUTSIDE RECORDS SUMMARY | 2025-04-04 16:01 | XMS_ITS | Clinical Summary ---
Author Organization [employer] Address [address] [place] [address] 7 [place] [address] Care Team Providers Care Bit Tapper Name Role Phone Libia Kerr MD Primary Care Provider [phone] Mihaela Rivera MD Unavailable [phone] Jaylon Jameson Unavailable Gary Padron MD Unavailable Allergies Active Allergy Reactions Criticality Noted Date Comments Sulfamethoxazole Fever 06/04/2019 Sulfamethoxazole-Trimethoprim 2022 Other reaction(s): Unknown Trimethoprim Fever 06/04/2019 Medications tretinoin (Retin-A) 0.05 % cream Apply 0.05 application topically at bed time. 020 Active Wegovy 0.25 MG/0.5ML solution auto-injectorI ndications:Cla ss 1 obesity due to excess calories without serious comorbidity with body mass index (BMI) of 30.0 to 30.9 in adult INJECT ONE PEN (=0.25MG) SUBCUTANEOUSLY ONCE A WEEK DIRECTED 024 Active gabapentin (Neurontin) 100 MG capsuleIndicat ions:Neuropath ic pain Take 1 tab po bid 60 capsule 2 024 Active ibuprofen 800 MG tablet TAKE 1 TABLET (800 MG) BY MOUTH EVERY 8 (EIGHT) HOURS IF NEEDED FOR MODERATE PAIN OR FEVER. 90 tablet 024 Active cetirizine (ZyrTEC) 10 MG tabletIndicati ons:Acute pharyngitis, unspecified etiology TAKE 1 TABLET BY MOUTH EVERY DAY IN THE MORNING 90 tablet 025 Active Diclofenac Sodium 1 % gelIndications :Acute pain of right shoulder APPLY 2 GRAMS TO AFFECTED AREA 100 g 025 Active LORazepam (Ativan) 0.5 MG tabletIndicati ons:Insomnia, unspecified type Take 1 tab po at bedtime prn insomnia/anxiety, may repeat once after 1 hour 20 tablet 025 Active LORazepam (Ativan) 0.5 MG tabletIndicati ons:Insomnia, unspecified type Take 1 tab po at bedtime prn insomnia/anxiety, may repeat once after 1 hour 20 tablet 025 2024 Discontinued(R eorder (will not trigger notification to Pharmacy)) Active Problems Problem Noted Date Diagnosed Date Right shoulder pain 01/10/2025 Overview (01/10/2025): -s/p injection 01/04/25 with good response with [facility] Fibroids 11/20/2024 Overview (11/20/2024): Followed by Dr. Padron, note 11/20/24 Discussed with the patient the findings on pelvic ultrasound the risk of myosarcoma; in addition reviewed with the patient that malignancy and pre malignancy cannot be ruled out without hysterectomy for pathological evaluation ; furthermore, explained to the patient the limitation of pelvic ultrasound and endometrial biopsy in the setting. Discussed with the patient the options of treatment including expectant management versus hysterectomy; the pros and cons, risks benefits of each approach were discussed with the patient including the fact that in cases of myosarcoma, surgical treatment can lead to early diagnosis and positively affects the prognosis; after further discussion, the patient decided to proceed with expectant management. Will repeat pelvic ultrasound periodically. Instructions given to patient tocall in case any of the following occurs: pressure symptoms, abnormal uterine bleeding, pelvic pain;and to schedule a 12 months pelvic ultrasound (order placed) and a follow-up appointment . Solar dermatitis 07/26/2024 Complex ovarian cyst 07/26/2024 [...] 6 months Abnormal uterine bleeding 06/14/2024 Overview (04/02/2025): -IUD in place now with bleeding after years of amenorrhea - seen 08/14/[address] PadronGC and chlamydia taken CBC, TSH, prolactin, HCG, and pelvic ultrasound ordered. Instructed the patient to schedule an appointment for an endometrial biopsy in 2 weeks. -per note with Dr. Padron 11/20/24 EMB 03/27/25 - Superficial fragments of benign endometrium with pseudodecidual change and breakdown, consistent with exogenous progestin. - Prominent fragments of benign smooth muscle. - Endocervical epithelium within normal limits. - No atypia identified. Intractable headache 06/12/2024 Overview (06/12/2024): 48 year [...] Encounters Date Type Department Care Team Description 03/29/2025 Orders Only GENERIC EXTERNAL DATA DEPARTMENT Provider, Generic External Data Abnormal uterine bleeding (Primary Dx) 03/13/2025 Orders Only [facility] [address] [place] [address] Libia Kerr MD Insomnia, unspecified type 01/31/2025 Orders Only [facility] [address] [place], [place] [phone] Maria Eugenia Nicole MD Palpitations (Primary Dx) 01/28/2025 1:40 PM EDT Office Visit [facility] [address] [place] [address] Jem Engle MD Palpitations (Primary Dx) 01/02/2025 Telephone [facility] [address] [place] [address] Iglesia Oneal MD 01/02/2025 Orders Only [address] [address] Libia Kerr MD Acute pain of right shoulder (Primary Dx) 01/02/2025 Results Follow-Up [address] [address] Libia Kerr MD XR Shoulder 2+ Views Right from Last 3 Months Immunizations Immunization Administration Dates Next Due Influenza Injectable Quadriv alant Preservative Free IIV4 MDCK 04/28/2023,04/22/2022,04/23/2021,2019 Influenza injectable quadriv alent IIV4 with preservative 04/18/2019,04/19/2018 Influenza, seasonal, injecta ble, preservative free 04/27/2024 Moderna Covid-19 Vaccine 12+ 07/27/2021,09/01/19 21,08/04/2020 Moderna Covid-19 Vaccine 6+ Bivalent 09/10/2022 Tdap [...] Sign Reading Time Taken Comments Blood Pressure 118/72 01/28/2025 1:23 PM EDT Pulse 67 01/28/2025 1:23 PM EDT Temperature 36.6 C (97.8 F) 01/28/2025 1:23 PM EDT Respiratory Rate 17 01/28/2025 1:23 PM EDT Oxygen Saturation 98% 01/28/2025 1:23 PM EDT Inhaled Oxygen Concentration - - Weight 69.7 kg (153 lb 9.6 oz) 01/28/2025 1:23 P M EDT Height 162.6 cm (5' 4 ) 01/28/2025 1:23 PM EDT Body Mass Index 26.37 01/28/2025 1:23 PM EDT Plan of Treatment Health Maintenance Due Date Last Done Comments FIT 1975 FOBT 1975 Lipid Panel 1975 Sigmoidoscopy 1975 Disability Screening 1974 Family Planning (PISQ) 1989 Hepatitis B Vaccines (1 of 3 - 19+ 3-dose series) 1993 Pap Smear 11/07/2023 11/06/2020 COVID-19 Vaccine ( season) 2024 09/10/2022, 07/27/2021, 09/01/2020, Additional history exists Pneumococcal Vaccine: 50+ Years (1 of 1 - PCV) 2024 Zoster Vaccines (1 of 2) 2024 Influenza Vaccine (#1) 2025 , 04/28/2023, 04/22/2022, Additional history exists Alcohol/Substance Use Screening 06/12/2025 06/12/2024 Depression Screening 06/12/2025 06/12/2024, 06/12/20 24 SDOH Screening 06/12/2025 06/12/2024 Cervical Cancer Screening 11/06/2025 HPV/Cotest 11/06/2025 11/06/2020, 04/0 08/2020, 11/06/2020 Tobacco Screening 01/28/2026 01/28/2025 Mammogram 05/11/2026 05/11/2024, 09/16/2017 FIT DNA/Cologuard 11/23/2026 11/24/2023 CT Colonography 10/19/2029 10/19/2024 DTaP/Tdap/Td Vaccines (3 - Td or Tdap) 07/29/2032 07/29/2022, 07/06/2012 Colonoscopy 10/19/2034 10/19/2024 Colorectal Cancer Screening 10/19/2034 RSV Patients and Patients Aged 60 years or older (1 - 1-dose 75+ series) 2049 HIV Screening Completed 11/06/2020, 11/06/2020 Hepatitis C Screening Completed 06/21/2021 HIB Vaccines Aged Out No longer eligi [...] patient's age to complete this topic Meningococcal B Vaccine Aged Out No l onger eligible based on patient's age to complete [...] EOSIN STAIN Routine 03/29/2025 10:58 AM EDT TSH W/REFLEX TO FT4 Routine 01/29/2025 8 :33 AM EDT Palpitations ECG 12-LEAD Routine 01/28/2025 1:44 PM EDT Palpitations XR SHOULDER 2+ VIEWS RIGHT Routine 01/02/2025 9:05 AM EDT Acute pain of right shoulder CT COLONOGRAPHY SCREENING Routine 10/19/2024 4:24 PM EDT HM COLONOSCOPY Routine 10/19/2024 BI MAMMOGRAM [...] Recently Relevant to Health Maintenance Results * Hematoxylin and Eosin Stain (03/29/2025 10:58 AM EDT) 03/29/2025 10:5 8 AM EDT 04/01/2025 6:00 AM EDT [facility] - 04/02/2025 2:30 PM EDT ----- ------- Name: Melany Soriano Age/Sex: 49/F : 1975 Unit#: [id number] Attend Dr: Gary Padron MD Re03/29/25 Status: DEP REF Location: [facility] Disch: ----- ------- SPEC : [id number] RECD: 04/01/25 STATUS: MEME BRITO NUM: [id number] MARYANN: 03/29/25-8 [facility] [address]: Gary Padron MD ENTERED: 04/01/25 [...] developed and their performance characteristics determined by [facility]. They have not been cleared or [...] Melany Soriano Age/Sex: 49/F : 1975 Unit#: [id number] Attend Dr: Gary Padron MD Re03/29/25 Status: DEP REF Location: [facility] Disch: ----- ------- SPEC : [id number] RECD: 04/01/25-599 STATUS: MEME BRITO NUM: [id number] MARYANN: 03/29/25-1058 [facility] DR: Gary Padron MD ENTERED: 04/01/25 SP TYPE: Surgical OTHR DR: Libia Kerr MD ORDERED: HE Stain/2, Gross Micro L4 Copies To: Libia Kerr MD [facility] [address] [place] [address] [facility] [address] [place] [address] ----- ------- Signed (signature on file) Ramos Jacobs MD 04/02/25 3611 ----- ------- END OF REPORT us Generic External Data Provider LAB BLOOD ORDERAB LES Final Result [facility] [address] [place] [address] [phone] * TSH W/Reflex to FT4 (01/29/2025 8:33 AM EDT) TSH reflex Free T4 1.88 0.32 - 4.0 uIU/mL [facility] Blood Venous blood specimen / Unknown 01/29/2025 8:33 AM EDT 01/29/2025 11:19 AM EDT Jem Engle MD LAB BLOOD ORDERABLES Final Resul t [facility] [address] [place] [address] [phone] * ECG 12 lead (01/28/2025 1:44 PM EDT) Narrative Name, MD Jem - 01/28/2025 1:44 PM EDT Normal sinus rhythm, heart rate of 68, premature supraventricular complexes, no ST elevation or depression Jem Engle MD ECG ORDERABLES Final Result * XR Shoulder 2+ Views Right (01/02/2025 9:05 AM EDT) Anatomical Region Laterality Modality Upper Extremities, Shoulder Right Radi ographic Imaging 01/02/2025 9:05 AM EDT Narrative 01/02/2025 9:22 AM EDT [address] [address] XRay Report Signed Patient: Melany Soriano MR#: [id number] : 1975 Acct:[id number] Age/Sex: 49 / F ADM Date: 01/02/25 Loc: HO.HHCX Attending Dr: Iglesia Oneal MD Ordering Physician: Iglesia Oneal MD Date of Service: 01/02/25 Procedure(s): XR shoulder RT min 2V Accession Number(s): [id number] cc: Libia Kerr MD; Iglesia Oneal MD EXAMINATION: XR SHOULDER, RIGHT CLINICAL INFORMATION: Right shoulder injury 3 days ago. Anterior shoulder pain. COMPARISON: May 28, 2013 is not available on PACS system. TECHNIQUE: AP external rotation, Grashey, scapular Y, and axillary views of the right shoulder. FINDINGS: No acute cortical disruption or malalignment. Focal sclerosis in the greater tuberosity of the right humerus. No lytic or blastic lesions. XR/XR shoulder RT min 2V IMPRESSION: No acute fracture or dislocation. Mild degenerative changes greater tuberosity right humerus. Electronically signed by: Joey Laguna MD 01/02/2025 09:19 AM EDT Dictated By: Joey Harrington MD Signed By: <Electronically signed by Joey Gómez MD in OV> 01/02/25918 DD/ 4 TD/TT: 01/02/25909 Brand Ambassador Promotional Model: Procedure Note Donotuseinterpreter, Image - 01/02/[address] [address] XRay Report Signed Patient: Nash Soriano#: [id number] : 1975Acct:[id number] Age/Sex: 49 / FADM Date: 01/02/25 Loc: .HHCX Attending Dr: Iglesia Oneal MD Ordering Physician: Iglesia Oneal MD Date of Service: 01/02/25 Procedure(s): XR shoulder RT min 2V Accession Number(s): [id number] cc: Libia Kerr MD; Iglesia Oneal MD EXAMINATION: XR SHOULDER, RIGHT CLINICAL INFORMATION: Right shoulder injury 3 days ago. Anterior shoulder pain. COMPARISON: May 28, 2013 is not available on PACS system. TECHNIQUE: AP external rotation, Grashey, scapular Y, and axillary views of the right shoulder. FINDINGS: No acute cortical disruption or malalignment. Focal sclerosis in the greater tuberosity of the right humerus. No lytic or blastic lesions. XR/XR shoulder RT min 2V IMPRESSION: No acute fracture or dislocation. Mild degenerative changes greater tuberosity right humerus. Electronically signed by: Joey Laguna MD 01/02/2025 09:19 AM EDT RP Dictated By: Joey Harrington MD Signed By: <Electronically signed by Joey Gómez MDin OV> 01/02/25918 DD/ 4 TD/TT: 01/02/25909 Brand Ambassador Promotional Model: Iglesia Oneal MD IMG XR PROCEDURES Final Result * CT colonography screening (10/19/2024 4:24 PM EDT) Anatomical Region Laterality Modality Colon Computed Tomogra phy 10/19/2024 4:24 PM EDT Narrative 10/22/2024 9:04 AM EDT [address] [address] [address] Scan Report Signed Patient: Melany Soriano MR#: [id number] : 1975 Acct:[id number] Age/Sex: 48 / F ADM Date: 10/19/24 Loc: HO.SSS Attending Dr: Mihaela Rivera MD Ordering Physician: Mihaela Rivera MD Date of Service: 10/19/24 Procedure(s): CT colonography Accession Number(s): [id number] cc: Libia Kerr MD; Mihaela Rivera MD Report Number: [id number]: Total DLP = 361.00 mGy-cm EXAMINATION: CT [...] Mcdonnell MD in OV> 10/22/24 0901 DD/ 1624 TD/TT: 10/19/24 1624 Brand Ambassador Promotional Model: ALVARADO Procedure Note Donotuseinterpreter, Image - 10/22/[address] [place] [address] [address] Scan Report Signed Patient: Nash Soriano#: [id number] : 1975Acct:[id number] Age/Sex: 48 / FADM Date: 10/19/24 Loc: HO.SSS Attending Dr: Mihaela Rivera MD Ordering Physician: Mihaela Rivera MD Date of Service: 10/19/24 Procedure(s): CT colonography Accession Number(s): [id number] cc: Libia Kerr MD; Mihaela Rivera MD Report Number: [id number]: Total DLP = 361.00 mGy-cm EXAMINATION: CT [...] OV> 10/22/24 0901 DD/ 162 TD/TT: 10/19/24 1624 Brand Ambassador Promotional Model: MSM [facility] External Provider IMG CT PROCEDURES Final Result * Hm Colonoscopy (10/19/2024) Colonoscopy Normal Normal Historical Provider HEALTH MAINTENANCE Final Result * BI Mammogram Screening Tomosynthesis Bilateral (05/11/2024 3:22 PM EDT) Anatomical Region Laterality Modality Breast Bilateral Mammography 05/11/2024 3:22 PM EDT Narrative 05/23/2024 1:56 PM EDT [address] [place] [address] Mammography Report Signed Patient: Melany Soriano MR#: [id number] : 1975 Acct:[id number] Age/Sex: 48 / F ADM Date: 05/11/24 Loc: HO.MAMMO Attending Dr: Gary Padron MD Ordering Physician: Gary Padron MD Results: 2Benign Findings Date of Service: 05/11/24 Follow Up: 1 Year From [facility] ina Mammogram Procedure(s): MM tomosynthesis screening BI Accession Number(s): [id number] cc: Libia Kerr MD; Gary Padron MD [...] changes are stable dating back to 2016. There are no significant masses, abnormal calcifications, [...] Arpita Best DO 05/23/2024 01:52 PM EDT Dictated By: Arpita Best DO Signed By: <Electronically signed by Arpita Best DO in OV> 05/23/24 1352 DD/ 1522 TD/TT: 05/11/24 1545 Brand Ambassador Promotional Model: Procedure Note Donotuseinterpreter, Image - 05/23/2024 [facility] [address] [place], [place] [address] Mammography Report Signed Patient: Nash Soriano#: [id number] : 1975Acct:[id number] Age/Sex: 48 / FADM Date: 05/11/24 Loc: HO.MAMMO Attending Dr: Gary Padron MD Ordering Physician: Gary Padron MDResults: 2Benign Findings Date of Service: 05/11/24Follow Up: 1 Year From Orig ina Mammogram Procedure(s): MM tomosynthesis screening BI Accession Number(s): [id number] cc: Libia Kerr MD; Gary Padron MD [...] changes are stable dating back to 2016. There are no significant masses, abnormal calcifications, [...] 05/23/24 1352 DD/ 1522 TD/TT: 05/11/24 1545 Brand Ambassador Promotional Model: [facility] External Provider IMG BI PROCEDURES Final Result * Hepatitis C Antibody with Reflex to HCV, RNA, Quantitative, Real-Time PCR (06/21/2021) Blood Venous blood specimen / Unknown 06/21/2021 Result [facility] Libia Kerr MD LAB BLOOD ORDERABLES Final Result * HPV High Risk PCR (11/06/2020 12:00 AM EDT) Swab Cervical swab / Unknown Result [facility] Gary Padron MD LAB MICROBIOLOGY - GENERAL ORDER GREGORIO Final Result Performing Organization Address [facility]/ZIP Co de Phone Number [facility] [address] [place] [phone] * HIV-1/2 Antigen and Antibodies, Fourth Generation, with Reflexes (11/06/2020) Blood Venous blood specimen / Unknown 11/06/2020 Result [facility] Libia Kerr MD LAB BLOOD ORDERABLES Final Result * Pap Smear (11/06/2020 12:00 AM EDT) Swab Gary Padron MD LAB CYTOLOGY ORDERABLES Final Re sult Performing Organization Address City/[facility]/ZIP Co de Phone Number [facility] [address] [place] [phone] from Last 3 Months or Most Recently Relevant to Health Maintenance Insurance [facility] Care Teams Bit Tapper Relationship Specialty Start Date End Date [place], [place] Libia [address] [place] [phone] PCP - General Family Medicine 03/27/18 Mihaela Rivera MD [address] [place] [address] Drive 3rd [place] [address] Gastroenterology 10/22/24 Jaylon Jameson [address] [place], [place] [address] Orthopaedic Surgery 01/10/25 Gary Padron MD [address] [place] [address] [address] [place] [address] Obstetrics and Gynecology 03/14/25
--- OUTSIDE RECORDS SUMMARY | 2025-04-04 16:01 | XMS_ITS | Encounter Summary ---
Author Organization [employer] Address [address] [facility] 7t [place] [address] Care Team Providers Care School Adjustment Counselor Name Role Phone Libia Krer MD Primary Care Provider [phone] Mihaela Rivera MD Unavailable [phone] Jaylon Jameson Unavailable Gary Padron MD Unavailable Encounter Details Date Type Department Care Team (Late st Contact Info) Description 10/06/2022 Orders Only [facility] [address] [place], [place] [phone] Libia Kerr MD [address] [place], [place] [phone] Acute midline low back pain without sciatica [...] Primary documented in this encounter Care Teams School Adjustment Counselor Relationship Specialty Start Date End Date Libia Kerr MD [address] [place] [address] PCP - General Family Medicine 03/27/18 Mihaela Rivera MD [address] [place] [address] 3rd [place] [address] Gastroenterology 10/22/24 Jaylon Jameson [address] [place] [address] Orthopaedic Surgery 01/10/25 Gary Padron MD [address] [place] [address] [address] [place] [address] Obstetrics and Gynecology 03/14/25 documented as of this encounter
--- OUTSIDE RECORDS SUMMARY | 2025-04-04 16:01 | XMS_ITS | Encounter Summary ---
Author Organization [employer] Address [address] [facility] 7t [place] [address] Care Team Providers Care Audit Officer Name Role Phone Libia Kerr MD Primary Care Provider [phone] Mihaela Rivera MD Unavailable [phone] Jaylon Jameson Unavailable Gary Padron MD Unavailable Encounter Details Date Type Department Care Team (Late st Contact Info) Description 10/26/[address] [facility] [address] [place] [address] Libia Kerr MD [address] [place], [place] [phone] Social History Tobacco Use Types Packs/Day Years [...] on filedocumented in this encounter Care Teams Audit Officer Relationship Specialty Start Date End Date Libia Kerr MD [address] [place] [address] PCP - General Family Medicine 03/27/18 Mihaela Rivera MD [address] [place] [address] 3rd [place] [address] Gastroenterology 10/22/24 Jaylon Jameson [address] [place], [place] Orthopaedic Surgery 01/10/25 Gary Padron MD [address] [place] [address] [address] [place] [address] Obstetrics and Gynecology 03/14/25 documented as of this encounter
--- OUTSIDE RECORDS SUMMARY | 2025-04-04 16:01 | XMS_ITS | Encounter Summary ---
Author Organization [employer] Address [address] [place] [address] Care Team Providers Care Multi Needle Machine Operator Name Role Phone Libia Kerr MD Primary Care Provider [phone] Mihaela Rivera MD Unavailable [phone] Jaylon Jameson Unavailable Gary Padron MD Unavailable Encounter Details Date Type Department Care Team (Late st Contact Info) Description 02/01/2024 Orders Only [facility] [address] [place] [address] Libia Kerr MD [address] [place], [place] [phone] Social History Tobacco Use Types Packs/Day Years [...] on filedocumented in this encounter Care Teams Multi Needle Machine Operator Relationship Specialty Start Date End Date Libia Kerr MD [address] [place] [address] PCP - General Family Medicine 03/27/18 Mihaela Rivera MD [address] [place] [address] 3rd [place] [address] Gastroenterology 10/22/24 Jaylon Jameson [address] [place], [place] Orthopaedic Surgery 01/10/25 Gary Padron MD [address] [place] [address] [address] [place] [address] Obstetrics and Gynecology 03/14/25 documented as of this encounter
== END 2025-04-04 16:02 | disposition home or self-care (01) ==
LOC: HO.HWS 15:35
PROVIDERS: PCP Family Medicine; Visit Provider Obstetrics & Gynecology
DX: N93.9 Abnormal uterine and vaginal bleeding, unspecified (principal)
CPT/HCPCS: 99213